=== PATIENT | female | born 1935 | race Caucasian/White ===

== ENCOUNTER 2018-12-10 19:01 | Inpatient (IN) | payer MEDICARE, OTHER ==
--- NOTE | 2018-12-10 19:34 | PDOC ---
Rapid Medical Evaluation Chief Complaint: Weakness Medical Evaluation: Allergies Allergy/AdvReac Type Severity Reaction Status Date / Time No Known Allergies Allergy Verified 03/13/15 16:22 12/10/18 19:29 I have performed a brief in-person evaluation of this patient. The patient presents with a chief complaint of:weakness over last 2 weeks Pertinent physical exam findings: pale/ lethargic I have ordered the following: to be taken into ER for workup;/ The patient will proceed to the ED for further evaluation. 12/10/18 19:30 12/10/18 19:31 Discharge Disposition - Diagnosis Weakness - Referrals Referrals: Lewis Lim MD [Primary Care Provider] - - Patient Instructions - Post Discharge Activity
--- NOTE | 2018-12-10 20:01 | PDOC ---
History of Present Illness <Amina Hathaway - Last Filed: 12/11/18 01:01> - General History Source: Patient, Family Exam Limitations: Language Barrier (Barbadian speaking. Family provided translation. ) - History of Present Illness Initial Comments: HPI: 82 y/o female presenting to [facility] ER complaining of weakness, decreased energy, increased sleepiness, difficulty walking, and decreased PO for the past three days. Pt is Barbadian speaking only. Multiple members of family present at bedside and able to provide translation. Report the pts symptoms have been gradually worsening over the past three days. Endorse dark and loose stool. Denies fevers, chills, nausea/vomiting, SOB, chest pain, or urinary symptoms. Lives in [place], but has been visiting for the past month. Evaluated by Dr. Lim last week and prescribed water pill for leg swelling. Pt takes ASA and Amlodipine for unknown heart problems. Family endorses disorientation and forgetfulness over the past year. PCP: Dr. Lim Medical Hx: - Unknown heart problem - HTN - HLD - Osteoporosis <Fredy Villalba - Last Filed: 12/12/18 12:57> - General Chief Complaint: Weakness Stated Complaint: Weakness Time Seen by Provider: 12/10/18 19:41 Past History <Amina Hathaway - Last Filed: 12/11/18 01:01> - Past Medical History Cardiac Disorders: Yes HTN: Yes Hypercholesterolemia: Yes - Surgical History Cardiac Surgery: Yes - Suicide/Smoking/Psychosocial Hx Smoking History: Never smoked Have you smoked in the past 12 months: No Hx Alcohol Use: No Drug/Substance Use Hx: No Substance Use Type: None <Fredy Villalba - Last Filed: 12/12/18 12:57> - Past Medical History Allergies/Adverse Reactions: Allergies Allergy/AdvReac Type Severity Reaction Status Date / Time No Known Allergies Allergy Verified 03/13/15 16:22 Home Medications: Ambulatory Orders Amlodipine Besylate [Norvasc -] 5 mg PO DAILY 03/13/15 Aspirin [Ecotrin] 81 mg PO DAILY 03/13/15 Atorvastatin Ca [Lipitor] 20 mg PO HS 03/13/15 Diclofenac Sodium 100 mg PO DAILY 03/13/15 Isosorbide Dinitrate [Isordil -] 10 mg PO TID 03/13/15 Losartan Potassium 50 mg PO BID 03/13/15 Metoprolol Succinate [Toprol XL -] 100 mg PO DAILY 03/13/15 Review of Systems - Review of Systems Able to Perform ROS?: Yes Comments:: In addition to that documented in the HPI above, the additional ROS was obtained : Constitutional: Denies fevers or chills Eyes: Denies vision changes ENMT: Denies sore throat CV: Denies chest pain Resp: Denies SOB GI: Denies vomiting or diarrhea. Endorses dark loose stools without bright red blood. : Denies painful urination MSK: Denies recent trauma Skin: Denies new rashes Neuro: Denies new numbness or tingling or weakness Endocrine: Denies polyuria Heme: Denies bleeding or bruising <Fredy Villalba - Last Filed: 12/12/18 12:57> *Physical Exam - Vital Signs Last Vital Signs Temp Pulse Resp BP Pulse Ox 97.8 F 50 L 20 103/45 L 95 12/11/18 00:16 12/11/18 00:16 12/11/18 00:16 12/11/18 00:16 12/11/18 00:16 <Amina Hathaway - Last Filed: 12/11/18 01:01> - Vital Signs Last Vital Signs Temp Pulse Resp BP Pulse Ox 98.1 F 62 20 94/34 L 89 L 12/10/18 19:26 12/10/18 19:26 12/10/18 19:26 12/10/18 19:26 12/10/18 19:26 - Physical Exam Comments: Constitutional: Nontoxic elderly female in no acute distress or obvious discomfort. Found semi-fowlers in hospital bed. Alert and oriented to person. Head: Normocephalic. No obvious external signs of trauma. Eyes: Sclerae white. Conjunctiva moist and not injected. EARS: Hearing grossly intact. NOSE: No nasal discharge. Neck: Supple, trachea is midline. Cardiovascular: Regular rate and regular rhythm. No murmur, rubs, clicks, or gallops. Peripheral pulses: Radial pulses full. Respiratory: Breathing unlabored. Equal chest rise and fall. Clear to auscultation bilaterally. No stridor, no wheezing, no rhonchi. Gastrointestinal: abdomen is tender in RLQ and LLQ without grimace, rebound, or guarding. No pulsatile masses. No overlying skin lesions or obvious signs of trauma. Neuro: Alert and oriented x1. Moving all four extremities spontaneously. Skin: Warm, dry, and intact. No obvious signs of trauma. Psych: Affect: appropriate. Mood: normal. MALE RECTAL: Good sphincter tone with singular external hemorrhoid at 12 o clock position. No active bleeding. Dark stool without domenica blood. Hemoccult card negative. ED Attending and Clinical Care Manager chaperoned exam. <Fredy Villalba - Last Filed: 12/12/18 12:57> Moderate Sedation - Procedure Monitoring Vital Signs: Procedure Monitoring Vital Signs Temperature 97.8 F 12/11/18 00:16 Pulse Rate 50 L 12/11/18 00:16 Respiratory Rate 20 12/11/18 00:16 Blood Pressure 103/45 L 12/11/18 00:16 O2 Sat by Pulse Oximetry (%) 95 12/11/18 00:16 <Amina Hathaway - Last Filed: 12/11/18 01:01> - Procedure Monitoring Vital Signs: Procedure Monitoring Vital Signs Temperature 98.1 F 12/10/18 19:26 Pulse Rate 62 12/10/18 19:26 Respiratory Rate 20 12/10/18 19:26 Blood Pressure 94/34 L 12/10/18 19:26 O2 Sat by Pulse Oximetry (%) 89 L 12/10/18 19:26 <Fredy Villalba - Last Filed: 12/12/18 12:57> ED Treatment Course - LABORATORY CBC & Chemistry Diagram: 12/10/18 20:39 12/10/18 20:39 - ADDITIONAL ORDERS Additional order review: Laboratory Results 12/10/18 12/10/18 12/10/18 22:55 22:55 20:39 PT with INR INR PTT (Actin FS) Sodium Potassium Chloride Carbon Dioxide Anion Gap BUN Creatinine Creat Clearance w eGFR Random Glucose Lactic Acid Calcium Phosphorus Magnesium Total Bilirubin AST ALT Alkaline Phosphatase Troponin I B-Natriuretic Peptide 06427.7 H Total Protein Albumin TSH 1.25 Urine Color Yellow Urine Appearance Slcloudy Urine pH 5.0 Ur Specific [place] 1.018 Urine Protein Negative Urine Glucose (UA) Negative Urine Ketones Negative Urine Blood Negative Urine Nitrite Negative Urine Bilirubin Negative Urine Urobilinogen Negative Ur Leukocyte Esterase Negative Stool Occult Blood Salicylates Acetaminophen Blood Type Antibody Screen 12/10/18 12/10/18 12/10/18 20:39 20:39 20:39 PT with INR 11.00 INR 0.93 PTT (Actin FS) 30.2 Sodium 129 L Potassium 5.5 H Chloride 95 L Carbon Dioxide 22 Anion Gap 12 BUN 96 H Creatinine 4.3 H Creat Clearance w eGFR 9.84 Random Glucose 132 H Lactic Acid 2.5 H* Calcium 8.6 Phosphorus 6.0 H Magnesium 2.1 Total Bilirubin 0.3 AST 14 L ALT 19 Alkaline Phosphatase 83 Troponin I < 0.02 B-Natriuretic Peptide Total Protein 6.7 Albumin 3.4 TSH Urine Color Urine Appearance Urine pH Ur Specific [place] Urine Protein Urine Glucose (UA) Urine Ketones Urine Blood Urine Nitrite Urine Bilirubin Urine Urobilinogen Ur Leukocyte Esterase Stool Occult Blood Salicylates < 1.7 L Acetaminophen 5.9 L Blood Type Antibody Screen 12/10/18 12/10/18 20:39 20:25 PT with INR INR PTT (Actin FS) Sodium Potassium Chloride Carbon Dioxide Anion Gap BUN Creatinine Creat Clearance w eGFR Random Glucose Lactic Acid Calcium Phosphorus Magnesium Total Bilirubin AST ALT Alkaline Phosphatase Troponin I B-Natriuretic Peptide Total Protein Albumin TSH Urine Color Urine Appearance Urine pH Ur Specific [place] Urine Protein Urine Glucose (UA) Urine Ketones Urine Blood Urine Nitrite Urine Bilirubin Urine Urobilinogen Ur Leukocyte Esterase Stool Occult Blood Negative Salicylates Acetaminophen Blood Type O POSITIVE Antibody Screen Negative 12/10/18 20:39 RBC 3.85 MCV 91.5 MCHC 35.1 RDW 13.1 MPV 10.3 Neutrophils % 67.3 Lymphocytes % 24.9 Monocytes % 6.1 Eosinophils % 1.1 Basophils % 0.6 - Medications Given in the ED: ED Medications Discontinued Medications Generic Name Dose Route Start Last Admin Trade Name Khalif PRN Reason Stop Dose Admin Albuterol Sulfate 3 amp 12/10/18 21:54 12/10/18 22:20 Ventolin 0.083% Nebulizer Soln - NEB 12/10/18 21:55 Not Given ONCE ONE Calcium Chloride 1 gm 12/10/18 21:53 12/10/18 22:21 Calcium Chloride 10% - IVPUSH 12/10/18 21:54 1 gm ONCE ONE Administration Dextrose 12.5 gm 12/10/18 22:02 12/10/18 22:20 D50w (Vial) - IVPUSH 12/10/18 22:03 12.5 gm NOW ONE Administration Insulin Human Regular 5 units 12/10/18 22:02 12/10/18 22:20 Novolin R Vial *For Ivpush Or Iv Drip Only* IVPUSH 12/10/18 22:03 5 units ONCE ONE Administration Sodium Bicarbonate 50 meq 12/10/18 21:55 12/10/18 22:20 Sodium Bicarbonate 8.4% - IVPUSH 12/10/18 21:56 Not Given ONCE ONE Sodium Bicarbonate 25 meq 12/10/18 22:01 12/10/18 22:19 Sodium Bicarbonate 8.4% - IVPUSH 12/10/18 22:02 25 meq ONCE ONE Administration - Additional Consults Time Called: 01:01 (Call placed to service for Cardiology electronic gluing machine operator. ) Consult/PCP: Dr. Melgoza <Amina Hathaway - Last Filed: 12/11/18 01:01> - LABORATORY CBC & Chemistry Diagram: 12/11/18 09:50 12/12/18 05:30 - RADIOLOGY Radiograph Interpretation: Non-con Head CT: Josias Jasso MD wrote on Dec 11, 2018 at 12:00 AM: Referring Physician: BISHOP HAWKINS Patient Name: BRAXTON CAAL THIS IS A PRELIMINARY REPORT FROM [facility] DATE OF SERVICE: 2018-12-10 23:31:05 IMAGES: [id number] EXAM: HEAD CT WITHOUT CONTRAST HISTORY: Lethargic COMPARISON: None. FINDINGS: The ventricular system is midline and nondilated. The sulcal pattern is normal for the patient's age. Minimal small vessel ischemic changes are noted. There is no bleed, mass, extra-axial fluid collection or mass effect. No skull fracture or skull lesion is identified. The visualized paranasal sinuses and mastoid air cells are clear. IMPRESSION: No evidence of acute pathology. One or more of the following dose reduction techniques were used: automated exposure control, adjustment of the mA and/or kV according to patient size, use of iterative reconstructive technique. THIS DOCUMENT HAS BEEN ELECTRONICALLY SIGNED Niles Jasso MD 12/10/2018 23:59 EST Non-con Abdominal and Pelvis CT: Josias Jasso MD wrote on Dec 11, 2018 at 12:08 AM: Referring Physician: BISHOP HAWKINS Patient Name: BRAXTON CAAL THIS IS A PRELIMINARY REPORT FROM [facility] DATE OF SERVICE: 2018-12-10 23:39:18 IMAGES: [id number] EXAM: ABDOMEN \T\ PELVIS CT W/O CONTR HISTORY: Right lower quadrant pain and dark stools COMPARISON: None. FINDINGS: There are small bilateral pleural effusions, large on the right with mild compressive atelectasis and minimal pulmonary edema/CHF. The heart is mildly enlarged. Gallbladder is distended, contains stones and there is a small amount of pericholecystic fluid. Cholecystitis is possible. There is minimal perihepatic free fluid. No biliary duct dilation. Normal unenhanced liver, pancreas, spleen, adrenal glands and kidneys. There are multiple borderline dilated loops of small bowel measuring 2.5 cm. This does not appear to represent a bowel obstruction but early ileus is considered. There is mild thickening of the rectal wall with mild surrounding fat stranding suggesting a mild proctitis. No abscess or free air. There is no aortic aneurysm. There is no significant retroperitoneal lymphadenopathy. There is no evidence of appendicitis, although the appendix only questionably visualized. Status post hysterectomy. Urinary bladder is unremarkable. There is no pelvic free fluid. No discrete pelvic lymphadenopathy is identified. Small fat-containing right inguinal hernia is noted. IMPRESSION: Mild CHF with small bilateral pleural effusions, larger on the right Questionable cholecystitis with minimal perihepatic ascites can be followed up with ultrasound. Possible mild proctitis. Possible early ileus. One or more of the following dose reduction techniques were used: automated exposure control, adjustment of the mA and/or kV according to patient size, use of iterative reconstructive technique. THIS DOCUMENT HAS BEEN ELECTRONICALLY SIGNED Niles Jasso MD 12/11/2018 00:06 EST RUQ U/S: Josias Jasso MD wrote on Dec 11, 2018 at 01:09 AM: Referring Physician: BISHOP HAWKINS Patient Name: BRAXTON CAAL THIS IS A PRELIMINARY REPORT FROM [facility] DATE OF SERVICE: 2018-12-11 00:37:15 IMAGES: 41 EXAM: Ultrasound abdomen limited right upper quadrant limited abdominal duplex HISTORY: Possible cholecystitis COMPARISON: None. FINDINGS: Right upper quadrant ultrasound:The liver is normal, without mass or biliary duct dilation. The length of the liver liver on recent CT is 15.6 cm. The gallbladder is distended, contains stones demonstrates wall thickening to 6 mm and pericholecystic free fluid . Findings are highly suspicious for cholecystitis.. The CBD is not dilated and measures6 millimeters in diameter. Right kidney measures 8.8centimeters in length and is unremarkable. Please note that the length of the kidney on the recent CT is 9.4 cm. The visualized aorta and IVC are normal. Pancreas is partially obscured, but appears normal. Abdominal duplex: The main portal vein demonstrates normal hepatopedal flow. IMPRESSION: High suspicion for cholecystitis. THIS DOCUMENT HAS BEEN ELECTRONICALLY SIGNED Niles Jasso MD 12/11/2018 01:08 EST <Fredy Villalba - Last Filed: 12/12/18 12:57> Medical Decision Making - Medical Decision Making *Reviewed vital signs, nursing notes, and prior visit documentation (if available). 82 y/o female presenting with increased fatigue, bilateral lower extremity swelling, abdominal pain, and dark stools. PMH limited, but likely Alzheimers. Receives most of care in [place]. Tender in RLQ and LLQ. CXR remarkable for bilateral pleural effusions per ED wet read. BNP elevated. CMP revealed KATYA versus acute renal failure. No recent prior labs to compare. Concern for cardiorenal syndrome. Hyperkalemia noted. EKG revealed slow a-fib without peaked T waves. Last EKG from 2014 was a sinus rhythm without ectopy. Ordered bicarb, insulin, and D50. Head CT unremarkable for acute intracranial pathology. CT of abdomen and pelvis revealed mild bilateral pleural effusions and possible cholecystitis. Follow up u/s concerning for acute cholecystitis. Started on Unisyn. CBC unremarkable for leukocytosis. No fever or tachycardia. 00:[address] Wei. Verbally appraised of the pts HPI, ED course, and current plan of management. Agreed to admit pt to telemetry. Requested cardiology consultation. 00:55 Telephone page sent to Dr. Ambrosio, audio installer electronic gluing machine operator, for consultation for possible cardiorenal syndrome. 01:[address] Ambrosio. Verbally appraised of the pts HPI, ED course, and current plan of management. No further orders or suggestions provided. RUQ U/S highly suspicious for cholecystitis with wall thickening and pericholecystic fluid. Added on Unisyn. Repeat lactic acid continued to trend upward from initial. Ordered small NS IVFB and 80 of Lasix. Hospitalist Attending requested the lasix be held given kidney functional status. <Fredy Villalba - Last Filed: 12/12/18 12:57> *DC/Admit/Observation/Transfer <Amina Hathaway - Last Filed: 12/11/18 01:01> - Discharge Dispostion Decision to Admit order: Yes <Fredy Villalba - Last Filed: 12/12/18 12:57> Diagnosis at time of Disposition: Weakness, Hyperkalemia Afib Qualifiers: Atrial fibrillation type: persistent Qualified Code(s): I48.1 - Persistent atrial fibrillation CHF (congestive heart failure) Qualifiers: Heart failure type: unspecified Heart failure chronicity: unspecified Qualified Code(s): I50.9 - Heart failure, unspecified Renal failure Qualifiers: Renal failure chronicity: unspecified chronicity Qualified Code(s): N19 - Unspecified kidney failure - Discharge Dispostion Condition at time of disposition: Stable
--- NOTE | 2018-12-10 20:10 | PDOC ---
Attending Attestation - ED Attending Attestation I have performed the following: I have examined & evaluated the patient, The case was reviewed & discussed with the resident, I agree w/resident's findings & plan, Exceptions are as noted - HPI HPI: 12/10/18 20:30 The patient is a 82 year old female with a significant PMH of ACS, HTN, and hypercholesterolemia who presents to the emergency department with dark stool today and generalized weakness for the past 2 weeks. As per the family at bedside, the patient has also been more confused than her baseline. Patient recently came [place] the [place]. Denies any recent surgeries. The patient denies chest pain, shortness of breath, headache and dizziness. Denies fever, chills, nausea, vomit, diarrhea and constipation. Denies dysuria, frequency, urgency and hematuria. Allergies: NKA Past surgical history: None reported. Social history: No reported alcohol, drug or cigarette use. PCP: Dr. Lim - Physicial Exam PE: 12/10/18 20:28 ADULT EXAM GENERAL: Awake, in no acute distress HEAD: No signs of trauma NECK: Normal ROM, supple, no lymphadenopathy, JVD, or masses LUNGS: Breath sounds equal, clear to auscultation bilaterally. No wheezes, and no crackles. Normal work of breathing. HEART: Regular rate and rhythm, normal S1 and S2, no murmurs, rubs or gallops ABDOMEN: Soft, (+) Mild generalized abdominal tenderness. (+) Distended. No guarding, no rebound. No masses. BACK: No midline tenderness. RECTAL EXAM: (+) Stool was scant and black. EXTREMITIES: Normal range of motion, no edema. No clubbing or cyanosis. No erythema, or tenderness NEUROLOGICAL: Alert SKIN: Warm, Dry, normal turgor, no rashes or lesions noted. <Tabatha Moreland - Last Filed: 12/10/18 20:56> - Resident Resident Name: Fredy Villalba - Critical Care Time Total Critical Care Time: 45 Critical Care Statement: The care of this patient involved high complexity decision making to prevent further life threatening deterioration of the patient 's condition and/or to evaluate & treat vital organ system(s) failure or risk of failure. - Medical Decision Making 12/11/18 01:39 82-year-old female recently arrived from [place] with leg swelling and weakness. EKG showed atrial fibrillation with a ventricular rate of 56 bpm with no acute ST elevations. This is changed when compared to previous, which showed a normal sinus rhythm Labs suggest acute kidney injury as well as congestive heart failure. CT scan of the abdomen and pelvis suggested possible cholecystitis which could not be ruled out on right upper quadrant ultrasound Due to patient's acute cardiac/renal diagnoses she will be admitted to medical service with ultrasound follow-up and surgical consultation as needed. Unasyn 3 g IV piggyback given. 500 mL of normal saline IV fluid bolus given as well as Lasix 80 mg IV push. Potassium and sodium levels are improved on repeat labs Impression congestive heart failure. Acute kidney injury. Plan is for admission to hospitalist service 12/11/18 01:48 <Shawanda Jacobsen - Last Filed: 12/11/18 01:48>
[2018-12-10] MEDS ORDERED: DEXTROSE 5%-LACTATED RINGERS 1,000 ML IV SCH (20:15)
[2018-12-10 21:15] LABS: BASO % 0.6 % (0-2.0); EOS % 1.1 % (0-4.5); HEMATOCRIT 35.2 % (32.4-45.2); HEMOGLOBIN 12.4 GM/dL (10.7-15.3); INR 0.93 (0.83-1.09); LYMPH % 24.9 % (8-40); MCH 32.2 pg (25.7-33.7); MCHC 35.1 g/dl (32.0-36.0); MEAN CELL VOLUME 91.5 fl (80-96); MEAN PLT VOLUME 10.3 fl (7.5-11.1); MONO % 6.1 % (3.8-10.2); NEUT % 67.3 % (42.8-82.8); PLATELET COUNT 222 K/MM3 (134-434); RBC 3.85 M/mm3 (3.60-5.2); RDW 13.1 % (11.6-15.6); WHITE BLOOD COUNT 7.8 K/mm3 (4.0-10.0)
[2018-12-10 21:18] LABS: ACTIVATED PTT 30.2 SECONDS (25.2-36.5)
[2018-12-10 21:26] LABS: ALBUMIN 3.4 g/dl (3.4-5.0); ALK PHOS 83 U/L (45-117); ANION GAP 12 MMOL/L (8-16); BILIRUBIN,TOTAL 0.3 mg/dL (0.2-1); BLOOD UREA NITROGEN 96 mg/dL (7-18); CALCIUM 8.6 mg/dL (8.5-10.1); CHLORIDE 95 mmol/L (98-107); CO2 22 mmol/L (21-32); CREATININE 4.3 mg/dL (0.55-1.3); GLUCOSE,RANDOM 132 mg/dL (74-106); MAGNESIUM 2.1 mg/dL (1.8-2.4); POTASSIUM 5.5 mmol/L (3.5-5.1); SGOT/AST 14 U/L (15-37); SGPT/ALT 19 U/L (13-61); SODIUM 129 mmol/L (136-145); TOT PROT 6.7 g/dl (6.4-8.2)
[2018-12-10] MEDS ORDERED: CALCIUM CHLORIDE 1 GM/10 ML *DISP.SYRIN IVPUSH ONE (21:53)
[2018-12-10] MEDS ORDERED: ALBUTEROL SO4 0.083% IH SOL 2.5 MG/3 ML VIAL.NEB. NEB ONE (21:54)
[2018-12-10] MEDS ORDERED: SODIUM BICARBONATE 8.4% 50 MEQ/50 ML DISP.SYRIN IVPUSH ONE ×2 (21:55→22:01)
[2018-12-10] MEDS ORDERED: DEXTROSE 50%-WATER - 25 GM/50 ML VIAL IVPUSH ONE (22:02)
[2018-12-10] MEDS ORDERED: INSULIN REGULAR HUMAN 100 UNITS/ML *VIAL IVPUSH ONE (22:02)
[2018-12-10] MEDS ORDERED: SODIUM BICARBONATE 8.4% - 50 ML ONE (22:05)
[2018-12-10] MEDS ORDERED: DEXTROSE 50%-WATER 25 GM/50 ML DISP.SYRIN ONE (22:05)
[2018-12-10] MEDS ORDERED: INSULIN REGULAR HUMAN 100 UNITS/ML *VIAL ONE (22:06)
[2018-12-10 23:23] LABS: URINE APPEARANCE SLCLOUDY; URINE BILIRUBIN NEGATIVE (<2.0 mg/dL); URINE COLOR YELLOW; URINE GLUCOSE (UA) NEGATIVE (NEGATIVE); URINE KETONE NEGATIVE (NEGATIVE); URINE LEUK ESTERASE NEGATIVE (NEGATIVE); URINE NITRITE NEGATIVE (NEGATIVE); URINE PROTEIN NEGATIVE (NEGATIVE); URINE UROBILINOGEN NEGATIVE mg/dL (0.2-1.0)
[2018-12-11 01:09] LABS: ANION GAP 13 MMOL/L (8-16); BLOOD UREA NITROGEN 94 mg/dL (7-18); CALCIUM 8.6 mg/dL (8.5-10.1); CHLORIDE 98 mmol/L (98-107); CO2 21 mmol/L (21-32); GLUCOSE,RANDOM 70 mg/dL (74-106); POTASSIUM 4.6 mmol/L (3.5-5.1); SODIUM 132 mmol/L (136-145)
[2018-12-11] MEDS ORDERED: AMPICILLIN NA/SULBACTAM NA 3 GM in SODIUM CHLORIDE 100 ML IVPB ONE (01:21)
[2018-12-11] MEDS ORDERED: SODIUM CHLORIDE 0.9% 500 ML INFUS.BAG IV ONE (01:30)
[2018-12-11] MEDS ORDERED: FUROSEMIDE 40 MG/4 ML INJECTABLE VIAL IVPUSH ONE (01:31)
--- NOTE | 2018-12-11 02:18 | HP ---
CHIEF COMPLAINT: generalized weakness PCP: Carina HISTORY OF PRESENT ILLNESS: 82yo [place]ese woman, demented brought in with daughter for generalized weakness and difficulty walking for the past several days to weeks. History is somewhat vague and patient herself does not endorse any complaints. She returned from [place] 4 weeks ago after living there 5 years. ER course was notable for: (1) ekg (2) head ct (3) abd/pelvis ct Recent Travel: returned from [place] 5 weeks ago, lived there 5 years PAST MEDICAL HISTORY: htn, dyslipidemia, CAD, dementia PAST SURGICAL HISTORY: none Social History: Smoking: no Alcohol: no Drugs: no Family History: noncontributory Allergies No Known Allergies Allergy (Verified 03/13/15 16:22) HOME MEDICATIONS: Home Medications Medication Instructions Recorded Amlodipine Besylate [Norvasc -] 5 mg PO DAILY 03/13/15 Aspirin [Ecotrin] 81 mg PO DAILY 03/13/15 Atorvastatin Ca [Lipitor] 20 mg PO HS 03/13/15 Diclofenac Sodium 100 mg PO DAILY 03/13/15 Isosorbide Dinitrate [Isordil -] 10 mg PO TID 03/13/15 Losartan Potassium 50 mg PO BID 03/13/15 Metoprolol Succinate [Toprol XL -] 100 mg PO DAILY 03/13/15 REVIEW OF SYSTEMS CONSTITUTIONAL: Absent: fever, chills, diaphoresis, weight change present- generalized weakness, malaise, loss of appetite, HEENT: Absent: rhinorrhea, nasal congestion, throat pain, throat swelling, difficulty swallowing, mouth swelling, ear pain, eye pain, visual changes CARDIOVASCULAR: Absent: chest pain, syncope, palpitations, lightheadedness, present- irregular heart rate, peripheral edema RESPIRATORY: Absent: cough, orthopnea, wheezing, stridor, hemoptysis present- shortness of breath, dyspnea with exertion, GASTROINTESTINAL: Absent: abdominal pain, abdominal distension, nausea, vomiting, diarrhea, constipation, melena, hematochezia GENITOURINARY: Absent: dysuria, frequency, urgency, hesitancy, hematuria, flank pain, genital pain MUSCULOSKELETAL: Absent: myalgia, arthralgia, joint swelling, back pain, neck pain SKIN: Absent: rash, itching, pallor HEMATOLOGIC/IMMUNOLOGIC: Absent: easy bleeding, easy bruising, lymphadenopathy, frequent infections ENDOCRINE: Absent: unexplained weight gain, unexplained weight loss, heat intolerance, cold intolerance NEUROLOGIC: Absent: headache, focal weakness or paresthesias, dizziness, unsteady gait, seizure, mental status changes, bladder or bowel incontinence PSYCHIATRIC: Absent: anxiety, depression, suicidal or homicidal ideation, hallucinations. PHYSICAL EXAMINATION Vital Signs - 24 hr 12/10/18 12/11/18 19:26 00:16 Temperature 98.1 F 97.8 F Pulse Rate 62 Pulse Rate [ 50 L Left] Respiratory 20 20 Rate Blood Pressure 94/34 L Blood Pressure 103/45 L [Right Arm] O2 Sat by Pulse 89 L 95 Oximetry (%) GENERAL: Awake, alert, and fully oriented, frail, nontoxic appearing HEAD: Normal with no signs of trauma. EYES: Pupils equal, round and reactive to light, extraocular movements intact, sclera anicteric, conjunctiva clear. No lid lag. EARS, NOSE, THROAT: Ears normal, nares patent, oropharynx clear without exudates. Moist mucous membranes. NECK: Normal range of motion, supple without lymphadenopathy, JVD, or masses. LUNGS: Brb/l air entry sounds HEART: irregularly irregular HR, bradycardia ABDOMEN: Soft, nontender, fluid wave+ MUSCULOSKELETAL: Normal range of motion at all joints. No bony deformities or tenderness. No CVA tenderness. UPPER EXTREMITIES: 2+ pulses, warm, well-perfused. No cyanosis. No clubbing. No peripheral edema. LOWER EXTREMITIES: 2+ pedal edema up to knees b/l NEUROLOGICAL: no focal deficits PSYCHIATRIC: dementia SKIN: Warm, dry, normal turgor, no rashes or lesions noted, normal capillary refill. Laboratory Results - last 24 hr 12/10/18 12/10/18 12/10/18 20:25 20:39 20:39 WBC 7.8 RBC 3.85 Hgb 12.4 Hct 35.2 MCV 91.5 MCH 32.2 MCHC 35.1 RDW 13.1 Plt Count 222 D MPV 10.3 Absolute Neuts (auto) 5.2 Neutrophils % 67.3 Lymphocytes % 24.9 Monocytes % 6.1 Eosinophils % 1.1 Basophils % 0.6 Nucleated RBC % 0 PT with INR INR PTT (Actin FS) Sodium Potassium Chloride Carbon Dioxide Anion Gap BUN Creatinine Creat Clearance w eGFR Random Glucose Lactic Acid Calcium Phosphorus Magnesium Total Bilirubin AST ALT Alkaline Phosphatase Troponin I B-Natriuretic Peptide Total Protein Albumin TSH Urine Color Urine Appearance Urine pH Ur Specific [place] Urine Protein Urine Glucose (UA) Urine Ketones Urine Blood Urine Nitrite Urine Bilirubin Urine Urobilinogen Ur Leukocyte Esterase Stool Occult Blood Negative Salicylates Acetaminophen Blood Type O POSITIVE Antibody Screen Negative 12/10/18 12/10/18 12/10/18 20:39 20:39 20:39 WBC RBC Hgb Hct MCV MCH MCHC RDW Plt Count MPV Absolute Neuts (auto) Neutrophils % Lymphocytes % Monocytes % Eosinophils % Basophils % Nucleated RBC % PT with INR 11.00 INR 0.93 PTT (Actin FS) 30.2 Sodium 129 L Potassium 5.5 H Chloride 95 L Carbon Dioxide 22 Anion Gap 12 BUN 96 H Creatinine 4.3 H Creat Clearance w eGFR 9.84 Random Glucose 132 H Lactic Acid 2.5 H* Calcium 8.6 Phosphorus 6.0 H Magnesium 2.1 Total Bilirubin 0.3 AST 14 L ALT 19 Alkaline Phosphatase 83 Troponin I < 0.02 B-Natriuretic Peptide Total Protein 6.7 Albumin 3.4 TSH Urine Color Urine Appearance Urine pH Ur Specific [place] Urine Protein Urine Glucose (UA) Urine Ketones Urine Blood Urine Nitrite Urine Bilirubin Urine Urobilinogen Ur Leukocyte Esterase Stool Occult Blood Salicylates < 1.7 L Acetaminophen 5.9 L Blood Type Antibody Screen 12/10/18 12/10/18 12/10/18 20:39 22:55 22:55 WBC RBC Hgb Hct MCV MCH MCHC RDW Plt Count MPV Absolute Neuts (auto) Neutrophils % Lymphocytes % Monocytes % Eosinophils % Basophils % Nucleated RBC % PT with INR INR PTT (Actin FS) Sodium Potassium Chloride Carbon Dioxide Anion Gap BUN Creatinine Creat Clearance w eGFR Random Glucose Lactic Acid Calcium Phosphorus Magnesium Total Bilirubin AST ALT Alkaline Phosphatase Troponin I B-Natriuretic Peptide 86467.7 H Total Protein Albumin TSH 1.25 Urine Color Yellow Urine Appearance Slcloudy Urine pH 5.0 Ur Specific [place] 1.018 Urine Protein Negative Urine Glucose (UA) Negative Urine Ketones Negative Urine Blood Negative Urine Nitrite Negative Urine Bilirubin Negative Urine Urobilinogen Negative Ur Leukocyte Esterase Negative Stool Occult Blood Salicylates Acetaminophen Blood Type Antibody Screen 12/11/18 12/11/18 00:21 00:30 WBC RBC Hgb Hct MCV MCH MCHC RDW Plt Count MPV Absolute Neuts (auto) Neutrophils % Lymphocytes % Monocytes % Eosinophils % Basophils % Nucleated RBC % PT with INR INR PTT (Actin FS) Sodium 132 L Potassium 4.6 Chloride 98 Carbon Dioxide 21 Anion Gap 13 BUN 94 H Creatinine 4.0 H Creat Clearance w eGFR 10.69 Random Glucose 70 L Lactic Acid 2.9 H* Calcium 8.6 Phosphorus Magnesium Total Bilirubin AST ALT Alkaline Phosphatase Troponin I B-Natriuretic Peptide Total Protein Albumin TSH Urine Color Urine Appearance Urine pH Ur Specific [place] Urine Protein Urine Glucose (UA) Urine Ketones Urine Blood Urine Nitrite Urine Bilirubin Urine Urobilinogen Ur Leukocyte Esterase Stool Occult Blood Salicylates Acetaminophen Blood Type Antibody Screen ekg -reviewed, afib, bradycardia, LVH, no acute ischemic changes CT of abdomen/pelvis, head reviewed- extensive ascities, cholecystitis, head CT with no acute insults CXR-reveiwed- cardiomegally, b/l pulm edema ASSESSMENT/PLAN: #Anasarca - pedal edema, pulm edema, ascities, high BNP - may be from heart failure vs renal failure vs underyling malignancy #New onset afib with bradycardia #CHolecystitis - evident on abdomen/pelvis CT imaging #LActic acidosis - uncertain etiology but may be from hypotension and hypoperfusion, liver insufficiency, vs possible underlying malignancy, may be due to cholecystitis? #Acute renal failure - uncertain etiology prerenal vs NSAID induced? #Hyponatremia #Hyperkalemia #Hypoglycemia - -cardiology, renal, ID, and surgery consults -salt restriciton -1liter daily fluid restriction -avoid unnecessary nephrotoxins -barnard cather -i/o -daily weights -urine lytes -urine cr -echo -cardiac monitoring -avoid anti- htn meds or diuretics due to low BP -repeat lactate -heparin drip for now for new onset afib -send tsh -lower ext duplex to r/o dvt -bedrest -fall precautions -puree diet -DVT ppx - on heparin drip Visit type - Emergency Visit Emergency Visit: Yes ED Registration Date: 12/11/18 Care time: The patient presented to the Emergency Department on the above date and was hospitalized for further evaluation of their emergent condition. - New Patient This patient is new to me today: Yes Date on this admission: 12/11/18 - Critical Care Critical Care patient: No
[2018-12-11] MEDS ORDERED: DEXTROSE 50%-WATER - 25 GM/50 ML VIAL IVPUSH ONE (02:33)
[2018-12-11] MEDS ORDERED: HEPARIN NA (PORCINE) 5,000 UNITS/ML 1ML VIAL IVPUSH PRN ×2 (02:58)
[2018-12-11] MEDS ORDERED: DEXTROSE 50%-WATER 25 GM/50 ML DISP.SYRIN ONE (03:50)
[2018-12-11] MEDS: HEPARIN INFUSION - 25,000 UNITS/500 ML INFUS.BAG IVPB SCH ×2 (04:45→13:06)
--- NOTE | 2018-12-11 10:13 | CONSULT ---
Consult Consult Specialty:: Nephrology Referred by:: Dr Wallace Reason for Consultation:: Acute Kidney Injury - History of Present Illness Chief Complaint: Elevated BUN/ Creatinine and hyperkalemia on presentation History of Present Illness: Pt is an 82 with PMHx of HTN, HLD, CAD, dementia, arrythmias, who presented with SOB and found to be hyperkalemic with elevated BUN/Cr. Pt has been increasingly somnolent (has dementia) with reduced PO intake for the past 2 weeks. Yesterday she was noted to be SOB and holding her chest when she was brought in. She was noted to be desating to the 80s and was placed on NC -2-4L There is associated cough, productive of whitish sputum, dyspnea, on mild exertion and leg swelling. No anuria, hematuria, or dysuria, no polyuria, no kidney stones. Pt returned to from [place] on November 27 after 6 months in [place] and has been receiving health care in both the and [place]. Never been diagnosed with renal dx, not diabetic. 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 Cardio/Vascular: Yes: CAD, HTN - Past Surgical History Past Surgical History: Yes: None - Alcohol/Substance Use Hx Alcohol Use: No - Smoking History Smoking history: Never smoked Have you smoked in the past 12 months: No - Social History Usual Living Arrangement: With Child ADL: Family Assistance 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 History of Recent Travel: Yes (Visiting from [place]) Home Medications - Allergies Allergies/Adverse Reactions: Allergies Allergy/AdvReac Type Severity Reaction Status Date / Time No Known Allergies Allergy Verified 03/13/15 16:22 - Home Medications Home Medications: Ambulatory Orders Amlodipine Besylate [Norvasc -] 5 mg PO DAILY 03/13/15 Aspirin [Ecotrin] 81 mg PO DAILY 03/13/15 Atorvastatin Ca [Lipitor] 20 mg PO HS 03/13/15 Diclofenac Sodium 100 mg PO DAILY 03/13/15 Isosorbide Dinitrate [Isordil -] 10 mg PO TID 03/13/15 Losartan Potassium 50 mg PO BID 03/13/15 Metoprolol Succinate [Toprol XL -] 100 mg PO DAILY 03/13/15 Review of Systems Unable to obtain ROS, reason: patient demented Findings/Remarks: Got some hx from family - Review of Systems Constitutional: reports: Loss of Appetite. denies: Fever HENT: denies: Nasal Congestion Cardiovascular: reports: Edema. denies: Chest Pain Respiratory: reports: Cough, Orthopnea Genitourinary: reports: No Symptoms Neurological: denies: Seizure, Syncope Physical Exam Vital Signs: Vital Signs Temperature 98.0 F 12/11/18 05:04 Pulse Rate 58 L 12/11/18 05:04 Respiratory Rate 20 12/11/18 05:04 Blood Pressure 165/50 L 12/11/18 05:04 O2 Sat by Pulse Oximetry (%) 95 12/11/18 05:04 Constitutional: Yes: No Distress Eyes: Yes: EOM Intact Neck: Yes: Supple Cardiovascular: Yes: Murmur, S1, S2 Respiratory: Yes: Rales Gastrointestinal: Yes: Soft, Abdomen, Obese. No: Tenderness, Epigastrium Edema: LLE: 2+, RLE: 2+ Peripheral Pulses WNL: Yes Neurological: Yes: Alert, Oriented (to person not to time or place) ...Motor Strength: LUE (4/5), LLE (4/5), RUE (5/5), RLE (5/5) Assessment/Plan Ambulatory Orders Amlodipine Besylate [Norvasc -] 5 mg PO DAILY 03/13/15 Aspirin [Ecotrin] 81 mg PO DAILY 03/13/15 Atorvastatin Ca [Lipitor] 20 mg PO HS 03/13/15 Diclofenac Sodium 100 mg PO DAILY 03/13/15 Isosorbide Dinitrate [Isordil -] 10 mg PO TID 03/13/15 Losartan Potassium 50 mg PO BID 03/13/15 Metoprolol Succinate [Toprol XL -] 100 mg PO DAILY 03/13/15 Current Medications Furosemide (Lasix Injection -) 40 mg IVPUSH DAILY HAY Last Admin: 12/11/18 13:05 Dose: 40 mg Heparin Sodium (Porcine) (Heparin -) 1,000 unit IVPUSH PRN PRN PRN Reason: Heparin Heparin Sodium (Porcine) (Heparin -) 5,000 unit IVPUSH PRN PRN PRN Reason: Heparin Dextrose/Lactated Ringer's (D5-Lr -) 1,000 mls @ 0 mls/hr IV ASDIR HAY Last Admin: 12/10/18 21:07 Dose: 1,000 mls/hr Heparin Sodium/Dextrose (Heparin Infusion -) 25,000 units in 500 mls @ 20 mls/ hr IVPB TITR HAY; Protocol Last Admin: 12/11/18 13:06 Dose: 1,100 units/hr, 22 mls/hr Piperacillin Sod/Tazobactam (Sod 2.25 gm/ Dextrose) 50 mls @ 100 mls/hr IVPB Q8H-IV HAY; Protocol Last Admin: 12/11/18 13:05 Dose: 100 mls/hr Pt is an 82 with PMHx of HTN, HLD, CAD, dementia, arrythmias, who presented with SOB and found to be hyperkalemic with elevated BUN/Cr. HLD, CAD, dementia, afib with slow ventricular response cholelithiais with chronic cholecystitis KATYA Hyperkalemia HTN Hypoxia KATYA Baseline Cr- Likely prerenal with fluid overload Received 80mg lasix overnight Can add 40 iv lasix in am and monitor is and outs (strictly) Hoskins (strict ins and outs) Avoid nephrotoxic drugs Pending urine lytes ECHO Cardio on board Hold losartan- with elevated K Cont oxygen therapy as needed Follow cards hyperkalemia resolved- cont to monitor, losartan on hold Fluid restriction <1L/day Salt restriction <2g/day D/W Dr Coley Visit type - Emergency Visit Emergency Visit: Yes ED Registration Date: 12/11/18 Care time: The patient presented to the Emergency Department on the above date and was hospitalized for further evaluation of their emergent condition. - New Patient This patient is new to me today: Yes Date on this admission: 12/11/18 - Critical Care Critical Care patient: No
[2018-12-11 10:20] LABS: BASO % 0.7 % (0-2.0); EOS % 1.8 % (0-4.5); HEMATOCRIT 36.8 % (32.4-45.2); LYMPH % 28.4 % (8-40); MCH 30.2 pg (25.7-33.7); MCHC 32.6 g/dl (32.0-36.0); MEAN CELL VOLUME 92.5 fl (80-96); MEAN PLT VOLUME 10.2 fl (7.5-11.1); MONO % 4.2 % (3.8-10.2); NEUT % 64.9 % (42.8-82.8); PLATELET COUNT 228 K/MM3 (134-434); RBC 3.98 M/mm3 (3.60-5.2); RDW 12.9 % (11.6-15.6); WHITE BLOOD COUNT 10.2 K/mm3 (4.0-10.0)
[2018-12-11 10:42] LABS: POTASSIUM 4.6 mmol/L (3.5-5.1)
[2018-12-11 11:07] LABS: ALBUMIN 3.3 g/dl (3.4-5.0); ALK PHOS 88 U/L (45-117); ANION GAP 12 MMOL/L (8-16); BILIRUBIN,TOTAL 0.4 mg/dL (0.2-1); BLOOD UREA NITROGEN 85 mg/dL (7-18); CALCIUM 8.7 mg/dL (8.5-10.1); CHLORIDE 100 mmol/L (98-107); CHOLESTEROL 107 mg/dL (50-200); CO2 22 mmol/L (21-32); CREATININE 3.1 mg/dL (0.55-1.3); GLUCOSE,RANDOM 100 mg/dL (74-106); MAGNESIUM 2.2 mg/dL (1.8-2.4); POTASSIUM 4.5 mmol/L (3.5-5.1); SGOT/AST 20 U/L (15-37); SGPT/ALT 24 U/L (13-61); SODIUM 134 mmol/L (136-145); TOT PROT 6.5 g/dl (6.4-8.2)
--- NOTE | 2018-12-11 11:39 | CONSULT ---
Consult Consult Specialty:: General Surgery Reason for Consultation:: cholethiasis and chronic cholecystitis - History of Present Illness Chief Complaint: weakness History of Present Illness: 82yo female PMH HTN, HLD, Osteoporosis, dementia brought in with daughter for generalized weakness and difficulty walking for the past several days to weeks. History is somewhat vague and patient herself does not endorse any complaints. She returned from [place] 4 weeks ago after living there [address] scan showed changes consistent with acute cholecystitis confirmed on ultrasound. We were called to assess. 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 History of Recent Travel: Yes (Visiting from [place]) Home Medications - Allergies Allergies/Adverse Reactions: Allergies Allergy/AdvReac Type Severity Reaction Status Date / Time No Known Allergies Allergy Verified 03/13/15 16:22 - Home Medications Home Medications: Ambulatory Orders Amlodipine Besylate [Norvasc -] 5 mg PO DAILY 03/13/15 Aspirin [Ecotrin] 81 mg PO DAILY 03/13/15 Atorvastatin Ca [Lipitor] 20 mg PO HS 03/13/15 Diclofenac Sodium 100 mg PO DAILY 03/13/15 Isosorbide Dinitrate [Isordil -] 10 mg PO TID 03/13/15 Losartan Potassium 50 mg PO BID 03/13/15 Metoprolol Succinate [Toprol XL -] 100 mg PO DAILY 03/13/15 Review of Systems - Review of Systems Constitutional: reports: Loss of Appetite, Weakness. denies: Chills, Fever Eyes: denies: Blind Spots, Recent Change in Vision HENT: denies: Difficult Swallowing, Throat Pain Neck: denies: Pain on Movement, Tenderness Cardiovascular: denies: Palpitations, Shortness of Breath Respiratory: denies: Cough, Hemoptysis Gastrointestinal: reports: Vomiting. denies: Constipation, Diarrhea Genitourinary: denies: Dysuria, Flank Pain Breasts: reports: No Symptoms Reported. denies: Pain Musculoskeletal: denies: Back Pain, Muscle Weakness Integumentary: denies: Change in Color, Pruritis Neurological: reports: Confusion. denies: Syncope, Tremors Endocrine: denies: Unexplained Weight Gain, Unexplained Weight Loss Hematology/Lymphatic: denies: Easily Bruised, Excessive Bleeding Psychiatric: denies: Anxiety, Depression Physical Exam Vital Signs: Vital Signs Temperature 98.0 F 12/11/18 05:04 Pulse Rate 58 L 12/11/18 05:04 Respiratory Rate 20 12/11/18 05:04 Blood Pressure 165/50 L 12/11/18 05:04 O2 Sat by Pulse Oximetry (%) 95 12/11/18 05:04 Constitutional: Yes: Well Nourished, No Distress, Calm, Obese Eyes: Yes: Conjunctiva Clear, EOM Intact HENT: Yes: Atraumatic, Normocephalic Neck: Yes: Supple, Trachea Midline Cardiovascular: Yes: Tachycardia, Pulse Irregular, S1, S2 Respiratory: Yes: Regular, CTA Bilaterally Gastrointestinal: Yes: Normal Bowel Sounds, Soft, Abdomen, Obese. No: Tenderness, Tenderness, Epigastrium, Tenderness, Rebound ...Rectal Exam: Yes: Deferred Renal/: No: CVA Tenderness - Left, CVA Tenderness - Right Musculoskeletal: Yes: Muscle Pain. No: Muscle Weakness Extremities: No: Calf Tenderness, Cool, Cyanosis Edema: Yes Edema: LLE: 2+, RLE: 2+ Peripheral Pulses WNL: Yes Integumentary: No: Bruising, Erythema, Jaundice Neurological: Yes: Alert, Confusion. No: Oriented Psychiatric: Yes: Alert. No: Oriented Labs: CBC, BMP 12/11/18 09:50 12/11/18 09:50 Imaging - Results Chest X-ray: Report Reviewed, Image Reviewed Cat Scan: Report Reviewed (cholelithiasis and thicken GB wall), Image Reviewed Ultrasound: Report Reviewed, Image Reviewed Problem List - Problems (1) Cholecystitis Assessment/Plan: 82 yo female with acute on chronic cholecystitis, she is completely asympomatic despite findings on imaging. Would not consider operative intervention at this time. Medical management optimization NPO and IVF hydration IV antibiotics trend labs transition to heparin in prep for non-operative intervention Cardiology evaluation for General Anesthesia Consider IR for cholecystostomy Thank you for the opportunity to participate in the care of this patient. Code(s): K81.9 - CHOLECYSTITIS, UNSPECIFIED (2) Afib Code(s): I48.91 - UNSPECIFIED ATRIAL FIBRILLATION Qualifiers: Atrial fibrillation type: persistent Qualified Code(s): I48.1 - Persistent atrial fibrillation (3) CHF (congestive heart failure) Code(s): I50.9 - HEART FAILURE, UNSPECIFIED Qualifiers: Heart failure type: unspecified Heart failure chronicity: unspecified Qualified Code(s): I50.9 - Heart failure, unspecified (4) Weakness Code(s): R53.1 - WEAKNESS (5) CAD (coronary artery disease) Code(s): I25.10 - ATHSCL HEART DISEASE OF [place] CORONARY ARTERY W/O ANG PCTRS (6) HTN (hypertension) Code(s): I10 - ESSENTIAL (PRIMARY) HYPERTENSION (7) Hyperlipemia Code(s): E78.5 - HYPERLIPIDEMIA, UNSPECIFIED
--- NOTE | 2018-12-11 11:51 | PN ---
Progress Note, Physician Chief Complaint: patient seen and examined in ER came back from ECHO per daughter she has been feeling very weak not eating much at home in ER found to have in afib with slow ventricular response - Current Medication List Current Medications: Active Medications Heparin Sodium (Porcine) (Heparin -) 1,000 unit IVPUSH PRN PRN PRN Reason: Heparin Heparin Sodium (Porcine) (Heparin -) 5,000 unit IVPUSH PRN PRN PRN Reason: Heparin Dextrose/Lactated Ringer's (D5-Lr -) 1,000 mls @ 0 mls/hr IV ASDIR HAY Last Admin: 12/10/18 21:07 Dose: 1,000 mls/hr Heparin Sodium/Dextrose (Heparin Infusion -) 25,000 units in 500 mls @ 20 mls/ hr IVPB TITR HAY; Protocol Last Admin: 12/11/18 04:45 Dose: 1,000 units/hr, 20 mls/hr - Objective Vital Signs: Vital Signs Temperature 98.0 F 12/11/18 05:04 Pulse Rate 58 L 12/11/18 05:04 Respiratory Rate 20 12/11/18 05:04 Blood Pressure 165/50 L 12/11/18 05:04 O2 Sat by Pulse Oximetry (%) 95 12/11/18 05:04 Constitutional: Yes: Calm Cardiovascular: Yes: Regular Rate and Rhythm, S1, S2 Respiratory: Yes: CTA Bilaterally Gastrointestinal: Yes: Normal Bowel Sounds, Soft Edema: Yes Neurological: Yes: Alert, Oriented Labs: CBC, BMP 12/11/18 09:50 12/11/18 09:50 INR, PTT INR 0.93 (0.83-1.09) 12/10/18 20:39 Problem List - Problems (1) Afib Assessment/Plan: iv heparin cardiology consult tsh is ok echo done report pending Code(s): I48.91 - UNSPECIFIED ATRIAL FIBRILLATION Qualifiers: Atrial fibrillation type: persistent Qualified Code(s): I48.1 - Persistent atrial fibrillation (2) CHF (congestive heart failure) Assessment/Plan: doppler shows no DVT got lasix 80mg today iv alsix monitor lytes and renal function Code(s): I50.9 - HEART FAILURE, UNSPECIFIED Qualifiers: Heart failure type: unspecified Heart failure chronicity: unspecified Qualified Code(s): I50.9 - Heart failure, unspecified (3) Renal failure Assessment/Plan: ct scan shows no abnormalities in kidney buncr is improving renal consult ordered urine lytes orderd Code(s): N19 - UNSPECIFIED KIDNEY FAILURE Qualifiers: Renal failure chronicity: unspecified chronicity Qualified Code(s): N19 - Unspecified kidney failure (4) Weakness Assessment/Plan: PT eval Code(s): R53.1 - WEAKNESS (5) Cholecystitis Assessment/Plan: seen on ct scan surgical consult ordered inc wbc count and elevated lactic acid as well unasyn given ID consult Code(s): K81.9 - CHOLECYSTITIS, UNSPECIFIED (6) Hyperkalemia Assessment/Plan: improved Code(s): E87.5 - HYPERKALEMIA
--- NOTE | 2018-12-11 12:20 | PN ---
Progress Note (short form) - Note Progress Note: ID CONSULT DICTATED CHOLECYSTITIS R/O SEPSIS SECONDARY TO BILIARY TRACT FOCUS RENAL FAILURE LACTIC ACIDOSIS OBTAIN BC EMPIRIC ZOSYN, ADJUSTED FOR RENAL FAILURE
[2018-12-11 12:21] LABS: ACANTHOCYTES 0; ANISOCYTOSIS 0; HELMET CELLS 0; HOWELL-JOLLY BODIES 0; MACROCYTOSIS 0; OVALOCYTE 0; PLATELET ESTIMATE NORMAL; ROULEAU 0; SICKELED CELLS 0; TARGET CELLS 0; TEAR DROP CELLS 0; TOXIC GRANULATION 0
[2018-12-11] MEDS ORDERED: FUROSEMIDE 40 MG/4 ML INJECTABLE VIAL IVPUSH SCH (12:30)
[2018-12-11 12:59] LABS: INR 0.95 (0.83-1.09); PROTHROMBIN TIME (PATIENT) 11.2 SEC (9.7-13.0)
[2018-12-11 13:01] LABS: ACTIVATED PTT 49.4 SECONDS (25.2-36.5)
[2018-12-11] MEDS: PIPERACILLIN/TAZOB 2.25 GM 2.25 GM in DEXTROSE 5%-WATER - 50 ML IVPB SCH ×2 (13:05→18:18)
--- NOTE | 2018-12-11 13:18 | CON.CARD ---
Consult Consult Specialty:: Cardiology Referred by:: Dr. Crabtree Reason for Consultation:: afib - History of Present Illness Chief Complaint: generalized weakness History of Present Illness: 82 year old woman pmh htn, hld, reported CAD, dementia recently travelled from [place] after living there for 5 years brought to ER by her daughter due to complaints of generalized weakness, difficulty with ambulation for a few weeks. pt seen and examined in the er in [facility]. Pt denies any chest pain, sob, palpitations. 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 History of Recent Travel: Yes (Visiting from [place]) Home Medications - Allergies Allergies/Adverse Reactions: Allergies Allergy/AdvReac Type Severity Reaction Status Date / Time No Known Allergies Allergy Verified 03/13/15 16:22 - Home Medications Home Medications: Ambulatory Orders Amlodipine Besylate [Norvasc -] 5 mg PO DAILY 03/13/15 Aspirin [Ecotrin] 81 mg PO DAILY 03/13/15 Atorvastatin Ca [Lipitor] 20 mg PO HS 03/13/15 Diclofenac Sodium 100 mg PO DAILY 03/13/15 Isosorbide Dinitrate [Isordil -] 10 mg PO TID 03/13/15 Losartan Potassium 50 mg PO BID 03/13/15 Metoprolol Succinate [Toprol XL -] 100 mg PO DAILY 03/13/15 Family Disease History - Family Disease History Family History: Denies Review of Systems - Review of Systems Constitutional: reports: Malaise, Weakness Eyes: denies: No Symptoms, Blind Spots, Blurred Vision, Double Vision, Eye Pain , Floaters, Photophobia, Recent Change in Vision, Other HENT: denies: No Symptoms, Difficult Swallowing, Ear Discharge, Ear Pain, Epistaxis, Gingival Bleeding, Hearing Loss, Mouth Swelling, Nasal Congestion, Ocular Prosthesis, Throat Pain, Toothache, Ringing in Ears, Other Neck: denies: No Symptoms, Decreased ROM, Lumps, Pain on Movement, Stiffness, Swollen Glands, Tenderness, Other Gastrointestinal: denies: No Symptoms, Abdominal Pain, Bloating, Constipation, Diarrhea, Dysphagia, Indigestion, Melena, Nausea, Rectal Bleeding, Vomiting, Vomiting Blood, Other Genitourinary: denies: No Symptoms, Burning, Discharge, Dysuria, Flank Pain, Frequency, Hematuria, Incontinence, Lesions, Menses, Pain, Testicular Mass, Testicular Pain, Testicular Swelling, Urgency, Vaginal Bleeding, Other Breasts: denies: No Symptoms Reported, See HPI, Breast Implants, Discharge from Nipple, Lumps, Pain, Skin Changes, Other Musculoskeletal: denies: No Symptoms, Back Pain, Crepitus, Decreased ROM, Extremity Pain, Joint Pain, Joint Swelling, Muscle Pain, Muscle Cramps, Muscle Weakness, Other Integumentary: denies: No Symptoms, Blister, Bruising, Change in Color, Eczema, Erythema, Incision, Lesions, Lump, Pallor, Pruritis, Rash, Wound, Other Neurological: denies: No Symptoms, Change in LOC, Change in Speech, Confusion, Dizziness, Headache, Incoordination, Numbness, Parasthesia, Pre-Existing Deficit , Seizure, Syncope, Tremors, Unsteady Gait, Weakness, Other Endocrine: denies: No Symptoms, Excessive Sweating, Flushing, Increased Hunger, Increased Thirst, Intolerance to Cold, Intolerance to Heat, Unexplained Weight Gain, Unexplained Weight Loss, Other Hematology/Lymphatic: denies: No Symptoms, Easily Bruised, Excessive Bleeding, Swollen Glands, Other Psychiatric: denies: No Symptoms, Altered Sleep Pattern, Anxiety, Depression, Hallucinations, Panic, Paranoia, Suicidal, Other - Risk Factors Known Risk Factors: Yes: Age Vital Signs: Vital Signs Temperature 98.0 F 12/11/18 05:04 Pulse Rate 58 L 12/11/18 05:04 Respiratory Rate 20 12/11/18 05:04 Blood Pressure 165/50 L 12/11/18 05:04 O2 Sat by Pulse Oximetry (%) 95 12/11/18 05:04 Constitutional: Yes: No Distress, Calm Eyes: Yes: Conjunctiva Clear, EOM Intact, PERRL HENT: Yes: Atraumatic, Normocephalic Neck: Yes: Supple, Trachea Midline Respiratory: Yes: Regular, CTA Bilaterally. No: Rales, Rhonchi, Wheezes Gastrointestinal: Yes: Normal Bowel Sounds, Soft. No: Distention, Tenderness Cardiovascular: Yes: Regular Rate and Rhythm. No: Bradycardia, Tachycardia, Pulse Irregular, Gallop, Rub, Varicosities JVD: No Carotid Bruit: No PMI: Non-Displaced Heart Sounds: Yes: S1, S2. No: Split S2, S3, S4, Clicks, Gallop, Rub, Bruit Murmur: No: Systolic Murmur, Diastolic Murmur Musculoskeletal: Yes: WNL Extremities: Yes: WNL Edema: No Peripheral Pulses WNL: Yes Peripheral Pulses: 2+ Left Doralis Pedis, 2+ Right Dorsalis Pedis Neurological: Yes: Alert, Oriented Psychiatric: Yes: Alert, Oriented - Other Data Labs, Other Data: CBC, BMP 12/11/18 09:50 12/11/18 09:50 INR, PTT INR 0.95 (0.83-1.09) 12/11/18 12:30 Troponin, BNP 12/10/18 12/10/18 12/11/18 20:39 22:55 09:50 Troponin I < 0.02 0.02 B-Natriuretic Peptide 92265.7 H Troponin, BNP 12/10/18 12/10/18 12/11/18 20:39 22:55 09:50 Troponin I < 0.02 0.02 B-Natriuretic Peptide 84049.7 H uncertain rhythm, not clearly AFib, appears to be sinus bradycardia with competing junctional rhythm and occasional conducted ps Echo: Pending, Report Reviewed Imaging - Results Chest X-ray: Report Reviewed, Image Reviewed EKG: Report Reviewed, Image Reviewed Other: Report Reviewed, Image Reviewed Assessment/Plan 82 year old woman pmh htn, hld, reported CAD, dementia recently travelled from [place] after living there for 5 years brought to ER by her daughter due to complaints of generalized weakness, difficulty with ambulation for a few weeks. pt seen and examined in the er in [place]. Pt denies any chest pain, sob, palpitations. no pnd, orthopnea, or LE edema Arrhythmia uncertain rhythm, not clearly AFib, appears to be sinus bradycardia with competing junctional rhythm and occasional conducted ps Bradycardic 54bpm on admission ekg Admitted with ARACELI, lactic acidosis, hyperkalemia -attempt to obtain further history from pts daughter if there is any history of afib and other details of CAD -correct volume status and electrolytes -TSH wnl -Tele monitoring and repeat EKGs daily -Hold AV jovan blockers including metoprolol for now -Ok to cont heparin gtt for now however if it is confirmed on repeat ekgs and tele monitoring that this is not Afib but instead junctional rhythm then she does not require anticoaguation. -If she demonstrates clear afib on repeat ekgs or tele will need to discuss risk vs benefits of AC going forward and decide on shelter AC plan
--- NOTE | 2018-12-11 13:25 | CONS ---
DATE OF CONSULTATION: DATE OF DICTATION: 12/11/2018 HISTORY: An 82-year-old female evaluated for acute cholecystitis. She presented to the hospital on December 10, 2018 with a [id number] of worsening generalized weakness, anorexia, and increased lethargy. In the emergency room, the patient was noted to have cough and hypoxemia. A CT scan of the abdomen and pelvis was obtained that showed a distended gallbladder with stones and pericholecystic fluid. There was also evidence of mild prostatitis and possible early ileus. Ultrasound confirmed the presence of gallstones. There was thickening of the gallbladder wall, trace ascites. No intrahepatic duct dilatation seen. Common bile duct was measured 6.2 mm. There are no reports of nausea, vomiting, or diarrhea. Denies fever or chills. PAST MEDICAL HISTORY: Positive for hypertension, hyperlipidemia. ALLERGIES: No known allergies. MEDICATIONS: Norvasc, Ecotrin, Lipitor, Isordil, Toprol. LABORATORY DATA: White count 10.2, hematocrit 36.8, platelet count 228, BUN 94, creatinine 4. Urine leukocyte esterase negative. Lactic acid 2.9. Urinalysis negative. PHYSICAL EXAMINATION: General: She is awake and alert. Supine on the stretcher in the emergency room in no acute distress. Anicteric. Vital Signs: Temperature 98, blood pressure 165/50, pulse 58 and regular, respirations 20 per minute. HEENT: Sclerae anicteric. Heart: Sounds S1, S2. Lungs: Clear bilaterally. Abdomen: Obese. No tenderness elicited. No right upper quadrant tenderness. No suprapubic or flank tenderness. Extremities: Negative for edema. IMPRESSION: 1. Cholelithiasis. 2. Rule out sepsis secondary to biliary tract focus. 3. Renal failure. 4. Lactic acidosis. PLAN: Obtain blood cultures. Surgical evaluation. Empiric antibiotic coverage with Zosyn adjusted for renal failure. Thank you for the kind referral. CAROL MOSHER M.D. [id number]
--- NOTE | 2018-12-11 14:58 | PN ---
Teaching Attending Note Name of Resident: Leatha Chaudhry (Nephrology) ATTENDING PHYSICIAN STATEMENT I saw and evaluated the patient. I reviewed the resident's note and discussed the case with the resident. I agree with the resident's findings and plan as documented. Nephrology Pt is an 82 year old female who was brought to the ER for weakness and fatigue. She is accompanied by family. She is a poor historian. Family says that she has had worsening of her lower ext edema. pmhx cad htn cardiac problems nkda family hx not contrib social hx denies Current Medications Generic Name Dose Route Start Last Admin Trade Name Freq PRN Reason Stop Dose Admin Furosemide 40 mg 12/12/18 10:00 Lasix Injection - IVPUSH DAILY HAY Heparin Sodium (Porcine) 1,000 unit 12/11/18 02:58 Heparin - IVPUSH PRN PRN Heparin Heparin Sodium (Porcine) 5,000 unit 12/11/18 02:58 Heparin - IVPUSH PRN PRN Heparin Dextrose/Lactated Ringer's 1,000 mls @ 0 mls/hr 12/10/18 20:15 12/10/18 21:07 D5-Lr - IV 1,000 mls/hr ASDIR HAY Administration Wide Open Heparin Sodium/Dextrose 25,000 units in 500 mls @ 20 mls/hr 12/11/18 03:00 13:06 Heparin Infusion - IVPB 1,100 units/hr TITR HAY 22 mls/hr Administration Protocol 1,000 UNITS/HR Piperacillin Sod/Tazobactam 50 mls @ 100 mls/hr 12/11/18 12:30 12/11/18 13:05 Sod 2.25 gm/ Dextrose IVPB 100 mls/hr Q8H-IV HAY Administration Protocol Laboratory Tests 03/15/15 12/10/18 12/10/18 08:35 20:39 20:39 WBC 7.8 Potassium 5.5 H Creatinine 0.9 D 4.3 H Urine Protein Urine Blood 12/10/18 12/11/18 12/11/18 22:55 00:30 09:50 WBC 10.2 H Potassium Creatinine 4.0 H Urine Protein Negative Urine Blood Negative 12/11/18 09:50 WBC Potassium Creatinine 3.1 H Urine Protein Urine Blood Last Vital Signs Temp Pulse Resp BP Pulse Ox 98.0 F 58 L 20 165/50 L 95 12/11/18 05:04 12/11/18 05:04 12/11/18 05:04 12/11/18 05:04 12/11/18 05:04 cardio s1s2 pulm rhonci GI soft ext edema neuro awake, confused Impression 1. KATYA 2. a-fib 3. hyperkalemia 4. htn 5. hypoxia 6. dementia 7. cad 8. hld 9. plueral effusions 10. chf Plan - renal function is improving - cont with lasix - ua neg for blood or protein - check echo - follow moustapha Coley
--- NOTE | 2018-12-11 17:00 | ECHO ---
Name: CAAL BRAXTON Exam:Adult Echocardiogram Study Date: 12/11/2018 10:29 AM Age: 82 yrs Reason For Study: CHF Height: 60 in Weight: 160 lb BSA: 1.7 m2 MMode/2D Measurements & Calculations IVSd: 1.0 cm Ao root diam: 2.5 cm LVIDd: 4.4 cm LA dimension: 4.2 cm LVIDs: 2.7 cm LVPWd: 0.84 cm EDV(Teich): 86.9 ml LVOT diam: 2.0 cm ESV(Teich): 26.0 ml TAPSE: 1.9 cm Doppler Measurements & Calculations Ao V2 max: 260.6 cm/sec TR max braden: 310.2 cm/sec Ao max P.2 mmHg TR max P.7 mmHg Ao V2 mean: 185.9 cm/sec RVSP(TR): 43.7 mmHg Ao mean P.1 mmHg Ao V2 VTI: 55.6 cm Med Peak E' Braden: 5.9 cm/sec RAP systole: 5.0 mmHg Lat Peak E' Braden: 6.4 cm/sec Left Ventricle Normal LV size and function. Ejection Fraction = 65%. Left Ventricular Filling pattern is normal for age. Right Ventricle Normal RV size and function. Atria Normal left and right atrial size and function. Mitral Valve The mitral valve leaflets appear normal. There is no evidence of stenosis, fluttering, or prolapse. T here is mild mitral regurgitation. Tricuspid Valve The tricuspid valve is normal. There is mild tricuspid regurgitation. Aortic Valve Fibrocalcific changes of the aortic valve without aortic stenosis. Pulmonic Valve The pulmonic valve leaflets are thin and pliable; valve motion is normal. Great Vessels The aortic root is normal size. Interpretation Summary pt confused / combative. had to terminate study Normal LV size and function. Ejection Fraction = 65%. Normal RV size and function. Normal left and right atrial size and function. The mitral valve leaflets appear normal. There is no evidence of stenosis, fluttering, or prolapse. There is mild mitral regurgitation. There is mild tricuspid regurgitation. Fibrocalcific changes of the aortic valve without aortic stenosis. The pulmonic valve leaflets are thin and pliable; valve motion is normal. The aortic root is normal size. MD Kevin Tomlin 12/11/2018 04:59 PM
[2018-12-11 18:05] LABS: URINE APPEARANCE CLEAR; URINE BILIRUBIN NEGATIVE (<2.0 mg/dL); URINE COLOR STRAW; URINE GLUCOSE (UA) NEGATIVE (NEGATIVE); URINE KETONE NEGATIVE (NEGATIVE); URINE LEUK ESTERASE TRACE (NEGATIVE); URINE NITRITE NEGATIVE (NEGATIVE); URINE PROTEIN NEGATIVE (NEGATIVE); URINE UROBILINOGEN NEGATIVE mg/dL (0.2-1.0)
--- NOTE | 2018-12-11 18:14 | EKG ---
Test Reason : Blood Pressure : / mmHG Vent. Rate : 056 BPM Atrial Rate : 042 BPM P-R Int : 000 ms QRS Dur : 090 ms QT Int : 414 ms P-R-T Axes : 000 014 068 degrees QTc Int : 399 ms MARKED SINUS BRADYCARDIA WITH A COMPETING JUNCTIONAL PACEMAKER ABNORMAL ECG Confirmed by MD GEORGE, WARREN ([id number]) on 12/11/2018 6:13:49 PM Referred By: Confirmed By:WARREN VAZQUEZ MD
[2018-12-11 18:17] LABS: EPI CELLS RARE /HPF (FEW); URINE BACTERIA RARE /hpf (NONE SEEN); URINE MUCUS RARE
[2018-12-11 20:58] LABS: INR 0.97 (0.83-1.09); PROTHROMBIN TIME (PATIENT) 11.5 SEC (9.7-13.0)
[2018-12-11 21:01] LABS: ACTIVATED PTT 59.9 SECONDS (25.2-36.5)
[2018-12-11 22:01] VITALS: BMI 30.7
[2018-12-12] MEDS: PIPERACILLIN/TAZOB 2.25 GM 2.25 GM in DEXTROSE 5%-WATER - 50 ML IVPB SCH ×3 (02:09→17:50)
[2018-12-12] MEDS ORDERED: HALOPERIDOL LACTATE 5 MG/ML IM ONE (02:53)
[2018-12-12] MEDS: HEPARIN INFUSION - 25,000 UNITS/500 ML INFUS.BAG IVPB SCH (03:10)
[2018-12-12 07:10] LABS: ALBUMIN 3.5 g/dl (3.4-5.0); ALK PHOS 90 U/L (45-117); ANION GAP 6 MMOL/L (8-16); BILIRUBIN,TOTAL 0.5 mg/dL (0.2-1); BLOOD UREA NITROGEN 63 mg/dL (7-18); CALCIUM 9.4 mg/dL (8.5-10.1); CHLORIDE 103 mmol/L (98-107); CO2 28 mmol/L (21-32); CREATININE 2.1 mg/dL (0.55-1.3); GLUCOSE,RANDOM 88 mg/dL (74-106); POTASSIUM 3.9 mmol/L (3.5-5.1); SGOT/AST 19 U/L (15-37); SGPT/ALT 22 U/L (13-61); SODIUM 137 mmol/L (136-145)
--- NOTE | 2018-12-12 09:25 | PN ---
Progress Note, Physician - Current Medication List Current Medications: Active Medications Furosemide (Lasix Injection -) 40 mg IVPUSH DAILY [facility] Heparin Sodium (Porcine) (Heparin -) 1,000 unit IVPUSH PRN PRN PRN Reason: Heparin Heparin Sodium (Porcine) (Heparin -) 5,000 unit IVPUSH PRN PRN PRN Reason: Heparin Dextrose/Lactated Ringer's (D5-Lr -) 1,000 mls @ 0 mls/hr IV ASDIR HAY Last Admin: 12/10/18 21:07 Dose: 1,000 mls/hr Heparin Sodium/Dextrose (Heparin Infusion -) 25,000 units in 500 mls @ 20 mls/ hr IVPB TITR HAY; Protocol Last Admin: 12/12/18 03:10 Dose: Not Given Piperacillin Sod/Tazobactam (Sod 2.25 gm/ Dextrose) 50 mls @ 100 mls/hr IVPB Q8H-IV HAY; Protocol Last Admin: 12/12/18 02:09 Dose: 100 mls/hr - Objective Vital Signs: Vital Signs Temperature 98.8 F 12/12/18 06:00 Pulse Rate 90 12/12/18 06:00 Respiratory Rate 16 12/12/18 06:00 Blood Pressure 111/42 L 12/12/18 06:00 O2 Sat by Pulse Oximetry (%) 93 L 12/11/18 21:51 Labs: CBC, BMP 12/11/18 09:50 12/12/18 05:30 INR, PTT INR 0.97 (0.83-1.09) 12/11/18 20:40 Assessment/Plan - Problems (1) Afib Assessment/Plan: iv heparin cardiology consult tsh is ok echo done report pending Code(s): I48.91 - UNSPECIFIED ATRIAL FIBRILLATION Qualifiers: Atrial fibrillation type: persistent Qualified Code(s): I48.1 - Persistent atrial fibrillation (2) CHF (congestive heart failure) Assessment/Plan: doppler shows no DVT iv Lasix monitor lytes and renal function Code(s): I50.9 - HEART FAILURE, UNSPECIFIED Qualifiers: Heart failure type: unspecified Heart failure chronicity: unspecified Qualified Code(s): I50.9 - Heart failure, unspecified (3) Renal failure Assessment/Plan: ct scan shows no abnormalities in kidney bun cr is improving renal consult ordered urine lytes ordered Code(s): N19 - UNSPECIFIED KIDNEY FAILURE Qualifiers: Renal failure chronicity: unspecified chronicity Qualified Code(s): N19 - Unspecified kidney failure (4) Weakness Assessment/Plan: PT eval Code(s): R53.1 - WEAKNESS (5) Cholecystitis Assessment/Plan: seen on ct scan surgical consult ordered inc wbc count and elevated lactic acid as well unasyn given ID consult Code(s): K81.9 - CHOLECYSTITIS, UNSPECIFIED (6) Hyperkalemia Assessment/Plan: improved Code(s): E87.5 - HYPERKALEMIA
--- NOTE | 2018-12-12 09:26 | PN ---
Progress Note, Physician Chief Complaint: Pt appears to have been more confused and agitated. Did not get a barnard for strict ins and outs. Unable to communicate complaints. by the side. Pt on diaper hard to assess ins and outs. - Current Medication List Current Medications: Active Medications Furosemide (Lasix Injection -) 40 mg IVPUSH DAILY [facility] Heparin Sodium (Porcine) (Heparin -) 1,000 unit IVPUSH PRN PRN PRN Reason: Heparin Heparin Sodium (Porcine) (Heparin -) 5,000 unit IVPUSH PRN PRN PRN Reason: Heparin Dextrose/Lactated Ringer's (D5-Lr -) 1,000 mls @ 0 mls/hr IV ASDIR HAY Last Admin: 12/10/18 21:07 Dose: 1,000 mls/hr Heparin Sodium/Dextrose (Heparin Infusion -) 25,000 units in 500 mls @ 20 mls/ hr IVPB TITR HAY; Protocol Last Admin: 12/12/18 03:10 Dose: Not Given Piperacillin Sod/Tazobactam (Sod 2.25 gm/ Dextrose) 50 mls @ 100 mls/hr IVPB Q8H-IV HAY; Protocol Last Admin: 12/12/18 02:09 Dose: 100 mls/hr - Objective Vital Signs: Vital Signs Temperature 98.8 F 12/12/18 06:00 Pulse Rate 90 12/12/18 06:00 Respiratory Rate 16 12/12/18 06:00 Blood Pressure 111/42 L 12/12/18 06:00 O2 Sat by Pulse Oximetry (%) 93 L 12/11/18 21:51 Constitutional: Yes: No Distress HENT: Yes: Atraumatic Neck: Yes: Supple Cardiovascular: Yes: S1, S2 Respiratory: Yes: CTA Bilaterally. No: Rales, Rhonchi Edema: No Peripheral Pulses WNL: Yes Neurological: Yes: Confusion. No: Dysarthria, Facial Droop Psychiatric: Yes: Agitated Labs: CBC, BMP 12/11/18 09:50 12/12/18 05:30 INR, PTT INR 0.97 (0.83-1.09) 12/11/18 20:40 - ....Imaging Other: Report Reviewed, Other (ECHO:) Impression/Plan Impression/Plan: Pt is an 82 with PMHx of HTN, HLD, CAD, dementia, arrythmias, who presented with SOB and found to be hyperkalemic with elevated BUN/Cr. HLD CAD dementia agitation bradycardia with unclear rhythm cholelithiais with chronic cholecystitis KATYA Hyperkalemia HTN Hypoxia KATYA Cr improving Likely prerenal with fluid overload, improved with diuresis but calculated FeNa -2.5% Received 80mg lasix overnight Overload improving, cont iv lasix 40mg Also US shows new dilated R renal pelvis (no hydronephrosis)- with likely post renal component Pt refusing to void in diaper, encourage use of commode, D/W nurse Monitor ins and outs Avoid nephrotoxic drugs ECHO- report reviewed, Follow cards recommendation Hold losartan- with elevated K Pt off oxygen therapy hyperkalemia resolved- cont to monitor, losartan on hold Fluid restriction <1L/day Salt restriction <2g/day Rest as per primary team D/W Dr Coley Visit type - Emergency Visit Emergency Visit: Yes ED Registration Date: 12/11/18 Care time: The patient presented to the Emergency Department on the above date and was hospitalized for further evaluation of their emergent condition. - New Patient This patient is new to me today: No - Critical Care Critical Care patient: No - Discharge Referral Referred to [facility] Med [facility] No
[2018-12-12] MEDS: FUROSEMIDE 40 MG/4 ML INJECTABLE VIAL IVPUSH SCH (09:56)
[2018-12-12] MEDS ORDERED: DEXTROSE 5%-WATER - 50 ML IVPB ONE ×2 (09:58→15:13)
[2018-12-12] MEDS ORDERED: PIPERACILLIN/TAZOBACTAM 2.25 GM VIAL IVPB ONE ×2 (09:58→15:13)
[2018-12-12] MEDS ORDERED: PT OWN MED DRAWER 7, Y5N ONE (10:27)
--- NOTE | 2018-12-12 12:08 | PN ---
Teaching Attending Note Name of Resident: Leatha Chaudhry (Nephrology) ATTENDING PHYSICIAN STATEMENT I saw and evaluated the patient. I reviewed the resident's note and discussed the case with the resident. I agree with the resident's findings and plan as documented. Renal Pt seen and examined at bedside. Volume status improved. She refused barnard. She wants to get out of bed to go to the bathroom. Current Medications Generic Name Dose Route Start Last Admin Trade Name Freq PRN Reason Stop Dose Admin Furosemide 40 mg 12/12/18 10:00 12/12/18 09:56 Lasix Injection - IVPUSH 40 mg DAILY HAY Administration Heparin Sodium (Porcine) 1,000 unit 12/11/18 02:58 Heparin - IVPUSH PRN PRN Heparin Heparin Sodium (Porcine) 5,000 unit 12/11/18 02:58 Heparin - IVPUSH PRN PRN Heparin Dextrose/Lactated Ringer's 1,000 mls @ 0 mls/hr 12/10/18 20:15 12/10/18 21:07 D5-Lr - IV 1,000 mls/hr ASDIR HAY Administration Wide Open Heparin Sodium/Dextrose 25,000 units in 500 mls @ 20 mls/hr 12/11/18 03:00 03:10 Heparin Infusion - IVPB Not Given TITR HAY Protocol 1,000 UNITS/HR Piperacillin Sod/Tazobactam 50 mls @ 100 mls/hr 12/11/18 12:30 12/12/18 09:59 Sod 2.25 gm/ Dextrose IVPB 100 mls/hr Q8H-IV HAY Administration Protocol Influenza Virus Vaccine Quadrival 60 mcg 12/12/18 14:00 Flulaval Quad [id number] IM 12/12/18 14:01 .ONCE ONE Pneumococcal 13-Valent Conj Vacc 0.5 ml 12/12/18 14:00 Prevnar 13 Syringe - IM 12/12/18 14:01 .ONCE ONE Laboratory Tests 12/11/18 12/12/18 17:30 05:30 Creatinine 2.1 H Urine Protein Negative Urine Blood Negative Last Vital Signs Temp Pulse Resp BP Pulse Ox 98.8 F 90 16 111/42 L 93 L 12/12/18 06:00 12/12/18 06:00 12/12/18 06:00 12/12/18 06:00 12/11/18 21:51 cardio s1s2 pulm rhonci GI soft ext edema neuro awake, confused Impression 1. KATYA 2. a-fib 3. hyperkalemia 4. htn 5. hypoxia 6. dementia 7. cad 8. hld 9. plueral effusions 10. chf Plan - renal function continus to improve - pt refused barnard - cont lasix - volume status is improved - ua neg for blood or protein - check echo
[2018-12-12] MEDS ORDERED: FLU VACCINE QUAD 60 MCG/0.5 ML (MDV 18-19) IM ONE (14:00)
[2018-12-12] MEDS ORDERED: PNEUMOC 13-VAL CONJ-DIP CRM/PF 0.5 ML DISP.SYRIN IM ONE (14:00)
--- NOTE | 2018-12-12 14:25 | EKG ---
Test Reason : Blood Pressure : / mmHG Vent. Rate : 099 BPM Atrial Rate : 099 BPM P-R Int : 156 ms QRS Dur : 084 ms QT Int : 372 ms P-R-T Axes : 056 -17 096 degrees QTc Int : 477 ms NORMAL SINUS RHYTHM POSSIBLE LEFT ATRIAL ENLARGEMENT PROLONGED QT ABNORMAL ECG WHEN COMPARED WITH ECG OF 10-DEC-2018 20:50, SIGNIFICANT CHANGES HAVE OCCURRED Confirmed by PORTIA RODRIGUEZ, BROCK ([id number]) on 12/12/2018 2:25:07 PM Referred By: YAMIL WINSLOW DR Confirmed By:BROCK PEARCE MD
[2018-12-12] MEDS ORDERED: HEMOQUE TEST 1 EACH EACH ONE (15:13)
--- NOTE | 2018-12-12 16:14 | PN ---
Progress Note, Physician Chief Complaint: Offers no complaints History of Present Illness: 82 year old woman pmh htn, hld, reported CAD, dementia recently travelled from [place] after living there for 5 years brought to ER by her daughter due to complaints of generalized weakness, difficulty with ambulation for a few weeks. pt seen and examined in the er in nad. Pt denies any chest pain, sob, palpitations. no pnd, orthopnea, or LE edema - Current Medication List Current Medications: Active Medications Furosemide (Lasix Injection -) 40 mg IVPUSH DAILY [facility] Last Admin: 12/12/18 09:56 Dose: 40 mg Heparin Sodium (Porcine) (Heparin -) 1,000 unit IVPUSH PRN PRN PRN Reason: Heparin Heparin Sodium (Porcine) (Heparin -) 5,000 unit IVPUSH PRN PRN PRN Reason: Heparin Dextrose/Lactated Ringer's (D5-Lr -) 1,000 mls @ 0 mls/hr IV ASDIR HAY Last Admin: 12/10/18 21:07 Dose: 1,000 mls/hr Piperacillin Sod/Tazobactam (Sod 2.25 gm/ Dextrose) 50 mls @ 100 mls/hr IVPB Q8H-IV HAY; Protocol Last Admin: 12/12/18 09:59 Dose: 100 mls/hr - Objective Vital Signs: Vital Signs Temperature 98.1 F 12/12/18 14:00 Pulse Rate 119 H 12/12/18 14:00 Respiratory Rate 16 12/12/18 14:00 Blood Pressure 155/50 L 12/12/18 14:00 O2 Sat by Pulse Oximetry (%) 96 12/12/18 09:00 Constitutional: Yes: No Distress Eyes: Yes: WNL HENT: Yes: WNL Neck: Yes: WNL Cardiovascular: Yes: Regular Rate and Rhythm (NL S1` S2 1/6 NAIN RUSB) Respiratory: Yes: CTA Bilaterally Gastrointestinal: Yes: Soft Edema: No Neurological: Yes: Confusion Labs: CBC, BMP 12/11/18 09:50 12/12/18 05:30 INR, PTT INR 0.97 (0.83-1.09) 12/11/18 20:40 Assessment/Plan 82 year old woman pmh htn, hld, reported CAD, dementia recently travelled from [place] after living there for 5 years brought to ER by her daughter due to complaints of generalized weakness, difficulty with ambulation for a few weeks. pt seen and examined in the er in nad. Pt denies any chest pain, sob, palpitations. no pnd, orthopnea, or LE edema Arrhythmia EKG and telem monitor clearly shows P-wave No evidence for AFIB Will D/C Heparin Does not appear to need more diuresis Call us PRN
[2018-12-13] MEDS ORDERED: PIPERACILLIN/TAZOBACTAM 2.25 GM VIAL IVPB ONE ×4 (01:18→23:53)
[2018-12-13] MEDS ORDERED: DEXTROSE 5%-WATER - 50 ML IVPB ONE ×4 (01:18→23:53)
[2018-12-13] MEDS: PIPERACILLIN/TAZOB 2.25 GM 2.25 GM in DEXTROSE 5%-WATER - 50 ML IVPB SCH ×3 (01:23→18:00)
[2018-12-13 08:05] LABS: BASO % 0.4 % (0-2.0); EOS % 2.7 % (0-4.5); HEMATOCRIT 42.3 % (32.4-45.2); HEMOGLOBIN 14.5 GM/dL (10.7-15.3); LYMPH % 10.4 % (8-40); MCH 31.8 pg (25.7-33.7); MCHC 34.2 g/dl (32.0-36.0); MEAN CELL VOLUME 92.8 fl (80-96); MEAN PLT VOLUME 9.3 fl (7.5-11.1); MONO % 5.2 % (3.8-10.2); NEUT % 81.3 % (42.8-82.8); PLATELET COUNT 238 K/MM3 (134-434); RBC 4.56 M/mm3 (3.60-5.2); RDW 13.2 % (11.6-15.6)
[2018-12-13 08:47] LABS: ALBUMIN 3.7 g/dl (3.4-5.0); ALK PHOS 94 U/L (45-117); ANION GAP 10 MMOL/L (8-16); BILIRUBIN,TOTAL 0.6 mg/dL (0.2-1); BLOOD UREA NITROGEN 37 mg/dL (7-18); CALCIUM 10.2 mg/dL (8.5-10.1); CHLORIDE 102 mmol/L (98-107); CO2 31 mmol/L (21-32); CREATININE 1.6 mg/dL (0.55-1.3); GLUCOSE,RANDOM 103 mg/dL (74-106); MAGNESIUM 1.7 mg/dL (1.8-2.4); PHOSPHOROUS 3.9 mg/dL (2.5-4.9); POTASSIUM 3.7 mmol/L (3.5-5.1); SGOT/AST 18 U/L (15-37); SGPT/ALT 22 U/L (13-61); SODIUM 143 mmol/L (136-145); TOT PROT 7.6 g/dl (6.4-8.2)
[2018-12-13] MEDS ORDERED: MAGNESIUM SULF 50% (8.12 MEQ/2 ML-1 GM VIAL) IVPB ONE (10:17)
--- NOTE | 2018-12-13 10:59 | PN ---
Physical Exam: SUBJECTIVE: Patient seen and examined. Still appears a bit confused. Started using bed childs. Heparin was stopped yesterday, repeat EKG showed SR. OBJECTIVE: Vital Signs Period Temp Pulse Resp BP Sys/Dominguez Pulse Ox Last 24 Hr 98.1 F-98.5 F 99-119 16- 123-155/50-69 96-96 Vital Signs Temp 98.5 F 12/13/18 06:00 Pulse 102 H 12/13/18 06:00 Resp 18 12/13/18 06:00 BP 142/67 12/13/18 06:00 Pulse Ox 96 12/13/18 09:00 Intake & Output 12/12/18 12/12/18 12/13/18 11:59 23:59 11:59 Intake Total 290 380 50 Balance 290 380 50 Weight 71.469 kg 65.785 kg Intake: IV 240 160 HEPARIN INFUSION - 25,000 240 160 units In 500 ml @ 1,000 UNITS/HR 20 mls/hr IVPB TITR HAY Rx#:[id number] IVPB 50 100 50 Oral 120 Other: Voiding Method Diaper Diaper Diaper # Unmeasured Voids Void 3 4 1 Bowel Movement No No Weight Measurement Method Built in Bedscale GENERAL: The patient is awake, alert, and fully oriented, in no acute distress. On NC this am NECK: full range of motion, supple. LUNGS: Breath sounds equal, few crackles HEART: Regular rate and rhythm, S1, S2 without murmur, rub or gallop. ABDOMEN: Soft, nontender, nondistended, normoactive bowel sounds, no guarding EXTREMITIES: 2+ pulses, warm, well-perfused, no edema. NEUROLOGICAL: Confused, able to move all extremities, strength 5/5 globally, no facial asymmetry CBC, BMP 12/13/18 07:48 12/13/18 07:48 Laboratory Results - last 24 hr 12/13/18 12/13/18 12/13/18 07:48 07:48 09:05 WBC 10.0 RBC 4.56 Hgb 14.5 Hct 42.3 MCV 92.8 MCH 31.8 MCHC 34.2 RDW 13.2 Plt Count 238 MPV 9.3 Absolute Neuts (auto) 8.1 H Neutrophils % 81.3 D Lymphocytes % 10.4 D Monocytes % 5.2 Eosinophils % 2.7 Basophils % 0.4 Nucleated RBC % 0 PTT (Actin FS) 31.4 Sodium 143 Potassium 3.7 Chloride 102 Carbon Dioxide 31 Anion Gap 10 BUN 37 H Creatinine 1.6 H Creat Clearance w eGFR 30.78 Random Glucose 103 Calcium 10.2 H Phosphorus 3.9 Magnesium 1.7 L Total Bilirubin 0.6 AST 18 ALT 22 Alkaline Phosphatase 94 Total Protein 7.6 Albumin 3.7 Active Medications Generic Name Dose Route Start Last Admin Trade Name Freq PRN Reason Stop Dose Admin Furosemide 40 mg 12/12/18 10:00 12/12/18 09:56 Lasix Injection - IVPUSH 40 mg DAILY HAY Administration Heparin Sodium (Porcine) 1,000 unit 12/11/18 02:58 Heparin - IVPUSH PRN PRN Heparin Heparin Sodium (Porcine) 5,000 unit 12/11/18 02:58 Heparin - IVPUSH PRN PRN Heparin Dextrose/Lactated Ringer's 1,000 mls @ 0 mls/hr 12/10/18 20:15 12/10/18 21:07 D5-Lr - IV 1,000 mls/hr ASDIR HAY Administration Wide Open Piperacillin Sod/Tazobactam 50 mls @ 100 mls/hr 12/11/18 12:30 12/13/18 01:23 Sod 2.25 gm/ Dextrose IVPB 100 mls/hr Q8H-IV HAY Administration Protocol ASSESSMENT/PLAN: Pt is an 82yo with PMHx of HTN, HLD, CAD, dementia, arrythmias, who presented with SOB and found to be hyperkalemic with elevated BUN/Cr. HLD CAD dementia agitation Now with sinus rhythm cholelithiais with chronic cholecystitis KATYA Hyperkalemia HTN Hypoxia Hypomagnesemia KATYA Cr improving 1.6 this am Hperkalemia- resolved, losartan on hold Likely prerenal with fluid overload, improved with diuresis but calculated FeNa -2.5% Received 80mg lasix on admission Consider reducing diuretic dose Also US shows new dilated R renal pelvis (no hydronephrosis)- with likely post renal component Pt using bedpan Monitor ins and outs Avoid nephrotoxic drugs ECHO- report reviewed, Follow cards recommendation- heparin stopped Supplemental oxygen as needed Fluid restriction <1L/day Salt restriction <2g/day Magnesium sulphate 2g iv Rest as per primary team Visit type - Emergency Visit Emergency Visit: Yes ED Registration Date: 12/11/18 Care time: The patient presented to the Emergency Department on the above date and was hospitalized for further evaluation of their emergent condition. - New Patient This patient is new to me today: No - Critical Care Critical Care patient: No - Discharge Referral Referred to [facility] No
[2018-12-13] MEDS: FUROSEMIDE 40 MG/4 ML INJECTABLE VIAL IVPUSH SCH (11:51)
--- NOTE | 2018-12-13 12:04 | PN ---
Progress Note, Physician Chief Complaint: patient seen she is awake alert feeling tired did not sleep well last night heparin drip stopped per cardiology - Current Medication List Current Medications: Active Medications Furosemide (Lasix Injection -) 40 mg IVPUSH DAILY HAY Last Admin: 12/13/18 11:51 Dose: 40 mg Dextrose/Lactated Ringer's (D5-Lr -) 1,000 mls @ 0 mls/hr IV ASDIR HAY Last Admin: 12/10/18 21:07 Dose: 1,000 mls/hr Piperacillin Sod/Tazobactam (Sod 2.25 gm/ Dextrose) 50 mls @ 100 mls/hr IVPB Q8H-IV HAY; Protocol Last Admin: 12/13/18 11:52 Dose: 100 mls/hr - Objective Vital Signs: Vital Signs Temperature 98.5 F 12/13/18 06:00 Pulse Rate 102 H 12/13/18 06:00 Respiratory Rate 18 12/13/18 06:00 Blood Pressure 142/67 12/13/18 06:00 O2 Sat by Pulse Oximetry (%) 96 12/13/18 09:00 Constitutional: Yes: Calm Cardiovascular: Yes: Regular Rate and Rhythm, S1, S2 Respiratory: Yes: CTA Bilaterally Gastrointestinal: Yes: Normal Bowel Sounds, Soft Edema: No Neurological: Yes: Alert, Oriented Labs: CBC, BMP 12/13/18 07:48 12/13/18 07:48 INR, PTT INR 0.97 (0.83-1.09) 12/11/18 20:40 Problem List - Problems (1) Afib Assessment/Plan: iv heparin stopped cardiology consult noted tsh is ok echo done ejection fraction is 65% Code(s): I48.91 - UNSPECIFIED ATRIAL FIBRILLATION Qualifiers: Atrial fibrillation type: persistent Qualified Code(s): I48.1 - Persistent atrial fibrillation (2) CHF (congestive heart failure) Assessment/Plan: doppler shows no DVT got lasix 80mg today iv alsix monitor lytes and renal function Code(s): I50.9 - HEART FAILURE, UNSPECIFIED Qualifiers: Heart failure type: unspecified Heart failure chronicity: unspecified Qualified Code(s): I50.9 - Heart failure, unspecified (3) Renal failure Assessment/Plan: ct scan shows no abnormalities in kidney buncr is improving renal consult ordered urine lytes orderd Code(s): N19 - UNSPECIFIED KIDNEY FAILURE Qualifiers: Renal failure chronicity: unspecified chronicity Qualified Code(s): N19 - Unspecified kidney failure (4) Weakness Assessment/Plan: PT eval Code(s): R53.1 - WEAKNESS (5) Cholecystitis Assessment/Plan: seen on ct scan surgical consult noted no intervention as this time inc wbc count and elevated lactic acid as well- now normal seen by ID on zosyn Code(s): K81.9 - CHOLECYSTITIS, UNSPECIFIED (6) Hyperkalemia Assessment/Plan: improved Code(s): E87.5 - HYPERKALEMIA
[2018-12-13] MEDS ORDERED: HEPARIN NA (PORCINE) 5,000 UNITS/ML 1ML VIAL SQ SCH (12:15)
--- NOTE | 2018-12-13 14:56 | PN ---
Teaching Attending Note Name of Resident: Leahta Stanley Richa (Nephrology) ATTENDING PHYSICIAN STATEMENT I saw and evaluated the patient. I reviewed the resident's note and discussed the case with the resident. I agree with the resident's findings and plan as documented. renal Pt seen and examined at bedside. SHe denies shortness of breath. She denied dysuria. Current Medications Generic Name Dose Route Start Last Admin Trade Name Khalif PRN Reason Stop Dose Admin Furosemide 40 mg 12/12/18 10:00 12/13/18 11:51 Lasix Injection - IVPUSH 40 mg DAILY HAY Administration Heparin Sodium (Porcine) 5,000 unit 12/13/18 12:15 Heparin - SQ BID HAY Dextrose/Lactated Ringer's 1,000 mls @ 0 mls/hr 12/10/18 20:15 12/10/18 21:07 D5-Lr - IV 1,000 mls/hr ASDIR HAY Administration Wide Open Piperacillin Sod/Tazobactam 50 mls @ 100 mls/hr 12/11/18 12:30 12/13/18 11:52 Sod 2.25 gm/ Dextrose IVPB 100 mls/hr Q8H-IV HAY Administration Protocol Laboratory Tests 12/13/18 07:48 Creatinine 1.6 H Last Vital Signs Temp Pulse Resp BP Pulse Ox 98.5 F 102 H 18 142/67 96 12/13/18 06:00 12/13/18 06:00 12/13/18 06:00 12/13/18 06:00 12/13/18 09:00 cardio s1s2 pulm clear, on nc GI soft ext edema neuro awake, confused Impression 1. KATYA 2. a-fib 3. hyperkalemia 4. htn 5. hypoxia 6. dementia 7. cad 8. hld 9. plueral effusions 10. chf Plan - renal function improving - cont lasix, will transition to po in next one to two days - volume status is improved - ua neg for blood or protein - likely cardiorenal etiology, cont last - check echo
[2018-12-13] MEDS ORDERED: DEXTROSE 5%-LACTATED RINGERS 1,000 ML IV SCH (15:46)
[2018-12-13] MEDS ORDERED: PIPERACILLIN/TAZOB 2.25 GM 2.25 GM in DEXTROSE 5%-WATER - 50 ML IVPB SCH (18:00)
[2018-12-13] MEDS: HEPARIN NA (PORCINE) 5,000 UNITS/ML 1ML VIAL SQ SCH (22:16)
[2018-12-14] MEDS: PIPERACILLIN/TAZOB 2.25 GM 2.25 GM in DEXTROSE 5%-WATER - 50 ML IVPB SCH ×2 (03:00→10:13)
[2018-12-14 07:57] LABS: BASO % 0.5 % (0-2.0); EOS % 3.3 % (0-4.5); HEMATOCRIT 41.6 % (32.4-45.2); HEMOGLOBIN 14.2 GM/dL (10.7-15.3); LYMPH % 13.7 % (8-40); MCH 31.8 pg (25.7-33.7); MCHC 34.1 g/dl (32.0-36.0); MEAN CELL VOLUME 93.2 fl (80-96); MEAN PLT VOLUME 9.6 fl (7.5-11.1); MONO % 5.2 % (3.8-10.2); NEUT % 77.3 % (42.8-82.8); PLATELET COUNT 225 K/MM3 (134-434); RBC 4.46 M/mm3 (3.60-5.2); WHITE BLOOD COUNT 9.9 K/mm3 (4.0-10.0)
[2018-12-14 08:28] LABS: ALBUMIN 3.4 g/dl (3.4-5.0); ALK PHOS 80 U/L (45-117); ANION GAP 9 MMOL/L (8-16); BILIRUBIN,TOTAL 0.6 mg/dL (0.2-1); BLOOD UREA NITROGEN 34 mg/dL (7-18); CALCIUM 9.5 mg/dL (8.5-10.1); CHLORIDE 101 mmol/L (98-107); CO2 33 mmol/L (21-32); CREATININE 1.6 mg/dL (0.55-1.3); GLUCOSE,RANDOM 85 mg/dL (74-106); MAGNESIUM 2.3 mg/dL (1.8-2.4); PHOSPHOROUS 4.4 mg/dL (2.5-4.9); POTASSIUM 3.3 mmol/L (3.5-5.1); SGOT/AST 19 U/L (15-37); SGPT/ALT 19 U/L (13-61); SODIUM 142 mmol/L (136-145); TOT PROT 6.9 g/dl (6.4-8.2)
[2018-12-14] MEDS ORDERED: POTASSIUM CHLORIDE TABS 20 MEQ TABLET.ER (FP) PO ONE (09:36)
[2018-12-14] MEDS ORDERED: FUROSEMIDE 40 MG/4 ML INJECTABLE VIAL IVPUSH SCH (10:00)
[2018-12-14] MEDS ORDERED: PIPERACILLIN/TAZOBACTAM 2.25 GM VIAL IVPB ONE (10:11)
[2018-12-14] MEDS ORDERED: DEXTROSE 5%-WATER - 50 ML IVPB ONE (10:11)
[2018-12-14] MEDS: HEPARIN NA (PORCINE) 5,000 UNITS/ML 1ML VIAL SQ SCH ×2 (10:12→21:18)
--- NOTE | 2018-12-14 13:57 | PN ---
Teaching Attending Note Name of Resident: Leatha Chaudhry (Nephrology) ATTENDING PHYSICIAN STATEMENT I saw and evaluated the patient. I reviewed the resident's note and discussed the case with the resident. I agree with the resident's findings and plan as documented. Renal Pt seen and examined at bedside. She is awake and alert. She denies shortness of breath. Current Medications Generic Name Dose Route Start Last Admin Trade Name Freq PRN Reason Stop Dose Admin Furosemide 40 mg 12/15/18 10:00 Lasix - PO DAILY HAY Heparin Sodium (Porcine) 5,000 unit 12/13/18 22:00 12/14/18 10:12 Heparin - SQ 5,000 unit BID HAY Administration Dextrose/Lactated Ringer's 1,000 mls @ 0 mls/hr 12/13/18 15:46 D5-Lr - IV ASDIR HAY Wide Open Piperacillin Sod/Tazobactam 50 mls @ 100 mls/hr 12/13/18 18:00 Sod 2.25 gm/ Dextrose IVPB Q8H-IV HAY Protocol Laboratory Tests 12/14/18 05:30 Sodium 142 Potassium 3.3 L Last Vital Signs Temp Pulse Resp BP Pulse Ox 98.7 F 118 H 20 112/64 94 L 12/14/18 10:00 12/14/18 10:00 12/14/18 10:00 12/14/18 10:00 12/13/18 19:47 cardio s1s2 pulm clear GI soft ext edema neuro awake, confused Impression 1. KATYA 2. a-fib 3. hyperkalemia 4. htn 5. hypoxia 6. dementia 7. cad 8. hld 9. plueral effusions 10. chf Plan - replace potassium - change to po lasix - repeat labs in am - ua neg for blood or protein
--- NOTE | 2018-12-14 14:00 | PN ---
Progress Note, Physician History of Present Illness: No c/o abdominal pain No N/V On pureed diet bu little to no oral intake Afebrile LFTs WNL - Current Medication List Current Medications: Active Medications Furosemide (Lasix -) 40 mg PO DAILY HAY Heparin Sodium (Porcine) (Heparin -) 5,000 unit SQ BID HAY Last Admin: 12/14/18 10:12 Dose: 5,000 unit Dextrose/Lactated Ringer's (D5-Lr -) 1,000 mls @ 0 mls/hr IV ASDIR HAY Piperacillin Sod/Tazobactam (Sod 2.25 gm/ Dextrose) 50 mls @ 100 mls/hr IVPB Q8H-IV HAY; Protocol - Objective Vital Signs: Vital Signs Temperature 98.7 F 12/14/18 10:00 Pulse Rate 118 H 12/14/18 10:00 Respiratory Rate 20 12/14/18 10:00 Blood Pressure 112/64 12/14/18 10:00 O2 Sat by Pulse Oximetry (%) 94 L 12/13/18 19:47 Constitutional: Yes: No Distress, Obese Cardiovascular: Yes: Regular Rate and Rhythm, S1 Respiratory: Yes: CTA Bilaterally Gastrointestinal: Yes: Normal Bowel Sounds, Soft. No: Tenderness Labs: CBC, BMP 12/14/18 05:30 12/14/18 05:30 INR, PTT INR 0.97 (0.83-1.09) 12/11/18 20:40
--- NOTE | 2018-12-14 14:01 | PN ---
Physical Exam: SUBJECTIVE: Patient seen and examined. In no obvious distress. Appears less agitated or confused. Ambulated to use the bathroom. OBJECTIVE: Vital Signs Period Temp Pulse Resp BP Sys/Dominguez Pulse Ox Last 24 Hr 98 F-99.0 F 106-118 20-20 95-126/48-76 94 Vital Signs Temp 98.7 F 12/14/18 10:00 Pulse 118 H 12/14/18 10:00 Resp 20 12/14/18 10:00 BP 112/64 12/14/18 10:00 Pulse Ox 94 L 12/13/18 19:47 Intake & Output 12/13/18 12/14/18 12/14/18 23:59 11:59 23:59 Intake Total 50 50 Balance 50 50 Intake: IVPB 50 50 Other: Voiding Method Diaper # Unmeasured Voids Void 1 2 GENERAL: The patient is awake, alert, and fully oriented, in no acute distress. LUNGS: Breath sounds equal, clear to auscultation bilaterally HEART: Regular rate and rhythm, S1, S2 with murmur ABDOMEN: Soft, nontender, nondistended, normoactive bowel sounds, no guarding EXTREMITIES: 2+ pulses, warm, well-perfused, no edema. NEUROLOGICAL: Cranial nerves II through XII grossly intact. Normal reflexes and tone. Normal speech, gait not observed. CBC, BMP 12/14/18 05:30 12/14/18 05:30 Laboratory Results - last 24 hr 12/14/18 12/14/18 12/14/18 05:30 05:30 05:30 WBC 9.9 RBC 4.46 Hgb 14.2 Hct 41.6 MCV 93.2 MCH 31.8 MCHC 34.1 RDW 13.0 Plt Count 225 MPV 9.6 Absolute Neuts (auto) 7.7 Neutrophils % 77.3 Lymphocytes % 13.7 D Monocytes % 5.2 Eosinophils % 3.3 Basophils % 0.5 Nucleated RBC % 0 PTT (Actin FS) 30.8 Sodium 142 Potassium 3.3 L Chloride 101 Carbon Dioxide 33 H Anion Gap 9 BUN 34 H Creatinine 1.6 H Creat Clearance w eGFR 30.78 Random Glucose 85 Calcium 9.5 Phosphorus 4.4 Magnesium 2.3 Total Bilirubin 0.6 AST 19 ALT 19 Alkaline Phosphatase 80 Total Protein 6.9 Albumin 3.4 Active Medications Generic Name Dose Route Start Last Admin Trade Name Freq PRN Reason Stop Dose Admin Furosemide 40 mg 12/15/18 10:00 Lasix - PO DAILY HAY Heparin Sodium (Porcine) 5,000 unit 12/13/18 22:00 12/14/18 10:12 Heparin - SQ 5,000 unit BID HAY Administration Dextrose/Lactated Ringer's 1,000 mls @ 0 mls/hr 12/13/18 15:46 D5-Lr - IV ASDIR HAY Wide Open Piperacillin Sod/Tazobactam 50 mls @ 100 mls/hr 12/13/18 18:00 Sod 2.25 gm/ Dextrose IVPB Q8H-IV HAY Protocol ASSESSMENT/PLAN: Pt is an 82yo with PMHx of HTN, HLD, CAD, dementia, arrythmias, who presented with SOB and found to be hyperkalemic with elevated BUN/Cr. HLD CAD dementia agitation Now with sinus rhythm cholelithiais with chronic cholecystitis KATYA Hyperkalemia HTN Hypoxia Hypomagnesemia Hypokalemia KATYA Cr 1.6 this am Hyperkalemia- resolved, losartan on hold Hypokalemia this am-repleted Likely prerenal with fluid overload, improved with diuresis but calculated FeNa -2.5% Transition to PO lasix Also US shows new dilated R renal pelvis (no hydronephrosis)- with likely post renal component Pt using bedpan Monitor ins and outs Avoid nephrotoxic drugs ECHO- report reviewed, Follow cards recommendation- heparin stopped Supplemental oxygen as needed Fluid restriction <1L/day Salt restriction <2g/day Hypomagnesemia- resolved Rest as per primary team Visit type - Emergency Visit Emergency Visit: Yes ED Registration Date: 12/11/18 Care time: The patient presented to the Emergency Department on the above date and was hospitalized for further evaluation of their emergent condition. - New Patient This patient is new to me today: No - Critical Care Critical Care patient: No - Discharge Referral Referred to [facility] No
--- NOTE | 2018-12-14 14:03 | PN ---
Progress Note, Physician History of Present Illness: No c/o abdominal pain No N/V On pureed diet bu little to no oral intake Afebrile LFTs WNL - Current Medication List Current Medications: Active Medications Furosemide (Lasix -) 40 mg PO DAILY HAY Heparin Sodium (Porcine) (Heparin -) 5,000 unit SQ BID HAY Last Admin: 12/14/18 10:12 Dose: 5,000 unit Dextrose/Lactated Ringer's (D5-Lr -) 1,000 mls @ 0 mls/hr IV ASDIR HAY Piperacillin Sod/Tazobactam (Sod 2.25 gm/ Dextrose) 50 mls @ 100 mls/hr IVPB Q8H-IV HAY; Protocol - Objective Vital Signs: Vital Signs Temperature 98.7 F 12/14/18 10:00 Pulse Rate 118 H 12/14/18 10:00 Respiratory Rate 20 12/14/18 10:00 Blood Pressure 112/64 12/14/18 10:00 O2 Sat by Pulse Oximetry (%) 94 L 12/13/18 19:47 Labs: CBC, BMP 12/14/18 05:30 12/14/18 05:30 INR, PTT INR 0.97 (0.83-1.09) 12/11/18 20:40 Assessment/Plan Cholecystitis-improved KATYA -improved Lactic acidosis- resolved Substitute po augmentin
--- NOTE | 2018-12-14 15:59 | PN ---
Progress Note, Physician Chief Complaint: CHF Acute on cholecystitis Renal Failure History of Present Illness: Previous notes and events reviewed awake and alert NAD denies complaints of chest pain or SOB no nausea/vomiting daughter in law at bedside, sts patient has been confused, patient currently thinks she is in [place] when asked location and does not know year - Current Medication List Current Medications: Active Medications Amoxicillin/Clavulanate Potassium (Augmentin - 500mg Tablet) 1 tab PO BID@0800, 1730 [facility] Furosemide (Lasix -) 40 mg PO DAILY [facility] Heparin Sodium (Porcine) (Heparin -) 5,000 unit SQ BID [facility] Last Admin: 12/14/18 10:12 Dose: 5,000 unit Dextrose/Lactated Ringer's (D5-Lr -) 1,000 mls @ 0 mls/hr IV ASDIR [facility] - Objective Vital Signs: Vital Signs Temperature 97.9 F 12/14/18 14:00 Pulse Rate 106 H 12/14/18 14:00 Respiratory Rate 20 12/14/18 14:00 Blood Pressure 113/62 12/14/18 14:00 O2 Sat by Pulse Oximetry (%) 94 L 12/13/18 19:47 Constitutional: Yes: Well Nourished, No Distress, Calm Eyes: Yes: Conjunctiva Clear Neck: Yes: Supple Cardiovascular: Yes: Regular Rate and Rhythm Respiratory: Yes: Regular, CTA Bilaterally Gastrointestinal: Yes: Normal Bowel Sounds, Soft Musculoskeletal: Yes: Muscle Weakness Edema: No Integumentary: Yes: WNL Neurological: Yes: Alert Psychiatric: Yes: Alert Labs: CBC, BMP 12/14/18 05:30 12/14/18 05:30 INR, PTT INR 0.97 (0.83-1.09) 12/11/18 20:40 <Eliza Tanner - Last Filed: 12/14/18 16:04> - Current Medication List Current Medications: Active Medications Amoxicillin/Clavulanate Potassium (Augmentin - 500mg Tablet) 1 tab PO BID@0800, 1730 [facility] Last Admin: 12/14/18 17:43 Dose: 1 tab Donepezil HCl (Aricept -) 5 mg PO DAILY [facility] Furosemide (Lasix -) 40 mg PO DAILY [facility] Heparin Sodium (Porcine) (Heparin -) 5,000 unit SQ BID [facility] Last Admin: 12/14/18 10:12 Dose: 5,000 unit Dextrose/Lactated Ringer's (D5-Lr -) 1,000 mls @ 0 mls/hr IV ASDIR HAY - Objective Vital Signs: Vital Signs Temperature 98.5 F 12/14/18 16:55 Pulse Rate 105 H 12/14/18 16:55 Respiratory Rate 20 12/14/18 16:55 Blood Pressure 103/52 L 12/14/18 16:55 O2 Sat by Pulse Oximetry (%) 94 L 12/14/18 09:00 Labs: CBC, BMP 12/14/18 05:30 12/14/18 05:30 INR, PTT INR 0.97 (0.83-1.09) 12/11/18 20:40 <Laurence Duff - Last Filed: 12/14/18 21:03> Problem List - Problems (1) Afib Code(s): I48.91 - UNSPECIFIED ATRIAL FIBRILLATION Qualifiers: Atrial fibrillation type: persistent Qualified Code(s): I48.1 - Persistent atrial fibrillation (2) CHF (congestive heart failure) Code(s): I50.9 - HEART FAILURE, UNSPECIFIED Qualifiers: Heart failure type: unspecified Heart failure chronicity: unspecified Qualified Code(s): I50.9 - Heart failure, unspecified (3) Cholecystitis Code(s): K81.9 - CHOLECYSTITIS, UNSPECIFIED (4) Hyperkalemia Code(s): E87.5 - HYPERKALEMIA (5) Renal failure Code(s): N19 - UNSPECIFIED KIDNEY FAILURE Qualifiers: Renal failure chronicity: unspecified chronicity Qualified Code(s): N19 - Unspecified kidney failure (6) Weakness Code(s): R53.1 - WEAKNESS (7) Leukocytosis (leucocytosis) Code(s): D72.829 - ELEVATED WHITE BLOOD CELL COUNT, UNSPECIFIED <Eliza Tanner - Last Filed: 12/14/18 16:04> Assessment/Plan -renal on board -BUN/Cr elev, but trending down, continue to monitor -cardiology on board -cont lasix PO -ID on board, cont PO ABT -dvt ppx -puree diet -urine culture neg -neurology consult for confusion -O2 via NC, keep SpO2 >90% -K 3.3, received KCl 40mEq PO x 1, will cont to monitor K level <Eliza Tanner - Last Filed: 12/14/18 16:04> I HAVE EXAMINED THE PATIENT AND AGREE WITH THE ABOVE NOTE <Laurence Duff - Last Filed: 12/14/18 21:03>
[2018-12-14] MEDS ORDERED: PT OWN MED DRAWER 7, Y5N ONE (17:03)
[2018-12-14] MEDS: AMOX TR/POT CLAV 500MG/125MG TABLETS (FP) PO SCH (17:43)
--- NOTE | 2018-12-14 20:17 | CONSULT ---
Consult - text type - Consultation Consultation Note: NEUROLOGY CONSULTATION is greatly appreciated: Events reviewed and discussed with granddaughter at the bedside who aids with history and translation. This 82 yo woman has arrived from [place] one month ago "to be with her family." PMH sig for HTN, Chol, ASHD, AFib and "dementia with progressive cognitive decline x 2 years Meds include: Amlodipine; Aspirin 81 mg; Atorvastatin; Diclofenac; Isosorbide; Losartan; and Metoprolol. Now admitted after 1 week of increasing weakness and confusion with decreased PO intake and failure to thrive associated with productive cough. Given Pipericillin. Now on Augmentin. CT of head (reviewed): Moderate, diffuse atrophy and scattered white matter microvascular changes. Chest X Ray: Calcified RML lesion TSH-Nl JUSTO: No head trauma. No bruits. Cor reg. Neck supple. - Kernigs. Neuro: Awake, alert, cooperative. O x [place]. No month. No year. No recall + Glabella, snout, and B/L grasps (symmetrical). CN: II-XII: normal Motor: No drift, Normal. strength. Normal reflexes. Toes downgoing. Coord: No obvious dystaxia Sensory: Feels and withdraws to touch and pinch all 4's Gait: Flexed, shuffling, frozen. IMP: Moderately severe, B/L, cerebral dysfunction (OMS, chronic features) No focality to support a vascular etiology. Most likely Alzheimer's disease (AD). Recent worsening from Toxic-Metabolic Encephalopathy (infection). SUGGEST: Continue antibiotics and hydration. Check B12, RPR and Plant PPD. Mobilize OOBed to chair. PT for gait with walker. Start Donepezil 5 mg PO q AM Thank you very much, Edison Arnett MD
[2018-12-15 07:59] LABS: BASO % 0.7 % (0-2.0); EOS % 3.2 % (0-4.5); HEMATOCRIT 42.6 % (32.4-45.2); HEMOGLOBIN 14.3 GM/dL (10.7-15.3); MCH 31.3 pg (25.7-33.7); MCHC 33.6 g/dl (32.0-36.0); MEAN CELL VOLUME 93.1 fl (80-96); MEAN PLT VOLUME 9.4 fl (7.5-11.1); MONO % 4.7 % (3.8-10.2); NEUT % 74.4 % (42.8-82.8); PLATELET COUNT 221 K/MM3 (134-434); RBC 4.57 M/mm3 (3.60-5.2); RDW 13.5 % (11.6-15.6); WHITE BLOOD COUNT 11.1 K/mm3 (4.0-10.0)
[2018-12-15 09:02] LABS: ALBUMIN 3.4 g/dl (3.4-5.0); ALK PHOS 82 U/L (45-117); ANION GAP 11 MMOL/L (8-16); BILIRUBIN,TOTAL 0.5 mg/dL (0.2-1); BLOOD UREA NITROGEN 38 mg/dL (7-18); CALCIUM 9.4 mg/dL (8.5-10.1); CHLORIDE 101 mmol/L (98-107); CO2 29 mmol/L (21-32); CREATININE 1.6 mg/dL (0.55-1.3); GLUCOSE,RANDOM 83 mg/dL (74-106); MAGNESIUM 1.8 mg/dL (1.8-2.4); PHOSPHOROUS 3.8 mg/dL (2.5-4.9); POTASSIUM 3.7 mmol/L (3.5-5.1); SGOT/AST 25 U/L (15-37); SGPT/ALT 21 U/L (13-61); SODIUM 141 mmol/L (136-145); TOT PROT 7.2 g/dl (6.4-8.2)
[2018-12-15] MEDS ORDERED: DONEPEZIL HCL 5 MG TABLET (FP) PO SCH (10:00)
[2018-12-15] MEDS ORDERED: FUROSEMIDE 40 MG TABLET (FP) PO SCH (10:00)
[2018-12-15] MEDS: HEPARIN NA (PORCINE) 5,000 UNITS/ML 1ML VIAL SQ SCH (11:44)
[2018-12-15] MEDS: AMOX TR/POT CLAV 500MG/125MG TABLETS (FP) PO SCH ×2 (11:44→17:46)
--- NOTE | 2018-12-15 13:23 | PN ---
Progress Note, Physician History of Present Illness: Pt seen and examined at bedside. She is awake and alert. She denies shortness of breath. - Current Medication List Current Medications: Active Medications Amoxicillin/Clavulanate Potassium (Augmentin - 500mg Tablet) 1 tab PO BID@0800, 1730 [facility] Last Admin: 12/15/18 11:44 Dose: 1 tab Donepezil HCl (Aricept -) 5 mg PO DAILY HAY Last Admin: 12/15/18 11:44 Dose: 5 mg Furosemide (Lasix -) 40 mg PO DAILY HAY Last Admin: 12/15/18 11:44 Dose: 40 mg Heparin Sodium (Porcine) (Heparin -) 5,000 unit SQ BID HAY Last Admin: 12/15/18 11:44 Dose: 5,000 unit - Objective Vital Signs: Vital Signs Temperature 98.2 F 12/15/18 06:00 Pulse Rate 102 H 12/15/18 10:00 Respiratory Rate 18 12/15/18 10:00 Blood Pressure 129/61 12/15/18 10:00 O2 Sat by Pulse Oximetry (%) 93 L 12/14/18 21:00 Constitutional: Yes: Calm Eyes: Yes: Conjunctiva Clear HENT: Yes: Atraumatic Cardiovascular: Yes: S1, S2 Respiratory: Yes: CTA Bilaterally Gastrointestinal: Yes: Soft Genitourinary: Yes: WNL Musculoskeletal: Yes: WNL Edema: LLE: Trace, RLE: Trace Neurological: Yes: Oriented Psychiatric: Yes: Oriented Labs: CBC, BMP 12/15/18 06:38 12/15/18 06:38 INR, PTT INR 0.97 (0.83-1.09) 12/11/18 20:40 Assessment/Plan Current Medications Generic Name Dose Route Start Last Admin Trade Name Freq PRN Reason Stop Dose Admin Amoxicillin/Clavulanate Potassium 1 tab 12/14/18 17:30 12/15/18 11:44 Augmentin - 500mg Tablet PO 1 tab BID@0800,1730 HAY Administration Donepezil HCl 5 mg 12/15/18 10:00 12/15/18 11:44 Aricept - PO 5 mg DAILY HAY Administration Furosemide 40 mg 12/15/18 10:00 12/15/18 11:44 Lasix - PO 40 mg DAILY HAY Administration Heparin Sodium (Porcine) 5,000 unit 12/13/18 22:00 12/15/18 11:44 Heparin - SQ 5,000 unit BID HAY Administration Impression 1. KATYA 2. a-fib 3. hyperkalemia 4. htn 5. hypoxia 6. dementia 7. cad 8. hld 9. plueral effusions 10. chf Plan - renal function stable - cont po lasix - volume status is improved - repeat labs in am - can see as outpt - ua neg for blood or protein
--- NOTE | 2018-12-15 19:38 | DS ---
Physical Examination Vital Signs: Vital Signs Temperature 98.8 F 12/15/18 14:00 Pulse Rate 106 H 12/15/18 14:00 Respiratory Rate 18 12/15/18 10:00 Blood Pressure 125/61 12/15/18 14:00 O2 Sat by Pulse Oximetry (%) 93 L 12/15/18 18:00 Findings/Remarks: 82yo [place] woman, demented brought in with daughter for generalized weakness and difficulty walking for the past several days to weeks. History is somewhat vague and patient herself does not endorse any complaints. She returned from [place] 4 weeks ago after living there 5 years. Constitutional: Yes: Well Nourished, No Distress, Calm Cardiovascular: Yes: Regular Rate and Rhythm Respiratory: Yes: Regular Gastrointestinal: Yes: Normal Bowel Sounds, Soft Musculoskeletal: Yes: WNL Extremities: Yes: WNL Edema: No Peripheral Pulses WNL: Yes Neurological: Yes: Alert, Pre-Existing Deficit Psychiatric: Yes: Alert Labs: CBC, BMP 12/15/18 06:38 12/15/18 06:38 Discharge Summary Reason For Visit: CONGESTIVE HEART FAILURE,ATRIAL FIBRILLATION,RENAL Current Active Problems Afib (Acute) CHF (congestive heart failure) (Acute) Cholecystitis (Acute) Hyperkalemia (Acute) Renal failure (Acute) Weakness (Acute) Hospital Course: Laboratory Last Values WBC 11.1 K/mm3 (4.0-10.0) H 12/15/18 06:38 RBC 4.57 M/mm3 (3.60-5.2) 12/15/18 06:38 Hgb 14.3 GM/dL (10.7-15.3) 12/15/18 06:38 Hct 42.6 % (32.4-45.2) 12/15/18 06:38 MCV 93.1 fl (80-96) 12/15/18 06:38 MCH 31.3 pg (25.7-33.7) 12/15/18 06:38 MCHC 33.6 g/dl (32.0-36.0) 12/15/18 06:38 RDW 13.5 % (11.6-15.6) 12/15/18 06:38 Plt Count 221 K/MM3 (134-434) 12/15/18 06:38 MPV 9.4 fl (7.5-11.1) 12/15/18 06:38 Absolute Neuts (auto) 8.3 K/mm3 (1.5-8.0) H 12/15/18 06:38 Neutrophils % 74.4 % (42.8-82.8) 12/15/18 06:38 Neutrophils % (Manual) 73.1 % (42.8-82.8) 12/11/18 09:50 Band Neutrophils % 0.0 % 12/11/18 09:50 Lymphocytes % 17.0 % (8-40) D 12/15/18 06:38 Lymphocytes % (Manual) 19.2 % (8-40) 12/11/18 09:50 Monocytes % 4.7 % (3.8-10.2) 12/15/18 06:38 Monocytes % (Manual) 3 % (3.8-10.2) L 12/11/18 09:50 Eosinophils % 3.2 % (0-4.5) 12/15/18 06:38 Eosinophils % (Manual) 1.9 % (0-4.5) 12/11/18 09:50 Basophils % 0.7 % (0-2.0) 12/15/18 06:38 Basophils % (Manual) 0.0 % (0-2.0) 12/11/18 09:50 Myelocytes % (Man) 0 % (0-2) 12/11/18 09:50 Promyelocytes % (Man) 0 % (0-2) 12/11/18 09:50 Blast Cells % (Manual) 0 % (0-0) 12/11/18 09:50 Nucleated RBC % 0 % (0-0) 12/15/18 06:38 Metamyelocytes 0 % (0-2) 12/11/18 09:50 Hypochromia 0 12/11/18 09:50 Toxic Granulation 0 12/11/18 09:50 Dohle Bodies 0 12/11/18 09:50 Platelet Estimate Normal 12/11/18 09:50 Polychromasia 0 12/11/18 09:50 Poikilocytosis 0 12/11/18 09:50 Basophilic Stippling 0 12/11/18 09:50 Anisocytosis 0 12/11/18 09:50 Microcytosis 0 12/11/18 09:50 Macrocytosis 0 12/11/18 09:50 Spherocytes 0 12/11/18 09:50 Sickle Cells 0 12/11/18 09:50 Target Cells 0 12/11/18 09:50 Tear Drop Cells 0 12/11/18 09:50 Ovalocytes 0 12/11/18 09:50 Stomatocytes 0 12/11/18 09:50 Helmet Cells 0 12/11/18 09:50 [place] Bodies 0 12/11/18 09:50 [place] Rings 0 12/11/18 09:50 [place] Cells 0 12/11/18 09:50 Acanthocytes (Spur) 0 12/11/18 09:50 Rouleaux 0 12/11/18 09:50 Fragmented RBCs 0 12/11/18 09:50 Schistocytes 0 12/11/18 09:50 ESR 26 mm/hr (0-30) 12/11/18 09:50 PT with INR 11.50 SEC (9.7-13.0) 12/11/18 20:40 INR 0.97 (0.83-1.09) 12/11/18 20:40 PTT (Actin FS) 31.4 SECONDS (25.2-36.5) 12/15/18 06:38 Sodium 141 mmol/L (136-145) 12/15/18 06:38 Potassium 3.7 mmol/L (3.5-5.1) 12/15/18 06:38 Chloride 101 mmol/L (98-107) 12/15/18 06:38 Carbon Dioxide 29 mmol/L (21-32) 12/15/18 06:38 Anion Gap 11 MMOL/L (8-16) 12/15/18 06:38 BUN 38 mg/dL (7-18) H 12/15/18 06:38 Creatinine 1.6 mg/dL (0.55-1.3) H 12/15/18 06:38 Creat Clearance w eGFR 30.78 (>60) 12/15/18 06:38 POC Glucometer 109.74288 UNITS (80-120) 12/11/18 04:26 Random Glucose 83 mg/dL (74-106) 12/15/18 06:38 Hemoglobin A1c % 6.4 % (4.2-6.3) H 12/11/18 09:50 Serum Osmolality 300 mosm/kg (278-305) 12/11/18 09:50 Lactic Acid 0.9 mmol/L (0.4-2.0) 12/11/18 09:50 Calcium 9.4 mg/dL (8.5-10.1) 12/15/18 06:38 Phosphorus 3.8 mg/dL (2.5-4.9) 12/15/18 06:38 Magnesium 1.8 mg/dL (1.8-2.4) 12/15/18 06:38 Total Bilirubin 0.5 mg/dL (0.2-1) 12/15/18 06:38 AST 25 U/L (15-37) 12/15/18 06:38 ALT 21 U/L (13-61) 12/15/18 06:38 Alkaline Phosphatase 82 U/L (45-117) 12/15/18 06:38 Troponin I 0.02 ng/ml (0.00-0.05) 12/11/18 09:50 C-Reactive Protein 0.8 MG/DL (0.00-0.3) H 12/11/18 09:50 B-Natriuretic Peptide 05088.7 pg/ml (5-450) H 12/10/18 22:55 Total Protein 7.2 g/dl (6.4-8.2) 12/15/18 06:38 Albumin 3.4 g/dl (3.4-5.0) 12/15/18 06:38 Cholesterol 107 mg/dL (50-200) 12/11/18 09:50 Vitamin B12 1118 pg/ml (193-986) H 12/15/18 06:38 TSH 2.46 uIU/ml (0.358-3.74) 12/12/18 05:30 Urine Color Straw 12/11/18 17:30 Urine Appearance Clear 12/11/18 17:30 Urine pH 5.0 (5.0-8.0) 12/11/18 17:30 Ur Specific [place] 1.008 (1.010-1.035) L 12/11/18 17:30 Urine Protein Negative (NEGATIVE) 12/11/18 17:30 Urine Glucose (UA) Negative (NEGATIVE) 12/11/18 17:30 Urine Ketones Negative (NEGATIVE) 12/11/18 17:30 Urine Blood Negative (NEGATIVE) 12/11/18 17:30 Urine Nitrite Negative (NEGATIVE) 12/11/18 17:30 Urine Bilirubin Negative (<2.0 mg/dL) 12/11/18 17:30 Urine Urobilinogen Negative mg/dL (0.2-1.0) 12/11/18 17:30 Ur Leukocyte Esterase Trace (NEGATIVE) 12/11/18 17:30 Urine WBC (Auto) 5 /hpf (3-5) 12/11/18 17:30 Urine RBC (Auto) 1 /hpf (0-3) 12/11/18 17:30 Ur Epithelial Cells Rare /HPF (FEW) 12/11/18 17:30 Urine Bacteria Rare /hpf (NONE SEEN) 12/11/18 17:30 Urine Mucus Rare 12/11/18 17:30 Ur Random Sodium 66 MMOL/L (40-220) 12/11/18 17:30 Ur Random Potassium 18.2 MMOL/L (12-129) 12/11/18 17:30 Ur Random Chloride 70 MMOL/L (110-250) L 12/11/18 17:30 Urine Creatinine 40.0 mg/dL (30-50) 12/11/18 17:30 Stool Occult Blood Negative (NEGATIVE) 12/10/18 20:25 Salicylates < 1.7 mg/dL (2.8-20) L 12/10/18 20:39 Acetaminophen 5.9 ug/mL (10-30) L 12/10/18 20:39 RPR Titer Nonreactive (NONREACTIVE) 12/15/18 06:38 Blood Type O POSITIVE 12/10/18 20:39 Antibody Screen Negative 12/10/18 20:39 Microbiology 12/10/18 22:55 Urine - Urine Clean Catch Urine Culture - Final NO GROWTH OBTAINED Condition: Stable - Instructions Diet, Activity, Other Instructions: Follow up with PCP, cardiology and nephrology within 2 weeks Start Augmentin 1 tab 2 x day for 7 days Donepezil 5 mg once a day in AM Low sodium diet Referrals: Lewis Lim MD [Primary Care Provider] - Stevie Lee MD [Staff Physician] - Jose Coley MD [Staff Physician] - Disposition: HOME - Home Medications Comprehensive Discharge Medication List: Ambulatory Orders Aspirin [Ecotrin] 81 mg PO DAILY 03/13/15 Atorvastatin Ca [Lipitor] 20 mg PO HS 03/13/15 Amox-Tr/K Cl [Augmentin 500-125mg Tablet -] 1 tab PO BID@0800,1730 #14 tablet Donepezil HCl [Aricept -] 5 mg PO DAILY #30 tablet 12/15/18 Furosemide [Lasix -] 20 mg PO DAILY #30 tablet 12/15/18
[2018-12-15 20:12] VITALS: BP 142/71; PULSE 109; TEMP 98
== END 2018-12-15 20:13 | disposition home or self-care (01) | DRG 469 ==
LOC: JER 19:01 → JERBED 12-11 00:25 → INTOOBSV 12-11 00:25 → OBSVTOIN 12-11 00:25 → J2W 12-11 21:15 → J4W 12-13 15:43
PROVIDERS: ADMIT Internal Medicine; ATTEND Family Medicine
DX: N17.9 Acute kidney failure, unspecified (principal); E16.2 Hypoglycemia, unspecified; R60.1 Generalized edema; E78.5 Hyperlipidemia, unspecified; I25.10 Atherosclerotic heart disease of native coronary artery without angina pectoris; E87.1 Hypo-osmolality and hyponatremia; K81.0 Acute cholecystitis; G30.9 Alzheimer's disease, unspecified; G93.41 Metabolic encephalopathy; J90 Pleural effusion, not elsewhere classified; I50.9 Heart failure, unspecified; J81.1 Chronic pulmonary edema; R18.8 Other ascites; E87.2 Acidosis; E87.5 Hyperkalemia; R53.1 Weakness; I11.0 Hypertensive heart disease with heart failure; F02.80 Dementia in other diseases classified elsewhere, unspecified severity, without behavioral disturbance, psychotic disturbance, mood disturbance, and anxiety; I48.1 Persistent atrial fibrillation; D72.829 Elevated white blood cell count, unspecified; E83.42 Hypomagnesemia
CPT/HCPCS: 36415; 70450-TC; 71045-TC-FY; 74176-TC; 76705-TC; 76775-TC; 80048; 80051; 80053; 80307; 81003; 81015; 82272; 82436; 82465; 82570; 82607; 82962; 83036; 83605; 83735; 83880; 83930; 84100; 84133; 84300; 84443; 84484; 85025; 85610; 85651; 85730; 86140; 86593; 86850; 86900; 86901; 87086; 90670; 90688; 93005; 93010; 93306-TC; 93970-TC; 97116-GP; 97161-GP; 99285-25; G0008; G0009; J1644

== ENCOUNTER 2018-12-17 10:55 | Inpatient (IN) | payer OTHER ==
--- NOTE | 2018-12-17 13:33 | PDOC ---
History of Present Illness - General Chief Complaint: Injury Stated Complaint: FALL Time Seen by Provider: 12/17/18 11:43 - History of Present Illness Initial Comments: The patient is an 82F w/ a history of HTN, Alzheimer's, heart catheterization w/ o unknown stent placement who presents s/p unwitnessed fall at 0930 today. Fmaily reports that the patient was using the bathroom, stood to pull up her pants, and fell forwards into a heater that is stationed in front of the toilet. The fall was unwitnessed, but they entered the bathroom immediately after and the pt was conscious. They endorse three small lacerations on the pt's scalp that they initially washed at home and was dressed by EMS. PMH: HTN, HLD, Alzheimer's Dz PSH: Described heart cath, Hys Allergies: Denies Questionable hx of a-fib and CHF Reported history of cath in past, denies stent placement Recent admission for reported pyelo/PNA, on Augmentin since being D/C'ed Monday Denies fevers, sick contacts, acute vision change, chest pain, SOB, abdominal pain, N/V/C/D, or changes in sensation 12/17/18 13:36 Past History - Past Medical History Allergies/Adverse Reactions: Allergies Allergy/AdvReac Type Severity Reaction Status Date / Time No Known Allergies Allergy Verified 12/17/18 11:21 Home Medications: Ambulatory Orders Aspirin [Ecotrin] 81 mg PO DAILY 03/13/15 Atorvastatin Ca [Lipitor] 20 mg PO HS 03/13/15 Amox-Tr/K Cl [Augmentin 500-125mg Tablet -] 1 tab PO BID@0800,1730 #14 tablet Donepezil HCl [Aricept -] 5 mg PO DAILY #30 tablet 12/15/18 Furosemide [Lasix -] 20 mg PO DAILY #30 tablet 12/15/18 Anemia: No Asthma: No Cancer: No Cardiac Disorders: Yes CVA: No COPD: No CHF: No Dementia: No Diabetes: No GI Disorders: No Disorders: No HTN: Yes Hypercholesterolemia: Yes Liver Disease: No Seizures: No Thyroid Disease: No - Surgical History Abdominal Surgery: No Appendectomy: No Cardiac Surgery: Yes Cholecystectomy: No Lung Surgery: No Neurologic Surgery: No - Immunization History Immunization Up to Date: No - Suicide/Smoking/Psychosocial Hx Smoking History: Never smoked Have you smoked in the past 12 months: No Information on smoking cessation initiated: No Hx Alcohol Use: No Drug/Substance Use Hx: No Substance Use Type: None Review of Systems - Review of Systems Able to Perform ROS?: Yes (limited 2/2 mental status) Comments:: GENERAL/CONSTITUTIONAL: No fever or chills HEAD, EYES, EARS, NOSE AND THROAT: No change in vision. No sore throat CARDIOVASCULAR: No chest pain or shortness of breath RESPIRATORY: Denies cough, hemoptysis GASTROINTESTINAL: No nausea, vomiting, diarrhea or constipation GENITOURINARY: No dysuria, frequency, or change in urination MUSCULOSKELETAL: +chronic back/shoulder pain SKIN: No rash NEUROLOGIC: No vertigo, or change in strength/sensation 12/17/18 14:28 *Physical Exam - Vital Signs Last Vital Signs Temp Pulse Resp BP Pulse Ox 97.7 F 103 H 16 145/77 100 12/17/18 11:09 12/17/18 11:09 12/17/18 11:09 12/17/18 11:09 12/17/18 11:09 - Physical Exam Comments: GENERAL: Awake, alert, in no acute distress HEAD: 2 linear lacerations to scalp, one frontal approx 3cm, one parietal approx 3cm, no active hemorrhage, no foreign object EYES: PERRLA, EOMI, sclera anicteric, conjunctiva clear ENT: Hearing grossly normal, nares patent, oropharynx clear without exudates. Dry mucosa LUNGS: No distress, speaks full sentences, clear to auscultation bilaterally HEART: Regular rate and rhythm, normal S1 and S2, no murmurs appreciated, peripheral pulses normal and equal bilaterally ABDOMEN: Soft, nontender, normoactive bowel sounds. No guarding, no rebound EXTREMITIES : Normal inspection, Normal range of motion, no edema. No clubbing or cyanosis NEUROLOGICAL: Cranial nerves II through XII grossly intact. No dysarthria, speech content intermittently appropriate, no focal sensorimotor deficits SKIN: Two small linear lacerations on scalp as above 12/17/18 14:28 Moderate Sedation - Procedure Monitoring Vital Signs: Procedure Monitoring Vital Signs Temperature 97.7 F 12/17/18 11:09 Pulse Rate 103 H 12/17/18 11:09 Respiratory Rate 16 12/17/18 11:09 Blood Pressure 145/77 12/17/18 11:09 O2 Sat by Pulse Oximetry (%) 100 12/17/18 11:09 Procedures - Laceration/Wound Repair Frontal Wound Length: 2.6 to 5.0 cm Wound Explored: clean Wound's Depth, Shape: superficial Irrigated w/ Saline: Yes Anesthesia: 1% Lidocaine Amount of Anesthetic (ccs): 4 Wound Repaired With: Wesley (4) Sterile Dressing Applied: Yes Parietal Wound Length: 2.6 to 5.0 cm Wound Explored: clean Irrigated w/ Saline: Yes Anesthesia: 1% Lidocaine Amount of Anesthetic (ccs): 4 Wound Repaired With: Wesley (4) Sterile Dressing Applied: Yes ED Treatment Course - LABORATORY CBC & Chemistry Diagram: 12/17/18 14:15 12/17/18 13:45 Medical Decision Making - Medical Decision Making The patient is an 82F w/ a history of dementia, HTN, and recent admission for reported PNA/pyelo on Augmentin since 12/15/2018 who presents s/p fall w/ head laceration. ED Course CMP, cardiac enzymes, CBC CXR, head CT ECG 12/17/18 14:26 Leukcytosis to 15 No anemia HR 88 12/17/18 14:37 CXR w/o evidence of PNA UA, UCx 12/17/18 14:47 Trop I neg 12/17/18 14:58 No acute intracranial pathology on head CT Laceration x2 repaired w/ marvin, 4 each. For further details refer to procedure note. 12/17/18 15:49 Plan for admission for possible syncope, fall, acs r/o 12/17/18 16:55 UA significant for UTI -Recommend changing Abx to Ceftriaxone v Bactrim pending culture 12/17/18 19:32 Dispo: admit *DC/Admit/Observation/Transfer Diagnosis at time of Disposition: Laceration Fall Qualifiers: Encounter type: initial encounter Qualified Code(s): W19.XXXA - Unspecified fall, initial encounter HTN (hypertension) Qualifiers: Hypertension type: unspecified Qualified Code(s): I10 - Essential (primary) hypertension - Discharge Dispostion Condition at time of disposition: Fair Decision to Admit order: Yes - Referrals - Patient Instructions - Post Discharge Activity
[2018-12-17 14:23] LABS: BASO % 0.3 % (0-2.0); EOS % 0.4 % (0-4.5); HEMATOCRIT 43.8 % (32.4-45.2); HEMOGLOBIN 14.8 GM/dL (10.7-15.3); LYMPH % 10.3 % (8-40); MCH 31.2 pg (25.7-33.7); MCHC 33.7 g/dl (32.0-36.0); MEAN CELL VOLUME 92.6 fl (80-96); MONO % 5.1 % (3.8-10.2); NEUT % 83.9 % (42.8-82.8); PLATELET COUNT 217 K/MM3 (134-434); RBC 4.74 M/mm3 (3.60-5.2); WHITE BLOOD COUNT 15.4 K/mm3 (4.0-10.0)
[2018-12-17 14:57] LABS: ALBUMIN 3.7 g/dl (3.4-5.0); ALK PHOS 81 U/L (45-117); ANION GAP 8 MMOL/L (8-16); BLOOD UREA NITROGEN 38 mg/dL (7-18); CALCIUM 9.5 mg/dL (8.5-10.1); CHLORIDE 99 mmol/L (98-107); CO2 31 mmol/L (21-32); CREATININE 1.3 mg/dL (0.55-1.3); GLUCOSE,RANDOM 100 mg/dL (74-106); POTASSIUM 4.8 mmol/L (3.5-5.1); SGOT/AST 49 U/L (15-37); SGPT/ALT 27 U/L (13-61); SODIUM 138 mmol/L (136-145); TOT PROT 7.8 g/dl (6.4-8.2)
[2018-12-17] MEDS ORDERED: LIDOCAINE HCL 1%, 10 MG/ML (50 mL VIAL) INF ONE (15:53)
[2018-12-17] MEDS ORDERED: LIDOCAINE HCL 1%, 10 MG/ML (20ML VIAL) ONE (15:55)
[2018-12-17] MEDS ORDERED: DIPHTH,PERTUSS(ACELL),TET 0.5 ML DISP.SYRIN IM ONE ×2 (15:55→16:31)
--- NOTE | 2018-12-17 16:03 | PDOC ---
Attending Attestation - Resident Resident Name: TamTroy - ED Attending Attestation I have performed the following: I have examined & evaluated the patient, The case was reviewed & discussed with the resident, I agree w/resident's findings & plan, Exceptions are as noted - HPI HPI: 12/17/18 15:53 82 yo F h/o HTN HLD questionable afib, cad here with syncopal episode, unwitnessed fall while getting up from toilet. family found pt on floor. was awake when they found here. she denies cp or sob. is currently taking abx ater recent admission. taking augmentin. no f/c no n/v no otehr complaints. did sustain a laceration on her scalp from her fall. - Physicial Exam PE: 12/17/18 15:55 awake alert anterior scalp x 2. lungs clear bilaterally heart reg no mrg abd soft nt nd. ext wwp no edema. no calf tenderness. atraumatic. pelvis stable. no hip tenderness. knee/ ankle from nontender. nuero moves all four ext. - Medical Decision Making 12/17/18 15:57 differential ich, syncope infection such as uti or pna. plan ua labs ekg ct head. will liekly require tele admission ro dysrthymia. unclear if h/o afib.
[2018-12-17] MEDS ORDERED: ACETAMINOPHEN 325 MG TABLET (FP) PO ONE (16:40)
[2018-12-17] MEDS ORDERED: ACETAMINOPHEN 325 MG TABLET (FP) ONE (16:42)
[2018-12-17] MEDS ORDERED: ACETAMINOPHEN 325 MG TABLET (FP) PO PRN (16:53)
[2018-12-17 19:19] LABS: URINE APPEARANCE CLOUDY; URINE BILIRUBIN NEGATIVE (<2.0 mg/dL); URINE COLOR YELLOW; URINE GLUCOSE (UA) NEGATIVE (NEGATIVE); URINE KETONE NEGATIVE (NEGATIVE); URINE LEUK ESTERASE 2+ (NEGATIVE); URINE NITRITE NEGATIVE (NEGATIVE); URINE PROTEIN NEGATIVE (NEGATIVE); URINE UROBILINOGEN NEGATIVE mg/dL (0.2-1.0)
[2018-12-17 19:25] LABS: EPI CELLS MANY /HPF (FEW); URINE HYALINE CAST 4 /lpf; URINE MUCUS RARE
[2018-12-17] MEDS: AMOX TR/POT CLAV 500MG/125MG TABLETS (FP) PO SCH (22:18)
[2018-12-18 01:14] VITALS: BMI 27.8
[2018-12-18 06:27] LABS: HEMATOCRIT 43.7 % (32.4-45.2); HEMOGLOBIN 14.8 GM/dL (10.7-15.3); MCH 31.1 pg (25.7-33.7); MCHC 33.8 g/dl (32.0-36.0); MEAN CELL VOLUME 92.1 fl (80-96); MEAN PLT VOLUME 9.4 fl (7.5-11.1); PLATELET COUNT 210 K/MM3 (134-434); RBC 4.75 M/mm3 (3.60-5.2); RDW 12.9 % (11.6-15.6); WHITE BLOOD COUNT 9.5 K/mm3 (4.0-10.0)
[2018-12-18 06:57] LABS: ALBUMIN 3.7 g/dl (3.4-5.0); ALK PHOS 80 U/L (45-117); ANION GAP 9 MMOL/L (8-16); BILIRUBIN,TOTAL 0.6 mg/dL (0.2-1); BLOOD UREA NITROGEN 31 mg/dL (7-18); CALCIUM 9.6 mg/dL (8.5-10.1); CHLORIDE 100 mmol/L (98-107); CO2 31 mmol/L (21-32); CREATININE 1.1 mg/dL (0.55-1.3); GLUCOSE,RANDOM 100 mg/dL (74-106); POTASSIUM 3.4 mmol/L (3.5-5.1); SGOT/AST 31 U/L (15-37); SGPT/ALT 25 U/L (13-61); SODIUM 141 mmol/L (136-145); TOT PROT 7.5 g/dl (6.4-8.2)
[2018-12-18] MEDS ORDERED: PT OWN MED DRAWER 7, Y5N ONE ×2 (08:19→18:22)
[2018-12-18] MEDS: AMOX TR/POT CLAV 500MG/125MG TABLETS (FP) PO SCH ×2 (09:25→18:23)
[2018-12-18] MEDS ORDERED: POTASSIUM CHLORIDE TABS 20 MEQ TABLET.ER (FP) PO ONE ×2 (09:26→11:00)
--- NOTE | 2018-12-18 09:27 | CONSULT ---
Consult Consult Specialty:: Nephrology Reason for Consultation:: Elevated BUN - History of Present Illness Chief Complaint: S/p fall History of Present Illness: Pt is an 82 yo with PMHx of cardiorenal syndrome with hyperkalemia, HTN, HLD, CAD, CHF, dementia, arrythmias, who presented after a fall with elevated BUN. Pt was recently discharged after being managed for cardiorenal syndrome with hyperkalemia. ACEI held in last admission, now consulted for elevated BUN, which is trending down from previous admission. Pt more responsive than prior admission, reports headache post fall. No chest pain, no dysuria or flank pain, no hematuria. 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 History of Recent Travel: Yes (Visiting from [place]) Home Medications - Allergies Allergies/Adverse Reactions: Allergies Allergy/AdvReac Type Severity Reaction Status Date / Time No Known Allergies Allergy Verified 12/17/18 11:21 - Home Medications Home Medications: Ambulatory Orders Aspirin [Ecotrin] 81 mg PO DAILY 03/13/15 Atorvastatin Ca [Lipitor] 20 mg PO HS 03/13/15 Amox-Tr/K Cl [Augmentin 500-125mg Tablet -] 1 tab PO BID@0800,1730 #14 tablet Donepezil HCl [Aricept -] 5 mg PO DAILY #30 tablet 12/15/18 Furosemide [Lasix -] 20 mg PO DAILY #30 tablet 12/15/18 Review of Systems - Review of Systems Constitutional: denies: Chills, Fever HENT: reports: No Symptoms Cardiovascular: denies: Chest Pain, Edema, Shortness of Breath Respiratory: denies: Cough Gastrointestinal: denies: Abdominal Pain Genitourinary: denies: Burning, Dysuria, Flank Pain Physical Exam Vital Signs: Vital Signs Temperature 97.6 F 12/18/18 02:00 Pulse Rate 96 H 12/18/18 08:00 Respiratory Rate 12/18/18 08:00 Blood Pressure 128/80 12/18/18 08:00 O2 Sat by Pulse Oximetry (%) 96 12/17/18 23:00 Constitutional: Yes: No Distress, Calm Eyes: Yes: EOM Intact HENT: Yes: Other (dry mucous mebranes) Neck: Yes: Supple Cardiovascular: Yes: Regular Rate and Rhythm, Tachycardia, S1, S2 Respiratory: Yes: CTA Bilaterally Gastrointestinal: Yes: Normal Bowel Sounds, Soft Renal/: No: Anuria Edema: No Neurological: Yes: Alert, Oriented. No: Confusion Psychiatric: Yes: Alert Labs: CBC, BMP 12/18/18 05:30 12/18/18 05:30 Assessment/Plan Pt is an 82 yo with PMHx of cardiorenal syndrome with hyperkalemia, HTN, HLD, CAD, CHF, dementia, arrythmias, who presented after a fall with elevated BUN. Pt was recently discharged after being managed for cardiorenal syndrome with hyperkalemia. HTN, HLD, CAD, CHF, dementia, arrythmias, s/p fall elevated BUN. Plan: Elevated BUN in setting of resolving cardiorenal syndrome BUN still trending down from previous admission (improving renal function) Pt appears dry, hold lasix 40mg Po today Resume lasix PO tomorrow Follow BMP Avoid nephrotoxic drugs Visit type - Emergency Visit Emergency Visit: Yes ED Registration Date: 12/18/18 Care time: The patient presented to the Emergency Department on the above date and was hospitalized for further evaluation of their emergent condition. - New Patient This patient is new to me today: Yes Date on this admission: 12/18/18 - Critical Care Critical Care patient: No
[2018-12-18] MEDS ORDERED: FUROSEMIDE 20 MG TABLET (FP) PO SCH (10:00)
--- NOTE | 2018-12-18 10:22 | HP ---
Admitting History and Physical - Admission History of Present Illness: 82F w/ a history of HTN, Alzheimer's, heart catheterization w/o unknown stent placement who presents s/p unwitnessed fall yesterday. Fmaily reports that the patient was using the bathroom, stood to pull up her pants, and fell forwards into a heater that is stationed in front of the toilet. The fall was unwitnessed , but they entered the bathroom immediately after and the pt was conscious. They endorse three small lacerations on the pt's scalp that they initially washed at home and was dressed by EMS. 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 History of Recent Travel: Yes (Visiting from [place]) Home Medications - Allergies Allergies/Adverse Reactions: Allergies Allergy/AdvReac Type Severity Reaction Status Date / Time No Known Allergies Allergy Verified 12/17/18 11:21 - Home Medications Home Medications: Ambulatory Orders Aspirin [Ecotrin] 81 mg PO DAILY 03/13/15 Atorvastatin Ca [Lipitor] 20 mg PO HS 03/13/15 Amox-Tr/K Cl [Augmentin 500-125mg Tablet -] 1 tab PO BID@0800,1730 #14 tablet Donepezil HCl [Aricept -] 5 mg PO DAILY #30 tablet 12/15/18 Furosemide [Lasix -] 20 mg PO DAILY #30 tablet 12/15/18 Physical Examination Vital Signs: Vital Signs Temperature 97.6 F 12/18/18 02:00 Pulse Rate 96 H 12/18/18 08:00 Respiratory Rate 12/18/18 08:00 Blood Pressure 128/80 12/18/18 08:00 O2 Sat by Pulse Oximetry (%) 96 12/17/18 23:00 Cardiovascular: Yes: Murmur, S1, S2 Respiratory: Yes: Regular, CTA Bilaterally Gastrointestinal: Yes: Normal Bowel Sounds, Soft. No: Tenderness Edema: No Labs: CBC, BMP 12/18/18 05:30 12/18/18 05:30 Imaging - Results Cat Scan: Report Reviewed Problem List - Problems (1) Syncope Assessment/Plan: -Cardiac monitoring -Orthostatic bp -Monitor labs Code(s): R55 - SYNCOPE AND COLLAPSE (2) Fall Assessment/Plan: Physical therapy Code(s): W19.XXXA - UNSPECIFIED FALL, INITIAL ENCOUNTER Qualifiers: Encounter type: initial encounter Qualified Code(s): W19.XXXA - Unspecified fall, initial encounter (3) Afib Assessment/Plan: Monitor on current meds Code(s): I48.91 - UNSPECIFIED ATRIAL FIBRILLATION Qualifiers: Atrial fibrillation type: persistent Qualified Code(s): I48.1 - Persistent atrial fibrillation (4) CHF (congestive heart failure) Assessment/Plan: -hold lasix and monitor Code(s): I50.9 - HEART FAILURE, UNSPECIFIED Qualifiers: Heart failure type: unspecified Heart failure chronicity: unspecified Qualified Code(s): I50.9 - Heart failure, unspecified
--- NOTE | 2018-12-18 10:37 | CON.CARD ---
Consult Consult Specialty:: Cardiology Referred by:: Dr. Duff Reason for Consultation:: possible syncope. - History of Present Illness Chief Complaint: fall at home History of Present Illness: 82 year old woman pmh htn, hld, reported CAD, dementia recently travelled from [place] after living there for 5 years brought to ER last week by her daughter due to complaints of generalized weakness, difficulty with ambulation for a few weeks. Initial ekg was thought to be Afib but was determined not to be. There was no documented evidence of Afib during that admission. she was treated by medicine and discharged home. Now admitted with a fall at home, concern raised for syncope. Pt was seen and examined with her daughter in law at bedside. Pts daughter in law states that she was with her during this event and there was no loss of consciousness, no dizziness or lightheadedness. states she had finished going to the bathroom and was pulling up her pants when she lost her balance and fell. Pt currently denies any complaints. Pt denies any chest pain, sob, palpitations. 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 History of Recent Travel: Yes (Visiting from [place]) Home Medications - Allergies Allergies/Adverse Reactions: Allergies Allergy/AdvReac Type Severity Reaction Status Date / Time No Known Allergies Allergy Verified 12/17/18 11:21 - Home Medications Home Medications: Ambulatory Orders Aspirin [Ecotrin] 81 mg PO DAILY 03/13/15 Atorvastatin Ca [Lipitor] 20 mg PO HS 03/13/15 Amox-Tr/K Cl [Augmentin 500-125mg Tablet -] 1 tab PO BID@0800,1730 #14 tablet Donepezil HCl [Aricept -] 5 mg PO DAILY #30 tablet 12/15/18 Furosemide [Lasix -] 20 mg PO DAILY #30 tablet 12/15/18 Family Disease History - Family Disease History Family History: Denies Review of Systems - Review of Systems Constitutional: reports: Weakness. denies: No Symptoms, Chills, Diaphoresis, Fever, Lethargy, Loss of Appetite, Malaise, Night Sweats, Unintentional Wgt. Loss, Other Eyes: denies: No Symptoms, Blind Spots, Blurred Vision, Double Vision, Eye Pain , Floaters, Photophobia, Recent Change in Vision, Other HENT: denies: No Symptoms, Difficult Swallowing, Ear Discharge, Ear Pain, Epistaxis, Gingival Bleeding, Hearing Loss, Mouth Swelling, Nasal Congestion, Ocular Prosthesis, Throat Pain, Toothache, Ringing in Ears, Other Neck: denies: No Symptoms, Decreased ROM, Lumps, Pain on Movement, Stiffness, Swollen Glands, Tenderness, Other Cardiovascular: denies: No Symptoms, Chest Pain, Edema, Palpitations, Shortness of Breath, Other Respiratory: denies: No Symptoms, Cough, Exercise Intolerance, Hemoptysis, Orthopnea, PND, Snoring, SOB, SOB on Exertion, Wheezing, Other Gastrointestinal: denies: No Symptoms, Abdominal Pain, Bloating, Constipation, Diarrhea, Dysphagia, Indigestion, Melena, Nausea, Rectal Bleeding, Vomiting, Vomiting Blood, Other Genitourinary: denies: No Symptoms, Burning, Discharge, Dysuria, Flank Pain, Frequency, Hematuria, Incontinence, Lesions, Menses, Pain, Testicular Mass, Testicular Pain, Testicular Swelling, Urgency, Vaginal Bleeding, Other Breasts: denies: No Symptoms Reported, See HPI, Breast Implants, Discharge from Nipple, Lumps, Pain, Skin Changes, Other Musculoskeletal: denies: No Symptoms, Back Pain, Crepitus, Decreased ROM, Extremity Pain, Joint Pain, Joint Swelling, Muscle Pain, Muscle Cramps, Muscle Weakness, Other Integumentary: denies: No Symptoms, Blister, Bruising, Change in Color, Eczema, Erythema, Incision, Lesions, Lump, Pallor, Pruritis, Rash, Wound, Other Neurological: denies: No Symptoms, Change in LOC, Change in Speech, Confusion, Dizziness, Headache, Incoordination, Numbness, Parasthesia, Pre-Existing Deficit , Seizure, Syncope, Tremors, Unsteady Gait, Weakness, Other Endocrine: denies: No Symptoms, Excessive Sweating, Flushing, Increased Hunger, Increased Thirst, Intolerance to Cold, Intolerance to Heat, Unexplained Weight Gain, Unexplained Weight Loss, Other Hematology/Lymphatic: denies: No Symptoms, Easily Bruised, Excessive Bleeding, Swollen Glands, Other Psychiatric: denies: No Symptoms, Altered Sleep Pattern, Anxiety, Depression, Hallucinations, Panic, Paranoia, Suicidal, Other - Risk Factors Known Risk Factors: Yes: Age Vital Signs: Vital Signs Temperature 97.6 F 12/18/18 02:00 Pulse Rate 96 H 12/18/18 08:00 Respiratory Rate 12/18/18 08:00 Blood Pressure 128/80 12/18/18 08:00 O2 Sat by Pulse Oximetry (%) 96 12/17/18 23:00 Constitutional: Yes: No Distress, Calm Eyes: Yes: Conjunctiva Clear, EOM Intact HENT: Yes: Atraumatic, Normocephalic Neck: Yes: Supple, Trachea Midline Respiratory: Yes: Regular, CTA Bilaterally. No: Rales, Rhonchi, Wheezes Gastrointestinal: Yes: Normal Bowel Sounds, Soft. No: Distention, Tenderness Cardiovascular: Yes: Regular Rate and Rhythm. No: Bradycardia, Tachycardia, Pulse Irregular, Gallop, Rub, Varicosities JVD: No Carotid Bruit: No PMI: Non-Displaced Heart Sounds: Yes: S1, S2. No: Split S2, S3, S4, Clicks, Gallop, Rub, Bruit Murmur: No: Systolic Murmur, Diastolic Murmur Musculoskeletal: Yes: WNL Extremities: Yes: WNL Edema: No Peripheral Pulses WNL: Yes Peripheral Pulses: 2+ Left Doralis Pedis, 2+ Right Dorsalis Pedis Neurological: Yes: Alert Psychiatric: Yes: Alert - Other Data Labs, Other Data: CBC, BMP 12/18/18 05:30 12/18/18 05:30 Troponin, BNP 12/17/18 13:45 Troponin I 0.02 Troponin, BNP 12/17/18 13:45 Troponin I 0.02 ekg x 2 this admission NSR Imaging - Results Chest X-ray: Report Reviewed, Image Reviewed EKG: Report Reviewed, Image Reviewed Other: Report Reviewed, Image Reviewed (tele nsr, sinus tach, no afib) Assessment/Plan 82 year old woman pmh htn, hld, reported CAD, dementia recently travelled from [place] after living there for 5 years brought to ER last week by her daughter due to complaints of generalized weakness, difficulty with ambulation for a few weeks. Initial ekg was thought to be Afib but was determined not to be. There was no documented evidence of Afib during that admission. she was treated by medicine and discharged home. Now admitted with a fall at home, concern raised for syncope. Pt was seen and examined with her daughter in law at bedside. Pts daughter in law states that she was with her during this event and there was no loss of consciousness, no dizziness or lightheadedness. states she had finished going to the bathroom and was pulling up her pants when she lost her balance and fell. Pt currently denies any complaints. Pt denies any chest pain, sob, palpitations. no pnd, orthopnea, or LE edema Fall -pts daughter in law confirms there was no loss of consciousness and no symptoms prior to the fall -appears to be a mechanical fall -no further syncope work up is needed Abnormal EKG -There has been no documented evidence of Atrial fibrillation, initial ekg last admission initially thought to be afib was confirmed not to be -no afib on this admission -would not treat for afib at this time. No additional cardiac work up needed at this time. Please call with any further questions.
[2018-12-18] MEDS: ASPIRIN COATED 81 MG TABLET.EC PO SCH (11:12)
--- NOTE | 2018-12-18 14:08 | PN ---
Teaching Attending Note Name of Resident: Leatha Chaudhry (Nephrology) ATTENDING PHYSICIAN STATEMENT I saw and evaluated the patient. I reviewed the resident's note and discussed the case with the resident. I agree with the resident's findings and plan as documented. Renal Pt presents s/p fall. She is awake and appears comfortable. I was called to evaluate for elevated creatinine. Renal function is improved. Current Medications Generic Name Dose Route Start Last Admin Trade Name Freq PRN Reason Stop Dose Admin Acetaminophen 650 mg 12/17/18 16:53 Tylenol - PO Q6H PRN PAIN Amoxicillin/Clavulanate Potassium 1 tab 12/17/18 17:30 12/18/18 09:25 Augmentin - 500mg Tablet PO 12/21/18 17:30 1 tab BID@0800,1730 HAY Administration Aspirin 81 mg 12/18/18 10:00 12/18/18 11:12 Ecotrin - PO 81 mg DAILY HAY Administration Atorvastatin Calcium 20 mg 12/18/18 22:00 Lipitor - PO HS HAY Donepezil HCl 5 mg 12/18/18 22:00 Aricept - PO HS HAY Furosemide 40 mg 12/19/18 10:00 Lasix - PO DAILY HAY Laboratory Tests 12/17/18 12/18/18 12/18/18 18:18 05:30 05:30 WBC 9.5 Sodium 141 Potassium 3.4 L Urine Protein Negative Urine Blood Negative Impression 1. CKD 2. a-fib 3. s/p fall 4. htn 5. CHF 6. dementia 7. cad 8. hld 9. plueral effusions Plan - renal function stable - repeat labs in am - replace potassium - can restart PO lasix tomorrow - ua neg for blood or protein
--- NOTE | 2018-12-18 16:38 | EKG ---
Test Reason : Blood Pressure : / mmHG Vent. Rate : 104 BPM Atrial Rate : 104 BPM P-R Int : 144 ms QRS Dur : 086 ms QT Int : 364 ms P-R-T Axes : 062 -04 103 degrees QTc Int : 478 ms SINUS TACHYCARDIA BIATRIAL ENLARGEMENT LEFT VENTRICULAR HYPERTROPHY WITH REPOLARIZATION ABNORMALITY ABNORMAL ECG Confirmed by MD LINDSAY, THUY ([id number]) on 12/18/2018 4:38:28 PM Referred By: Confirmed By:THUY MONTOYA MD
--- NOTE | 2018-12-18 20:10 | CONS ---
PHYSICAL MEDICINE REHABILITATION CONSULTATION DATE OF CONSULTATION: 12/18/2018 HISTORY OF PRESENT ILLNESS: The patient is an 82-year-old woman with past medical history of Alzheimer dementia and coronary artery disease status post stent placement, who was admitted after a fall that was unwitnessed at home. Per her daughter, she took the patient to the bathroom and told the patient to call for assistance after the patient insisted on being left alone in the bathroom. The patient fell, striking her head. The patient was found to be conscious and had 3 small scalp lacerations, was taken to the emergency room. On admission, patient underwent a CT of the head which showed no acute intracranial pathology on December 17. Patient had chronic changes. Two right frontal scalp lacerations were noted and a small left frontal scalp contusion. Patient was admitted for syncope workup. Chest x-ray on December 17 demonstrated no evidence of active pulmonary disease. Blood work demonstrated elevated WBC of 15.4, hemoglobin 14.8, platelet count 13.0. Repeat blood work today showed WBC 9.5, hemoglobin 14.8, platelet count 210. Chemistry on admission demonstrated an elevated BUN 38 to creatinine 1.3. AST was elevated at 49, normal ALT of 27. Troponin was normal at 0.02. Repeat blood work done today showed a low potassium of 3.4. BUN remained elevated at 31 to creatinine 1.1. Patient's albumin was normal, but per her daughter, she has not been eating. Patient herself offers no current complaints, but again, she is demented and is not a good historian. She denies any headache, any lightheadedness, dizziness currently, any chest pain, shortness of breath, any weakness, numbness, tingling in the upper or lower extremities. No fever or chills. PAST MEDICAL AND SURGICAL HISTORY: Coronary artery disease, hypertension, hyperlipidemia, dementia. SOCIAL HISTORY: Patient is a non-tobacco user, had lived with a daughter in an apartment with no steps. Currently, she is living with a daughter and is set up on the first level. She requires assistance for ambulation premorbidly and has poor safety awareness per her daughter. REVIEW OF SYSTEMS: As above. No skin rash. No bowel, bladder complaints. Per the daughter, she has poor appetite and is losing weight. No chest pain, shortness of breath. No fever, chills. No skin rash. No joint arthralgias. No neck or back pain. No numbness, tingling. PHYSICAL EXAMINATION: General: An elderly woman who is lying in bed. She is arousable and cooperative and in no acute distress. HEENT: She is normocephalic and atraumatic. She does have some scalp lacerations, but no other trauma around the face itself. Neck: Supple. Extremities: Without any pitting edema or calf tenderness. Neuromuscular: She is awake, alert, oriented to person, but not place or time. Cranial nerves 2-12 grossly intact. She has minimal arthritic changes in the hands, but good range of motion, at least 4/5 strength in the upper extremities, 3/5 in the lower extremities proximally and 4/5 distally. Normal sensation to light touch, pinprick. Symmetric reflexes. Downgoing toes. No gross arthritic changes in the lower extremities. OVERALL IMPRESSION: 1. Deficits in mobility and activities of daily living. 2. Status post fall. 3. Dementia. 4. Elevated BUN and creatinine, rule out prerenal azotemia contributing to hypovolemia and hypotension. 5. History of coronary artery disease status post stent. 6. Hypertension. 7. Hyperlipidemia. 8. Poor appetite per the daughter with normal albumin. PLAN/SUGGESTION: 1. Physical therapy for mobilization, transfers, gait training, strengthening, reconditioning, family training as appropriate. 2. Monitor chemistry, replete potassium is necessary. 3. Encourage p.o. fluids. 4. Consider dietary consultation for supplementary nutrition. 5. Case management for discharge planning. 6. DVT prophylaxis until more mobile. 7. Wound care for scalp laceration. 8. Discussed with daughter who is caregiver currently. DISPOSITION: Home with home care. Thank you for this referral. RA HERNANDEZ M.D. [id number]
[2018-12-18] MEDS: ATORVASTATIN CA 20 MG TABLET (FP) PO SCH (21:16)
[2018-12-18] MEDS: DONEPEZIL HCL 5 MG TABLET (FP) PO SCH (21:16)
[2018-12-19] MEDS ORDERED: FLUCONAZOLE 50 MG TABLET PO ONE (06:00)
--- NOTE | 2018-12-19 06:15 | HOSP ---
Subjective - Review of Symptoms Events since last encounter: Hospitalist Encounter Notified via microblog by the RN, that the patient was received from ICU and was noted to have fungal type rash to groin, vagina discharge and erythematous papules to inner gluteal fold. Subjective: Arrived to bedside, patient is alert to name only at baseline, daughter at bedside. See PE- EMR Assessment: Pt is a 82 yo woman with PMHx of cardiorenal syndrome with hyperkalemia, HTN, HLD, CAD, CHF, dementia, arrythmias, who presented after a fall with elevated BUN. Pt was recently discharged after being managed for cardiorenal syndrome with hyperkalemia. ACEI held in last admission, now consulted for elevated BUN, which is trending down from previous admission. Plan: Diflucan 150mg po x1 Nystatin Ointment TP Zinc Oxide TP Physical Examination Vital Signs: Vital Signs Temperature 98.1 F 12/19/18 01:48 Pulse Rate 99 H 12/19/18 01:48 Respiratory Rate 20 12/19/18 01:48 Blood Pressure 134/75 12/19/18 01:48 O2 Sat by Pulse Oximetry (%) 95 12/18/18 21:00 Constitutional: Yes: No Distress, Calm Eyes: Yes: WNL, Conjunctiva Clear, PERRL HENT: Yes: WNL, Atraumatic, Normocephalic Neck: Yes: WNL, Supple, Trachea Midline Cardiovascular: Yes: Regular Rate and Rhythm, S1, S2 Respiratory: Yes: WNL, Regular, CTA Bilaterally Gastrointestinal: Yes: WNL, Normal Bowel Sounds, Soft ...Rectal Exam: Yes: Erythema (vesicles to buttock) Renal/: Yes: Vaginal Discharge (grayish white) Integumentary: Yes: Erythema (groin/perineal folds), Rash (buttock groin) Neurological: Yes: Alert, Confusion Labs: CBC, BMP 12/18/18 05:30 12/18/18 05:30 Hospitalist Encounter Recommendations/Interventions: Consider CLEANER FURNITURE consult if condition worsens Wound Care Nurse
[2018-12-19 07:32] LABS: BASO % 0.8 % (0-2.0); EOS % 4.2 % (0-4.5); HEMATOCRIT 42.6 % (32.4-45.2); HEMOGLOBIN 14.3 GM/dL (10.7-15.3); LYMPH % 31.7 % (8-40); MCH 31.2 pg (25.7-33.7); MCHC 33.6 g/dl (32.0-36.0); MEAN CELL VOLUME 92.7 fl (80-96); MEAN PLT VOLUME 9.1 fl (7.5-11.1); MONO % 8.7 % (3.8-10.2); NEUT % 54.6 % (42.8-82.8); PLATELET COUNT 209 K/MM3 (134-434); RDW 13.2 % (11.6-15.6); WHITE BLOOD COUNT 7.3 K/mm3 (4.0-10.0)
[2018-12-19] MEDS ORDERED: PT OWN MED DRAWER 7, Y5N ONE ×3 (07:52→12:32)
[2018-12-19 08:02] LABS: ALBUMIN 3.4 g/dl (3.4-5.0); ALK PHOS 77 U/L (45-117); ANION GAP 9 MMOL/L (8-16); BILIRUBIN,TOTAL 0.7 mg/dL (0.2-1); BLOOD UREA NITROGEN 26 mg/dL (7-18); CALCIUM 9.2 mg/dL (8.5-10.1); CHLORIDE 103 mmol/L (98-107); CO2 27 mmol/L (21-32); GLUCOSE,RANDOM 84 mg/dL (74-106); POTASSIUM 3.8 mmol/L (3.5-5.1); SGOT/AST 24 U/L (15-37); SGPT/ALT 22 U/L (13-61); SODIUM 139 mmol/L (136-145); TOT PROT 7.4 g/dl (6.4-8.2)
--- NOTE | 2018-12-19 08:59 | CON.GI ---
Consult Consult Specialty:: Gastroenterology Referred by:: Dr. Lewis Lim Reason for Consultation:: Anorexia - History of Present Illness Chief Complaint: Poor appetite History of Present Illness: Patient is an 82 y/o female patient with past medical history of HTN, Alzheimer' s disease, heart catheterization (unknown stent placement). Patient was referred for poor appetite associated with abdominal pbloating for 8 months. Patient states that she does not feel hungry. As per patient daughter in law no history of EGD or colonoscopy performed in past. Patient denies dysphagia, nausea, vomiting. Complains of lower abdominal pain with constipation for 5 days. As per daughter in law the last BM patient had was noted to be black in color. Daughter in law also states that patient has had an abnormal amount of weight loss but cannot say as to the amount in total lost. 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 History of Recent Travel: Yes (Visiting from [place]) Home Medications - Allergies Allergies/Adverse Reactions: Allergies Allergy/AdvReac Type Severity Reaction Status Date / Time No Known Allergies Allergy Verified 12/17/18 11:21 - Home Medications Home Medications: Ambulatory Orders Aspirin [Ecotrin] 81 mg PO DAILY 03/13/15 Atorvastatin Ca [Lipitor] 20 mg PO HS 03/13/15 Amox-Tr/K Cl [Augmentin 500-125mg Tablet -] 1 tab PO BID@0800,1730 #14 tablet Donepezil HCl [Aricept -] 5 mg PO DAILY #30 tablet 12/15/18 Furosemide [Lasix -] 20 mg PO DAILY #30 tablet 12/15/18 Review of Systems - Review of Systems Constitutional: reports: Loss of Appetite, Unintentional Wgt. Loss Eyes: reports: No Symptoms HENT: reports: No Symptoms Neck: reports: No Symptoms Cardiovascular: reports: No Symptoms Respiratory: reports: No Symptoms Gastrointestinal: reports: Abdominal Pain (lower abdomen), Constipation, Melena Genitourinary: reports: No Symptoms Breasts: reports: No Symptoms Reported Musculoskeletal: reports: Muscle Weakness Integumentary: reports: No Symptoms Neurological: reports: Pre-Existing Deficit Endocrine: reports: No Symptoms Hematology/Lymphatic: reports: No Symptoms Psychiatric: reports: No Symptoms Physical Exam-GI Vital Signs: Vital Signs Temperature 98.0 F 12/19/18 06:28 Pulse Rate 95 H 12/19/18 06:28 Respiratory Rate 18 12/19/18 06:28 Blood Pressure 144/72 12/19/18 06:28 O2 Sat by Pulse Oximetry (%) 95 12/19/18 02:04 Constitutional: Yes: No Distress, Calm Eyes: Yes: Conjunctiva Clear HENT: Yes: Other (laceration with marvin present top of head) Cardiovascular: Yes: Regular Rate and Rhythm Respiratory: Yes: Regular, CTA Bilaterally Gastrointestinal Inspection: Yes: Distention (--mild). No: WNL, Ascites, Hernia , Scars, Other ...Auscultate: Yes: Normoactive Bowel Sounds. No: Hyperactive Bowel Sounds, Hypoactive Bowel Sounds, No Bowel Sounds, Other ...Palpate: Yes: Soft, Tenderness (lower abdomen B/L). No: Firm/Rigid, Guarding , Hepatomegaly, Mass, Pulsatile Mass, Splenomegaly, Tenderness, Epigastium, Tenderness, Rebound, Other ...Percussion: Yes: Tympanitic, Other. No: Dullness, Fluid Wave Genitourinary: Yes: Incontinence Musculoskeletal: Yes: Muscle Weakness Wound/Incision: Yes: Marvin Intact Neurological: Yes: Alert, Pre-Existing Deficit Labs: CBC, BMP 12/19/18 07:00 12/19/18 07:00 Active Medications Generic Name Dose Route Start Last Admin Trade Name Freq PRN Reason Stop Dose Admin Acetaminophen 650 mg 12/17/18 16:53 Tylenol - PO Q6H PRN PAIN Amoxicillin/Clavulanate Potassium 1 tab 12/17/18 17:30 12/18/18 18:23 Augmentin - 500mg Tablet PO 12/21/18 17:30 1 tab BID@0800,1730 HAY Administration Aspirin 81 mg 12/18/18 10:00 12/18/18 11:12 Ecotrin - PO 81 mg DAILY HAY Administration Atorvastatin Calcium 20 mg 12/18/18 22:00 12/18/18 21:16 Lipitor - PO 20 mg HS HAY Administration Donepezil HCl 5 mg 12/18/18 22:00 12/18/18 21:16 Aricept - PO 5 mg HS HAY Administration Furosemide 40 mg 12/19/18 10:00 Lasix - PO DAILY HAY Multi-Ingredient Ointment 1 applic 12/19/18 10:00 Zinc Oxide TP BID HAY Nystatin 1 applic 12/19/18 10:00 Mycostatin Ointment - TP BID HAY Problem List - Problems (1) Poor appetite Assessment/Plan: R> Rmeron 7.5 mg q hs VIT B complex and folic acid Code(s): R63.0 - ANOREXIA (2) IBS (irritable bowel syndrome) Assessment/Plan: with constipation R> suspect small bowel bacterial overgrowth Flagyl 250mg tid low fiber lactose free diet the family was made aware to follow up for further gi w/u Code(s): K58.9 - IRRITABLE BOWEL SYNDROME WITHOUT DIARRHEA Assessment/Plan R/O GI Pathiology, is possibile poor appetite 2/2 to worsening Alzheimer's R>vitamin B complex and folic acid CEA, CA 125, CA 19-9, AFP ordred Abdomen and Pelvic CT scan without contrast
[2018-12-19] MEDS: AMOX TR/POT CLAV 500MG/125MG TABLETS (FP) PO SCH ×2 (09:17→17:29)
[2018-12-19] MEDS: ASPIRIN COATED 81 MG TABLET.EC PO SCH (09:17)
[2018-12-19] MEDS: ZINC OXIDE 20% TOPICAL OINTMENT 30 GM TUBE TP SCH ×2 (09:25→21:45)
[2018-12-19] MEDS ORDERED: FUROSEMIDE 20 MG TABLET (FP) PO SCH (10:00)
--- NOTE | 2018-12-19 10:10 | PN ---
Progress Note, Physician History of Present Illness: Pt seen and examined at bedside. She has poor PO intake. She denies shortness of breath. - Current Medication List Current Medications: Active Medications Acetaminophen (Tylenol -) 650 mg PO Q6H PRN PRN Reason: PAIN Amoxicillin/Clavulanate Potassium (Augmentin - 500mg Tablet) 1 tab PO BID@0800, 1730 [facility] Stop: 12/21/18 17:30 Last Admin: 12/19/18 09:17 Dose: 1 tab Aspirin (Ecotrin -) 81 mg PO DAILY [facility] Last Admin: 12/19/18 09:17 Dose: 81 mg Atorvastatin Calcium (Lipitor -) 20 mg PO HS [facility] Last Admin: 12/18/18 21:16 Dose: 20 mg Donepezil HCl (Aricept -) 5 mg PO HS [facility] Last Admin: 12/18/18 21:16 Dose: 5 mg Furosemide (Lasix -) 40 mg PO DAILY [facility] Last Admin: 12/19/18 09:17 Dose: 40 mg Multi-Ingredient Ointment (Zinc Oxide) 1 applic TP BID [facility] Last Admin: 12/19/18 09:25 Dose: 1 applic Nystatin (Mycostatin Ointment -) 1 applic TP BID [facility] - Objective Vital Signs: Vital Signs Temperature 98.0 F 12/19/18 06:28 Pulse Rate 95 H 12/19/18 06:28 Respiratory Rate 18 12/19/18 06:28 Blood Pressure 144/72 12/19/18 06:28 O2 Sat by Pulse Oximetry (%) 95 12/19/18 02:04 Constitutional: Yes: Calm Eyes: Yes: Conjunctiva Clear HENT: Yes: Atraumatic Cardiovascular: Yes: S1, S2 Respiratory: Yes: CTA Bilaterally Gastrointestinal: Yes: Soft Genitourinary: Yes: WNL Musculoskeletal: Yes: WNL Edema: No Neurological: Yes: Oriented Psychiatric: Yes: Oriented Labs: CBC, BMP 12/19/18 07:00 12/19/18 07:00 Assessment/Plan Current Medications Generic Name Dose Route Start Last Admin Trade Name Freq PRN Reason Stop Dose Admin Acetaminophen 650 mg 12/17/18 16:53 Tylenol - PO Q6H PRN PAIN Amoxicillin/Clavulanate Potassium 1 tab 12/17/18 17:30 12/19/18 09:17 Augmentin - 500mg Tablet PO 12/21/18 17:30 1 tab BID@0800,1730 HAY Administration Aspirin 81 mg 12/18/18 10:00 12/19/18 09:17 Ecotrin - PO 81 mg DAILY HAY Administration Atorvastatin Calcium 20 mg 12/18/18 22:00 12/18/18 21:16 Lipitor - PO 20 mg HS HAY Administration Donepezil HCl 5 mg 12/18/18 22:00 12/18/18 21:16 Aricept - PO 5 mg HS HAY Administration Furosemide 40 mg 12/19/18 10:00 12/19/18 09:17 Lasix - PO 40 mg DAILY HAY Administration Multi-Ingredient Ointment 1 applic 12/19/18 10:00 12/19/18 09:25 Zinc Oxide TP 1 applic BID HAY Administration Nystatin 1 applic 12/19/18 10:00 Mycostatin Ointment - TP BID HAY Impression 1. CKD 2. a-fib 3. s/p fall 4. htn 5. CHF 6. dementia 7. cad 8. hld 9. plueral effusions Plan - encourage PO intake - PO lasix - monitor volume status - can hold lasix tomorrow if her PO intake remains poor - will follow PRN
[2018-12-19] MEDS: NYSTATIN 100000 UNIT/GM TOPICAL OINTMENT 15 GM TUBE TP SCH ×2 (10:48→21:45)
--- NOTE | 2018-12-19 14:46 | PN ---
Progress Note, Physician Chief Complaint: Fall KATYA History of Present Illness: NAD Seen by GI for decreased appetite, which is 2/2 to Alzhiemers Pt is not malnourished or underweight, would avoid any pharmacological intervention and encourage PO intake. Albumin normal. Started on Multivitamin - Current Medication List Current Medications: Active Medications Acetaminophen (Tylenol -) 650 mg PO Q6H PRN PRN Reason: PAIN Amoxicillin/Clavulanate Potassium (Augmentin - 500mg Tablet) 1 tab PO BID@0800, 1730 [facility] Stop: 12/21/18 17:30 Last Admin: 12/19/18 09:17 Dose: 1 tab Aspirin (Ecotrin -) 81 mg PO DAILY [facility] Last Admin: 12/19/18 09:17 Dose: 81 mg Atorvastatin Calcium (Lipitor -) 20 mg PO HS [facility] Last Admin: 12/18/18 21:16 Dose: 20 mg Donepezil HCl (Aricept -) 5 mg PO HS [facility] Last Admin: 12/18/18 21:16 Dose: 5 mg Fluconazole (Diflucan -) 100 mg PO DAILY [facility] Folic Acid (Folic Acid -) 1 mg PO DAILY [facility] Furosemide (Lasix -) 40 mg PO DAILY [facility] Last Admin: 12/19/18 09:17 Dose: 40 mg Multi-Ingredient Ointment (Zinc Oxide) 1 applic TP BID [facility] Last Admin: 12/19/18 09:25 Dose: 1 applic Multivitamins (Total B With C -) 1 each PO DAILY [facility] Nystatin (Mycostatin Ointment -) 1 applic TP BID [facility] Last Admin: 12/19/18 10:48 Dose: 1 applic - Objective Vital Signs: Vital Signs Temperature 98.3 F 12/19/18 10:00 Pulse Rate 90 12/19/18 10:00 Respiratory Rate 18 12/19/18 10:00 Blood Pressure 122/62 12/19/18 10:00 O2 Sat by Pulse Oximetry (%) 96 12/19/18 09:00 Constitutional: Yes: Well Nourished, No Distress, Calm Cardiovascular: Yes: Regular Rate and Rhythm Respiratory: Yes: Regular Gastrointestinal: Yes: Normal Bowel Sounds, Soft Genitourinary: Yes: Barnard Present Musculoskeletal: Yes: WNL Extremities: Yes: WNL Edema: No Peripheral Pulses WNL: Yes Neurological: Yes: Alert, Pre-Existing Deficit Psychiatric: Yes: Alert Labs: CBC, BMP 12/19/18 07:00 12/19/18 07:00 Problem List - Problems (1) KATYA (acute kidney injury) Assessment/Plan: -2/2 to dehydration -Nephrology on board -Cr at baseline -Encourage po fluids Code(s): N17.9 - ACUTE KIDNEY FAILURE, UNSPECIFIED (2) Fall Assessment/Plan: -Physical therapy -Safety precautions Code(s): W19.XXXA - UNSPECIFIED FALL, INITIAL ENCOUNTER Qualifiers: Encounter type: initial encounter Qualified Code(s): W19.XXXA - Unspecified fall, initial encounter (3) Poor appetite Assessment/Plan: -Encourage PO intake -Ensure daily -added multivitamin Code(s): R63.0 - ANOREXIA (4) Janice vaginitis Assessment/Plan: -Diflucan 100 mg po daily x 3 days, received 1 dose of 150 mg yesterday -topical antifungal -Upon discharge, would use fluconazole once week for upto 6 months if needed Code(s): B37.3 - CANDIDIASIS OF VULVA AND VAGINA (5) Urinary retention Assessment/Plan: -barnard inserted yesterday -start Tamsulosin 0.4 mg daily -voiding trial in AM Code(s): R33.9 - RETENTION OF URINE, UNSPECIFIED Assessment/Plan see problem list Physical therapy
[2018-12-19] MEDS: metroNIDAZOLE 250 MG TABLET PO SCH (21:44)
[2018-12-19] MEDS: ATORVASTATIN CA 20 MG TABLET (FP) PO SCH (21:44)
[2018-12-19] MEDS: DONEPEZIL HCL 5 MG TABLET (FP) PO SCH (21:45)
[2018-12-20] MEDS: metroNIDAZOLE 250 MG TABLET PO SCH ×3 (05:22→21:03)
[2018-12-20 08:54] LABS: ANION GAP 11 MMOL/L (8-16); BLOOD UREA NITROGEN 25 mg/dL (7-18); CHLORIDE 103 mmol/L (98-107); CO2 26 mmol/L (21-32); CREATININE 1.1 mg/dL (0.55-1.3); GLUCOSE,RANDOM 91 mg/dL (74-106); POTASSIUM 3.8 mmol/L (3.5-5.1); SODIUM 139 mmol/L (136-145)
[2018-12-20] MEDS: FLUCONAZOLE 100 MG TABLET (UD) PO SCH (10:22)
[2018-12-20] MEDS: VITAMIN B COMPLEX W/C COMBO TABLET (FP) PO SCH (10:23)
[2018-12-20] MEDS: AMOX TR/POT CLAV 500MG/125MG TABLETS (FP) PO SCH (10:23)
[2018-12-20] MEDS: FOLIC ACID 1 MG TABLET (FP) PO SCH (10:23)
[2018-12-20] MEDS: NYSTATIN 100000 UNIT/GM TOPICAL OINTMENT 15 GM TUBE TP SCH (10:23)
[2018-12-20] MEDS: PANTOPRAZOLE 40 MG TABLET (FP) PO SCH (10:23)
[2018-12-20] MEDS: ASPIRIN COATED 81 MG TABLET.EC PO SCH (10:23)
[2018-12-20] MEDS: ZINC OXIDE 20% TOPICAL OINTMENT 30 GM TUBE TP SCH ×2 (10:23→21:04)
[2018-12-20] MEDS ORDERED: TAMSULOSIN HCL 0.4 MG CAP PO SCH (10:44)
--- NOTE | 2018-12-20 10:49 | PN ---
Progress Note, Physician Chief Complaint: Fall KATYA History of Present Illness: NAD Seen by GI for decreased appetite, which is 2/2 to Alzhiemers Pt is not malnourished or underweight, would avoid any pharmacological intervention and encourage PO intake. Albumin normal. Started on Multivitamin - Current Medication List Current Medications: Active Medications Acetaminophen (Tylenol -) 650 mg PO Q6H PRN PRN Reason: PAIN Aspirin (Ecotrin -) 81 mg PO DAILY [facility] Last Admin: 12/20/18 10:23 Dose: 81 mg Atorvastatin Calcium (Lipitor -) 20 mg PO HS [facility] Last Admin: 12/19/18 21:44 Dose: 20 mg Clotrimazole (Lotrisone Cream (Small Tube)) 1 applic TP BID [facility] Donepezil HCl (Aricept -) 5 mg PO HS [facility] Last Admin: 12/19/18 21:45 Dose: 5 mg Fluconazole (Diflucan -) 100 mg PO DAILY [facility] Last Admin: 12/20/18 10:22 Dose: 100 mg Folic Acid (Folic Acid -) 1 mg PO DAILY [facility] Last Admin: 12/20/18 10:23 Dose: 1 mg Furosemide (Lasix -) 40 mg PO DAILY [facility] Last Admin: 12/19/18 09:17 Dose: 40 mg Metronidazole (Flagyl -) 250 mg PO TID [facility] Last Admin: 12/20/18 05:22 Dose: 250 mg Multi-Ingredient Ointment (Zinc Oxide) 1 applic TP BID [facility] Last Admin: 12/20/18 10:23 Dose: 1 applic Multivitamins (Total B With C -) 1 each PO DAILY [facility] Last Admin: 12/20/18 10:23 Dose: 1 each Pantoprazole Sodium (Protonix -) 40 mg PO DAILY [facility] Last Admin: 12/20/18 10:23 Dose: 40 mg Tamsulosin HCl (Flomax -) 0.4 mg PO DAILY@0830 [facility] Objective Vital Signs: Vital Signs Temperature 97.5 F L 12/20/18 09:00 Pulse Rate 102 H 12/20/18 09:00 Respiratory Rate 18 12/20/18 09:00 Blood Pressure 136/74 12/20/18 09:00 O2 Sat by Pulse Oximetry (%) 95 12/19/18 20:54 Constitutional: Yes: Well Nourished, Calm Cardiovascular: Yes: Regular Rate and Rhythm Respiratory: Yes: Regular Gastrointestinal: Yes: Normal Bowel Sounds, Soft Genitourinary: Yes: WNL Musculoskeletal: Yes: WNL Extremities: Yes: WNL Edema: No Peripheral Pulses WNL: Yes Neurological: Yes: Alert, Pre-Existing Deficit Psychiatric: Yes: Alert Labs: CBC, BMP 12/19/18 07:00 12/20/18 07:30 Problem List - Problems (1) KATYA (acute kidney injury) Assessment/Plan: -2/2 to dehydration -Nephrology on board -Cr at baseline -Encourage po fluids Code(s): N17.9 - ACUTE KIDNEY FAILURE, UNSPECIFIED (2) Fall Assessment/Plan: -Physical therapy -Safety precautions Code(s): W19.XXXA - UNSPECIFIED FALL, INITIAL ENCOUNTER Qualifiers: Encounter type: initial encounter Qualified Code(s): W19.XXXA - Unspecified fall, initial encounter (3) Poor appetite Assessment/Plan: -Encourage PO intake -Ensure daily -added multivitamin Code(s): R63.0 - ANOREXIA (4) Janice vaginitis Assessment/Plan: -Diflucan 100 mg po daily x 3 days, received 1 dose of 150 mg yesterday -topical antifungal -Upon discharge, would use fluconazole once week for upto 6 months if needed Code(s): B37.3 - CANDIDIASIS OF VULVA AND VAGINA (5) Urinary retention Assessment/Plan: -barnard inserted yesterday -start Tamsulosin 0.4 mg daily -voiding trial in AM Code(s): R33.9 - RETENTION OF URINE, UNSPECIFIED Assessment/Plan see problem list Physical therapy
--- NOTE | 2018-12-20 11:38 | PN ---
Physical Exam: SUBJECTIVE: Patient seen and examined. Had urinary retention yesterday with barnard with up to 2600 output Had yogurt this am. OBJECTIVE: Vital Signs Period Temp Pulse Resp BP Sys/Dominguez Pulse Ox Last 24 Hr 97.5 F-98.9 F 85-104 18-18 109-141/57-79 95 Vital Signs Temp 97.5 F L 12/20/18 09:00 Pulse 102 H 12/20/18 09:00 Resp 18 12/20/18 09:00 BP 136/74 12/20/18 09:00 Pulse Ox 95 12/19/18 20:54 Intake & Output 12/19/18 12/19/18 12/20/18 11:59 23:59 11:59 Intake Total 100 340 Output Total 2600 Balance 100 340 -2600 Weight 63.503 kg Intake: Oral 100 340 Output: Urine 2600 Barnard 2600 Other: Voiding Method Diaper Toilet # Unmeasured Voids Void 1 Bowel Movement No Weight Measurement Method Standing Scale GENERAL: The patient is awake, alert, and fully oriented, in no acute distress. ENT: Dry mucous membranes. NECK: supple. LUNGS: Breath sounds equal, clear to auscultation bilaterally, no wheezes, no crackles HEART: Tachycardic, S1, S2 ABDOMEN: Soft, nontender, nondistended, normoactive bowel sounds EXTREMITIES: 2+ pulses, warm, well-perfused, no edema. NEUROLOGICAL: Cranial nerves II through XII grossly intact. Normal speech, gait not observed. CBC, BMP 12/19/18 07:00 12/20/18 07:30 Laboratory Results - last 24 hr 12/19/18 12/20/18 13:35 07:30 Sodium 139 Potassium 3.8 Chloride 103 Carbon Dioxide 26 Anion Gap 11 BUN 25 H Creatinine 1.1 Creat Clearance w eGFR 47.43 Random Glucose 91 Calcium 9.0 Phosphorus 3.0 Magnesium 2.0 Carcinoembryonic Ag Cancelled Active Medications Generic Name Dose Route Start Last Admin Trade Name Freq PRN Reason Stop Dose Admin Acetaminophen 650 mg 12/17/18 16:53 Tylenol - PO Q6H PRN PAIN Aspirin 81 mg 12/18/18 10:00 12/20/18 10:23 Ecotrin - PO 81 mg DAILY [facility] Administration Atorvastatin Calcium 20 mg 12/18/18 22:00 12/19/18 21:44 Lipitor - PO 20 mg HS [facility] Administration Clotrimazole 1 applic 12/20/18 10:45 Lotrisone Cream (Small Tube) TP BID [facility] Donepezil HCl 5 mg 12/18/18 22:00 12/19/18 21:45 Aricept - PO 5 mg HS [facility] Administration Fluconazole 100 mg 12/20/18 10:00 12/20/18 10:22 Diflucan - PO 100 mg DAILY [facility] Administration Folic Acid 1 mg 12/20/18 10:00 12/20/18 10:23 Folic Acid - PO 1 mg DAILY [facility] Administration Furosemide 40 mg 12/19/18 10:00 12/19/18 09:17 Lasix - PO 40 mg DAILY [facility] Administration Metronidazole 250 mg 12/19/18 22:00 12/20/18 05:22 Flagyl - PO 250 mg TID [facility] Administration Multi-Ingredient Ointment 1 applic 12/19/18 10:00 12/20/18 10:23 Zinc Oxide TP 1 applic BID [facility] Administration Multivitamins 1 each 12/20/18 10:00 12/20/18 10:23 Total B With C - PO 1 each DAILY [facility] Administration Pantoprazole Sodium 40 mg 12/20/18 10:00 12/20/18 10:23 Protonix - PO 40 mg DAILY [facility] Administration Tamsulosin HCl 0.4 mg 12/20/18 10:44 Flomax - PO DAILY@0830 [facility] ASSESS[facility]PLAN: Pt is an 82 yo with PMHx of cardiorenal syndrome with hyperkalemia, HTN, HLD, CAD, CHF, dementia, arrythmias, who presented after a fall with elevated BUN. Pt was recently discharged after being managed for cardiorenal syndrome with hyperkalemia. HTN, HLD, CAD, CHF, dementia, arrythmias, s/p fall elevated BUN. Poor PO intake GI bacterial overgrowth Plan: Elevated BUN in setting of resolving cardiorenal syndrome BUN still trending down from previous admission (improving renal function) Pt appears dry, lasix 40mg on hold Follow BMP Avoid nephrotoxic drugs Encourage PO intake Rest per primary team Visit type - Emergency Visit Emergency Visit: Yes ED Registration Date: 12/18/18 Care time: The patient presented to the Emergency Department on the above date and was hospitalized for further evaluation of their emergent condition. - New Patient This patient is new to me today: No - Critical Care Critical Care patient: No - Discharge Referral Referred to [facility] No
[2018-12-20] MEDS: CLOTRIMAZOLE/BETAMET DIPROP 15 GM TUBE TP SCH ×2 (13:21→21:04)
--- NOTE | 2018-12-20 18:02 | PN ---
Teaching Attending Note Name of Resident: Leatha Chaudhry (Nephrology) ATTENDING PHYSICIAN STATEMENT I saw and evaluated the patient. I reviewed the resident's note and discussed the case with the resident. I agree with the resident's findings and plan as documented. Renal Pt seen and examined at bedside. She has poor PO intake. Current Medications Generic Name Dose Route Start Last Admin Trade Name Freq PRN Reason Stop Dose Admin Acetaminophen 650 mg 12/17/18 16:53 Tylenol - PO Q6H PRN PAIN Aspirin 81 mg 12/18/18 10:00 12/20/18 10:23 Ecotrin - PO 81 mg DAILY [facility] Administration Atorvastatin Calcium 20 mg 12/18/18 22:00 12/19/18 21:44 Lipitor - PO 20 mg HS [facility] Administration Clotrimazole 1 applic 12/20/18 10:45 12/20/18 13:21 Lotrisone Cream (Small Tube) TP 1 applic BID [facility] Administration Donepezil HCl 5 mg 12/18/18 22:00 12/19/18 21:45 Aricept - PO 5 mg HS [facility] Administration Fluconazole 100 mg 12/20/18 10:00 12/20/18 10:22 Diflucan - PO 100 mg DAILY [facility] Administration Folic Acid 1 mg 12/20/18 10:00 12/20/18 10:23 Folic Acid - PO 1 mg DAILY [facility] Administration Furosemide 40 mg 12/19/18 10:00 12/19/18 09:17 Lasix - PO 40 mg DAILY [facility] Administration Metronidazole 250 mg 12/19/18 22:00 12/20/18 13:21 Flagyl - PO 250 mg TID [facility] Administration Multi-Ingredient Ointment 1 applic 12/19/18 10:00 12/20/18 10:23 Zinc Oxide TP 1 applic BID [facility] Administration Multivitamins 1 each 12/20/18 10:00 12/20/18 10:23 Total B With C - PO 1 each DAILY [facility] Administration Pantoprazole Sodium 40 mg 12/20/18 10:00 12/20/18 10:23 Protonix - PO 40 mg DAILY [facility] Administration Tamsulosin HCl 0.4 mg 12/20/18 10:44 Flomax - PO DAILY@0830 [facility] Last Vital Signs Temp Pulse Resp BP Pulse Ox 97.4 F L 98 H 18 120/79 95 12/20/18 15:29 12/20/18 15:29 12/20/18 15:29 12/20/18 15:29 12/20/18 09:00 cardio s1s2 pulm clear GI soft ext neg edema neuro awake Impression 1. CKD 2. a-fib 3. s/p fall 4. htn 5. CHF 6. dementia 7. cad 8. hld 9. plueral effusions Plan - hold lasix today as she is not eating - volume status is stable - monitor renal function - encourage PO intake Dr Coley
[2018-12-20] MEDS: ATORVASTATIN CA 20 MG TABLET (FP) PO SCH (21:03)
[2018-12-20] MEDS: DONEPEZIL HCL 5 MG TABLET (FP) PO SCH (21:04)
[2018-12-21 04:15] LABS: CARCINOEMBRYONIC ANTIGEN 3.3 ng/mL (0.0-4.7)
[2018-12-21] MEDS: metroNIDAZOLE 250 MG TABLET PO SCH (05:26)
[2018-12-21 06:58] LABS: ANION GAP 8 MMOL/L (8-16); BLOOD UREA NITROGEN 25 mg/dL (7-18); CALCIUM 8.8 mg/dL (8.5-10.1); CHLORIDE 104 mmol/L (98-107); CO2 27 mmol/L (21-32); CREATININE 1.1 mg/dL (0.55-1.3); GLUCOSE,RANDOM 96 mg/dL (74-106); PHOSPHOROUS 3.2 mg/dL (2.5-4.9); POTASSIUM 4.3 mmol/L (3.5-5.1); SODIUM 139 mmol/L (136-145)
[2018-12-21] MEDS ORDERED: TAMSULOSIN HCL 0.4 MG CAP PO SCH (08:30)
[2018-12-21] MEDS ORDERED: PT OWN MED DRAWER 7, Y5N ONE (09:12)
[2018-12-21] MEDS: CLOTRIMAZOLE/BETAMET DIPROP 15 GM TUBE TP SCH (09:19)
[2018-12-21] MEDS: FOLIC ACID 1 MG TABLET (FP) PO SCH (09:19)
[2018-12-21] MEDS: FLUCONAZOLE 100 MG TABLET (UD) PO SCH (09:19)
[2018-12-21] MEDS: VITAMIN B COMPLEX W/C COMBO TABLET (FP) PO SCH (09:19)
[2018-12-21] MEDS: PANTOPRAZOLE 40 MG TABLET (FP) PO SCH (09:19)
[2018-12-21] MEDS: ASPIRIN COATED 81 MG TABLET.EC PO SCH (09:19)
[2018-12-21] MEDS: ZINC OXIDE 20% TOPICAL OINTMENT 30 GM TUBE TP SCH (09:20)
[2018-12-21 09:28] VITALS: BP 152/71; PULSE 82; TEMP 97.6
--- NOTE | 2018-12-21 11:23 | DS ---
Physical Examination Vital Signs: Vital Signs Temperature 97.6 F 12/21/18 09:27 Pulse Rate 82 12/21/18 09:27 Respiratory Rate 18 12/21/18 09:27 Blood Pressure 152/71 12/21/18 09:27 O2 Sat by Pulse Oximetry (%) 95 12/21/18 09:00 Findings/Remarks: 82F w/ a history of HTN, Alzheimer's, heart catheterization w/o unknown stent placement who presents s/p unwitnessed fall yesterday. Fmaily reports that the patient was using the bathroom, stood to pull up her pants, and fell forwards into a heater that is stationed in front of the toilet. The fall was unwitnessed , but they entered the bathroom immediately after and the pt was conscious. They endorse three small lacerations on the pt's scalp that they initially washed at home and was dressed by EMS. this am pt c/o body aches and poor appetite Patient with recent hospitalization for afib and chf Constitutional: Yes: Well Nourished, No Distress, Calm Cardiovascular: Yes: Regular Rate and Rhythm Respiratory: Yes: Regular Gastrointestinal: Yes: Normal Bowel Sounds, Soft Renal/: Yes: Hoskins Present Musculoskeletal: Yes: WNL Extremities: Yes: WNL Edema: No Peripheral Pulses WNL: Yes Neurological: Yes: Alert, Pre-Existing Deficit Psychiatric: Yes: Alert Labs: CBC, BMP 12/19/18 07:00 12/21/18 05:55 Discharge Summary Reason For Visit: CORONARY ARTERY DISEASE/ALZHEIMERS DISEASE Current Active Problems KATYA (acute kidney injury) (Acute) Janice vaginitis (Acute) Fall (Acute) IBS (irritable bowel syndrome) (Acute) Laceration (Acute) Poor appetite (Acute) Syncope (Acute) Urinary retention (Acute) HTN (hypertension) (Chronic) Hospital Course: Laboratory Last Values WBC 7.3 K/mm3 (4.0-10.0) 12/19/18 07:00 RBC 4.60 M/mm3 (3.60-5.2) 12/19/18 07:00 Hgb 14.3 GM/dL (10.7-15.3) 12/19/18 07:00 Hct 42.6 % (32.4-45.2) 12/19/18 07:00 MCV 92.7 fl (80-96) 12/19/18 07:00 MCH 31.2 pg (25.7-33.7) 12/19/18 07:00 MCHC 33.6 g/dl (32.0-36.0) 12/19/18 07:00 RDW 13.2 % (11.6-15.6) 12/19/18 07:00 Plt Count 209 K/MM3 (134-434) 12/19/18 07:00 MPV 9.1 fl (7.5-11.1) 12/19/18 07:00 Absolute Neuts (auto) 4.0 K/mm3 (1.5-8.0) 12/19/18 07:00 Neutrophils % 54.6 % (42.8-82.8) D 12/19/18 07:00 Lymphocytes % 31.7 % (8-40) D 12/19/18 07:00 Monocytes % 8.7 % (3.8-10.2) 12/19/18 07:00 Eosinophils % 4.2 % (0-4.5) D 12/19/18 07:00 Basophils % 0.8 % (0-2.0) 12/19/18 07:00 Nucleated RBC % 0 % (0-0) 12/19/18 07:00 Sodium 139 mmol/L (136-145) 12/21/18 05:55 Potassium 4.3 mmol/L (3.5-5.1) 12/21/18 05:55 Chloride 104 mmol/L (98-107) 12/21/18 05:55 Carbon Dioxide 27 mmol/L (21-32) 12/21/18 05:55 Anion Gap 8 MMOL/L (8-16) 12/21/18 05:55 BUN 25 mg/dL (7-18) H 12/21/18 05:55 Creatinine 1.1 mg/dL (0.55-1.3) 12/21/18 05:55 Creat Clearance w eGFR 47.43 (>60) 12/21/18 05:55 Random Glucose 96 mg/dL (74-106) 12/21/18 05:55 Calcium 8.8 mg/dL (8.5-10.1) 12/21/18 05:55 Phosphorus 3.2 mg/dL (2.5-4.9) 12/21/18 05:55 Magnesium 2.0 mg/dL (1.8-2.4) 12/21/18 05:55 Total Bilirubin 0.7 mg/dL (0.2-1) 12/19/18 07:00 AST 24 U/L (15-37) 12/19/18 07:00 ALT 22 U/L (13-61) 12/19/18 07:00 Alkaline Phosphatase 77 U/L (45-117) 12/19/18 07:00 Creatine Kinase 131 U/L (26-192) 12/19/18 07:00 Creatine Kinase Index 1.0 % (0.0-5.0) 12/18/18 05:30 CK-MB (CK-2) ng/mL (0.5-3.6) 12/18/18 05:30 Troponin I 0.02 ng/ml (0.00-0.05) 12/19/18 07:00 Total Protein 7.4 g/dl (6.4-8.2) 12/19/18 07:00 Albumin 3.4 g/dl (3.4-5.0) 12/19/18 07:00 Tumor Marker AFP 2.4 ng/ml (0.0-8.3) 12/19/18 13:35 Carcinoembryonic Ag 3.3 ng/mL (0.0-4.7) 12/19/18 13:35 CA 19-9 Antigen 3 U/mL (0-35) 12/19/18 13:35 CA 125 Antigen 21.0 U/mL (0.0-38.1) 12/19/18 13:35 Vitamin B12 1233 pg/ml (193-986) H 12/20/18 07:30 Serum Folate 20 ng/mL (3.1-17.5) H 12/20/18 07:30 TSH 1.01 uIU/ml (0.358-3.74) 12/20/18 07:30 Free T4 1.88 ng/dl (0.76-1.46) H 12/20/18 07:30 Urine Color Yellow 12/17/18 18:18 Urine Appearance Cloudy 12/17/18 18:18 Urine pH 6.0 (5.0-8.0) 12/17/18 18:18 Ur Specific Morven 1.015 (1.010-1.035) 12/17/18 18:18 Urine Protein Negative (NEGATIVE) 12/17/18 18:18 Urine Glucose (UA) Negative (NEGATIVE) 12/17/18 18:18 Urine Ketones Negative (NEGATIVE) 12/17/18 18:18 Urine Blood Negative (NEGATIVE) 12/17/18 18:18 Urine Nitrite Negative (NEGATIVE) 12/17/18 18:18 Urine Bilirubin Negative (<2.0 mg/dL) 12/17/18 18:18 Urine Urobilinogen Negative mg/dL (0.2-1.0) 12/17/18 18:18 Ur Leukocyte Esterase 2+ (NEGATIVE) H 12/17/18 18:18 Urine WBC (Auto) 119 /hpf (3-5) 12/17/18 18:18 Urine RBC (Auto) 35 /hpf (0-3) 12/17/18 18:18 Ur Epithelial Cells Many /HPF (FEW) 12/17/18 18:18 Hyaline Casts 4 /lpf 12/17/18 18:18 Urine Mucus Rare 12/17/18 18:18 Microbiology 12/17/18 18:18 Urine - Urine Clean Catch Urine Culture - Final Yeast Like Organism Condition: Stable - Instructions Diet, Activity, Other Instructions: Take fluconazole 100 mg once a week for upto 6 months for janice vaginitis Referrals: Lewis Lim MD [Primary Care Provider] - Disposition: VNS/HOME HEALTH CARE - Home Medications Comprehensive Discharge Medication List: Ambulatory Orders Aspirin [Ecotrin] 81 mg PO DAILY 03/13/15 Atorvastatin Ca [Lipitor] 20 mg PO HS 03/13/15 Donepezil HCl [Aricept -] 5 mg PO DAILY #30 tablet 12/15/18 Furosemide [Lasix -] 20 mg PO DAILY #30 tablet 12/15/18 Acetaminophen [Tylenol .Regular Strength -] 650 mg PO Q6H PRN tablet 12/21/18 Aspirin Coated [Ecotrin -] 81 mg PO DAILY tablet.ec 12/21/18 Clotrimazole/Betamet Diprop [Lotrisone -] 1 applic TP BID #45 g 12/21/18 Donepezil HCl [Aricept -] 5 mg PO HS #30 tablet 12/21/18 Fluconazole [Diflucan -] 100 mg PO DAILY #16 tablet 12/21/18 Multivitamin [Multiple Vitamins] 1 each PO DAILY #30 tablet 12/21/18 Pantoprazole Sodium [Protonix -] 20 mg PO DAILY #30 tablet.ec 12/21/18 Tamsulosin HCl [Flomax -] 0.4 mg PO DAILY@0830 #30 cap.er.24h 12/21/18 Vitamin B Comp W-C [Total B with C -] 1 each PO DAILY #30 tablet 12/21/18
--- NOTE | 2018-12-21 11:43 | PN ---
Physical Exam: SUBJECTIVE: Patient seen and examined. Per daughter in law, Po intake is improved. No c/o OBJECTIVE: Vital Signs Period Temp Pulse Resp BP Sys/Dominguez Pulse Ox Last 24 Hr 97.4 F-98.6 F 78-100 18-20 96-152/37-79 95-95 Vital Signs Temp 97.6 F 12/21/18 09:27 Pulse 82 12/21/18 09:27 Resp 18 12/21/18 09:27 BP 152/71 12/21/18 09:27 Pulse Ox 95 12/21/18 09:00 Intake & Output 12/20/18 12/20/18 12/21/18 11:59 23:59 11:59 Intake Total 580 Output Total 2600 500 200 Balance -2600 80 -200 Weight 63.503 kg Intake: Oral 580 Output: Urine 2600 500 200 Hoskins 2600 500 200 Other: Voiding Method Toilet Indwelling Catheter Indwelling Catheter Bowel Movement No Weight Measurement Method Standing Scale GENERAL: The patient is awake, alert, and fully oriented, in no acute distress. ENT: moist mucous membranes. LUNGS: Breath sounds equal, clear to auscultation bilaterally, no wheezes, no crackles HEART: Regular rate and rhythm, S1, S2 ABDOMEN: Soft, nontender, nondistended, normoactive bowel sounds EXTREMITIES: 2+ pulses, warm, well-perfused, no edema. NEUROLOGICAL: Alert. Normal speech, gait not observed. CBC, BMP 12/19/18 07:00 12/21/18 05:55 Laboratory Results - last 24 hr 12/19/18 12/20/18 12/21/18 13:35 07:30 05:55 Sodium 139 Potassium 4.3 Chloride 104 Carbon Dioxide 27 Anion Gap 8 BUN 25 H Creatinine 1.1 Creat Clearance w eGFR 47.43 Random Glucose 96 Calcium 8.8 Phosphorus 3.2 Magnesium 2.0 Tumor Marker AFP 2.4 Carcinoembryonic Ag 3.3 CA 19-9 Antigen 3 CA 125 Antigen 21.0 Vitamin B12 1233 H Serum Folate 20 H TSH 1.01 Free T4 1.88 H Active Medications Generic Name Dose Route Start Last Admin Trade Name Freq PRN Reason Stop Dose Admin Acetaminophen 650 mg 12/17/18 16:53 Tylenol - PO Q6H PRN PAIN Aspirin 81 mg 12/18/18 10:00 12/21/18 09:19 Ecotrin - PO 81 mg DAILY [facility]AY Administration Atorvastatin Calcium 20 mg 12/18/18 22:00 12/20/18 21:03 Lipitor - PO 20 mg HS [facility]AY Administration Clotrimazole 1 applic 12/20/18 10:45 12/21/18 09:19 Lotrisone Cream (Small Tube) TP 1 applic BID [facility] Administration Donepezil HCl 5 mg 12/18/18 22:00 12/20/18 21:04 Aricept - PO 5 mg HS [facility]AY Administration Fluconazole 100 mg 12/20/18 10:00 12/21/18 09:19 Diflucan - PO 100 mg DAILY [facility] Administration Folic Acid 1 mg 12/20/18 10:00 12/21/18 09:19 Folic Acid - PO 1 mg DAILY [facility] Administration Furosemide 40 mg 12/22/18 10:00 Lasix - PO DAILY [facility] Multi-Ingredient Ointment 1 applic 12/19/18 10:00 12/21/18 09:20 Zinc Oxide TP 1 applic BID [facility] Administration Multivitamins 1 each 12/20/18 10:00 12/21/18 09:19 Total B With C - PO 1 each DAILY [facility] Administration Pantoprazole Sodium 40 mg 12/20/18 10:00 12/21/18 09:19 Protonix - PO 40 mg DAILY [facility] Administration Tamsulosin HCl 0.4 mg 12/20/18 10:44 12/21/18 08:27 Flomax - PO 0.4 mg DAILY@0830 [facility]AY Administration ASSESSMENT/PLAN: Pt is an 82 yo with PMHx of cardiorenal syndrome with hyperkalemia, HTN, HLD, CAD, CHF, dementia, arrythmias, who presented after a fall with elevated BUN. Pt was recently discharged after being managed for cardiorenal syndrome with hyperkalemia. HTN, HLD, CAD, CHF, dementia, arrythmias, s/p fall elevated BUN. Poor PO intake Plan: Resolving BUN in setting of resolving cardiorenal syndrome, Stable renal function iv lasix 40mg on hold for today, resume PO lasix from tomorrow Follow BMP Avoid nephrotoxic drugs Encourage PO intake Rest per primary team Pt to follow as out patient in 1 to 2 weeks Thank you for the consultative opportunity Visit type - Emergency Visit Emergency Visit: Yes ED Registration Date: 12/18/18 Care time: The patient presented to the Emergency Department on the above date and was hospitalized for further evaluation of their emergent condition. - New Patient This patient is new to me today: No - Critical Care Critical Care patient: No - Discharge Referral Referred to [facility] No
--- NOTE | 2018-12-21 12:22 | PN ---
Teaching Attending Note Name of Resident: Leatha Chaudhry (Nephrology) ATTENDING PHYSICIAN STATEMENT I saw and evaluated the patient. I reviewed the resident's note and discussed the case with the resident. I agree with the resident's findings and plan as documented. Renal Pt seen and examined at bedside. Her PO intake is improved. Current Medications Generic Name Dose Route Start Last Admin Trade Name Freq PRN Reason Stop Dose Admin Acetaminophen 650 mg 12/17/18 16:53 Tylenol - PO Q6H PRN PAIN Aspirin 81 mg 12/18/18 10:00 12/21/18 09:19 Ecotrin - PO 81 mg DAILY HAY Administration Atorvastatin Calcium 20 mg 12/18/18 22:00 12/20/18 21:03 Lipitor - PO 20 mg HS HAY Administration Clotrimazole 1 applic 12/20/18 10:45 12/21/18 09:19 Lotrisone Cream (Small Tube) TP 1 applic BID HAY Administration Donepezil HCl 5 mg 12/18/18 22:00 12/20/18 21:04 Aricept - PO 5 mg HS HAY Administration Fluconazole 100 mg 12/20/18 10:00 12/21/18 09:19 Diflucan - PO 100 mg DAILY HAY Administration Folic Acid 1 mg 12/20/18 10:00 12/21/18 09:19 Folic Acid - PO 1 mg DAILY HAY Administration Furosemide 40 mg 12/22/18 10:00 Lasix - PO DAILY HAY Multi-Ingredient Ointment 1 applic 12/19/18 10:00 12/21/18 09:20 Zinc Oxide TP 1 applic BID HAY Administration Multivitamins 1 each 12/20/18 10:00 12/21/18 09:19 Total B With C - PO 1 each DAILY HAY Administration Pantoprazole Sodium 40 mg 12/20/18 10:00 12/21/18 09:19 Protonix - PO 40 mg DAILY HAY Administration Tamsulosin HCl 0.4 mg 12/20/18 10:44 12/21/18 08:27 Flomax - PO 0.4 mg DAILY@0830 HAY Administration Laboratory Tests 12/21/18 05:55 Creatinine 1.1 Last Vital Signs Temp Pulse Resp BP Pulse Ox 97.6 F 82 18 152/71 95 12/21/18 09:27 12/21/18 09:27 12/21/18 09:27 12/21/18 09:27 12/21/18 09:00 cardio s1s2 pulm clear GI soft ext neg edema neuro awake Impression 1. CKD 2. a-fib 3. s/p fall 4. htn 5. CHF 6. dementia 7. cad 8. hld 9. plueral effusions Plan - resume PO lasix - renal function stable - po intake improved - can see in office as needed - will follow PRN Dr Coley
[2018-12-22] MEDS ORDERED: FUROSEMIDE 40 MG TABLET (FP) PO SCH (10:00)
== END 2018-12-21 16:08 | disposition home health service (06) | DRG 951 ==
LOC: JER 10:55 → JERBED 15:47 → JICU 12-18 00:07 → OBSVTOIN 12-18 09:32 → J4S 12-19 01:26
PROVIDERS: ADMIT Family Medicine; ATTEND Family Medicine
PROC: 0JQ00ZZ Repair Scalp Subcutaneous Tissue and Fascia, Open Approach (ICD-10-PCS; principal; 2018-12-17)
DX: I13.0 Hypertensive heart and chronic kidney disease with heart failure and stage 1 through stage 4 chronic kidney disease, or unspecified chronic kidney disease (principal); E78.5 Hyperlipidemia, unspecified; I50.9 Heart failure, unspecified; I25.10 Atherosclerotic heart disease of native coronary artery without angina pectoris; Z68.27 Body mass index [BMI] 27.0-27.9, adult; E87.5 Hyperkalemia; G30.9 Alzheimer's disease, unspecified; E86.0 Dehydration; S01.01XA Laceration without foreign body of scalp, initial encounter; W18.39XA Other fall on same level, initial encounter; F02.80 Dementia in other diseases classified elsewhere, unspecified severity, without behavioral disturbance, psychotic disturbance, mood disturbance, and anxiety; R55 Syncope and collapse; R94.31 Abnormal electrocardiogram [ECG] [EKG]; R63.0 Anorexia; K58.9 Irritable bowel syndrome, unspecified; B37.3 Candidiasis of vulva and vagina; R33.9 Retention of urine, unspecified; N18.9 Chronic kidney disease, unspecified; Y92.89 Other specified places as the place of occurrence of the external cause
CPT/HCPCS: 36415; 70450-TC; 71046-TC-FY; 74176-TC; 80048; 80053; 81003; 81015; 82105; 82378; 82550; 82553; 82607; 82746; 83735; 84100; 84439; 84443; 84484; 85025; 85027; 86301; 86304; 87077; 87086; 90715; 93005; 93010; 97116-GP; 97161-GP; 99284-25; G0378; Q9967

== ENCOUNTER 2019-01-10 19:08 | Inpatient (IN) | payer OTHER ==
--- NOTE | 2019-01-10 19:32 | PDOC ---
History of Present Illness - General Chief Complaint: Nausea/Vomiting Stated Complaint: SICK Time Seen by Provider: 01/10/19 19:32 History Source: Patient Exam Limitations: No Limitations - History of Present Illness Initial Comments: 01/10/19 19:33 83 year old woman w/ a history of HTN, Alzheimer's, heart catheterization w/o unknown stent placement, possible afib and CHF who presents with nausea and vomiting for 1 day. The patient woke up this morning and did not have an appetite. She drank her Ensure and subsequently had 4-5 episodes of nbnb vomiting that consisted of food and phlegm. The patient got clammy and sweaty and started shaking w/ crampy mid abdominal pain, had 3 episodes of dark tarry stools. The patient did not have a fever and denied chest pain or shortness of breath. She was recently hospitalized for a kidney infection and completed a course of antibiotics at that time. The patient denies dysuria, hematuria. Has no other complaitns at bedside. pshx: hysterestomy Past History - Past Medical History Allergies/Adverse Reactions: Allergies Allergy/AdvReac Type Severity Reaction Status Date / Time No Known Allergies Allergy Verified 12/17/18 11:21 Home Medications: Ambulatory Orders Aspirin [Ecotrin] 81 mg PO DAILY 03/13/15 Atorvastatin Ca [Lipitor] 20 mg PO HS 03/13/15 Donepezil HCl [Aricept -] 5 mg PO DAILY #30 tablet 12/15/18 Furosemide [Lasix -] 20 mg PO DAILY #30 tablet 12/15/18 Acetaminophen [Tylenol .Regular Strength -] 650 mg PO Q6H PRN tablet 12/21/18 Aspirin Coated [Ecotrin -] 81 mg PO DAILY tablet.ec 12/21/18 Clotrimazole/Betamet Diprop [Lotrisone -] 1 applic TP BID #45 g 12/21/18 Donepezil HCl [Aricept -] 5 mg PO HS #30 tablet 12/21/18 Fluconazole [Diflucan -] 100 mg PO DAILY #16 tablet 12/21/18 Furosemide [Lasix -] 40 mg PO DAILY #30 tablet 12/21/18 Multivitamin [Multiple Vitamins] 1 each PO DAILY #30 tablet 12/21/18 Pantoprazole Sodium [Protonix -] 20 mg PO DAILY #30 tablet.ec 12/21/18 Tamsulosin HCl [Flomax -] 0.4 mg PO DAILY@0830 #30 cap.er.24h 12/21/18 Vitamin B Comp W-C [Total B with C -] 1 each PO DAILY #30 tablet 12/21/18 Anemia: No Asthma: No Cancer: No Cardiac Disorders: Yes (cardiac cath, stent, CAD, AF) CVA: No COPD: No CHF: Yes Dementia: Yes Diabetes: No GI Disorders: No Disorders: No HTN: Yes Hypercholesterolemia: Yes Liver Disease: No Seizures: No Thyroid Disease: No - Surgical History Abdominal Surgery: No Appendectomy: No Cardiac Surgery: Yes Cholecystectomy: No Lung Surgery: No Neurologic Surgery: No - Immunization History Immunization Up to Date: No - Suicide/Smoking/Psychosocial Hx Smoking History: Unknown if ever smoked Have you smoked in the past 12 months: No Information on smoking cessation initiated: No Hx Alcohol Use: No Drug/Substance Use Hx: No Substance Use Type: None Review of Systems - Review of Systems Able to Perform ROS?: Yes Is the patient limited French proficient: No Constitutional: No: Chills, Diaphoresis, Fever HEENTM: No: Tearing, Tinnitus Respiratory: No: Cough, Orthopnea, Shortness of Breath Cardiac (ROS): No: Chest Pain, Lightheadedness, Palpitations, Syncope ABD/GI: No: Constipated, Diarrhea, Nausea, Vomiting : No: Burning, Dysuria, Hematuria Neurological: No: Headache, Numbness, Tingling *Physical Exam - Vital Signs Last Vital Signs Temp Pulse Resp BP Pulse Ox 98.7 F 80 20 136/72 99 01/10/19 19:09 01/10/19 19:09 01/10/19 19:09 01/10/19 19:09 01/10/19 19:09 - Physical Exam Comments: 01/10/19 20:37 GENERAL: AO x 2 HEAD: No signs of trauma, normocephalic, atraumatic EYES: PERRLA, EOMI, sclera anicteric, conjunctiva clear ENT:oropharynx clear without exudates. Moist mucosa NECK: Normal ROM, supple LUNGS: No distress, speaks full sentences, clear to auscultation bilaterally HEART: Regular rate and rhythm, normal S1 and S2, no murmurs, rubs or gallops, peripheral pulses normal and equal bilaterally. ABDOMEN: Soft, RUQ and RLQ tenderness, normoactive bowel sounds. No guarding, no rebound. No masses EXTREMITIES : Normal inspection, Normal range of motion, no edema. No clubbing or cyanosis. NEUROLOGICAL: Cranial nerves II through XII grossly intact. Normal speech, no focal sensorimotor deficits SKIN: Warm, Dry, normal turgor, no rashes or lesions noted Moderate Sedation - Procedure Monitoring Vital Signs: Procedure Monitoring Vital Signs Temperature 98.7 F 01/10/19 19:09 Pulse Rate 80 01/10/19 19:09 Respiratory Rate 20 01/10/19 19:09 Blood Pressure 136/72 01/10/19 19:09 O2 Sat by Pulse Oximetry (%) 99 01/10/19 19:09 ED Treatment Course - LABORATORY CBC & Chemistry Diagram: 01/10/19 21:34 01/10/19 23:35 Medical Decision Making - Medical Decision Making 01/10/19 20:15 83 year old woman w/ a history of HTN, Alzheimer's, heart catheterization w/o unknown stent placement, possible afib and CHF who presents with nausea and vomiting for 1 day. The patient woke up this morning and did not have an appetite. She drank her Ensure and subsequently had 4-5 episodes of nbnb vomiting that consisted of food and phlegm. The patient got clammy and sweaty and started shaking w/ crampy mid abdominal pain, had 3 episodes of dark tarry stools. The patient did not have a fever and denied chest pain or shortness of breath. She was recently hospitalized for a kidney infection and completed a course of antibiotics at that time. ED Course: consider gastritis vs pud vs gastroentereits vs colitis vs appendicitis vs cholelithiasis cbc, cmp, trop, ekg, cxr, abd us, ct, lipase, amylase zofran, ivf, pepcid 01/10/19 22:24 EKG: low voltage p waves 42 bpm, QRS duration 150ms, LBBB, QTc 419. Increased internals from prior EKG 12/17/18: QRS 86bpm, QT blood sugar of 202 Cardiology called about EKG changes, rec for r/o ACS pending troponins 01/10/19 23:48 K 7.2 Na 123 BUN elevated Cr elevated appears to be acute on chronic renal failure will touch base with nephro, admit to medicine, admit to icu *DC/Admit/Observation/Transfer Diagnosis at time of Disposition: Cholecystitis ARF (acute renal failure) Qualifiers: Acute renal failure type: unspecified Qualified Code(s): N17.9 - Acute kidney failure, unspecified - Discharge Dispostion Condition at time of disposition: Fair Decision to Admit order: Yes - Referrals Referrals: Lewis Lim MD [Primary Care Provider] - - Patient Instructions - Post Discharge Activity
--- NOTE | 2019-01-10 19:34 | PDOC ---
Attending Attestation - Resident Resident Name: Azul Mendoza - ED Attending Attestation I have performed the following: I have examined & evaluated the patient, The case was reviewed & discussed with the resident, I agree w/resident's findings & plan, Exceptions are as noted - HPI HPI: 01/10/19 20:24 Ms Nic Garcia is an 83 yo F who presents to the ER with her daughter due to nausea, vomiting, diarrhea and abdominal pain Pt symptoms began today She has been noted all day to have multiple episodes of vomiting (daughter states she has been vomiting all day) She has been unable to tolerate po She has also had 3 episodes of dark loose stools She reported abdominal pain which seems to be localized to the right side of the abdomen No fevers noted - Physicial Exam PE: 01/10/19 20:27 GENERAL: The patient is in no acute distress. HEAD: Normal EYES: PERRLA, EOMI, sclera anicteric, conjunctiva clear. ENT: Ears normal, nares patent, oropharynx clear without exudates. Moist mucous membranes. NECK: Normal range of motion, supple LUNGS: Breath sounds equal, clear to auscultation bilaterally. No wheezes, and no crackles. HEART:Regular rate and rhythm, normal S1 and S2 without murmur, rub or gallop. ABDOMEN: Soft, right upper abdominal tenderness to palpation, normoactive bowel sounds. No guarding, no rebound. EXTREMITIES: Normal range of motion, no edema. NEUROLOGICAL: Cranial nerves II through XII grossly intact. Normal speech. No focal neurological deficits. MUSCULOSKELETAL: Back non-tender to palpation SKIN: Warm, Dry, normal turgor, no rashes or lesions noted. - Critical Care Time Total Critical Care Time: 120 Critical Care Statement: The care of this patient involved high complexity decision making to prevent further life threatening deterioration of the patient 's condition and/or to evaluate & treat vital organ system(s) failure or risk of failure. - Medical Decision Making 01/10/19 20:27 83 yo F presenting to the ER with a complaint of abdominal pain, nausea, vomiting DD includes: Gastritis, Gastroenteritis, Biliary colic, Pancreatitis, SBO, ACS Will do: Labs EKG IVF Zofran/Pepcid US/CT Re Assess 01/10/19 22:26 Laboratory Tests 01/10/19 01/10/19 21:34 21:34 WBC 9.6 Hgb 11.7 Hct 34.1 D Plt Count 179 INR 0.91 CMP still pending Called lab [facility] labs just came off of the centrifuge 01/10/19 22:27 Laboratory Tests 01/10/19 21:34 Sodium 123 L Potassium 7.2 H* Chloride 90 L Carbon Dioxide 20 L Anion Gap 13 BUN 89 H Creatinine 5.8 H Random Glucose 194 H Creatine Kinase 58 Troponin I < 0.02 B-Natriuretic Peptide 7956.0 H Potassiums severely elevated with Bradycardia Pt remains nauseous, IV fluids infusing Treatment ordered - Insulin, Dextrose, Calcium Gluconate, IVF, Albuterol Pt sent to CT for CT abd and pelvis Line replaced CMP re drawn to see repeat potassium 01/11/19 00:24 Repeat K - 6.7 CT demonstrates haziness of GB, ? acute cholecystitis Zosyn ordered Renal consulted ICU consulted for ICU admission Pt bradycardia improving but still present Admitted to hospitalist Clinical impression: Acute on Chronic Renal insufficiency Hyperkalemia Abdominal pain/vomiting Possible cholecystitis
[2019-01-10] MEDS ORDERED: ONDANSETRON 4 MG/2 ML VIAL IVPUSH ONE (20:17)
[2019-01-10] MEDS ORDERED: SODIUM CHLORIDE 1,000 ML IV STA (20:17)
[2019-01-10] MEDS ORDERED: FAMOTIDINE 20 MG/50 ML IVPB 20 MG/50 ML MG IVPB ONE ×2 (20:24→21:46)
[2019-01-10] MEDS ORDERED: ONDANSETRON 4 MG/2 ML VIAL ONE (21:46)
[2019-01-10 22:03] LABS: BASO % 0.2 % (0-2.0); EOS % 0.1 % (0-4.5); HEMATOCRIT 34.1 % (32.4-45.2); HEMOGLOBIN 11.7 GM/dL (10.7-15.3); LYMPH % 13.9 % (8-40); MCH 32.1 pg (25.7-33.7); MCHC 34.3 g/dl (32.0-36.0); MEAN CELL VOLUME 93.4 fl (80-96); MEAN PLT VOLUME 10.1 fl (7.5-11.1); MONO % 4.7 % (3.8-10.2); NEUT % 81.1 % (42.8-82.8); PLATELET COUNT 179 K/MM3 (134-434); RBC 3.66 M/mm3 (3.60-5.2); RDW 13.3 % (11.6-15.6); WHITE BLOOD COUNT 9.6 K/mm3 (4.0-10.0)
[2019-01-10 22:18] LABS: INR 0.91 (0.83-1.09); PROTHROMBIN TIME (PATIENT) 10.7 SEC (9.7-13.0)
[2019-01-10 22:53] LABS: ALBUMIN 3.1 g/dl (3.4-5.0); ALK PHOS 87 U/L (45-117); AMYLASE 57 U/L (25-115); ANION GAP 13 MMOL/L (8-16); BILIRUBIN,TOTAL 0.2 mg/dL (0.2-1); BLOOD UREA NITROGEN 89 mg/dL (7-18); CALCIUM 8.6 mg/dL (8.5-10.1); CHLORIDE 90 mmol/L (98-107); CO2 20 mmol/L (21-32); CREATININE 5.8 mg/dL (0.55-1.3); GLUCOSE,RANDOM 194 mg/dL (74-106); LIPASE 199 U/L (73-393); SGOT/AST 31 U/L (15-37); SGPT/ALT 35 U/L (13-61); SODIUM 123 mmol/L (136-145); TOT PROT 6.5 g/dl (6.4-8.2)
[2019-01-10 22:56] LABS: POTASSIUM 7.2 mmol/L (3.5-5.1)
[2019-01-10] MEDS ORDERED: DEXTROSE 50%-WATER - 25 GM/50 ML VIAL IVPUSH ONE (22:57)
[2019-01-10] MEDS ORDERED: CALCIUM GLUCONATE 10% - 1,000 MG/10 ML VIAL IVPUSH ONE (22:57)
[2019-01-10] MEDS ORDERED: INSULIN REGULAR HUMAN 100 UNITS/ML *VIAL IVPUSH ONE (22:57)
[2019-01-10] MEDS ORDERED: ALBUTEROL SO4 0.083% IH SOL 2.5 MG/3 ML VIAL.NEB. NEB ONE ×2 (22:59→23:11)
[2019-01-10] MEDS ORDERED: DEXTROSE 50%-WATER 25 GM/50 ML DISP.SYRIN ONE (23:11)
[2019-01-10] MEDS ORDERED: CALCIUM CHLORIDE 1 GM/10 ML *DISP.SYRIN ONE (23:11)
[2019-01-10] MEDS ORDERED: INSULIN REGULAR HUMAN 100 UNITS/ML *VIAL ONE (23:12)
[2019-01-10] MEDS ORDERED: CALCIUM GLUCONATE 10% - 1,000 MG/10 ML VIAL ONE (23:16)
[2019-01-11 00:21] LABS: ALBUMIN 2.7 g/dl (3.4-5.0); ALK PHOS 74 U/L (45-117); ANION GAP 14 MMOL/L (8-16); BILIRUBIN,TOTAL 0.2 mg/dL (0.2-1); BLOOD UREA NITROGEN 90 mg/dL (7-18); CALCIUM 8.4 mg/dL (8.5-10.1); CHLORIDE 91 mmol/L (98-107); CO2 19 mmol/L (21-32); CREATININE 5.8 mg/dL (0.55-1.3); SGOT/AST 26 U/L (15-37); SGPT/ALT 30 U/L (13-61); SODIUM 123 mmol/L (136-145); TOT PROT 5.6 g/dl (6.4-8.2)
[2019-01-11 00:26] LABS: GLUCOSE,RANDOM 406 mg/dL (74-106); POTASSIUM 6.7 mmol/L (3.5-5.1)
[2019-01-11] MEDS ORDERED: SODIUM BICARBONATE 4.2% 5 MEQ/10 ML DISP.SYRIN IVPUSH ONE (00:32)
[2019-01-11] MEDS ORDERED: SODIUM POLYSTYRENE SULFONATE 15 GM/60 ML BOTTLE PO ONE ×2 (00:35→04:20)
[2019-01-11] MEDS ORDERED: ALBUTEROL SO4 0.083% IH SOL 2.5 MG/3 ML VIAL.NEB. NEB ONE ×3 (00:35→04:44)
[2019-01-11] MEDS ORDERED: INSULIN REGULAR HUMAN 100 UNITS/ML *VIAL IVPUSH ONE ×2 (00:37→04:20)
[2019-01-11] MEDS ORDERED: PIPERACILLIN/TAZOB 2.25 GM 2.25 GM in DEXTROSE 5%-WATER - 50 ML IVPB ONE (00:39)
[2019-01-11] MEDS ORDERED: CALCIUM GLUCONATE 10% - 1,000 MG/10 ML VIAL IVPUSH ONE ×2 (00:40→04:20)
[2019-01-11] MEDS ORDERED: PIPERACILLIN/TAZOB 2.25 GM 2.25 GM/50 ML BAG IVPB ONE (00:54)
[2019-01-11] MEDS ORDERED: CALCIUM GLUCONATE 10% - 1,000 MG/10 ML VIAL ONE (00:54)
[2019-01-11] MEDS ORDERED: INSULIN REGULAR HUMAN 100 UNITS/ML *VIAL ONE (00:55)
[2019-01-11] MEDS ORDERED: SODIUM BICARBONATE 8.4% 50 MEQ/50 ML DISP.SYRIN IVPUSH ONE ×2 (01:30→04:20)
--- NOTE | 2019-01-11 01:56 | CONSULT ---
Consult Consult Specialty:: ICU Reason for Consultation:: metabolic derrangement - History of Present Illness Chief Complaint: nausea, vomiting and abdominal pain. History of Present Illness: 83 yo polish speaking F with PMhx of HTN, Alzheimer, CHF,CAD,hLD presents with one day history of nausea, vomiting and abdominal pain. He daughter is with her and gives most of history. Daughter states that for the past day she has had very little PO intake and has been constantly vomiting > 5 times. Vomit is nonbillous nonbloody and mostly liquid. She has had poor water intake for the past several days refusing to drink water. She endorses abdominal pain. She describes one episode of 10/10 generalized lower abdominal pain that lasted approx. 3 minutes and resolved completely with bowel movement. BM was dark as per daughter but not black. Stool occult blood was negative. No further episodes of pain. In ER chemistry significant for K+ of 7.2 , Na+ 123, Cr. 5.8 , BUN 90. EKG showed sinus sandra with rate of 42, QRS duration 150ms, LBBB, QTc 419 which are new compared to previous on 12/17/18. Troponin (-) x1. She was given Albuterol, insulin and D50 and kayexelate in ER. Repeat K+ 6.7. RUQ US was obtained and was consistent with cholecystitis. She was recently hospitalized in 2018 for KATYA but her Cr. was 4.3 and K+ 5.5 at worst. Cholecystitis noticed on that admission as well but medically managed. Denies CP , REILLY, SOB, palpitations, abdominal pain, fever, chills, or recent illness. 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 History of Recent Travel: Yes (Visiting from [place]) Home Medications - Allergies Allergies/Adverse Reactions: Allergies Allergy/AdvReac Type Severity Reaction Status Date / Time No Known Allergies Allergy Verified 12/17/18 11:21 - Home Medications Home Medications: Ambulatory Orders Aspirin [Ecotrin] 81 mg PO DAILY 03/13/15 Atorvastatin Ca [Lipitor] 20 mg PO HS 03/13/15 Donepezil HCl [Aricept -] 5 mg PO DAILY #30 tablet 12/15/18 Furosemide [Lasix -] 20 mg PO DAILY #30 tablet 12/15/18 Acetaminophen [Tylenol .Regular Strength -] 650 mg PO Q6H PRN tablet 12/21/18 Aspirin Coated [Ecotrin -] 81 mg PO DAILY tablet.ec 12/21/18 Clotrimazole/Betamet Diprop [Lotrisone -] 1 applic TP BID #45 g 12/21/18 Donepezil HCl [Aricept -] 5 mg PO HS #30 tablet 12/21/18 Fluconazole [Diflucan -] 100 mg PO DAILY #16 tablet 12/21/18 Furosemide [Lasix -] 40 mg PO DAILY #30 tablet 12/21/18 Multivitamin [Multiple Vitamins] 1 each PO DAILY #30 tablet 12/21/18 Pantoprazole Sodium [Protonix -] 20 mg PO DAILY #30 tablet.ec 12/21/18 Tamsulosin HCl [Flomax -] 0.4 mg PO DAILY@0830 #30 cap.er.24h 12/21/18 Vitamin B Comp W-C [Total B with C -] 1 each PO DAILY #30 tablet 12/21/18 Family Disease History - Family Disease History Family Disease History: Heart Disease: Father, Sister (vaginal ca. and liver ca. ), CA: Sister Review of Systems - Review of Systems Constitutional: reports: Lethargy, Loss of Appetite, Weakness HENT: reports: No Symptoms Neck: reports: No Symptoms Cardiovascular: denies: Chest Pain, Edema, Palpitations, Shortness of Breath Respiratory: reports: Cough. denies: SOB Gastrointestinal: reports: Abdominal Pain (one episode as per HPI), Nausea, Vomiting Genitourinary: reports: No Symptoms Musculoskeletal: reports: No Symptoms Integumentary: reports: No Symptoms Neurological: reports: Weakness Hematology/Lymphatic: reports: No Symptoms Psychiatric: reports: No Symptoms Physical Exam Vital Signs: Vital Signs Temperature 98.7 F 01/10/19 19:09 Pulse Rate 80 01/10/19 19:09 Respiratory Rate 20 02/14/19 19:09 Blood Pressure 136/72 01/10/19 19:09 O2 Sat by Pulse Oximetry (%) 99 01/10/19 19:09 Constitutional: Yes: No Distress, Calm Eyes: Yes: Conjunctiva Clear, EOM Intact HENT: Yes: Atraumatic, Normocephalic Neck: Yes: Supple, Trachea Midline Cardiovascular: Yes: Bradycardia, S1, S2. No: Murmur, Rub Respiratory: Yes: Regular, Rales (bibasilar fine rales.). No: Accessory Muscle Use Gastrointestinal: Yes: Normal Bowel Sounds, Soft, Abdomen, Obese, Vomiting. No : Tenderness Breast(s): Yes: WNL Extremities: No: Calf Tenderness, Cyanosis, Deformity Edema: LLE: 1+, RLE: 1+ Peripheral Pulses WNL: Yes Neurological: Yes: Alert ...Motor Strength: WNL Psychiatric: Yes: Alert Labs: CBC, BMP 01/10/19 21:34 01/10/19 23:35 Imaging - Results Chest X-ray: Image Reviewed (bibasilar vascular congestion) Ultrasound: Image Reviewed (consitent with cholecystitis) EKG: Image Reviewed (sinus sandra rate of 42 with new LBBB) Assessment/Plan A: 83 yo polish speaking F with PMhx of HTN, Alzheimer, CHF,CAD,hLD presents with one day history of nausea, vomiting and abdominal pain admitted to ICU with acute on chronic renal failure with severe metabolic derangements. Plan: NEURO: * Awake and alert * continue to monitor for signs of change in mental status. * h/o alzheimer- continue donepezil. PULM: * No active pulmonary issues. * supplemental O2 PRN * maintain SpO2 >90% CV: * h/o of CHF - will hold lasix given her KATYA * given calcium gluconate in ER for cardioprotection. * troponin (-) x1 ; continue to trend. * BP has been low will continue to monitor to maintain MAP >65 GI: * RUQ US consistent with cholecystitis- surgery consulted Dr. Mac to see in AM. * NPO for now * continue PPI. * Zofran given in ER. * CT AP pending. RENAL: * Acute on Chronic kidney failure. * given albuterol, insulin , dextrose in ER * will recieve kayexalate 50 mg PO QID * Sodium bicarb given in ED. * IV hydration with NS @125ml/hr * repeat BMP in AM * nephrology consulted. ENDO: * hyperglycemic after administration of dextrose and D5 fluids. * Will cover with ISS * NPO for now * BGM Q6H ID: * acute cholecystitis. * Given dose of Vanco/ Zosyn in ER. FEN: * NS @125ml/hr * hyperkalemia and hyponatremia; will correct and repeat BMP * NPO for now. PPx: * Heparin SQ 5000 TID * PPI. DISPO:Will continue to monitor in ICU.
[2019-01-11 03:29] LABS: ALBUMIN 2.7 g/dl (3.4-5.0); ALK PHOS 76 U/L (45-117); ANION GAP 12 MMOL/L (8-16); BILIRUBIN,TOTAL 0.2 mg/dL (0.2-1); BLOOD UREA NITROGEN 90 mg/dL (7-18); CALCIUM 8.8 mg/dL (8.5-10.1); CHLORIDE 94 mmol/L (98-107); CO2 22 mmol/L (21-32); CREATININE 5.7 mg/dL (0.55-1.3); GLUCOSE,RANDOM 130 mg/dL (74-106); SGOT/AST 28 U/L (15-37); SGPT/ALT 35 U/L (13-61); SODIUM 128 mmol/L (136-145); TOT PROT 5.8 g/dl (6.4-8.2)
[2019-01-11 03:30] LABS: POTASSIUM 6.5 mmol/L (3.5-5.1)
[2019-01-11 03:39] LABS: URINE APPEARANCE CLOUDY; URINE BILIRUBIN NEGATIVE (<2.0 mg/dL); URINE COLOR AMBER; URINE GLUCOSE (UA) NEGATIVE (NEGATIVE); URINE KETONE NEGATIVE (NEGATIVE); URINE LEUK ESTERASE TRACE (NEGATIVE); URINE NITRITE NEGATIVE (NEGATIVE); URINE PROTEIN 1+ (NEGATIVE); URINE UROBILINOGEN NEGATIVE mg/dL (0.2-1.0)
[2019-01-11 03:55] LABS: EPI CELLS MANY /HPF (FEW); URINE BACTERIA RARE /hpf (NONE SEEN); URINE HYALINE CAST 69 /lpf; URINE MUCUS RARE
--- NOTE | 2019-01-11 03:55 | HP ---
CHIEF COMPLAINT: poor appetite, nausea, vomiting, diarrhea PCP: Jannet HISTORY OF PRESENT ILLNESS: This is a 83 year old female with PMH HTN, CAD, ?afib?, CHF, Alzheimer's dementia, KATYA who is s/p recent hospitalization 12/11/18-12/15/18 for CHF, KATYA, hyperkalemia and 12/18-12/21 for fall, urinary retention now presenting with a one day history of poor appetite, nausea, vomiting, diarrhea with lower abdominal cramping. NO further abdominal pain at time of exam. Denies nausea as well. Asking for coffee. No BM since arrival to ED. ER course was notable for: (1) BUN 89, Cr 5.8, K 7.2, sodium 123 (2) BNP [id number] [place] [id number] on 12/10/18 Recent Travel: returned from living in [place] approximately 2 months ago PAST MEDICAL HISTORY: HTN, HLD, CAD, CHF, ?AFIB?, Alzheimers, KATYA PAST SURGICAL HISTORY: hysterectomy Social History: Smoking: pt denies Alcohol: pt denies Drugs: pt denies Family History: multiple relatives with cardiac deaths Allergies No Known Allergies Allergy (Verified 12/17/18 11:21) HOME MEDICATIONS: 3 Medication Instructions Recorded Aspirin [Ecotrin] 81 mg PO DAILY 03/13/15 Furosemide [Lasix -] 20 mg PO DAILY #30 tablet 12/15/18 Acetaminophen [Tylenol .Regular 650 mg PO Q6H PRN tablet 12/21/18 Strength -] Donepezil HCl [Aricept -] 5 mg PO HS #30 tablet 12/21/18 Multivitamin [Multiple Vitamins] 1 each PO DAILY #30 tablet 12/21/18 Pantoprazole Sodium [Protonix -] 20 mg PO DAILY #30 tablet.ec 12/21/18 Tamsulosin HCl [Flomax -] 0.4 mg PO DAILY@0830 #30 cap.er.24h 12/21/18 Vitamin B Comp W-C [Total B with C 1 each PO DAILY #30 tablet 12/21/18 -] Amlodipine Besylate 5 mg PO DAILY 01/11/19 Lisinopril 10 mg PO DAILY 01/11/19 Rosuvastatin Calcium [Crestor] 20 mg PO DAILY 01/11/19 REVIEW OF SYSTEMS CONSTITUTIONAL: Present: generalized weakness, malaise, loss of appetite Absent: fever, chills, diaphoresis, weight change HEENT: Absent: rhinorrhea, nasal congestion, throat pain, throat swelling, difficulty swallowing, mouth swelling, ear pain, eye pain, visual changes CARDIOVASCULAR: Absent: chest pain, syncope, palpitations, irregular heart rate, lightheadedness , peripheral edema RESPIRATORY: Absent: cough, shortness of breath, dyspnea with exertion, orthopnea, wheezing, stridor, hemoptysis GASTROINTESTINAL: Present: abdominal pain, nausea, vomiting, diarrhea Absent: abdominal distension, constipation, melena, hematochezia GENITOURINARY: Absent: dysuria, frequency, urgency, hesitancy, hematuria, flank pain, genital pain MUSCULOSKELETAL: Absent: myalgia, arthralgia, joint swelling, back pain, neck pain SKIN: Absent: rash, itching, pallor HEMATOLOGIC/IMMUNOLOGIC: Absent: easy bleeding, easy bruising, lymphadenopathy, frequent infections ENDOCRINE: Absent: unexplained weight gain, unexplained weight loss, heat intolerance, cold intolerance NEUROLOGIC: Absent: headache, focal weakness or paresthesias, dizziness, unsteady gait, seizure, mental status changes, bladder or bowel incontinence PSYCHIATRIC: Absent: anxiety, depression, suicidal or homicidal ideation, hallucinations. PHYSICAL EXAMINATION Vital Signs - 24 hr 01/10/19 19:09 Temperature 98.7 F Pulse Rate 80 Respiratory 20 Rate Blood Pressure 136/72 O2 Sat by Pulse 99 Oximetry (%) GENERAL: Awake, alert, and oriented to person and place, in no acute distress. HEAD: Normal with no signs of trauma. EYES: Pupils equal, round and reactive to light, extraocular movements intact, sclera anicteric, conjunctiva clear. No lid lag. EARS, NOSE, THROAT: Ears normal, nares patent, oropharynx clear without exudates. Moist mucous membranes. NECK: Normal range of motion, supple without lymphadenopathy, JVD, or masses. LUNGS: crackles bilat bases, otherwise CTA. No wheezes. No accessory muscle use. HEART: Regular rate and rhythm, normal S1 and S2 without murmur, rub or gallop. ABDOMEN: Soft, nontender, not distended, normoactive bowel sounds, no guarding, no rebound, no masses. No hepatomegaly or splenomegaly. MUSCULOSKELETAL: Normal range of motion at all joints. No bony deformities or tenderness. No CVA tenderness. UPPER EXTREMITIES: 2+ pulses, warm, well-perfused. No cyanosis. No clubbing. No peripheral edema. LOWER EXTREMITIES: 2+ pulses, warm, well-perfused. No calf tenderness. No peripheral edema. NEUROLOGICAL: Cranial nerves II-XII intact. Normal speech. PSYCHIATRIC: Cooperative. Good eye contact. Appropriate mood and affect. SKIN: Warm, dry, normal turgor, no rashes or lesions noted, normal capillary refill. Laboratory Results - last 24 hr 3 01/10/19 01/10/19 01/10/19 20:26 21:34 21:34 WBC 9.6 RBC 3.66 Hgb 11.7 Hct 34.1 D MCV 93.4 MCH 32.1 MCHC 34.3 RDW 13.3 Plt Count 179 MPV 10.1 D Absolute Neuts (auto) 7.8 Neutrophils % 81.1 D Lymphocytes % 13.9 D Monocytes % 4.7 Eosinophils % 0.1 D Basophils % 0.2 Nucleated RBC % 0 PT with INR 10.70 INR 0.91 Sodium Potassium Chloride Carbon Dioxide Anion Gap BUN Creatinine Creat Clearance w eGFR POC Glucometer Random Glucose Calcium Total Bilirubin AST ALT Alkaline Phosphatase Creatine Kinase Troponin I B-Natriuretic Peptide Total Protein Albumin Total Amylase Lipase Urine Color Urine Appearance Urine pH Ur Specific [place] Urine Protein Urine Glucose (UA) Urine Ketones Urine Blood Urine Nitrite Urine Bilirubin Urine Urobilinogen Ur Leukocyte Esterase Stool Occult Blood Negative Anti-A Titer Blood Type Antibody Screen 3 01/10/19 01/10/19 01/10/19 21:34 21:34 21:57 WBC RBC Hgb Hct MCV MCH MCHC RDW Plt Count MPV Absolute Neuts (auto) Neutrophils % Lymphocytes % Monocytes % Eosinophils % Basophils % Nucleated RBC % PT with INR INR Sodium 123 L Potassium 7.2 H* Chloride 90 L Carbon Dioxide 20 L Anion Gap 13 BUN 89 H Creatinine 5.8 H Creat Clearance w eGFR 6.95 POC Glucometer 202 Random Glucose 194 H Calcium 8.6 Total Bilirubin 0.2 AST 31 ALT 35 Alkaline Phosphatase 87 Creatine Kinase 58 Troponin I < 0.02 B-Natriuretic Peptide 7956.0 H Total Protein 6.5 Albumin 3.1 L Total Amylase 57 Lipase 199 Urine Color Urine Appearance Urine pH Ur Specific [place] Urine Protein Urine Glucose (UA) Urine Ketones Urine Blood Urine Nitrite Urine Bilirubin Urine Urobilinogen Ur Leukocyte Esterase Stool Occult Blood Anti-A Titer Cancelled Blood Type Cancelled Antibody Screen Cancelled 3 01/10/19 01/10/19 01/11/19 23:26 23:35 00:42 WBC RBC Hgb Hct MCV MCH MCHC RDW Plt Count MPV Absolute Neuts (auto) Neutrophils % Lymphocytes % Monocytes % Eosinophils % Basophils % Nucleated RBC % PT with INR INR Sodium 123 L 128 L Potassium 6.7 H* 6.5 H* Chloride 91 L 94 L Carbon Dioxide 19 L 22 Anion Gap 14 12 BUN 90 H 90 H Creatinine 5.8 H 5.7 H Creat Clearance w eGFR 6.95 7.09 POC Glucometer 460 Random Glucose 406 H* 130 H Calcium 8.4 L 8.8 Total Bilirubin 0.2 0.2 AST 26 28 ALT 30 35 Alkaline Phosphatase 74 76 Creatine Kinase Troponin I B-Natriuretic Peptide Total Protein 5.6 L 5.8 L Albumin 2.7 L 2.7 L Total Amylase Lipase Urine Color Urine Appearance Urine pH Ur Specific [place] Urine Protein Urine Glucose (UA) Urine Ketones Urine Blood Urine Nitrite Urine Bilirubin Urine Urobilinogen Ur Leukocyte Esterase Stool Occult Blood Anti-A Titer Blood Type Antibody Screen 3 01/11/19 01/11/19 02:40 03:00 WBC RBC Hgb Hct MCV MCH MCHC RDW Plt Count MPV Absolute Neuts (auto) Neutrophils % Lymphocytes % Monocytes % Eosinophils % Basophils % Nucleated RBC % PT with INR INR Sodium Potassium Chloride Carbon Dioxide Anion Gap BUN Creatinine Creat Clearance w eGFR POC Glucometer Random Glucose Calcium Total Bilirubin AST ALT Alkaline Phosphatase Creatine Kinase Troponin I 0.02 B-Natriuretic Peptide Total Protein Albumin Total Amylase Lipase Urine Color Angela Urine Appearance Cloudy Urine pH 5.0 Ur Specific [place] 1.019 Urine Protein 1+ H Urine Glucose (UA) Negative Urine Ketones Negative Urine Blood Negative Urine Nitrite Negative Urine Bilirubin Negative Urine Urobilinogen Negative Ur Leukocyte Esterase Trace Stool Occult Blood Anti-A Titer Blood Type Antibody Screen Radiology Reports CT abdomen and pelvis IMPRESSION: Moderate right-sided and small left-sided pleural effusions with compressive atelectasis and/or pneumonia. Gallstones. Minimal ascites of uncertain origin. Addendum: There may be gallbladder wall thickening and therefore cholecystitis should be considered. THIS DOCUMENT HAS BEEN ELECTRONICALLY SIGNED Niles Jasso MD 01/11/2019 00:18 EST Ultrasound abdomen, limited IMPRESSION: High suspicion of cholecystitis without biliary duct dilation. Hepatomegaly. THIS DOCUMENT HAS BEEN ELECTRONICALLY SIGNED Niles Jasso MD 01/11/2019 00:30 EST CXR-final read pending. + pleural effusions noted ASSESSMENT/PLAN: 83yF with PMH KATYA, HTN, HLD, CHF, CAD presented to the ED with malaise, poor appetite, N/V/D and lower abdominal cramping. Renal: Hyperkalemia in setting of KATYA - pt started on lisinopril around 12/31/18, hold lisinopril - DW Dr. Coley, Magdi 7.2-->6.8-->6.5 after 2 hyperkalemia cocktails. Will give additional 1gm Calcium, 10u insulin, D50, 1 amp sodium bicarb, albuterol neb x1, kayexalate 15gm with addition of lasix 80mg. - monitor BGM q2h for now in setting of insulin/dextrose administration, can decrease frequency later - repeat bmp 6am - discussed option of dialysis with daughter, she would like to maximize medical treatment before considering dialysis - strict I&O, barnard for same hyponatremia - na corrected for glucose 125-->128-->128, cont to trend with BMP - urine lytes Pulm: hypoxia due to Bilateral pleural effusions in setting of KATYA - lasix 80mg x 1 - cont oxygen PRN Cardiac: Bradycardia in setting of electrolyte derangements - correct potassium - discontinue aricept as can cause bradycardia - cardiology consult - avoid beta blockers HTN, HLD, CAD - hold norvasc as BP is on low side of normal, restart if trending up - restart ASA when tolerating po - hold home po lasix - EF 60-65% on prior admission, but poor study due to pt combative, will repeat GI: Cholelithiasis - doubt true cholecystitis as RUQ nontender on exam, WBC 9.6, will hold further antitibiotics unless fever - surgical consult ordered in ED - NPO for now - cont home PPI - zofran given in ED FEN - NS @ 125cc/hr - BMP at 6am - NPO Dispo: pt currently requires further inpatient/critical care for management of her acute medical condition. Visit type - Emergency Visit Emergency Visit: Yes ED Registration Date: 01/11/19 Care time: The patient presented to the Emergency Department on the above date and was hospitalized for further evaluation of their emergent condition. - New Patient This patient is new to me today: Yes Date on this admission: 01/11/19 - Critical Care Critical Care patient: Yes Total Critical Care Time (in minutes): 60 Critical Care Statement: The care of this patient involved high complexity decision making to prevent further life threatening deterioration of the patient 's condition and/or to evaluate & treat vital organ system(s) failure or risk of failure.
[2019-01-11 03:56] LABS: AMORP URATES 3+ /hpf (NONE SEEN)
[2019-01-11] MEDS ORDERED: DEXTROSE 50%-WATER 25 GM/50 ML DISP.SYRIN IVPUSH ONE (04:20)
[2019-01-11] MEDS ORDERED: FUROSEMIDE 40 MG/4 ML INJECTABLE VIAL IVPUSH ONE ×3 (04:22→10:26)
[2019-01-11] MEDS ORDERED: DEXTROSE 50%-WATER 25 GM/50 ML DISP.SYRIN ONE (04:53)
--- NOTE | 2019-01-11 08:36 | PN ---
Physical Exam: SUBJECTIVE: Patient seen and examined at bedside this morning. Patient is alert and oriented to person only. Daughter at bedside endorses that the symptoms of diminished appetite, nausea, vomiting, diarrhea and abdominal pain have been ongoing for past two days. She admits that patient experienced similar symptoms earlier last month. Endorses that patient was recently started on Lisinopril for hypertension. Currently she denies subjective fevers, chills, shortness of breath, chest pain, palpitations, abdominal pain, nausea, vomiting. OBJECTIVE: Vital Signs Period Temp Pulse Resp BP Sys/Dominguez Pulse Ox Last 24 Hr 97.5 F-98.7 F 43-80 18-22 101-136/30-72 94-99 GENERAL: The patient is awake, alert, oriented to person only, in no acute distress. HEAD: Normocephalic, atraumatic. EYES: PERRL, extraocular movements intact, sclera anicteric, conjunctiva clear. ENT: Oropharynx clear without exudates. Moist mucous membranes. NECK: Supple without lymphadenopathy. +JVD LUNGS: Good inspiratory effort and air entry bilaterally. Bibasilar crackles auscultated without wheezing. No accessory muscle use noted. HEART: Regular rate and rhythm, S1, S2 auscultated with holosystolic murmur. ABDOMEN: Obese. Soft, nontender, nondistended x4 quadrants. Normoactive bowel sounds. No guarding, no rebound tenderness. EXTREMITIES: 2+ radial, dorsalis pedis pulses bilaterally. Warm, well-perfused. 1+ bilateral lower extremity edema. NEUROLOGICAL: Cranial nerves II through XII grossly intact. Normal speech. PSYCH: Normal mood, normal affect upon my encounter. SKIN: Warm, dry. Laboratory Results - last 24 hr 01/10/19 01/10/19 01/10/19 20:26 21:34 21:34 WBC 9.6 RBC 3.66 Hgb 11.7 Hct 34.1 D MCV 93.4 MCH 32.1 MCHC 34.3 RDW 13.3 Plt Count 179 MPV 10.1 D Absolute Neuts (auto) 7.8 Neutrophils % 81.1 D Lymphocytes % 13.9 D Monocytes % 4.7 Eosinophils % 0.1 D Basophils % 0.2 Nucleated RBC % 0 PT with INR 10.70 INR 0.91 Sodium Potassium Chloride Carbon Dioxide Anion Gap BUN Creatinine Creat Clearance w eGFR POC Glucometer Random Glucose Calcium Total Bilirubin AST ALT Alkaline Phosphatase Creatine Kinase Troponin I B-Natriuretic Peptide Total Protein Albumin Total Amylase Lipase Urine Color Urine Appearance Urine pH Ur Specific [place] Urine Protein Urine Glucose (UA) Urine Ketones Urine Blood Urine Nitrite Urine Bilirubin Urine Urobilinogen Ur Leukocyte Esterase Urine WBC (Auto) Urine RBC (Auto) Ur Epithelial Cells Amorphous Urates Urine Bacteria Hyaline Casts Urine Mucus Stool Occult Blood Negative Anti-A Titer Blood Type Antibody Screen 01/10/19 01/10/19 01/10/19 21:34 21:34 21:57 WBC RBC Hgb Hct MCV MCH MCHC RDW Plt Count MPV Absolute Neuts (auto) Neutrophils % Lymphocytes % Monocytes % Eosinophils % Basophils % Nucleated RBC % PT with INR INR Sodium 123 L Potassium 7.2 H* Chloride 90 L Carbon Dioxide 20 L Anion Gap 13 BUN 89 H Creatinine 5.8 H Creat Clearance w eGFR 6.95 POC Glucometer 202 Random Glucose 194 H Calcium 8.6 Total Bilirubin 0.2 AST 31 ALT 35 Alkaline Phosphatase 87 Creatine Kinase 58 Troponin I < 0.02 B-Natriuretic Peptide 7956.0 H Total Protein 6.5 Albumin 3.1 L Total Amylase 57 Lipase 199 Urine Color Urine Appearance Urine pH Ur Specific [place] Urine Protein Urine Glucose (UA) Urine Ketones Urine Blood Urine Nitrite Urine Bilirubin Urine Urobilinogen Ur Leukocyte Esterase Urine WBC (Auto) Urine RBC (Auto) Ur Epithelial Cells Amorphous Urates Urine Bacteria Hyaline Casts Urine Mucus Stool Occult Blood Anti-A Titer Cancelled Blood Type Cancelled Antibody Screen Cancelled 01/10/19 01/10/19 01/11/19 23:26 23:35 00:42 WBC RBC Hgb Hct MCV MCH MCHC RDW Plt Count MPV Absolute Neuts (auto) Neutrophils % Lymphocytes % Monocytes % Eosinophils % Basophils % Nucleated RBC % PT with INR INR Sodium 123 L 128 L Potassium 6.7 H* 6.5 H* Chloride 91 L 94 L Carbon Dioxide 19 L 22 Anion Gap 14 12 BUN 90 H 90 H Creatinine 5.8 H 5.7 H Creat Clearance w eGFR 6.95 7.09 POC Glucometer 460 Random Glucose 406 H* 130 H Calcium 8.4 L 8.8 Total Bilirubin 0.2 0.2 AST 26 28 ALT 30 35 Alkaline Phosphatase 74 76 Creatine Kinase Troponin I B-Natriuretic Peptide Total Protein 5.6 L 5.8 L Albumin 2.7 L 2.7 L Total Amylase Lipase Urine Color Urine Appearance Urine pH Ur Specific [place] Urine Protein Urine Glucose (UA) Urine Ketones Urine Blood Urine Nitrite Urine Bilirubin Urine Urobilinogen Ur Leukocyte Esterase Urine WBC (Auto) Urine RBC (Auto) Ur Epithelial Cells Amorphous Urates Urine Bacteria Hyaline Casts Urine Mucus Stool Occult Blood Anti-A Titer Blood Type Antibody Screen 01/11/19 01/11/19 01/11/19 02:40 02:40 03:00 WBC RBC Hgb Hct MCV MCH MCHC RDW Plt Count MPV Absolute Neuts (auto) Neutrophils % Lymphocytes % Monocytes % Eosinophils % Basophils % Nucleated RBC % PT with INR INR Sodium Potassium Chloride Carbon Dioxide Anion Gap BUN Creatinine Creat Clearance w eGFR POC Glucometer Random Glucose Calcium Total Bilirubin AST ALT Alkaline Phosphatase Creatine Kinase Troponin I 0.02 B-Natriuretic Peptide Total Protein Albumin Total Amylase Lipase Urine Color Angela Urine Appearance Cloudy Urine pH 5.0 Ur Specific [place] 1.019 Urine Protein 1+ H Urine Glucose (UA) Negative Urine Ketones Negative Urine Blood Negative Urine Nitrite Negative Urine Bilirubin Negative Urine Urobilinogen Negative Ur Leukocyte Esterase Trace Urine WBC (Auto) 3 Urine RBC (Auto) 8 Ur Epithelial Cells Many Amorphous Urates 3+ Urine Bacteria Rare Hyaline Casts 69 Urine Mucus Rare Stool Occult Blood Anti-A Titer Blood Type O POSITIVE Antibody Screen Negative 01/11/19 01/11/19 01/11/19 03:59 06:26 07:53 WBC RBC Hgb Hct MCV MCH MCHC RDW Plt Count MPV Absolute Neuts (auto) Neutrophils % Lymphocytes % Monocytes % Eosinophils % Basophils % Nucleated RBC % PT with INR INR Sodium Potassium Chloride Carbon Dioxide Anion Gap BUN Creatinine Creat Clearance w eGFR POC Glucometer 92 66 111 Random Glucose Calcium Total Bilirubin AST ALT Alkaline Phosphatase Creatine Kinase Troponin I B-Natriuretic Peptide Total Protein Albumin Total Amylase Lipase Urine Color Urine Appearance Urine pH Ur Specific [place] Urine Protein Urine Glucose (UA) Urine Ketones Urine Blood Urine Nitrite Urine Bilirubin Urine Urobilinogen Ur Leukocyte Esterase Urine WBC (Auto) Urine RBC (Auto) Ur Epithelial Cells Amorphous Urates Urine Bacteria Hyaline Casts Urine Mucus Stool Occult Blood Anti-A Titer Blood Type Antibody Screen Active Medications Generic Name Dose Route Start Last Admin Trade Name Freq PRN Reason Stop Dose Admin Aspirin 81 mg 01/11/19 10:00 Ecotrin - PO DAILY [facility] Chlorhexidine Gluconate 1 applic 01/11/19 22:00 Hibiclens For Decolonization - TP HS [facility] Heparin Sodium (Porcine) 5,000 unit 01/11/19 10:00 Heparin - SQ BID [facility] Multivitamins 1 each 01/11/19 10:00 Total B With C - PO DAILY [facility] Mupirocin 1 applic 01/11/19 10:00 Bactroban Ointment (For Decolonization) - NS 01/16/19 09:59 BID [facility] Pantoprazole Sodium 20 mg 01/11/19 10:00 Protonix - PO DAILY [facility] Rosuvastatin Calcium 20 mg 01/11/19 10:00 Crestor - PO DAILY [facility] Tamsulosin HCl 0.4 mg 01/11/19 08:30 Flomax - PO DAILY@0830 [facility] ASSESSMENT/PLAN: Patient is am 83 year old female with history of chronic kidney disease, Alzheimer's dementia, hypertension, hyperlipidemia admitted to ICU with metabolic derangement. #Neurological Alzheimer's dementia -Patient is alert, oriented only to self -Donepezil 5mg PO HS #Pulmonary -Chest radiograph shows bilateral congestive changes, suggestive of fluid overload. -Currently saturating well on room air. Maintain oxygen saturation greater than 90% #Cardiovascular -EKG showed LBBB which has resolved. Currently patient is in normal sinus rhythm -Troponin 0.02 X2 -Cardiac ECHO shows LV systolic function grossly normal with EF 60-65%. LA borderline dilated. Mild aortic stenosis. -Cardiology recommendations (Dr. Javier) appreciated. Coronary artery disease -Aspirin 81mg PO daily -Crestor 20mg PO daily #Gastrointestinal -Right upper quadrant US shows gallbladder wall thickening, and choleliths concerning for acute cholecystitis, without CBD dilation -CT abdomen, pelvis shows gallstones, with haziness of gallbladder wall. -Protonix 20mg PO daily -NPO except for medications -General surgery consult (Dr. Mac) appreciated. -Follow HIDA scan -Follow stool culture, stool for C. difficle #Renal Acute on chronic kidney disease Hyponatremia -improving. Likely secondary to poor PO intake. May also be dilutional component as patient is volume overloaded. Hyperkalemia -improving. Secondary to KATYA on CKD. Patient was recently started on Lisinopril -Managed medically, as family refused dialysis. Patient received Lasix 80mg IV in ED, additional 60mg IV Lasix today. -Discontinue Lisinopril. -Monitor barnard catheter output. 1100cc clear yellow urine overnight -Nephrology consult (Dr. Coley) appreciated -Follow urine studies -Follow BMP FEN -No IV fluids indicated. -Hyponatremia, hyperkalemia. Follow CMP. -NPO pending general surgery evaluation LTD -Barnard catheter placed 01/11 Prophylaxis -Heparin 5000u subq TID Disposition -Continue care in ICU Visit type - Emergency Visit Emergency Visit: Yes ED Registration Date: 01/11/19 Care time: The patient presented to the Emergency Department on the above date and was hospitalized for further evaluation of their emergent condition. - New Patient This patient is new to me today: Yes Date on this admission: 01/11/19 - Critical Care Critical Care patient: Yes Total Critical Care Time (in minutes): 35 Critical Care Statement: The care of this patient involved high complexity decision making to prevent further life threatening deterioration of the patient 's condition and/or to evaluate & treat vital organ system(s) failure or risk of failure. - Discharge Referral Referred to [facility] Med [facility].: No
[2019-01-11 09:00] LABS: BASO % 0.2 % (0-2.0); EOS % 0.1 % (0-4.5); HEMATOCRIT 30.7 % (32.4-45.2); HEMOGLOBIN 10.7 GM/dL (10.7-15.3); LYMPH % 10.9 % (8-40); MCHC 34.7 g/dl (32.0-36.0); MEAN CELL VOLUME 92.3 fl (80-96); MEAN PLT VOLUME 10.4 fl (7.5-11.1); MONO % 6.6 % (3.8-10.2); NEUT % 82.2 % (42.8-82.8); PLATELET COUNT 161 K/MM3 (134-434); RBC 3.33 M/mm3 (3.60-5.2); RDW 13.1 % (11.6-15.6); WHITE BLOOD COUNT 10.3 K/mm3 (4.0-10.0)
--- NOTE | 2019-01-11 10:38 | ECHO ---
Name: BRAXTON DWYER Exam:Adult Echocardiogram Study Date: 01/11/2019 07:37 AM Age: 83 yrs Reason For Study: R/O PLEURAL EFFUSIONS ONLY Height: 53 in Weight: 155 lb BSA: 1.5 m2 Procedure The study was technically limited with all images being suboptimal in quality. Images were not obtain ed from all of the standard acoustic windows due to the limited scope of the study. Left Ventricle Left ventricular systolic function is grossly normal. Ejection Fraction = 60-65%. Right Ventricle The right ventricle is normal in size and function. Atria The left atrium is borderline dilated. Right atrial size is normal. Mitral Valve There is mild mitral annular calcification. There is no mitral valve stenosis. Tricuspid Valve The tricuspid valve is not well visualized, but is grossly normal. Aortic Valve There is mild aortic sclerosis.;. No hemodynamically significant valvular aortic stenosis. Pulmonic Valve The pulmonic valve is not well visualized. Great Vessels The aortic root is normal size. Pericardium/Pleura There is no pericardial effusion. Interpretation Summary The study was technically limited with all images being suboptimal in quality. Images were not obtained from all of the standard acoustic windows due to the limited scope of the st udy. Left ventricular systolic function is grossly normal. Ejection Fraction = 60-65%. The right ventricle is normal in size and function. The left atrium is borderline dilated. There is mild mitral annular calcification. There is mild aortic sclerosis.; There is no pericardial effusion. MD Hameed *Yimi 01/11/2019 10:37 AM
[2019-01-11 10:42] LABS: ANION GAP 12 MMOL/L (8-16); BLOOD UREA NITROGEN 89 mg/dL (7-18); CHLORIDE 93 mmol/L (98-107); CO2 24 mmol/L (21-32); CREATININE 5.4 mg/dL (0.55-1.3); GLUCOSE,RANDOM 94 mg/dL (74-106); MAGNESIUM 2.4 mg/dL (1.8-2.4); PHOSPHOROUS 5.8 mg/dL (2.5-4.9); POTASSIUM 5.5 mmol/L (3.5-5.1); SODIUM 129 mmol/L (136-145)
[2019-01-11 10:46] LABS: OSMOLALITY,SERUM 301 mosm/kg (278-305)
[2019-01-11] MEDS: VITAMIN B COMPLEX W/C COMBO TABLET (FP) PO SCH (11:39)
[2019-01-11] MEDS: TAMSULOSIN HCL 0.4 MG CAP PO SCH (11:39)
[2019-01-11] MEDS: PANTOPRAZOLE 20 MG TABLET (FP) PO SCH (11:40)
[2019-01-11] MEDS: ASPIRIN COATED 81 MG TABLET.EC PO SCH (11:40)
[2019-01-11] MEDS: HEPARIN NA (PORCINE) 5,000 UNITS/ML 1ML VIAL SQ SCH ×2 (11:40→21:24)
--- NOTE | 2019-01-11 11:53 | CONSULT ---
Consult Consult Specialty:: Nephrology Reason for Consultation:: KATYA - History of Present Illness Chief Complaint: shortness of breath, nausea and vomiting History of Present Illness: Pt is an 83 year old female with pmhx of HTN, alzeheimers, CAD, CHF, CKD, and a- fib who presents to the ER with nausea, vomiting and shortness of breath. She has had decreased appetite. She was still taking her meds. I was called to evaluate her for acute renal failure and hyperkalemia. She was recently started on lisinopril for htn. She was taking 20 mg of lasix per day. She has not followed up with me since her last hospitalization. Potassium was treated medically last night as family had refused dialysis. She feels better today. She says she has appetite. Pt is a poor historian. Her family are at bedside and did assist with history. 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 History of Recent Travel: Yes (Visiting from [place]) Home Medications - Allergies Allergies/Adverse Reactions: Allergies Allergy/AdvReac Type Severity Reaction Status Date / Time No Known Allergies Allergy Verified 12/17/18 11:21 - Home Medications Home Medications: Ambulatory Orders Aspirin [Ecotrin] 81 mg PO DAILY 03/13/15 Furosemide [Lasix -] 20 mg PO DAILY #30 tablet 12/15/18 Acetaminophen [Tylenol .Regular Strength -] 650 mg PO Q6H PRN tablet 12/21/18 Donepezil HCl [Aricept -] 5 mg PO HS #30 tablet 12/21/18 Multivitamin [Multiple Vitamins] 1 each PO DAILY #30 tablet 12/21/18 Pantoprazole Sodium [Protonix -] 20 mg PO DAILY #30 tablet.ec 12/21/18 Tamsulosin HCl [Flomax -] 0.4 mg PO DAILY@0830 #30 cap.er.24h 12/21/18 Vitamin B Comp W-C [Total B with C -] 1 each PO DAILY #30 tablet 12/21/18 Amlodipine Besylate 5 mg PO DAILY 01/11/19 Lisinopril 10 mg PO DAILY 01/11/19 Rosuvastatin Calcium [Crestor] 20 mg PO DAILY 01/11/19 Family Disease History - Family Disease History Family Disease History: Heart Disease: Father, Sister (vaginal ca. and liver ca. ), CA: Sister Review of Systems - Review of Systems Constitutional: reports: Malaise. denies: Chills Eyes: reports: No Symptoms HENT: reports: No Symptoms Neck: reports: No Symptoms Cardiovascular: reports: No Symptoms Respiratory: reports: SOB Gastrointestinal: reports: Nausea, Vomiting Genitourinary: reports: No Symptoms Musculoskeletal: reports: No Symptoms Integumentary: reports: No Symptoms Neurological: reports: No Symptoms Endocrine: reports: No Symptoms Hematology/Lymphatic: reports: No Symptoms Physical Exam Vital Signs: Vital Signs Temperature 97.5 F L 01/11/19 06:06 Pulse Rate 71 01/11/19 09:00 Respiratory Rate 20 01/11/19 09:00 Blood Pressure 126/42 L 01/11/19 09:00 O2 Sat by Pulse Oximetry (%) 94 L 01/11/19 09:00 Constitutional: Yes: Calm Eyes: Yes: Conjunctiva Clear HENT: Yes: Atraumatic Neck: Yes: Supple Cardiovascular: Yes: S1, S2 Respiratory: Yes: On Nasal O2 Gastrointestinal: Yes: Soft Renal/: Yes: Hoskins Present Musculoskeletal: Yes: WNL Edema: No Neurological: Yes: Oriented Psychiatric: Yes: Oriented Labs: CBC, BMP 01/11/19 08:22 01/11/19 08:22 Laboratory Tests 01/10/19 01/10/19 01/10/19 21:32 21:34 23:35 Sodium 123 L 123 L Potassium 7.2 H* 6.7 H* Chloride Carbon Dioxide Anion Gap BUN Creatinine 5.8 H 5.8 H Lactic Acid 4.0 H* B-Natriuretic Peptide 7956.0 H 01/11/19 01/11/19 01/11/19 00:42 08:22 09:27 Sodium 128 L 129 L Potassium 6.5 H* 5.5 H Chloride 93 L Carbon Dioxide 24 Anion Gap 12 BUN 89 H Creatinine 5.7 H 5.4 H Lactic Acid 3.2 H* B-Natriuretic Peptide Imaging - Results Chest X-ray: Report Reviewed Ultrasound: Report Reviewed Problem List - Problems (1) ARF (acute renal failure) Code(s): N17.9 - ACUTE KIDNEY FAILURE, UNSPECIFIED Qualifiers: Acute renal failure type: unspecified Qualified Code(s): N17.9 - Acute kidney failure, unspecified (2) KATYA (acute kidney injury) Code(s): N17.9 - ACUTE KIDNEY FAILURE, UNSPECIFIED (3) Afib Code(s): I48.91 - UNSPECIFIED ATRIAL FIBRILLATION Qualifiers: Atrial fibrillation type: persistent Qualified Code(s): I48.1 - Persistent atrial fibrillation (4) Hyperkalemia Code(s): E87.5 - HYPERKALEMIA Assessment/Plan Current Medications Generic Name Dose Route Start Last Admin Trade Name Freq PRN Reason Stop Dose Admin Aspirin 81 mg 01/11/19 10:00 01/11/19 11:40 Ecotrin - PO 81 mg DAILY HAY Administration Chlorhexidine Gluconate 1 applic 01/11/19 22:00 Hibiclens For Decolonization - TP HS HAY Heparin Sodium (Porcine) 5,000 unit 01/11/19 10:00 01/11/19 11:40 Heparin - SQ 5,000 unit BID HAY Administration Multivitamins 1 each 01/11/19 10:00 01/11/19 11:39 Total B With C - PO 1 each DAILY HAY Administration Mupirocin 1 applic 01/11/19 10:00 Bactroban Ointment (For Decolonization) - NS 01/16/19 09:59 BID HAY Pantoprazole Sodium 20 mg 01/11/19 10:00 01/11/19 11:40 Protonix - PO 20 mg DAILY HAY Administration Rosuvastatin Calcium 20 mg 01/11/19 10:00 Crestor - PO DAILY HAY Tamsulosin HCl 0.4 mg 01/11/19 08:30 01/11/19 11:39 Flomax - PO 0.4 mg DAILY@0830 HAY Administration Impression 1. CKD 2. a-fib 3. hyperkalemia 4. htn 5. CHF 6. dementia 7. cad 8. hld 9. plueral effusions 10. nausea 11. KATYA 12. hyponatremia Plan - renal function is improving - pt is fluid overloaded, she did respond to lasix - potassium is improving as well - cont to monitor lytes while on diuretics - follow up renal ultrasound - monitor urine output - follow echo - check ua and lytes - check urine protein to speech therapist technician ration - stop lisinopril and do not restart for now - discussed with family - discussed with ICU team
--- NOTE | 2019-01-11 12:44 | PN ---
Teaching Attending Note Name of Resident: Cm Willard ATTENDING PHYSICIAN STATEMENT I saw and evaluated the patient. I reviewed the resident's note and discussed the case with the resident. I agree with the resident's findings and plan as documented. SUBJECTIVE: Patient seen and examined in the ICU. Awake and responsive. Trinidadian speaking. Mildly confused. Denies CP or SOB. Noted 1100cc urine output overnight. Hyperkalemia improving. Intake & Output 01/08/19 01/09/19 01/10/19 01/11/19 23:59 23:59 23:59 23:59 Intake Total 240 Output Total 1999 Balance -1760 Weight 184 lb 4.903 oz 155 lb 12.8 oz Last Vital Signs Temp Pulse Resp BP Pulse Ox 97.5 F L 68 20 139/43 L 94 L 01/11/19 06:06 01/11/19 11:00 01/11/19 11:00 01/11/19 11:00 01/11/19 09:00 Active Medications Aspirin (Ecotrin -) 81 mg PO DAILY [facility] Last Admin: 01/11/19 11:40 Dose: 81 mg Chlorhexidine Gluconate (Hibiclens For Decolonization -) 1 applic TP HS [facility] Heparin Sodium (Porcine) (Heparin -) 5,000 unit SQ BID [facility] Last Admin: 01/11/19 11:40 Dose: 5,000 unit Multivitamins (Total B With C -) 1 each PO DAILY [facility] Last Admin: 01/11/19 11:39 Dose: 1 each Mupirocin (Bactroban Ointment (For Decolonization) -) 1 applic NS BID [facility] Stop: 01/16/19 09:59 Pantoprazole Sodium (Protonix -) 20 mg PO DAILY [facility] Last Admin: 01/11/19 11:40 Dose: 20 mg Rosuvastatin Calcium (Crestor -) 20 mg PO DAILY [facility] Tamsulosin HCl (Flomax -) 0.4 mg PO DAILY@0830 [facility] Last Admin: 01/11/19 11:39 Dose: 0.4 mg Constitutional: Yes: Awake and alert, No Distress Eyes: Yes: Conjunctiva Clear, EOM Intact HENT: Yes: Atraumatic, Normocephalic Neck: Yes: Supple, Trachea Midline Cardiovascular: Yes: Bradycardia, S1, S2. No: Murmur, Rub Respiratory: Yes: Bibasilar rales. No: Accessory Muscle Use Gastrointestinal: Yes: Normal Bowel Sounds, Soft, Abdomen, Obese, Vomiting. No : Tenderness Breast(s): Yes: WNL Extremities: No: Calf Tenderness, Cyanosis, Deformity Edema: LLE: 1+, RLE: 1+ Peripheral Pulses WNL: Yes Neurological: Yes: Alert ...Motor Strength: WNL Psychiatric: Yes: Alert Labs: Laboratory Results - last 24 hr 01/10/19 01/10/19 01/10/19 20:26 21:32 21:34 WBC 9.6 RBC 3.66 Hgb 11.7 Hct 34.1 D MCV 93.4 MCH 32.1 MCHC 34.3 RDW 13.3 Plt Count 179 MPV 10.1 D Absolute Neuts (auto) 7.8 Neutrophils % 81.1 D Lymphocytes % 13.9 D Monocytes % 4.7 Eosinophils % 0.1 D Basophils % 0.2 Nucleated RBC % 0 PT with INR INR Sodium Potassium Chloride Carbon Dioxide Anion Gap BUN Creatinine Creat Clearance w eGFR POC Glucometer Random Glucose Serum Osmolality Lactic Acid 4.0 H* Calcium Phosphorus Magnesium Total Bilirubin AST ALT Alkaline Phosphatase Creatine Kinase Troponin I B-Natriuretic Peptide Total Protein Albumin Total Amylase Lipase Urine Color Urine Appearance Urine pH Ur Specific Edgar Urine Protein Urine Glucose (UA) Urine Ketones Urine Blood Urine Nitrite Urine Bilirubin Urine Urobilinogen Ur Leukocyte Esterase Urine WBC (Auto) Urine RBC (Auto) Ur Epithelial Cells Amorphous Urates Urine Bacteria Hyaline Casts Urine Mucus Urine Osmolality Ur Random Sodium Urine Creatinine Stool Occult Blood Negative Anti-A Titer Blood Type Antibody Screen 01/10/19 01/10/19 01/10/19 21:34 21:34 21:34 WBC RBC Hgb Hct MCV MCH MCHC RDW Plt Count MPV Absolute Neuts (auto) Neutrophils % Lymphocytes % Monocytes % Eosinophils % Basophils % Nucleated RBC % PT with INR 10.70 INR 0.91 Sodium 123 L Potassium 7.2 H* Chloride 90 L Carbon Dioxide 20 L Anion Gap 13 BUN 89 H Creatinine 5.8 H Creat Clearance w eGFR 6.95 POC Glucometer Random Glucose 194 H Serum Osmolality Lactic Acid Calcium 8.6 Phosphorus Magnesium Total Bilirubin 0.2 AST 31 ALT 35 Alkaline Phosphatase 87 Creatine Kinase 58 Troponin I < 0.02 B-Natriuretic Peptide 7956.0 H Total Protein 6.5 Albumin 3.1 L Total Amylase 57 Lipase 199 Urine Color Urine Appearance Urine pH Ur Specific Edgar Urine Protein Urine Glucose (UA) Urine Ketones Urine Blood Urine Nitrite Urine Bilirubin Urine Urobilinogen Ur Leukocyte Esterase Urine WBC (Auto) Urine RBC (Auto) Ur Epithelial Cells Amorphous Urates Urine Bacteria Hyaline Casts Urine Mucus Urine Osmolality Ur Random Sodium Urine Creatinine Stool Occult Blood Anti-A Titer Cancelled Blood Type Cancelled Antibody Screen Cancelled 01/10/19 01/10/19 01/10/19 21:57 23:26 23:35 WBC RBC Hgb Hct MCV MCH MCHC RDW Plt Count MPV Absolute Neuts (auto) Neutrophils % Lymphocytes % Monocytes % Eosinophils % Basophils % Nucleated RBC % PT with INR INR Sodium 123 L Potassium 6.7 H* Chloride 91 L Carbon Dioxide 19 L Anion Gap 14 BUN 90 H Creatinine 5.8 H Creat Clearance w eGFR 6.95 POC Glucometer 202 460 Random Glucose 406 H* Serum Osmolality Lactic Acid Calcium 8.4 L Phosphorus Magnesium Total Bilirubin 0.2 AST 26 ALT 30 Alkaline Phosphatase 74 Creatine Kinase Troponin I B-Natriuretic Peptide Total Protein 5.6 L Albumin 2.7 L Total Amylase Lipase Urine Color Urine Appearance Urine pH Ur Specific Edgar Urine Protein Urine Glucose (UA) Urine Ketones Urine Blood Urine Nitrite Urine Bilirubin Urine Urobilinogen Ur Leukocyte Esterase Urine WBC (Auto) Urine RBC (Auto) Ur Epithelial Cells Amorphous Urates Urine Bacteria Hyaline Casts Urine Mucus Urine Osmolality Ur Random Sodium Urine Creatinine Stool Occult Blood Anti-A Titer Blood Type Antibody Screen 01/11/19 01/11/19 01/11/19 00:42 02:40 02:40 WBC RBC Hgb Hct MCV MCH MCHC RDW Plt Count MPV Absolute Neuts (auto) Neutrophils % Lymphocytes % Monocytes % Eosinophils % Basophils % Nucleated RBC % PT with INR INR Sodium 128 L Potassium 6.5 H* Chloride 94 L Carbon Dioxide 22 Anion Gap 12 BUN 90 H Creatinine 5.7 H Creat Clearance w eGFR 7.09 POC Glucometer Random Glucose 130 H Serum Osmolality Lactic Acid Calcium 8.8 Phosphorus Magnesium Total Bilirubin 0.2 AST 28 ALT 35 Alkaline Phosphatase 76 Creatine Kinase Troponin I 0.02 B-Natriuretic Peptide Total Protein 5.8 L Albumin 2.7 L Total Amylase Lipase Urine Color Urine Appearance Urine pH Ur Specific Edgar Urine Protein Urine Glucose (UA) Urine Ketones Urine Blood Urine Nitrite Urine Bilirubin Urine Urobilinogen Ur Leukocyte Esterase Urine WBC (Auto) Urine RBC (Auto) Ur Epithelial Cells Amorphous Urates Urine Bacteria Hyaline Casts Urine Mucus Urine Osmolality Ur Random Sodium Urine Creatinine Stool Occult Blood Anti-A Titer Blood Type O POSITIVE Antibody Screen Negative 01/11/19 01/11/19 01/11/19 03:00 03:59 06:00 WBC RBC Hgb Hct MCV MCH MCHC RDW Plt Count MPV Absolute Neuts (auto) Neutrophils % Lymphocytes % Monocytes % Eosinophils % Basophils % Nucleated RBC % PT with INR INR Sodium Potassium Chloride Carbon Dioxide Anion Gap BUN Creatinine Creat Clearance w eGFR POC Glucometer 92 Random Glucose Serum Osmolality Lactic Acid Calcium Phosphorus Magnesium Total Bilirubin AST ALT Alkaline Phosphatase Creatine Kinase Troponin I B-Natriuretic Peptide Total Protein Albumin Total Amylase Lipase Urine Color Angela Urine Appearance Cloudy Urine pH 5.0 Ur Specific Edgar 1.019 Urine Protein 1+ H Urine Glucose (UA) Negative Urine Ketones Negative Urine Blood Negative Urine Nitrite Negative Urine Bilirubin Negative Urine Urobilinogen Negative Ur Leukocyte Esterase Trace Urine WBC (Auto) 3 Urine RBC (Auto) 8 Ur Epithelial Cells Many Amorphous Urates 3+ Urine Bacteria Rare Hyaline Casts 69 Urine Mucus Rare Urine Osmolality 360 Ur Random Sodium Urine Creatinine Stool Occult Blood Anti-A Titer Blood Type Antibody Screen 01/11/19 01/11/19 01/11/19 06:00 06:00 06:26 WBC RBC Hgb Hct MCV MCH MCHC RDW Plt Count MPV Absolute Neuts (auto) Neutrophils % Lymphocytes % Monocytes % Eosinophils % Basophils % Nucleated RBC % PT with INR INR Sodium Potassium Chloride Carbon Dioxide Anion Gap BUN Creatinine Creat Clearance w eGFR POC Glucometer 66 Random Glucose Serum Osmolality Lactic Acid Calcium Phosphorus Magnesium Total Bilirubin AST ALT Alkaline Phosphatase Creatine Kinase Troponin I B-Natriuretic Peptide Total Protein Albumin Total Amylase Lipase Urine Color Urine Appearance Urine pH Ur Specific Edgar Urine Protein Urine Glucose (UA) Urine Ketones Urine Blood Urine Nitrite Urine Bilirubin Urine Urobilinogen Ur Leukocyte Esterase Urine WBC (Auto) Urine RBC (Auto) Ur Epithelial Cells Amorphous Urates Urine Bacteria Hyaline Casts Urine Mucus Urine Osmolality Ur Random Sodium < 18 L Urine Creatinine 151.0 Stool Occult Blood Anti-A Titer Blood Type Antibody Screen 01/11/19 01/11/19 01/11/19 07:53 08:22 08:22 WBC 10.3 H RBC 3.33 L Hgb 10.7 Hct 30.7 L MCV 92.3 MCH 32.0 MCHC 34.7 RDW 13.1 Plt Count 161 MPV 10.4 Absolute Neuts (auto) 8.5 H Neutrophils % 82.2 Lymphocytes % 10.9 D Monocytes % 6.6 Eosinophils % 0.1 Basophils % 0.2 Nucleated RBC % 0 PT with INR INR Sodium 129 L Potassium 5.5 H Chloride 93 L Carbon Dioxide 24 Anion Gap 12 BUN 89 H Creatinine 5.4 H Creat Clearance w eGFR 7.54 POC Glucometer 111 Random Glucose 94 Serum Osmolality 301 Lactic Acid Calcium 9.0 Phosphorus 5.8 H Magnesium 2.4 Total Bilirubin AST ALT Alkaline Phosphatase Creatine Kinase Troponin I B-Natriuretic Peptide Total Protein Albumin Total Amylase Lipase Urine Color Urine Appearance Urine pH Ur Specific Edgar Urine Protein Urine Glucose (UA) Urine Ketones Urine Blood Urine Nitrite Urine Bilirubin Urine Urobilinogen Ur Leukocyte Esterase Urine WBC (Auto) Urine RBC (Auto) Ur Epithelial Cells Amorphous Urates Urine Bacteria Hyaline Casts Urine Mucus Urine Osmolality Ur Random Sodium Urine Creatinine Stool Occult Blood Anti-A Titer Blood Type Antibody Screen 01/11/19 09:27 WBC RBC Hgb Hct MCV MCH MCHC RDW Plt Count MPV Absolute Neuts (auto) Neutrophils % Lymphocytes % Monocytes % Eosinophils % Basophils % Nucleated RBC % PT with INR INR Sodium Potassium Chloride Carbon Dioxide Anion Gap BUN Creatinine Creat Clearance w eGFR POC Glucometer Random Glucose Serum Osmolality Lactic Acid 3.2 H* Calcium Phosphorus Magnesium Total Bilirubin AST ALT Alkaline Phosphatase Creatine Kinase Troponin I B-Natriuretic Peptide Total Protein Albumin Total Amylase Lipase Urine Color Urine Appearance Urine pH Ur Specific Edgar Urine Protein Urine Glucose (UA) Urine Ketones Urine Blood Urine Nitrite Urine Bilirubin Urine Urobilinogen Ur Leukocyte Esterase Urine WBC (Auto) Urine RBC (Auto) Ur Epithelial Cells Amorphous Urates Urine Bacteria Hyaline Casts Urine Mucus Urine Osmolality Ur Random Sodium Urine Creatinine Stool Occult Blood Anti-A Titer Blood Type Antibody Screen Assessment/Plan Acute on CKD Severe Hyperkalemia HTN Alzheimer CHF CAD HPL R/O Acute cholecystitis Lasix O2 as needed Check ECHO Surgical evaluation pending If clinical condition worsens may need to assess for Percutaneous Cholecystostomy NPO for now PPI Follow chemistry Glycemic control VTE prophylaxis Low threshold to start ABX if fever, elevated WBC, or develops symptoms Cardiac Telemetry monitoring Dr Barba
--- NOTE | 2019-01-11 12:52 | EKG ---
Test Reason : Blood Pressure : / mmHG Vent. Rate : 051 BPM Atrial Rate : 046 BPM P-R Int : 000 ms QRS Dur : 140 ms QT Int : 486 ms P-R-T Axes : 000 014 144 degrees QTc Int : 447 ms JUNCTIONAL BRADYCARDIA LEFT BUNDLE BRANCH BLOCK ABNORMAL ECG Confirmed by BROCK PEARCE MD ([id number]) on 01/11/2019 12:52:00 PM Referred By: Confirmed By:BROCK PEARCE MD
--- NOTE | 2019-01-11 12:53 | EKG ---
Test Reason : Blood Pressure : / mmHG Vent. Rate : 043 BPM Atrial Rate : 042 BPM P-R Int : 000 ms QRS Dur : 144 ms QT Int : 510 ms P-R-T Axes : 000 016 118 degrees QTc Int : 430 ms POOR DATA QUALITY, INTERPRETATION MAY BE ADVERSELY AFFECTED JUNCTIONAL BRADYCARDIA LEFT BUNDLE BRANCH BLOCK ABNORMAL ECG Confirmed by PORTIA RODRIGUEZ, BROCK ([id number] on 01/11/2019 12:52:49 PM Referred By: Confirmed By:BROCK PEARCE MD
--- NOTE | 2019-01-11 13:04 | EKG ---
Test Reason : Blood Pressure : / mmHG Vent. Rate : 071 BPM Atrial Rate : 070 BPM P-R Int : 000 ms QRS Dur : 084 ms QT Int : 388 ms P-R-T Axes : 000 012 017 degrees QTc Int : 421 ms ACCELERATED JUNCTIONAL RHYTHM ABNORMAL ECG WHEN COMPARED WITH ECG OF 11-JAN-2019 01:54, PREVIOUS ECG HAS UNDETERMINED RHYTHM, NEEDS REVIEW LEFT BUNDLE BRANCH BLOCK IS NO LONGER PRESENT Confirmed by PORTIA RODRIGUEZ, BROCK ([id number]) on 01/11/2019 1:04:02 PM Referred By: Confirmed By:BROCK PEARCE MD
--- NOTE | 2019-01-11 14:01 | CONSULT ---
Consult Consult Specialty:: General Surgery Referred by:: Shireen Reason for Consultation:: Gallstones, nausea , vomiting. - History of Present Illness Chief Complaint: 83v year old woman is admitted through the emergency room for nausea, vomiting , abnormal electrolytes, lactic acidosis. H/O Chronic renal failure , recently dicharged from the hospital. Patient denies any abdominal pain. Patients [id number] is by her bedside. She has signifcant cardiac history with CHF, s/p cardiac stenting. 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 History of Recent Travel: Yes (Visiting from [place]) Home Medications - Allergies Allergies/Adverse Reactions: Allergies Allergy/AdvReac Type Severity Reaction Status Date / Time No Known Allergies Allergy Verified 12/17/18 11:21 - Home Medications Home Medications: Ambulatory Orders Aspirin [Ecotrin] 81 mg PO DAILY 03/13/15 Furosemide [Lasix -] 20 mg PO DAILY #30 tablet 12/15/18 Acetaminophen [Tylenol .Regular Strength -] 650 mg PO Q6H PRN tablet 12/21/18 Donepezil HCl [Aricept -] 5 mg PO HS #30 tablet 12/21/18 Multivitamin [Multiple Vitamins] 1 each PO DAILY #30 tablet 12/21/18 Pantoprazole Sodium [Protonix -] 20 mg PO DAILY #30 tablet.ec 12/21/18 Tamsulosin HCl [Flomax -] 0.4 mg PO DAILY@0830 #30 cap.er.24h 12/21/18 Vitamin B Comp W-C [Total B with C -] 1 each PO DAILY #30 tablet 12/21/18 Amlodipine Besylate 5 mg PO DAILY 01/11/19 Lisinopril 10 mg PO DAILY 01/11/19 Rosuvastatin Calcium [Crestor] 20 mg PO DAILY 01/11/19 Family Disease History - Family Disease History Family Disease History: Heart Disease: Father, Sister (vaginal ca. and liver ca. ), CA: Sister Physical Exam Vital Signs: Vital Signs Temperature 97.5 F L 01/11/19 06:06 Pulse Rate 68 01/11/19 11:00 Respiratory Rate 20 01/11/19 11:00 Blood Pressure 139/43 L 01/11/19 11:00 O2 Sat by Pulse Oximetry (%) 94 L 01/11/19 09:00 Labs: CBC, BMP 01/11/19 08:22 01/11/19 08:22 Imaging - Results Cat Scan: Report Reviewed, Image Reviewed Ultrasound: Report Reviewed, Image Reviewed (Presence of gallstones with some pericholecystic fluid, thickened gallbladder.) Problem List - Problems (1) Nausea & vomiting Code(s): R11.2 - NAUSEA WITH VOMITING, UNSPECIFIED (2) Gallstones Code(s): K80.20 - CALCULUS OF GALLBLADDER W/O CHOLECYSTITIS W/O OBSTRUCTION (3) Acute on chronic renal failure Code(s): N17.9 - ACUTE KIDNEY FAILURE, UNSPECIFIED; N18.9 - CHRONIC KIDNEY DISEASE, UNSPECIFIED (4) ARF (acute renal failure) Code(s): N17.9 - ACUTE KIDNEY FAILURE, UNSPECIFIED Qualifiers: Acute renal failure type: unspecified Qualified Code(s): N17.9 - Acute kidney failure, unspecified (5) CHF (congestive heart failure) Code(s): I50.9 - HEART FAILURE, UNSPECIFIED Qualifiers: Heart failure type: unspecified Heart failure chronicity: unspecified Qualified Code(s): I50.9 - Heart failure, unspecified Assessment/Plan Patient is currently asymptomatic. Has no abdominal pain. Has multiple medical problems. Consider HIDA scan. Doubt acute cholecystitis with sepsis. I have discussed with the patient and her [id number] about the presence of gallstones, and its potential complications. can consider cholecystectomy to avoid future complications , if patient can be put in optimum shape for surgery if patient and family agree.
--- NOTE | 2019-01-11 14:12 | PN ---
Progress Note, Physician Chief Complaint: AWAKE ALERT IN ICU DAUGHTER BEDSIDE IN MODERATE DISTRESS PAIN RUQ ABD - Current Medication List Current Medications: Active Medications Aspirin (Ecotrin -) 81 mg PO DAILY [facility] Last Admin: 01/11/19 11:40 Dose: 81 mg Chlorhexidine Gluconate (Hibiclens For Decolonization -) 1 applic TP HS [facility] Heparin Sodium (Porcine) (Heparin -) 5,000 unit SQ BID [facility] Last Admin: 01/11/19 11:40 Dose: 5,000 unit Multivitamins (Total B With C -) 1 each PO DAILY [facility] Last Admin: 01/11/19 11:39 Dose: 1 each Mupirocin (Bactroban Ointment (For Decolonization) -) 1 applic NS BID [facility] Stop: 01/16/19 09:59 Pantoprazole Sodium (Protonix -) 20 mg PO DAILY [facility] Last Admin: 01/11/19 11:40 Dose: 20 mg Rosuvastatin Calcium (Crestor -) 20 mg PO DAILY [facility] Tamsulosin HCl (Flomax -) 0.4 mg PO DAILY@0830 [facility] Last Admin: 01/11/19 11:39 Dose: 0.4 mg - Objective Vital Signs: Vital Signs Temperature 97.5 F L 01/11/19 06:06 Pulse Rate 68 01/11/19 11:00 Respiratory Rate 20 01/11/19 11:00 Blood Pressure 139/43 L 01/11/19 11:00 O2 Sat by Pulse Oximetry (%) 94 L 01/11/19 09:00 Constitutional: Yes: Moderate Distress Eyes: Yes: WNL HENT: Yes: WNL Neck: Yes: WNL Cardiovascular: Yes: Regular Rate and Rhythm Respiratory: Yes: WNL Gastrointestinal: Yes: Distention, Tenderness Musculoskeletal: Yes: WNL Extremities: Yes: WNL Edema: No Neurological: Yes: WNL ...Motor Strength: WNL Psychiatric: Yes: WNL Labs: CBC, BMP 01/11/19 08:22 01/11/19 08:22 INR, PTT INR 0.91 (0.83-1.09) 01/10/19 21:34 Problem List - Problems (1) ARF (acute renal failure) Code(s): N17.9 - ACUTE KIDNEY FAILURE, UNSPECIFIED Qualifiers: Acute renal failure type: unspecified Qualified Code(s): N17.9 - Acute kidney failure, unspecified (2) Acute on chronic renal failure Code(s): N17.9 - ACUTE KIDNEY FAILURE, UNSPECIFIED; N18.9 - CHRONIC KIDNEY DISEASE, UNSPECIFIED (3) Cholecystitis Code(s): K81.9 - CHOLECYSTITIS, UNSPECIFIED (4) Gallstones Code(s): K80.20 - CALCULUS OF GALLBLADDER W/O CHOLECYSTITIS W/O OBSTRUCTION (5) Nausea & vomiting Code(s): R11.2 - NAUSEA WITH VOMITING, UNSPECIFIED (6) Afib Code(s): I48.91 - UNSPECIFIED ATRIAL FIBRILLATION Qualifiers: Atrial fibrillation type: persistent Qualified Code(s): I48.1 - Persistent atrial fibrillation (7) CAD (coronary artery disease) Code(s): I25.10 - ATHSCL HEART DISEASE OF [place] CORONARY ARTERY W/O ANG PCTRS (8) HTN (hypertension) Code(s): I10 - ESSENTIAL (PRIMARY) HYPERTENSION Qualifiers: Hypertension type: unspecified Qualified Code(s): I10 - Essential (primary ) hypertension (9) Hyperlipemia Code(s): E78.5 - HYPERLIPIDEMIA, UNSPECIFIED Assessment/Plan SURGERY EVAL HIDA SCAN PENDING FOR EVAL OF GB FUNCTION ICU FOR FLUIDS AND BP SUPPORT SEPSIS R/O CHECKING CULTURES RENAL EVAL FOR ACUTE ON CHRONIC RENAL FAILURE CARDIAC CLEARANCE FOR SX
[2019-01-11] MEDS: ROSUVASTATIN CA 20 MG TABLET (FP) PO SCH (14:57)
[2019-01-11] MEDS: MUPIROCIN 2% TOPICAL OINTMENT FOR DECOLONIZATION NS SCH ×2 (14:58→21:24)
--- NOTE | 2019-01-11 16:11 | CON.CARD ---
Consult Consult Specialty:: Cardiology Reason for Consultation:: Junctional bradycardia - History of Present Illness History of Present Illness: 83 year old female with PMH HTN, CAD, intermittent bradycardia, CHF, Alzheimer' s dementia, KATYA who is s/p recent hospitalization 12/11/18-12/15/18 for CHF, KATYA, hyperkalemia and 12/18-12/21 for fall, urinary retention now presenting with a one day history of poor appetite, nausea, vomiting, diarrhea with lower abdominal cramping. She was found to have significant electrolyte imbalances with severe hyponatremia, Hyperkalemia and Acute kidney injury. BNP was moderately elevated. CXR showed "accentuated pulmonary vasculature". She is not hypoxemic. Managed for hyperkalemia in the ICU and also received IV lasix with significant UO. ECG at presentation showed junctional rhythm with peaked Ts and mild QRS widening. These have improved and she is now in NSR. She is unable to give any history. Seems comfortable and in no pain. Was recently started on ACEI. 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 History of Recent Travel: Yes (Visiting from [place]) Home Medications - Allergies Allergies/Adverse Reactions: Allergies Allergy/AdvReac Type Severity Reaction Status Date / Time No Known Allergies Allergy Verified 12/17/18 11:21 - Home Medications Home Medications: Ambulatory Orders Aspirin [Ecotrin] 81 mg PO DAILY 03/13/15 Furosemide [Lasix -] 20 mg PO DAILY #30 tablet 12/15/18 Acetaminophen [Tylenol .Regular Strength -] 650 mg PO Q6H PRN tablet 12/21/18 Donepezil HCl [Aricept -] 5 mg PO HS #30 tablet 12/21/18 Multivitamin [Multiple Vitamins] 1 each PO DAILY #30 tablet 12/21/18 Pantoprazole Sodium [Protonix -] 20 mg PO DAILY #30 tablet.ec 12/21/18 Tamsulosin HCl [Flomax -] 0.4 mg PO DAILY@0830 #30 cap.er.24h 12/21/18 Vitamin B Comp W-C [Total B with C -] 1 each PO DAILY #30 tablet 12/21/18 Amlodipine Besylate 5 mg PO DAILY 01/11/19 Lisinopril 10 mg PO DAILY 01/11/19 Rosuvastatin Calcium [Crestor] 20 mg PO DAILY 01/11/19 Family Disease History - Family Disease History Family Disease History: Heart Disease: Father, Sister (vaginal ca. and liver ca. ), CA: Sister Review of Systems Unable to obtain ROS, reason: Dementia Vital Signs: Vital Signs Temperature 97.5 F L 01/11/19 06:06 Pulse Rate 80 01/11/19 13:00 Respiratory Rate 20 01/11/19 13:00 Blood Pressure 153/41 L 01/11/19 13:00 O2 Sat by Pulse Oximetry (%) 94 L 01/11/19 09:00 Constitutional: Yes: Well Nourished, No Distress Eyes: Yes: Conjunctiva Clear, EOM Intact HENT: Yes: Atraumatic, Normocephalic Neck: Yes: Supple, Trachea Midline Respiratory: Yes: Regular (poor effort), CTA Bilaterally Gastrointestinal: Yes: Normal Bowel Sounds, Soft Cardiovascular: Yes: Regular Rate and Rhythm JVD: No Carotid Bruit: No Heart Sounds: Yes: S1, S2 Murmur: No: Systolic Murmur, Diastolic Murmur Edema: No - Other Data Labs, Other Data: CBC, BMP 01/11/19 08:22 01/11/19 08:22 INR, PTT INR 0.91 (0.83-1.09) 01/10/19 21:34 Troponin, BNP 01/10/19 01/11/19 21:34 02:40 Troponin I < 0.02 0.02 B-Natriuretic Peptide 7956.0 H Troponin, BNP 01/10/19 01/11/19 21:34 02:40 Troponin I < 0.02 0.02 B-Natriuretic Peptide 7956.0 H Echo: Report Reviewed Imaging - Results Chest X-ray: Report Reviewed EKG: Image Reviewed Problem List - Problems (1) Acute on chronic renal failure Code(s): N17.9 - ACUTE KIDNEY FAILURE, UNSPECIFIED; N18.9 - CHRONIC KIDNEY DISEASE, UNSPECIFIED (2) Nausea & vomiting Code(s): R11.2 - NAUSEA WITH VOMITING, UNSPECIFIED (3) KATYA (acute kidney injury) Code(s): N17.9 - ACUTE KIDNEY FAILURE, UNSPECIFIED Assessment/Plan 83 year old female with PMH HTN, CAD, intermittent bradycardia, CHF, Alzheimer' s dementia, KATYA who is s/p recent hospitalization 12/11/18-12/15/18 for CHF, KATYA, hyperkalemia and 12/18-12/21 for fall, urinary retention now presenting with a one day history of poor appetite, nausea, vomiting, diarrhea with lower abdominal cramping. She was found to have significant electrolyte imbalances with severe hyponatremia, Hyperkalemia and Acute kidney injury. BNP was moderately elevated. CXR showed "accentuated pulmonary vasculature". She is not hypoxemic. Managed for hyperkalemia in the ICU and also received IV lasix with significant UO. ECG at presentation showed junctional rhythm with peaked Ts and mild QRS widening. These have improved and she is now in NSR. She is unable to give any history. Seems comfortable and in no pain. Was recently started on ACEI. Lactic acidosis, and significant electrolyte imbalances are improving. Junctional rhythm resolved. There is no previous definitive documentation of AFib Clinically does not seem to be volume overloaded. Echocardiogram showed preserved LV function without valvular pathology.
[2019-01-11] MEDS ORDERED: BACITRACIN 15 GM TUBE TOPICAL OINTMENT TP SCH (17:30)
[2019-01-11] MEDS: INSULIN SLIDING SCALE (NOVOLOG) 1 VIAL SQ SCH ×2 (17:57→21:25)
[2019-01-11 18:48] LABS: ANION GAP 14 MMOL/L (8-16); BLOOD UREA NITROGEN 85 mg/dL (7-18); CALCIUM 9.4 mg/dL (8.5-10.1); CHLORIDE 94 mmol/L (98-107); CO2 27 mmol/L (21-32); GLUCOSE,RANDOM 101 mg/dL (74-106); POTASSIUM 4.5 mmol/L (3.5-5.1); SODIUM 134 mmol/L (136-145)
[2019-01-11] MEDS: CHLORHEXIDINE GLUCONATE 4% CLEANSER FOR DECOLONIZATION TP SCH (21:25)
[2019-01-12] MEDS: INSULIN SLIDING SCALE (NOVOLOG) 1 VIAL SQ SCH ×4 (06:28→21:35)
[2019-01-12 06:39] LABS: HEMOGLOBIN 14.4 GM/dL (10.7-15.3); MCH 31.3 pg (25.7-33.7); MCHC 34.4 g/dl (32.0-36.0); MEAN CELL VOLUME 90.9 fl (80-96); MEAN PLT VOLUME 9.5 fl (7.5-11.1); PLATELET COUNT 227 K/MM3 (134-434); RBC 4.62 M/mm3 (3.60-5.2); RDW 13.3 % (11.6-15.6); WHITE BLOOD COUNT 15.9 K/mm3 (4.0-10.0)
[2019-01-12 07:16] LABS: ALBUMIN 3.2 g/dl (3.4-5.0); ALK PHOS 98 U/L (45-117); ANION GAP 15 MMOL/L (8-16); BILIRUBIN,TOTAL 0.5 mg/dL (0.2-1); BLOOD UREA NITROGEN 73 mg/dL (7-18); CALCIUM 9.4 mg/dL (8.5-10.1); CHLORIDE 98 mmol/L (98-107); CO2 24 mmol/L (21-32); CREATININE 4.3 mg/dL (0.55-1.3); GLUCOSE,RANDOM 159 mg/dL (74-106); MAGNESIUM 2.1 mg/dL (1.8-2.4); PHOSPHOROUS 7.4 mg/dL (2.5-4.9); POTASSIUM 3.9 mmol/L (3.5-5.1); SGOT/AST 47 U/L (15-37); SGPT/ALT 41 U/L (13-61); SODIUM 136 mmol/L (136-145); TOT PROT 7.3 g/dl (6.4-8.2)
--- NOTE | 2019-01-12 07:40 | PN ---
Progress Note, Physician Chief Complaint: AWAKE ALERT X 2 CONFUSED DENIES FEVER/PAIN - Current Medication List Current Medications: Active Medications Aspirin (Ecotrin -) 81 mg PO DAILY [facility] Last Admin: 01/11/19 11:40 Dose: 81 mg Chlorhexidine Gluconate (Hibiclens For Decolonization -) 1 applic TP HS [facility] Last Admin: 01/11/19 21:25 Dose: 1 applic Heparin Sodium (Porcine) (Heparin -) 5,000 unit SQ BID [facility] Last Admin: 01/11/19 21:24 Dose: 5,000 unit Insulin Aspart (Novolog Vial Sliding Scale -) 1 vial SQ ACHS [facility]; Protocol Last Admin: 01/12/19 06:28 Dose: 2 units Multivitamins (Total B With C -) 1 each PO DAILY [facility] Last Admin: 01/11/19 11:39 Dose: 1 each Mupirocin (Bactroban Ointment (For Decolonization) -) 1 applic NS BID [facility] Stop: 01/16/19 09:59 Last Admin: 01/11/19 21:24 Dose: 1 applic Pantoprazole Sodium (Protonix -) 20 mg PO DAILY [facility] Last Admin: 01/11/19 11:40 Dose: 20 mg Rosuvastatin Calcium (Crestor -) 20 mg PO DAILY [facility] Last Admin: 01/11/19 14:57 Dose: Not Given Tamsulosin HCl (Flomax -) 0.4 mg PO DAILY@0830 [facility] Last Admin: 01/11/19 11:39 Dose: 0.4 mg - Objective Vital Signs: Vital Signs Temperature 98.6 F 01/12/19 06:00 Pulse Rate 106 H 01/12/19 06:00 Respiratory Rate 26 H 01/12/19 06:00 Blood Pressure 137/53 L 01/12/19 06:00 O2 Sat by Pulse Oximetry (%) 94 L 01/11/19 19:39 Constitutional: Yes: Mild Distress Eyes: Yes: WNL HENT: Yes: WNL Neck: Yes: WNL Cardiovascular: Yes: Regular Rate and Rhythm Respiratory: Yes: WNL Gastrointestinal: Yes: WNL, Soft Genitourinary: Yes: Incontinence Musculoskeletal: Yes: Muscle Weakness Edema: No Integumentary: Yes: WNL Wound/Incision: Yes: Clean/Dry Neurological: Yes: Confusion ...Motor Strength: LLE, RLE Psychiatric: Yes: Other Labs: CBC, BMP 01/12/19 05:25 01/12/19 05:25 INR, PTT INR 0.91 (0.83-1.09) 01/10/19 21:34 Problem List - Problems (1) ARF (acute renal failure) Code(s): N17.9 - ACUTE KIDNEY FAILURE, UNSPECIFIED Qualifiers: Acute renal failure type: unspecified Qualified Code(s): N17.9 - Acute kidney failure, unspecified (2) Acute on chronic renal failure Code(s): N17.9 - ACUTE KIDNEY FAILURE, UNSPECIFIED; N18.9 - CHRONIC KIDNEY DISEASE, UNSPECIFIED (3) Cholecystitis Code(s): K81.9 - CHOLECYSTITIS, UNSPECIFIED (4) Gallstones Code(s): K80.20 - CALCULUS OF GALLBLADDER W/O CHOLECYSTITIS W/O OBSTRUCTION (5) Nausea & vomiting Code(s): R11.2 - NAUSEA WITH VOMITING, UNSPECIFIED (6) Afib Code(s): I48.91 - UNSPECIFIED ATRIAL FIBRILLATION Qualifiers: Atrial fibrillation type: persistent Qualified Code(s): I48.1 - Persistent atrial fibrillation (7) CAD (coronary artery disease) Code(s): I25.10 - ATHSCL HEART DISEASE OF [place] CORONARY ARTERY W/O ANG PCTRS (8) HTN (hypertension) Code(s): I10 - ESSENTIAL (PRIMARY) HYPERTENSION Qualifiers: Hypertension type: unspecified Qualified Code(s): I10 - Essential (primary ) hypertension (9) Hyperlipemia Code(s): E78.5 - HYPERLIPIDEMIA, UNSPECIFIED (10) Alzheimer's dementia Code(s): G30.9 - ALZHEIMER'S DISEASE, UNSPECIFIED; F02.80 - DEMENTIA IN OTH DISEASES CLASSD ELSWHR W/O BEHAVRL DISTURB Assessment/Plan HIDA SCAN NORMAL WBC ELEVATED CHECK CX/CDIFF STOOL ID F/U D/W DAUGHTER WILL MANAGE CONSERVATIVELY WEIGHING HER DEMENTIA AND RISKS FOR SURGERY AT THIS TIME DEFERRING SURGERY.
--- NOTE | 2019-01-12 08:50 | PN ---
Progress Note (short form) - Note Progress Note: ID consult dictated imp/reccd 83 yo female s/p 2 recent admissions in November, she was treated for possible cholycystitis with zosyn and po augmentin - she had KATYA, she was readmitted shortly thereafter s/p fall at home she is now readmitted with nausea vomiting abdominal pain- all have resolved- admitted 01/10 again with KATYA has had several episodes of diarrhea overnight ct scan with no intraabdominal pathology hida scan negative she has KATYA and is receiving IVF of note no fevers but WBC has been rising over over the last 48 hours denies abdominal pain no nausea or vomiting she is tachycardic this am Leukocytosis- ?source await stool studies would obtain blood cultures and cxray this am repeat cbc cdiff is a possiblility given recent antibiotic use KATYA- improving with IVF tachycardia/hypertension-per cardiology Problem List - Problems (1) Leukocytosis Code(s): D72.829 - ELEVATED WHITE BLOOD CELL COUNT, UNSPECIFIED (2) ARF (acute renal failure) Code(s): N17.9 - ACUTE KIDNEY FAILURE, UNSPECIFIED Qualifiers: Acute renal failure type: unspecified Qualified Code(s): N17.9 - Acute kidney failure, unspecified (3) Diarrhea Code(s): R19.7 - DIARRHEA, UNSPECIFIED (4) Gallstones Code(s): K80.20 - CALCULUS OF GALLBLADDER W/O CHOLECYSTITIS W/O OBSTRUCTION
[2019-01-12] MEDS ORDERED: PT OWN MED DRAWER 7, Y5N ONE (09:40)
[2019-01-12] MEDS: ROSUVASTATIN CA 20 MG TABLET (FP) PO SCH (09:41)
[2019-01-12] MEDS: PANTOPRAZOLE 20 MG TABLET (FP) PO SCH (09:42)
[2019-01-12] MEDS: VITAMIN B COMPLEX W/C COMBO TABLET (FP) PO SCH (09:42)
[2019-01-12] MEDS: LACTOBACILLUS ACIDOPHILUS 1 TABLET PO SCH (09:42)
[2019-01-12] MEDS: HEPARIN NA (PORCINE) 5,000 UNITS/ML 1ML VIAL SQ SCH (09:42)
[2019-01-12] MEDS: TAMSULOSIN HCL 0.4 MG CAP PO SCH (09:42)
[2019-01-12] MEDS: ASPIRIN COATED 81 MG TABLET.EC PO SCH (09:42)
[2019-01-12] MEDS ORDERED: metoPROLOL SUCCINATE 25 MG TAB.SR.24H (FP) PO ONE (09:45)
[2019-01-12] MEDS ORDERED: HEPARIN NA (PORCINE) 5,000 UNITS/ML 1ML VIAL IVPUSH PRN ×2 (10:15)
--- NOTE | 2019-01-12 11:02 | CONS ---
DATE OF CONSULTATION: DATE OF DICTATION: 01/12/2019 REQUESTING PHYSICIAN: Laurence Duff MD HISTORY OF PRESENT ILLNESS: This is an 83-year-old woman who used to live in [place], moved to the [facility]. She is status post 2 recent admissions in November. She was originally in the hospital December 11 to , when she presented with 2 weeks of lethargy and weakness. She was found to have acute kidney injury and a question of cholecystitis was raised, though she had no abdominal pain. Her renal insufficiency resolved with fluids. She was treated with several days of piperazine tazobactam and discharged on December 15 on Augmentin. She was readmitted on the status post a fall at home and was discharged again on the . She is now readmitted on the with 1 day of nausea and vomiting and abdominal pain. She was clammy and sweaty and unable to eat at home. On arrival to the hospital, she was found again to have acute kidney injury. She was hyponatremic and with a sodium of 123, potassium 7.2, BUN 89, and creatinine 5.8, with a lactic acid of 4. She had a CT scan of her abdomen and pelvis done that was notable for a scant amount of pelvic fluid, some bibasilar atelectasis and a right-sided pleural effusion. She was seen by Surgery, and she had a HIDA scan done, which was normal. I am asked to see her because her white count is elevated. She remains asymptomatic. Her nausea and vomiting have stopped. She has no abdominal pain. She has had several episodes of diarrhea overnight, and stool studies have been sent. Per the PMD note, the plan is to manage patient conservatively and defer any kind of surgery at this time. PAST MEDICAL HISTORY: Notable for hypertension, coronary artery disease, atrial fibrillation, CHF, Alzheimer's disease, history of acute kidney injury. SURGICAL HISTORY: Notable for hysterectomy. ALLERGIES: She has no known drug allergies. MEDICATIONS: At home include Crestor, lisinopril, amlodipine, B-complex, Flomax , Protonix, multivitamin, Lasix, Aricept, Ecotrin, and Tylenol. SOCIAL HISTORY: She resides with her family members. She is primarily [place]-speaking. She is from [place]. There is no history of alcohol or substance use. FAMILY HISTORY: Notable for coronary artery disease. REVIEW OF SYSTEMS: Except for the non-bloody diarrhea, she has no complaints of abdominal pain, nausea, vomiting, or shortness of breath. PHYSICAL EXAMINATION General: She is awake and alert. Vital signs: Temperature is 98.6; pulse of 106, blood pressure is 137/53, respiratory rate 20, she weighs 70 kg. HEENT: She is normocephalic. Her eyes are anicteric. Neck: Supple. Lungs: Clear to auscultation. Notable for diminished breath sounds at the right base. Heart: Regular rate and rhythm. Abdomen: Soft, nontender. Extremities: Without edema. DIAGNOSTIC DATA: Labs are notable for a white count of 15.9, hemoglobin 14.4, platelets are 227. BUN 73, creatinine 4.3, AST 47, ALT 41, alkaline phosphatase 98. Urinalysis has many epithelial cells with 3 white cells. Stool occult blood is negative and stool culture and C. difficile are pending. IMAGING: Studies were as previously reported. SUMMARY: 1. This is an 83-year-old woman admitted with nausea, vomiting, abdominal pain that have resolved. She has had some continued diarrhea. CT scan shows no evidence of colitis. She has recently been on antibiotics. HIDA scan is negative. Regarding the source for leukocytosis, source is not evident. Would await stool cultures. Would obtain blood cultures and a chest x-ray this morning. As well, would repeat a CBC. Clostridium difficile is a possibility given the recent antibiotic use. 2. Acute kidney injury. Appears to be improving with intravenous fluids. 3. Tachycardia. She has a prior history of atrial fibrillation, management per Cardiology. Further recommendations to follow. Nai [id number] MTDCarley
--- NOTE | 2019-01-12 11:08 | PN ---
Teaching Attending Note Name of Resident: Alejandro Peters ATTENDING PHYSICIAN STATEMENT I saw and evaluated the patient. I reviewed the resident's note and discussed the case with the resident. I agree with the resident's findings and plan as documented. SUBJECTIVE: Pt seen and examined in the ICU. In atrial fibrillation with RVR this AM. Denies shortness of breath or chest pain. Some RUQ pain with some nausea. OBJECTIVE: Vital Signs Period Temp Pulse Resp BP Sys/Dominguez Pulse Ox Last 24 Hr 98.4 F-99 F 80-124 18-26 102-153/37-53 94 Intake & Output 01/09/19 01/10/19 01/11/19 01/12/19 23:59 23:59 23:59 23:59 Intake Total 240 Output Total 5700 600 Balance -5460 -600 Weight 83.6 kg 70.67 kg 70.896 kg Gen: NAD at rest Heart: tachycardic, irregular Lung: decreased breath sounds at the bases Abd: soft, RUQ tenderness Ext: no edema CBC, BMP 01/12/19 05:25 01/12/19 05:25 Active Medications Aspirin (Ecotrin -) 81 mg PO DAILY [facility] Last Admin: 01/12/19 09:42 Dose: 81 mg Chlorhexidine Gluconate (Hibiclens For Decolonization -) 1 applic TP HS [facility] Last Admin: 01/11/19 21:25 Dose: 1 applic Heparin Sodium (Porcine) (Heparin -) 1,000 unit IVPUSH PRN PRN PRN Reason: Heparin Heparin Sodium (Porcine) (Heparin -) 5,000 unit IVPUSH PRN PRN PRN Reason: Heparin Heparin Sodium (Porcine) 25, (000 unit/ Sodium Chloride) 500 mls @ 20 mls/hr IV TITR [facility]; Protocol Insulin Aspart (Novolog Vial Sliding Scale -) 1 vial SQ ACHS [facility]; Protocol Last Admin: 01/12/19 06:28 Dose: 2 units Lactobacillus Acidophilus (Bacid -) 1 tab PO DAILY [facility] Last Admin: 01/12/19 09:42 Dose: 1 tab Metoprolol Tartrate (Lopressor Injection -) 5 mg IVPUSH Q4H PRN PRN Reason: HYPERTENSION Multivitamins (Total B With C -) 1 each PO DAILY [facility] Last Admin: 01/12/19 09:42 Dose: 1 each Mupirocin (Bactroban Ointment (For Decolonization) -) 1 applic NS BID [facility] Stop: 01/16/19 09:59 Last Admin: 01/11/19 21:24 Dose: 1 applic Pantoprazole Sodium (Protonix -) 20 mg PO DAILY [facility] Last Admin: 01/12/19 09:42 Dose: 20 mg Rosuvastatin Calcium (Crestor -) 20 mg PO DAILY [facility] Last Admin: 01/12/19 09:41 Dose: 20 mg Tamsulosin HCl (Flomax -) 0.4 mg PO DAILY@0830 [facility] Last Admin: 01/12/19 09:42 Dose: 0.4 mg ASSESSMENT AND PLAN: Acute on Chronic Renal Failure Hyperkalemia improving ?New Onset Atrial Fibrillation with RVR CAD LV Diastolic Dysfunction r/o Acute Cholecystitis HTN Hyperlipidemia Alzheimers - panculture - start empiric antibiotics - rate control - start anticoagulation with heparin gtt - trend cardiac enzymes - monitor urine output, creatinine - surgery f/u - O2 to keep Spo2 >90% - continue ICU monitoring critical care time spent in reviewing chart, evaluating patient and formulating plan 35 min
[2019-01-12] MEDS: HEPARIN - 25,000 UNIT in SODIUM CHLORIDE 495 ML IV SCH (11:38)
[2019-01-12] MEDS: METOPROLOL TARTRATE 5 MG/5 ML VIAL IVPUSH PRN (11:44)
--- NOTE | 2019-01-12 11:51 | PN ---
Physical Exam: SUBJECTIVE: Patient was seen by me and examined. Patient had no overnight acute events. Patient had RVR secondary to atrial flutter vs atrial fibrillation that was rate controlled with metoprolol. Slight elevation in troponin noted; will trend troponin. Patient was evaluated by PMD and no surgery at time. Will watch patient overnight to assess possible new onset afib OBJECTIVE: Vital Signs Period Temp Pulse Resp BP Sys/Dominguez Pulse Ox Last 24 Hr 98.4 F-99 F 80-124 18-26 102-153/37-61 94 GENERAL: The patient is awake, alert, oriented to person only, in no acute distress. HEAD: Normocephalic, atraumatic. EYES: PERRL, extraocular movements intact, sclera anicteric, conjunctiva clear. ENT: Oropharynx clear without exudates. Moist mucous membranes. NECK: Supple without lymphadenopathy. LUNGS: Good inspiratory effort and air entry bilaterally. Bibasilar crackles auscultated without wheezing. No accessory muscle use noted. HEART: irregular rate and rhythm, S1, S2 auscultated with holosystolic murmur. ABDOMEN: Obese. Soft, RUQ tenderness (murphys), nondistended x4 quadrants. Normoactive bowel sounds. No guarding, no rebound tenderness. EXTREMITIES: 2+ radial, dorsalis pedis pulses bilaterally. Warm, well-perfused. 1+ bilateral lower extremity edema. NEUROLOGICAL: Cranial nerves II through XII grossly intact. Normal speech. PSYCH: Normal mood, normal affect upon my encounter. SKIN: Warm, dry. Laboratory Results - last 24 hr 01/11/19 01/11/19 01/11/19 17:00 17:00 17:43 WBC RBC Hgb Hct MCV MCH MCHC RDW Plt Count MPV Sodium 134 L Potassium 4.5 Chloride 94 L Carbon Dioxide 27 Anion Gap 14 BUN 85 H Creatinine 5.0 H Creat Clearance w eGFR 8.24 POC Glucometer 115 Random Glucose 101 Lactic Acid 1.3 Calcium 9.4 Phosphorus Magnesium Total Bilirubin AST ALT Alkaline Phosphatase Total Protein Albumin 01/11/19 01/12/19 01/12/19 20:13 05:25 05:25 WBC 15.9 H RBC 4.62 Hgb 14.4 Hct 42.0 D MCV 90.9 MCH 31.3 MCHC 34.4 RDW 13.3 Plt Count 227 D MPV 9.5 Sodium 136 Potassium 3.9 Chloride 98 Carbon Dioxide 24 Anion Gap 15 BUN 73 H Creatinine 4.3 H Creat Clearance w eGFR 9.81 POC Glucometer 123 Random Glucose 159 H Lactic Acid Calcium 9.4 Phosphorus 7.4 H Magnesium 2.1 Total Bilirubin 0.5 AST 47 H ALT 41 Alkaline Phosphatase 98 Total Protein 7.3 Albumin 3.2 L 01/12/19 06:20 WBC RBC Hgb Hct MCV MCH MCHC RDW Plt Count MPV Sodium Potassium Chloride Carbon Dioxide Anion Gap BUN Creatinine Creat Clearance w eGFR POC Glucometer 159 Random Glucose Lactic Acid Calcium Phosphorus Magnesium Total Bilirubin AST ALT Alkaline Phosphatase Total Protein Albumin Active Medications Generic Name Dose Route Start Last Admin Trade Name Freq PRN Reason Stop Dose Admin Aspirin 81 mg 01/11/19 10:00 01/12/19 09:42 Ecotrin - PO 81 mg DAILY HAY Administration Chlorhexidine Gluconate 1 applic 01/11/19 22:00 01/11/19 21:25 Hibiclens For Decolonization - TP 1 applic HS HAY Administration Heparin Sodium (Porcine) 1,000 unit 01/12/19 10:15 Heparin - IVPUSH PRN PRN Heparin Heparin Sodium (Porcine) 5,000 unit 01/12/19 10:15 Heparin - IVPUSH PRN PRN Heparin Heparin Sodium (Porcine) 25, 500 mls @ 20 mls/hr 01/12/19 10:15 01/12/19 11: 38 000 unit/ Sodium Chloride IV 1,000 unit/hr TITR HAY 20 mls/hr Administration Protocol 1,000 UNIT/HR Piperacillin Sod/Tazobactam 50 mls @ 100 mls/hr 01/12/19 11:45 Sod 2.25 gm/ Dextrose IVPB Q8H-IV HAY Protocol Insulin Aspart 1 vial 01/11/19 16:30 01/12/19 06:28 Novolog Vial Sliding Scale - SQ 2 units ACHS HAY Administration Protocol Lactobacillus Acidophilus 1 tab 01/12/19 10:00 01/12/19 09:42 Bacid - PO 1 tab DAILY HAY Administration Metoprolol Tartrate 5 mg 01/12/19 10:15 01/12/19 11:44 Lopressor Injection - IVPUSH 5 mg Q4H PRN Administration HYPERTENSION Multivitamins 1 each 01/11/19 10:00 01/12/19 09:42 Total B With C - PO 1 each DAILY [facility]AY Administration Mupirocin 1 applic 01/11/19 10:00 01/11/19 21:24 Bactroban Ointment (For Decolonization) - NS 01/16/19 09:59 1 applic BID HAY Administration Pantoprazole Sodium 20 mg 01/11/19 10:00 01/12/19 09:42 Protonix - PO 20 mg DAILY HAY Administration Rosuvastatin Calcium 20 mg 01/11/19 10:00 01/12/19 09:41 Crestor - PO 20 mg DAILY HAY Administration Tamsulosin HCl 0.4 mg 01/11/19 08:30 01/12/19 09:42 Flomax - PO 0.4 mg DAILY@0830 HAY Administration ASSESSMENT/PLAN: Patient is am 83 year old female with history of chronic kidney disease, Alzheimer's dementia, hypertension, hyperlipidemia admitted to ICU with metabolic derangement. #Cardiovascular -EKG showed LBBB which has resolved. Today, the patient has suspected atrial flutter vs atrial fibrillation with RVR. HR was in the 130s. -Cardiac ECHO shows LV systolic function grossly normal with EF 60-65%. LA borderline dilated. Mild aortic stenosis. -Cardiology recommendations (Dr. Javier) appreciated. -Patient was started on 25 mg of toprolol along with lopressor 5 mg PRN - EKG initially showed atrial flutter. After lopressor, patient was sinus tachycardia. No symptomatic complaints at the time. - Patient started on heparin gtt for AC. Initial troponin was 0.06 with elevation to 0.8 #Neurological Alzheimer's dementia -Patient is alert, oriented only to self and place. -Monitor for alterations in mental status. #ID: -Patient has suspected cholecystitis on US. In addition, right base showing possible infiltrate -Patient developed sinus tachycardia in the 120-130s overnight with rectal temperature of 100.9F with new quality abdominal pain with point of maximal pain in the RLQ and LLQ region. Given recent + FOBT (although recently started on heparin gtt) and trending upward WBC, will order abd/pelvis CT with oral contrast to rule out possible appendicitis vs diverticulitis vs colitis. No overt obstruction seen on abdominal xray. Will order vancomycin 1 gram and 250 cc of NS. #Pulmonary -Chest radiograph shows bilateral congestive changes, with right base showing possible infiltrate. -Currently saturating well on room air. Maintain oxygen saturation greater than 90% -ID started zosyn, many thanks for the recommendation #Gastrointestinal -Right upper quadrant US shows gallbladder wall thickening, and choleliths concerning for acute cholecystitis, without CBD dilation -CT abdomen, pelvis shows gallstones, with haziness of gallbladder wall. -Protonix 20mg PO daily -General surgery consult (Dr. Mac) appreciated. -HIDA negative for filling defect. US abdomen shows acute cholecystitis. Patient was evaluated by primary medical doctor who states that surgery will be deferred at this time. -Follow stool culture, stool for C. difficle #Renal Acute on chronic kidney disease Hyponatremia -improving. Likely secondary to poor PO intake. May also be dilutional component as patient is volume overloaded. Hyperkalemia -improving. Secondary to KATYA on CKD. Patient was recently started on Lisinopril -Managed medically, as family refused dialysis. y. -Discontinue Lisinopril. -Monitor barnard catheter output. -Nephrology consult (Dr. Coley) appreciated -Follow urine studies -Follow BMP FEN -No IV fluids indicated. -Hyponatremia, hyperkalemia. Follow CMP. LTD -Barnard catheter placed 01/11 Prophylaxis -Heparin 5000u subq TID Disposition -Continue care in ICU Visit type - Emergency Visit Emergency Visit: Yes ED Registration Date: 01/11/19 Care time: The patient presented to the Emergency Department on the above date and was hospitalized for further evaluation of their emergent condition. - New Patient This patient is new to me today: No - Critical Care Critical Care patient: Yes Total Critical Care Time (in minutes): 36 Critical Care Statement: The care of this patient involved high complexity decision making to prevent further life threatening deterioration of the patient 's condition and/or to evaluate & treat vital organ system(s) failure or risk of failure. - Discharge Referral Referred to [facility] No
[2019-01-12] MEDS: MUPIROCIN 2% TOPICAL OINTMENT FOR DECOLONIZATION NS SCH ×2 (12:23→21:32)
[2019-01-12] MEDS: PIPERACILLIN/TAZOB 2.25 GM 2.25 GM in DEXTROSE 5%-WATER - 50 ML IVPB SCH ×2 (12:27→17:53)
[2019-01-12] MEDS ORDERED: PIPERACILLIN/TAZOBACTAM 2.25 GM VIAL IVPB ONE ×2 (12:27→17:25)
[2019-01-12] MEDS ORDERED: DEXTROSE 5%-WATER - 50 ML IVPB ONE ×2 (12:27→17:25)
--- NOTE | 2019-01-12 12:49 | EKG ---
Test Reason : Blood Pressure : / mmHG Vent. Rate : 097 BPM Atrial Rate : 097 BPM P-R Int : 150 ms QRS Dur : 088 ms QT Int : 372 ms P-R-T Axes : 061 037 155 degrees QTc Int : 472 ms NORMAL SINUS RHYTHM POSSIBLE LEFT ATRIAL ENLARGEMENT T WAVE ABNORMALITY, CONSIDER INFEROLATERAL ISCHEMIA PROLONGED QT ABNORMAL ECG Confirmed by CAROL VASQUEZ MD ([id number]) on 01/12/2019 12:49:17 PM Referred By: Stanley CARRINGTON Confirmed By:CAROL VASQUEZ MD
--- NOTE | 2019-01-12 12:50 | EKG ---
Test Reason : Blood Pressure : / mmHG Vent. Rate : 118 BPM Atrial Rate : 300 BPM P-R Int : 000 ms QRS Dur : 088 ms QT Int : 364 ms P-R-T Axes : 000 013 104 degrees QTc Int : 510 ms ATRIAL FLUTTER WITH VARIABLE A-V BLOCK ABNORMAL ECG Confirmed by CAROL VASQUEZ MD ([id number]) on 01/12/2019 12:50:21 PM Referred By: Stanley CARRINGTON Confirmed By:CAROL VASQUEZ MD
--- NOTE | 2019-01-12 13:24 | PN ---
Progress Note, Physician History of Present Illness: Pt seen and examined at bedside. She is awake and alert. She denies shortness of breath. - Current Medication List Current Medications: Active Medications Aspirin (Ecotrin -) 81 mg PO DAILY [facility] Last Admin: 01/12/19 09:42 Dose: 81 mg Chlorhexidine Gluconate (Hibiclens For Decolonization -) 1 applic TP HS [facility] Last Admin: 01/11/19 21:25 Dose: 1 applic Heparin Sodium (Porcine) (Heparin -) 1,000 unit IVPUSH PRN PRN PRN Reason: Heparin Heparin Sodium (Porcine) (Heparin -) 5,000 unit IVPUSH PRN PRN PRN Reason: Heparin Heparin Sodium (Porcine) 25, (000 unit/ Sodium Chloride) 500 mls @ 20 mls/hr IV TITR [facility]; Protocol Last Admin: 01/12/19 11:38 Dose: 1,000 unit/hr, 20 mls/hr Piperacillin Sod/Tazobactam (Sod 2.25 gm/ Dextrose) 50 mls @ 100 mls/hr IVPB Q8H-IV [facility]; Protocol Insulin Aspart (Novolog Vial Sliding Scale -) 1 vial SQ ACHS [facility]; Protocol Last Admin: 01/12/19 12:23 Dose: 4 units Lactobacillus Acidophilus (Bacid -) 1 tab PO DAILY [facility] Last Admin: 01/12/19 09:42 Dose: 1 tab Metoprolol Tartrate (Lopressor Injection -) 5 mg IVPUSH Q4H PRN PRN Reason: HYPERTENSION Last Admin: 01/12/19 11:44 Dose: 5 mg Multivitamins (Total B With C -) 1 each PO DAILY [facility] Last Admin: 01/12/19 09:42 Dose: 1 each Mupirocin (Bactroban Ointment (For Decolonization) -) 1 applic NS BID [facility] Stop: 01/16/19 09:59 Last Admin: 01/12/19 12:23 Dose: 1 applic Pantoprazole Sodium (Protonix -) 20 mg PO DAILY [facility] Last Admin: 01/12/19 09:42 Dose: 20 mg Rosuvastatin Calcium (Crestor -) 20 mg PO DAILY [facility] Last Admin: 01/12/19 09:41 Dose: 20 mg Tamsulosin HCl (Flomax -) 0.4 mg PO DAILY@0830 [facility] Last Admin: 01/12/19 09:42 Dose: 0.4 mg - Objective Vital Signs: Vital Signs Temperature 98.6 F 01/12/19 06:00 Pulse Rate 119 H 01/12/19 11:44 Respiratory Rate 26 H 01/12/19 06:00 Blood Pressure 150/61 01/12/19 11:44 O2 Sat by Pulse Oximetry (%) 94 L 01/11/19 19:39 Constitutional: Yes: Calm Eyes: Yes: Conjunctiva Clear HENT: Yes: Atraumatic Neck: Yes: Supple Cardiovascular: Yes: S1, S2 Respiratory: Yes: CTA Bilaterally Gastrointestinal: Yes: Normal Bowel Sounds, Soft Genitourinary: Yes: Hoskins Present Musculoskeletal: Yes: WNL Edema: LLE: Trace, RLE: Trace Neurological: Yes: Oriented Psychiatric: Yes: Oriented Labs: CBC, BMP 01/12/19 05:25 01/12/19 05:25 INR, PTT INR 0.91 (0.83-1.09) 01/10/19 21:34 Problem List - Problems (1) ARF (acute renal failure) Code(s): N17.9 - ACUTE KIDNEY FAILURE, UNSPECIFIED Qualifiers: Acute renal failure type: unspecified Qualified Code(s): N17.9 - Acute kidney failure, unspecified (2) KATYA (acute kidney injury) Code(s): N17.9 - ACUTE KIDNEY FAILURE, UNSPECIFIED (3) Afib Code(s): I48.91 - UNSPECIFIED ATRIAL FIBRILLATION Qualifiers: Atrial fibrillation type: persistent Qualified Code(s): I48.1 - Persistent atrial fibrillation (4) Hyperkalemia Code(s): E87.5 - HYPERKALEMIA Assessment/Plan Current Medications Generic Name Dose Route Start Last Admin Trade Name Freq PRN Reason Stop Dose Admin Aspirin 81 mg 01/11/19 10:00 01/12/19 09:42 Ecotrin - PO 81 mg DAILY HAY Administration Chlorhexidine Gluconate 1 applic 01/11/19 22:00 01/11/19 21:25 Hibiclens For Decolonization - TP 1 applic HS HAY Administration Heparin Sodium (Porcine) 1,000 unit 01/12/19 10:15 Heparin - IVPUSH PRN PRN Heparin Heparin Sodium (Porcine) 5,000 unit 01/12/19 10:15 Heparin - IVPUSH PRN PRN Heparin Heparin Sodium (Porcine) 25, 500 mls @ 20 mls/hr 01/12/19 10:15 01/12/19 11: 38 000 unit/ Sodium Chloride IV 1,000 unit/hr TITR HAY 20 mls/hr Administration Protocol 1,000 UNIT/HR Piperacillin Sod/Tazobactam 50 mls @ 100 mls/hr 01/12/19 11:45 Sod 2.25 gm/ Dextrose IVPB Q8H-IV [facility]AY Protocol Insulin Aspart 1 vial 01/11/19 16:30 01/12/19 12:23 Novolog Vial Sliding Scale - SQ 4 units ACHS HAY Administration Protocol Lactobacillus Acidophilus 1 tab 01/12/19 10:00 01/12/19 09:42 Bacid - PO 1 tab DAILY HAY Administration Metoprolol Tartrate 5 mg 01/12/19 10:15 01/12/19 11:44 Lopressor Injection - IVPUSH 5 mg Q4H PRN Administration HYPERTENSION Multivitamins 1 each 01/11/19 10:00 01/12/19 09:42 Total B With C - PO 1 each DAILY [facility]AY Administration Mupirocin 1 applic 01/11/19 10:00 01/12/19 12:23 Bactroban Ointment (For Decolonization) - NS 01/16/19 09:59 1 applic BID HAY Administration Pantoprazole Sodium 20 mg 01/11/19 10:00 01/12/19 09:42 Protonix - PO 20 mg DAILY HAY Administration Rosuvastatin Calcium 20 mg 01/11/19 10:00 01/12/19 09:41 Crestor - PO 20 mg DAILY HAY Administration Tamsulosin HCl 0.4 mg 01/11/19 08:30 01/12/19 09:42 Flomax - PO 0.4 mg DAILY@0830 HAY Administration Impression 1. CKD 2. a-fib 3. hyperkalemia 4. htn 5. CHF 6. dementia 7. cad 8. hld 9. plueral effusions 10. nausea 11. KATYA 12. hyponatremia Plan - renal function continues to improve - repeat labs in am - potassium is stable - cont with lasix - cxr reviewed - keep lisinopril on hold - discussed with family
[2019-01-12] MEDS ORDERED: FUROSEMIDE 40 MG/4 ML INJECTABLE VIAL IVPUSH ONE (13:26)
--- NOTE | 2019-01-12 14:25 | PN ---
Progress Note, Physician Chief Complaint: C/o Left sided abdominal pain, and diarrhea. No nausea, or vomiting. - Current Medication List Current Medications: Active Medications Aspirin (Ecotrin -) 81 mg PO DAILY [facility] Last Admin: 01/12/19 09:42 Dose: 81 mg Chlorhexidine Gluconate (Hibiclens For Decolonization -) 1 applic TP HS [facility] Last Admin: 01/11/19 21:25 Dose: 1 applic Heparin Sodium (Porcine) (Heparin -) 1,000 unit IVPUSH PRN PRN PRN Reason: Heparin Heparin Sodium (Porcine) (Heparin -) 5,000 unit IVPUSH PRN PRN PRN Reason: Heparin Heparin Sodium (Porcine) 25, (000 unit/ Sodium Chloride) 500 mls @ 20 mls/hr IV TITR [facility]; Protocol Last Admin: 01/12/19 11:38 Dose: 1,000 unit/hr, 20 mls/hr Piperacillin Sod/Tazobactam (Sod 2.25 gm/ Dextrose) 50 mls @ 100 mls/hr IVPB Q8H-IV [facility]; Protocol Insulin Aspart (Novolog Vial Sliding Scale -) 1 vial SQ ACHS [facility]; Protocol Last Admin: 01/12/19 12:23 Dose: 4 units Lactobacillus Acidophilus (Bacid -) 1 tab PO DAILY [facility] Last Admin: 01/12/19 09:42 Dose: 1 tab Metoprolol Tartrate (Lopressor Injection -) 5 mg IVPUSH Q4H PRN PRN Reason: HYPERTENSION Last Admin: 01/12/19 11:44 Dose: 5 mg Multivitamins (Total B With C -) 1 each PO DAILY [facility] Last Admin: 01/12/19 09:42 Dose: 1 each Mupirocin (Bactroban Ointment (For Decolonization) -) 1 applic NS BID [facility] Stop: 01/16/19 09:59 Last Admin: 01/12/19 12:23 Dose: 1 applic Pantoprazole Sodium (Protonix -) 20 mg PO DAILY [facility] Last Admin: 01/12/19 09:42 Dose: 20 mg Rosuvastatin Calcium (Crestor -) 20 mg PO DAILY [facility] Last Admin: 01/12/19 09:41 Dose: 20 mg Tamsulosin HCl (Flomax -) 0.4 mg PO DAILY@0830 [facility] Last Admin: 01/12/19 09:42 Dose: 0.4 mg - Objective Vital Signs: Vital Signs Temperature 98.3 F 01/12/19 14:00 Pulse Rate 109 H 01/12/19 14:00 Respiratory Rate 23 H 01/12/19 14:00 Blood Pressure 150/63 01/12/19 14:00 O2 Sat by Pulse Oximetry (%) 94 L 01/12/19 09:00 Gastrointestinal: Yes: Soft (Abdomen is soft , not distended , not tender , cv/ o pain in left side of abdomen . No pain in right upper quadrant.) Labs: CBC, BMP 01/12/19 05:25 01/12/19 05:25 INR, PTT INR 0.91 (0.83-1.09) 01/10/19 21:34 Problem List - Problems (1) Nausea & vomiting Code(s): R11.2 - NAUSEA WITH VOMITING, UNSPECIFIED (2) Gallstones Code(s): K80.20 - CALCULUS OF GALLBLADDER W/O CHOLECYSTITIS W/O OBSTRUCTION (3) Acute on chronic renal failure Code(s): N17.9 - ACUTE KIDNEY FAILURE, UNSPECIFIED; N18.9 - CHRONIC KIDNEY DISEASE, UNSPECIFIED (4) ARF (acute renal failure) Code(s): N17.9 - ACUTE KIDNEY FAILURE, UNSPECIFIED Qualifiers: Acute renal failure type: unspecified Qualified Code(s): N17.9 - Acute kidney failure, unspecified (5) CHF (congestive heart failure) Code(s): I50.9 - HEART FAILURE, UNSPECIFIED Qualifiers: Heart failure type: unspecified Heart failure chronicity: unspecified Qualified Code(s): I50.9 - Heart failure, unspecified Assessment/Plan Patient has had HIDA scan which shows prompt filling of the gallbladder as well as excretion of contrast through the gallbladder. Gallstone, asymptomatic. No evidence of cholecystitis, CHF with atrial fibrillation , Diarrhea with left sided abdominal pain, r/o C.Difficile, stool culture.
[2019-01-12 15:36] VITALS: BMI 39.0
[2019-01-12] MEDS ORDERED: ACETAMINOPHEN 1000 MG/100 ML VIAL (NON FORMULARY) IVPB ONE (17:41)
[2019-01-12] MEDS ORDERED: SIMETHICONE 80 MG TAB.CHEW (FP) PO ONE (21:30)
[2019-01-12] MEDS: CHLORHEXIDINE GLUCONATE 4% CLEANSER FOR DECOLONIZATION TP SCH (21:33)
[2019-01-13] MEDS ORDERED: MORPHINE SULFATE 2 MG/ML VIAL IVPUSH ONE (00:43)
[2019-01-13] MEDS ORDERED: VANCOMYCIN 1 GM in D5W (PRE-DOCKED) 1,000 MG/250 ML IVPB ONE (01:21)
[2019-01-13] MEDS ORDERED: DEXTROSE 5%-WATER - 50 ML IVPB ONE ×3 (01:59→17:04)
[2019-01-13] MEDS ORDERED: PIPERACILLIN/TAZOBACTAM 2.25 GM VIAL IVPB ONE ×3 (01:59→17:04)
[2019-01-13] MEDS: PIPERACILLIN/TAZOB 2.25 GM 2.25 GM in DEXTROSE 5%-WATER - 50 ML IVPB SCH ×3 (02:05→18:05)
[2019-01-13 03:16] LABS: URINE APPEARANCE CLEAR; URINE BILIRUBIN NEGATIVE (<2.0 mg/dL); URINE COLOR LTYELLOW; URINE GLUCOSE (UA) NEGATIVE (NEGATIVE); URINE KETONE NEGATIVE (NEGATIVE); URINE LEUK ESTERASE NEGATIVE (NEGATIVE); URINE NITRITE NEGATIVE (NEGATIVE); URINE PROTEIN 1+ (NEGATIVE); URINE UROBILINOGEN NEGATIVE mg/dL (0.2-1.0)
[2019-01-13 03:19] LABS: HEMOGLOBIN 15.2 GM/dL (10.7-15.3); MCH 32.1 pg (25.7-33.7); MCHC 34.5 g/dl (32.0-36.0); MEAN PLT VOLUME 9.9 fl (7.5-11.1); PLATELET COUNT 202 K/MM3 (134-434); RBC 4.73 M/mm3 (3.60-5.2); RDW 13.5 % (11.6-15.6); WHITE BLOOD COUNT 15.5 K/mm3 (4.0-10.0)
[2019-01-13 03:41] LABS: ALK PHOS 104 U/L (45-117); ANION GAP 15 MMOL/L (8-16); BILIRUBIN,TOTAL 0.6 mg/dL (0.2-1); BLOOD UREA NITROGEN 54 mg/dL (7-18); CALCIUM 8.9 mg/dL (8.5-10.1); CHLORIDE 101 mmol/L (98-107); CO2 23 mmol/L (21-32); CREATININE 3.1 mg/dL (0.55-1.3); GLUCOSE,RANDOM 113 mg/dL (74-106); POTASSIUM 3.5 mmol/L (3.5-5.1); SGOT/AST 77 U/L (15-37); SGPT/ALT 45 U/L (13-61); SODIUM 139 mmol/L (136-145); TOT PROT 7.3 g/dl (6.4-8.2)
[2019-01-13 03:47] LABS: EPI CELLS RARE /HPF (FEW)
[2019-01-13 06:04] LABS: HEMATOCRIT 43.4 % (32.4-45.2); HEMOGLOBIN 14.8 GM/dL (10.7-15.3); MCH 31.5 pg (25.7-33.7); MCHC 34.2 g/dl (32.0-36.0); PLATELET COUNT 217 K/MM3 (134-434); RBC 4.71 M/mm3 (3.60-5.2); RDW 13.8 % (11.6-15.6); WHITE BLOOD COUNT 16.6 K/mm3 (4.0-10.0)
[2019-01-13] MEDS ORDERED: ACETAMINOPHEN 1000 MG/100 ML VIAL (NON FORMULARY) IVPB ONE (06:05)
[2019-01-13] MEDS ORDERED: NITROGLYCERIN 25MG/D5W 250ML 25 MG/250 ML ML IVPB ONE (06:06)
[2019-01-13] MEDS: METOPROLOL TARTRATE 5 MG/5 ML VIAL IVPUSH PRN (06:12)
[2019-01-13 06:17] LABS: INR 1.19 (0.83-1.09); PROTHROMBIN TIME (PATIENT) 14.1 SEC (9.7-13.0)
[2019-01-13] MEDS: INSULIN SLIDING SCALE (NOVOLOG) 1 VIAL SQ SCH ×4 (06:26→21:17)
[2019-01-13 07:25] LABS: ALK PHOS 108 U/L (45-117); ANION GAP 15 MMOL/L (8-16); BILIRUBIN,TOTAL 0.7 mg/dL (0.2-1); BLOOD UREA NITROGEN 55 mg/dL (7-18); CHLORIDE 101 mmol/L (98-107); CO2 25 mmol/L (21-32); CREATININE 3.1 mg/dL (0.55-1.3); GLUCOSE,RANDOM 181 mg/dL (74-106); POTASSIUM 3.4 mmol/L (3.5-5.1); SGOT/AST 70 U/L (15-37); SGPT/ALT 43 U/L (13-61); SODIUM 140 mmol/L (136-145); TOT PROT 7.2 g/dl (6.4-8.2)
--- NOTE | 2019-01-13 08:30 | PN ---
Physical Exam: SUBJECTIVE: Patient seen and examined by me at bedside. Found to have Atrial Fibrillation VS. Atrial Flutter with RVR yesterday. Patient on Heparin drip and Metoprolol Patient reports abdominal pain Otherwise, denies any shortness of breath, chest pain, headaches, vomiting, dysuria, hematuria. OBJECTIVE: Vital Signs Period Temp Pulse Resp BP Sys/Dominguez Pulse Ox Last 24 Hr 98 F-100 F 93-130 19-27 135-170/45-76 94-94 GENERAL: The patient is awake, alert, oriented to person only, in no acute distress. EYES: Sclera anicteric, conjunctiva clear. ENT: Moist mucous membranes. LUNGS: Good inspiratory effort and air entry bilaterally. Bibasilar crackles auscultated without wheezing. No accessory muscle use noted. HEART: Tachycardic with regular rhythm, normal S1, S2 auscultated with holosystolic murmur. ABDOMEN: Obese. Soft, RUQ tenderness with negative tipton's sign on my examination, nondistended. Normoactive bowel sounds. No guarding, no rebound tenderness. EXTREMITIES: 1+ bilateral lower extremity edema. NEUROLOGICAL: No focal deficits. No facial asymmetry Laboratory Results 01/13/19 05:10 01/13/19 05:10 01/13/19 01/13/19 05:10 05:10 Lactic Acid 1.8 Total Bilirubin 0.7 AST 70 H ALT 43 Alkaline Phosphatase 108 Troponin I 0.08 H Urine Color Ltyellow 01/13/19 01:45 Urine Appearance Clear 01/13/19 01:45 Urine pH 6.0 (5.0-8.0) 01/13/19 01:45 Ur Specific [place] 1.012 (1.010-1.035) 01/13/19 01:45 Urine Protein 1+ (NEGATIVE) H 01/13/19 01:45 Urine Glucose (UA) Negative (NEGATIVE) 01/13/19 01:45 Urine Ketones Negative (NEGATIVE) 01/13/19 01:45 Urine Blood 2+ (NEGATIVE) H 01/13/19 01:45 Urine Nitrite Negative (NEGATIVE) 01/13/19 01:45 Urine Bilirubin Negative (<2.0 mg/dL) 01/13/19 01:45 Ur Leukocyte Esterase Negative (NEGATIVE) 01/13/19 01:45 Ur Epithelial Cells Rare /HPF (FEW) 01/13/19 01:45 Urine Bacteria Rare /hpf (NONE SEEN) 01/11/19 03:00 Urine Mucus Rare 01/11/19 03:00 Active Medications Generic Name Dose Route Start Last Admin Trade Name Zakq PRN Reason Stop Dose Admin Aspirin 81 mg 01/11/19 10:00 01/12/19 09:42 Ecotrin - PO 81 mg DAILY [facility] Administration Chlorhexidine Gluconate 1 applic 01/11/19 22:00 01/12/19 21:33 Hibiclens For Decolonization - TP 1 applic HS [facility] Administration Heparin Sodium (Porcine) 1,000 unit 01/12/19 10:15 Heparin - IVPUSH PRN PRN Heparin Heparin Sodium (Porcine) 5,000 unit 01/12/19 10:15 Heparin - IVPUSH PRN PRN Heparin Heparin Sodium (Porcine) 25, 500 mls @ 20 mls/hr 01/12/19 10:15 01/12/19 21: 12 000 unit/ Sodium Chloride IV 950 unit/hr TITR [facility] 19 mls/hr Titration Protocol 1,000 UNIT/HR Piperacillin Sod/Tazobactam 50 mls @ 100 mls/hr 01/12/19 11:45 01/13/19 02:05 Sod 2.25 gm/ Dextrose IVPB 100 mls/hr Q8H-IV [facility] Administration Protocol Insulin Aspart 1 vial 01/11/19 16:30 01/13/19 06:26 Novolog Vial Sliding Scale - SQ 1 units ACHS [facility] Administration Protocol Lactobacillus Acidophilus 1 tab 01/12/19 10:00 01/12/19 09:42 Bacid - PO 1 tab DAILY [facility] Administration Metoprolol Succinate 25 mg 01/13/19 10:00 Toprol Xl - PO DAILY [facility] Metoprolol Tartrate 5 mg 01/12/19 10:15 01/13/19 06:12 Lopressor Injection - IVPUSH 5 mg Q4H PRN Administration HYPERTENSION Multivitamins 1 each 01/11/19 10:00 01/12/19 09:42 Total B With C - PO 1 each DAILY [facility] Administration Mupirocin 1 applic 01/11/19 10:00 01/12/19 21:32 Bactroban Ointment (For Decolonization) - NS 01/16/19 09:59 1 applic BID [facility] Administration Pantoprazole Sodium 20 mg 01/11/19 10:00 01/12/19 09:42 Protonix - PO 20 mg DAILY [facility] Administration Rosuvastatin Calcium 20 mg 01/11/19 10:00 01/12/19 09:41 Crestor - PO 20 mg DAILY [facility] Administration Tamsulosin HCl 0.4 mg 01/11/19 08:30 01/12/19 09:42 Flomax - PO 0.4 mg DAILY@0830 [facility] Administration Microbiology 01/11/19 19:15 Stool Clostridium difficile Antigen (ZACARIAS) - Final 01/11/19 19:15 Stool Clostridium difficile Toxin Assay - Final 01/11/19 19:15 Stool Salmonella/Shigella Culture - Preliminary NO ENTERIC PATHOGENS, 24 HOURS, ON PRIMARY PLATES 01/11/19 19:15 Stool Yersinia Culture - Preliminary NO ENTERIC PATHOGENS, 24 HOURS, ON PRIMARY PLATES 01/11/19 19:15 Stool Vibrio Culture - Final NO GROWTH OF VIBRIO SPECIES OBTAINED 01/11/19 19:15 Stool Escherichia coli 0157 Culture - Final NO GROWTH OF E COLI 0157 OBTAINED 01/11/19 03:00 Urine - Urine Clean Catch Urine Culture - Final NO GROWTH OBTAINED ASSESSMENT/PLAN: Patient is an 83 year old female who presented for nausea, vomiting and abdominal pain and was found to have acute on chronic renal failure with severe metabolic derangements. Patient admitted to ICU for further monitoring and management. Cardiovascular #Paroxysmal Atrial Fibrillation vs. Atrial Flutter with RVR -CHADSVASC 6 -EKG showed LBBB which has resolved. However, yesterday patient was found to have aflutter vs afib with RVR. -Patient was started on 25 mg of toprolol along with lopressor 5 mg PRN. Patient currently maintaining heart rate between 90's to 105 -Patient started now on Heparin drip -Cardiac ECHO shows LV systolic function grossly normal with EF 60-65%. LA borderline dilated. Mild aortic stenosis. #Acute on Chronic Diastolic CHF -Cardiac ECHO shows LV systolic function grossly normal with EF 60-65%. LA borderline dilated. Mild aortic stenosis. -Continue Lasix 40mg IV daily -Strict I&O's. 3.8L of output in 24 hours -Daily weights #CAD -Continue ASA 81mg daily #HLD -Continue Rosuvastatin 20mg Neurological #Alzheimer's dementia -Patient is alert, oriented only to self and place. -Monitor for alterations in mental status. ID #Sepsis Likely Secondary to Acute Cholecystitis, r/o Obstruction/Colitis/ diverticulitis -Patient developed sinus tachycardia in the 120-130s overnight with rectal temperature of 100.9F with new quality abdominal pain with point of maximal pain in the RLQ and LLQ region. -Patient has suspected cholecystitis on US. In addition, right base showing possible infiltrate -Abdo/Pelvis CT with oral contrast to rule out possible appendicitis vs diverticulitis vs colitis. No overt obstruction seen on abdominal xray. -Piperacillin Sod/Tazobactam 2.25gm Q8H (Day #2) and one dose Vancomycin given yesterday -Continue to monitor vitals Pulmonary -Chest radiograph shows bilateral congestive changes, with right base showing possible infiltrate. -Currently saturating well on room air. Maintain oxygen saturation greater than 90% -Currently on Piperacillin Sod/Tazobactam 2.25gm Q8H (Day #2) and one dose Vancomycin given yesterday Gastrointestinal #Acute Cholecystitis -Right upper quadrant US shows gallbladder wall thickening, and choleliths concerning for acute cholecystitis, without CBD dilation -Protonix 20mg PO daily -General surgery consult (Dr. Mac) appreciated. -HIDA negative for filling defect. US abdomen shows acute cholecystitis. Patient was evaluated by primary medical doctor who states that surgery will be deferred at this time. -C.Diff pending -Repeat CT abdomen/Pelvis pending due to worsening abdominal pain and to rule out obstruction -Place on NPO Renal #Acute on chronic kidney disease -Improving -Renally dose medications -Avoid nephrotoxic medications -Continue Furosemide 40mg IV daily #Hyperkalemia -improved -Secondary to KATYA on CKD. Patient was recently started on Lisinopril -Managed medically, as family refused dialysis. -Lisinopril discontinued -Daily BMP's F/E/N -No IV fluids -Hypokalemia. Replete and repeat -NPO for now Prophylaxis -Heparin 5000u subq TID for DVT -Protonix 20mg daily for GI Disposition -Full code -Abd/Pelvic CT pending Visit type - Emergency Visit Emergency Visit: Yes ED Registration Date: 01/11/19 Care time: The patient presented to the Emergency Department on the above date and was hospitalized for further evaluation of their emergent condition. - New Patient This patient is new to me today: Yes Date on this admission: 02/17/19 - Critical Care Critical Care patient: Yes Total Critical Care Time (in minutes): 45 Critical Care Statement: The care of this patient involved high complexity decision making to prevent further life threatening deterioration of the patient 's condition and/or to evaluate & treat vital organ system(s) failure or risk of failure.
[2019-01-13] MEDS ORDERED: PT OWN MED DRAWER 7, Y5N ONE (08:52)
--- NOTE | 2019-01-13 09:11 | PN ---
Progress Note (short form) - Note Progress Note: abdominal pain last pm, improved this am +diarrhea +right leg pain unable to do ct scan as scanner was broken for repeat ct scan today cdiff not processed yesterday- formed stool- loose stools overnight spoke to microbiology-running cdiff today Vital Signs Period Temp Pulse Resp BP Sys/Dominguez Pulse Ox Last 24 Hr 98 F-100 F 93-130 19-27 135-170/45-76 94 cor-rrr lungs decreased bs at bases abd soft, +rRUQ discomfort to palpation ext no edema CBC, BMP 01/13/19 05:10 01/13/19 05:10 Microbiology 01/11/19 19:15 Stool Clostridium difficile Antigen (ZACARIAS) - Final 01/11/19 19:15 Stool Clostridium difficile Toxin Assay - Final 01/11/19 19:15 Stool Salmonella/Shigella Culture - Preliminary NO ENTERIC PATHOGENS, 24 HOURS, ON PRIMARY PLATES 01/11/19 19:15 Stool Yersinia Culture - Preliminary NO ENTERIC PATHOGENS, 24 HOURS, ON PRIMARY PLATES 01/11/19 19:15 Stool Vibrio Culture - Final NO GROWTH OF VIBRIO SPECIES OBTAINED 01/11/19 19:15 Stool Escherichia coli 0157 Culture - Final NO GROWTH OF E COLI 0157 OBTAINED 01/11/19 03:00 Urine - Urine Clean Catch Urine Culture - Final NO GROWTH OBTAINED a/p recurrent abdominal pain- for ct scan today Leukocytosis- stool cdiff pending repeat ct ordered continue zosyn, add iv flagyl will add po vanco if cdiff is positive KATYA- improving with IVF tachycardia/hypertension-per cardiology Problem List - Problems (1) Leukocytosis Code(s): D72.829 - ELEVATED WHITE BLOOD CELL COUNT, UNSPECIFIED (2) ARF (acute renal failure) Code(s): N17.9 - ACUTE KIDNEY FAILURE, UNSPECIFIED Qualifiers: Acute renal failure type: unspecified Qualified Code(s): N17.9 - Acute kidney failure, unspecified (3) Diarrhea Code(s): R19.7 - DIARRHEA, UNSPECIFIED (4) Gallstones Code(s): K80.20 - CALCULUS OF GALLBLADDER W/O CHOLECYSTITIS W/O OBSTRUCTION
[2019-01-13] MEDS: TAMSULOSIN HCL 0.4 MG CAP PO SCH (09:15)
[2019-01-13] MEDS ORDERED: metoPROLOL SUCCINATE 25 MG TAB.SR.24H (FP) PO SCH (10:00)
--- NOTE | 2019-01-13 10:21 | PN ---
Progress Note, Physician Chief Complaint: AWAKE IN DISTRESS DAUGHTER BEDSIDE PATIENT C/O ABDOMINAL PAIN - Current Medication List Current Medications: Active Medications Aspirin (Ecotrin -) 81 mg PO DAILY [facility] Last Admin: 01/12/19 09:42 Dose: 81 mg Chlorhexidine Gluconate (Hibiclens For Decolonization -) 1 applic TP HS [facility] Last Admin: 01/12/19 21:33 Dose: 1 applic Heparin Sodium (Porcine) (Heparin -) 1,000 unit IVPUSH PRN PRN PRN Reason: Heparin Heparin Sodium (Porcine) (Heparin -) 5,000 unit IVPUSH PRN PRN PRN Reason: Heparin Heparin Sodium (Porcine) 25, (000 unit/ Sodium Chloride) 500 mls @ 20 mls/hr IV TITR [facility]; Protocol Last Titration: 01/12/19 21:12 Dose: 950 unit/hr, 19 mls/hr Piperacillin Sod/Tazobactam (Sod 2.25 gm/ Dextrose) 50 mls @ 100 mls/hr IVPB Q8H-IV [facility]; Protocol Last Admin: 01/13/19 02:05 Dose: 100 mls/hr Metronidazole (Flagyl 500mg Premixed Ivpb -) 500 mg in 100 mls @ 100 mls/hr IVPB Q8H-IV [facility] Insulin Aspart (Novolog Vial Sliding Scale -) 1 vial SQ ACHS [facility]; Protocol Last Admin: 01/13/19 06:26 Dose: 1 units Lactobacillus Acidophilus (Bacid -) 1 tab PO DAILY [facility] Last Admin: 01/12/19 09:42 Dose: 1 tab Metoprolol Succinate (Toprol Xl -) 25 mg PO DAILY [facility] Metoprolol Tartrate (Lopressor Injection -) 5 mg IVPUSH Q4H PRN PRN Reason: HYPERTENSION Last Admin: 01/13/19 06:12 Dose: 5 mg Multivitamins (Total B With C -) 1 each PO DAILY [facility] Last Admin: 01/12/19 09:42 Dose: 1 each Mupirocin (Bactroban Ointment (For Decolonization) -) 1 applic NS BID [facility] Stop: 01/16/19 09:59 Last Admin: 01/12/19 21:32 Dose: 1 applic Pantoprazole Sodium (Protonix -) 20 mg PO DAILY [facility] Last Admin: 01/12/19 09:42 Dose: 20 mg Rosuvastatin Calcium (Crestor -) 20 mg PO DAILY [facility] Last Admin: 01/12/19 09:41 Dose: 20 mg Tamsulosin HCl (Flomax -) 0.4 mg PO DAILY@0830 [facility] Last Admin: 01/12/19 09:42 Dose: 0.4 mg - Objective Vital Signs: Vital Signs Temperature 100 F H 01/13/19 04:00 Pulse Rate 130 H 01/13/19 06:12 Respiratory Rate 01/13/19 06:00 Blood Pressure 170/66 01/13/19 06:12 O2 Sat by Pulse Oximetry (%) 94 L 01/12/19 20:35 Constitutional: Yes: Moderate Distress Eyes: Yes: WNL HENT: Yes: WNL Neck: Yes: WNL Cardiovascular: Yes: Pulse Irregular Respiratory: Yes: WNL Gastrointestinal: Yes: Distention, Tenderness Genitourinary: Yes: [place]kins Present Musculoskeletal: Yes: Muscle Weakness Edema: Yes Integumentary: Yes: WNL Wound/Incision: Yes: Clean/Dry Neurological: Yes: Pre-Existing Deficit ...Motor Strength: LLE, RLE Psychiatric: Yes: Other Labs: CBC, BMP 01/13/19 05:10 01/13/19 05:10 INR, PTT INR 1.19 (0.83-1.09) H 01/13/19 05:10 Problem List - Problems (1) ARF (acute renal failure) Code(s): N17.9 - ACUTE KIDNEY FAILURE, UNSPECIFIED Qualifiers: Qualified Code(s): N17.9 - Acute kidney failure, unspecified (2) Acute on chronic renal failure Code(s): N17.9 - ACUTE KIDNEY FAILURE, UNSPECIFIED; N18.9 - CHRONIC KIDNEY DISEASE, UNSPECIFIED (3) Cholecystitis Code(s): K81.9 - CHOLECYSTITIS, UNSPECIFIED (4) Gallstones Code(s): K80.20 - CALCULUS OF GALLBLADDER W/O CHOLECYSTITIS W/O OBSTRUCTION (5) Nausea & vomiting Code(s): R11.2 - NAUSEA WITH VOMITING, UNSPECIFIED (6) Afib Code(s): I48.91 - UNSPECIFIED ATRIAL FIBRILLATION Qualifiers: Qualified Code(s): I48.1 - Persistent atrial fibrillation (7) CAD (coronary artery disease) Code(s): I25.10 - ATHSCL HEART DISEASE OF [place] CORONARY ARTERY W/O ANG PCTRS (8) HTN (hypertension) Code(s): I10 - ESSENTIAL (PRIMARY) HYPERTENSION Qualifiers: Qualified Code(s): I10 - Essential (primary) hypertension (9) Hyperlipemia Code(s): E78.5 - HYPERLIPIDEMIA, UNSPECIFIED (10) Alzheimer's dementia Code(s): G30.9 - ALZHEIMER'S DISEASE, UNSPECIFIED; F02.80 - DEMENTIA IN OTH DISEASES CLASSD ELSWHR W/O BEHAVRL DISTURB Assessment/Plan ATRIAL FIB STARTED ON IV HEPARIN ABD PAIN NGT PLACEMENT CHECK CT LIKELY SBO R/O MESENTERIC ISCHEMIA SX F/U AND GI CONSULT NPO PAIN CONTROL
--- NOTE | 2019-01-13 10:22 | PN ---
Teaching Attending Note Name of Resident: Maritza Weber ATTENDING PHYSICIAN STATEMENT I saw and evaluated the patient. I reviewed the resident's note and discussed the case with the resident. I agree with the resident's findings and plan as documented. SUBJECTIVE: Pt seen and examined in the ICU. Remains in atrial fibrillation with rapid rates. Now with diffuse abdominal pain. CT A/P not read yet but suspicious for proximal partial small bowel obstruction. OBJECTIVE: Vital Signs Period Temp Pulse Resp BP Sys/Dominguez Pulse Ox Last 24 Hr 98 F-100 F 93-130 19-27 135-170/45-76 94 Intake & Output 01/10/19 01/11/19 01/12/19 01/13/19 23:59 23:59 23:59 23:59 Intake Total 240 760 683 Output Total 5700 3200 600 Balance -5460 -2440 83 Weight 83.6 kg 70.67 kg 70.76 kg 59.619 kg Gen: uncomfortable Heart: irregular, tachycardic Lung: decreased breath sounds at the bases Abd: softly distended, +guarding Ext: no edema CBC, BMP 01/13/19 05:10 01/13/19 05:10 Active Medications Aspirin (Ecotrin -) 81 mg PO DAILY [facility] Last Admin: 01/12/19 09:42 Dose: 81 mg Chlorhexidine Gluconate (Hibiclens For Decolonization -) 1 applic TP HS [facility] Last Admin: 01/12/19 21:33 Dose: 1 applic Heparin Sodium (Porcine) (Heparin -) 1,000 unit IVPUSH PRN PRN PRN Reason: Heparin Heparin Sodium (Porcine) (Heparin -) 5,000 unit IVPUSH PRN PRN PRN Reason: Heparin Heparin Sodium (Porcine) 25, (000 unit/ Sodium Chloride) 500 mls @ 20 mls/hr IV TITR [facility]; Protocol Last Titration: 01/12/19 21:12 Dose: 950 unit/hr, 19 mls/hr Piperacillin Sod/Tazobactam (Sod 2.25 gm/ Dextrose) 50 mls @ 100 mls/hr IVPB Q8H-IV [facility]; Protocol Last Admin: 01/13/19 02:05 Dose: 100 mls/hr Metronidazole (Flagyl 500mg Premixed Ivpb -) 500 mg in 100 mls @ 100 mls/hr IVPB Q8H-IV [facility] Insulin Aspart (Novolog Vial Sliding Scale -) 1 vial SQ ACHS [facility]; Protocol Last Admin: 01/13/19 06:26 Dose: 1 units Lactobacillus Acidophilus (Bacid -) 1 tab PO DAILY [facility] Last Admin: 01/12/19 09:42 Dose: 1 tab Metoprolol Succinate (Toprol Xl -) 25 mg PO DAILY [facility] Metoprolol Tartrate (Lopressor Injection -) 5 mg IVPUSH Q4H PRN PRN Reason: HYPERTENSION Last Admin: 01/13/19 06:12 Dose: 5 mg Multivitamins (Total B With C -) 1 each PO DAILY [facility] Last Admin: 01/12/19 09:42 Dose: 1 each Mupirocin (Bactroban Ointment (For Decolonization) -) 1 applic NS BID [facility] Stop: 01/16/19 09:59 Last Admin: 01/12/19 21:32 Dose: 1 applic Pantoprazole Sodium (Protonix -) 20 mg PO DAILY [facility] Last Admin: 01/12/19 09:42 Dose: 20 mg Rosuvastatin Calcium (Crestor -) 20 mg PO DAILY [facility] Last Admin: 01/12/19 09:41 Dose: 20 mg Tamsulosin HCl (Flomax -) 0.4 mg PO DAILY@0830 [facility] Last Admin: 01/12/19 09:42 Dose: 0.4 mg ASSESSMENT AND PLAN: Acute on Chronic Renal Failure Hyperkalemia improving ?New Onset Atrial Fibrillation with RVR CAD LV Diastolic Dysfunction r/o Small Bowel Resection HTN Hyperlipidemia Alzheimers - f/u official CT A/P - insert NGT and place on intermittent low wall suction - continue antibiotics - f/u culture - rate control - continue anticoagulation with heparin gtt - trend cardiac enzymes, lactate - IVF - monitor urine output, creatinine - surgery f/u - O2 to keep Spo2 >90% - continue ICU monitoring critical care time spent in reviewing chart, evaluating patient and formulating plan 35 min
[2019-01-13] MEDS: MUPIROCIN 2% TOPICAL OINTMENT FOR DECOLONIZATION NS SCH ×2 (11:00→21:11)
[2019-01-13] MEDS: LACTOBACILLUS ACIDOPHILUS 1 TABLET PO SCH (11:00)
[2019-01-13] MEDS: ROSUVASTATIN CA 20 MG TABLET (FP) PO SCH (11:00)
[2019-01-13] MEDS: ASPIRIN COATED 81 MG TABLET.EC PO SCH (11:01)
[2019-01-13] MEDS: PANTOPRAZOLE 20 MG TABLET (FP) PO SCH (11:01)
[2019-01-13] MEDS: HEPARIN - 25,000 UNIT in SODIUM CHLORIDE 495 ML IV SCH (11:14)
[2019-01-13] MEDS: PANTOPRAZOLE SODIUM 40 MG VIAL IVPUSH SCH (11:55)
--- NOTE | 2019-01-13 12:49 | PN ---
Progress Note, Physician - Current Medication List Current Medications: Active Medications Acetaminophen (Ofirmev Injection -) 1,000 mg IVPB Q6H PRN PRN Reason: PAIN Chlorhexidine Gluconate (Hibiclens For Decolonization -) 1 applic TP HS [facility] Last Admin: 01/12/19 21:33 Dose: 1 applic Heparin Sodium (Porcine) (Heparin -) 1,000 unit IVPUSH PRN PRN PRN Reason: Heparin Heparin Sodium (Porcine) (Heparin -) 5,000 unit IVPUSH PRN PRN PRN Reason: Heparin Heparin Sodium (Porcine) 25, (000 unit/ Sodium Chloride) 500 mls @ 20 mls/hr IV TITR [facility]; Protocol Last Admin: 01/13/19 11:14 Dose: 950 unit/hr, 19 mls/hr Piperacillin Sod/Tazobactam (Sod 2.25 gm/ Dextrose) 50 mls @ 100 mls/hr IVPB Q8H-IV [facility]; Protocol Last Admin: 01/13/19 10:56 Dose: 100 mls/hr Metronidazole (Flagyl 500mg Premixed Ivpb -) 500 mg in 100 mls @ 100 mls/hr IVPB Q8H-IV [facility] Last Admin: 01/13/19 10:59 Dose: 100 mls/hr Insulin Aspart (Novolog Vial Sliding Scale -) 1 vial SQ ACHS [facility]; Protocol Last Admin: 01/13/19 06:26 Dose: 1 units Metoprolol Tartrate (Lopressor Injection -) 5 mg IVPUSH Q4H PRN PRN Reason: HYPERTENSION Last Admin: 01/13/19 06:12 Dose: 5 mg Mupirocin (Bactroban Ointment (For Decolonization) -) 1 applic NS BID [facility] Stop: 01/16/19 09:59 Last Admin: 01/13/19 11:00 Dose: 1 applic Pantoprazole Sodium (Protonix Iv) 40 mg IVPUSH DAILY [facility] - Objective Vital Signs: Vital Signs Temperature 100.1 F H 01/13/19 10:00 Pulse Rate 117 H 01/13/19 10:00 Respiratory Rate 20 01/13/19 10:00 Blood Pressure 133/76 01/13/19 10:00 O2 Sat by Pulse Oximetry (%) 94 L 01/13/19 09:00 Labs: CBC, BMP 01/13/19 05:10 01/13/19 05:10 INR, PTT INR 1.19 (0.83-1.09) H 01/13/19 05:10 Problem List - Problems (1) Nausea & vomiting Code(s): R11.2 - NAUSEA WITH VOMITING, UNSPECIFIED (2) Gallstones Code(s): K80.20 - CALCULUS OF GALLBLADDER W/O CHOLECYSTITIS W/O OBSTRUCTION (3) Acute on chronic renal failure Code(s): N17.9 - ACUTE KIDNEY FAILURE, UNSPECIFIED; N18.9 - CHRONIC KIDNEY DISEASE, UNSPECIFIED (4) ARF (acute renal failure) Code(s): N17.9 - ACUTE KIDNEY FAILURE, UNSPECIFIED Qualifiers: Acute renal failure type: unspecified Qualified Code(s): N17.9 - Acute kidney failure, unspecified (5) CHF (congestive heart failure) Code(s): I50.9 - HEART FAILURE, UNSPECIFIED Qualifiers: Heart failure type: unspecified Heart failure chronicity: unspecified Qualified Code(s): I50.9 - Heart failure, unspecified Assessment/Plan Surgery: Patient is found to have a mottled right lower extremity and cool, compared to the left lower extremity. NG tube has been just placed for nausea/ vomiting. Abdomen is soft , not tender , not distended. Ct scan of abdomen is done which shows contrast going through the small intestine inti the large bowel , with some dilatation of the small intestine, There is no delay or hold up of contrast, or any transition point. NG tube drained 200 ml. of gracia yellow bile. She is anticoagulated. Rule out acute ischemia of right lower extremity and embolic event. vascular surgery consult. Patient is in atrial fibrillation. INR 1.19, Creatinine 3.1, lactic acid 1.8. ICU team is aware.
--- NOTE | 2019-01-13 13:39 | CONSULT ---
Consult Consult Specialty:: Vascular Surgery Reason for Consultation:: RLE ischemia - History of Present Illness Chief Complaint: RLE ischemia that started this am. Pt went into Afib yesterday. Now on a heparin drip. 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 History of Recent Travel: Yes (Visiting from [place]) Home Medications - Allergies Allergies/Adverse Reactions: Allergies Allergy/AdvReac Type Severity Reaction Status Date / Time No Known Allergies Allergy Verified 12/17/18 11:21 - Home Medications Home Medications: Ambulatory Orders Aspirin [Ecotrin] 81 mg PO DAILY 03/13/15 Furosemide [Lasix -] 20 mg PO DAILY #30 tablet 12/15/18 Acetaminophen [Tylenol .Regular Strength -] 650 mg PO Q6H PRN tablet 12/21/18 Donepezil HCl [Aricept -] 5 mg PO HS #30 tablet 12/21/18 Multivitamin [Multiple Vitamins] 1 each PO DAILY #30 tablet 12/21/18 Pantoprazole Sodium [Protonix -] 20 mg PO DAILY #30 tablet.ec 12/21/18 Tamsulosin HCl [Flomax -] 0.4 mg PO DAILY@0830 #30 cap.er.24h 12/21/18 Vitamin B Comp W-C [Total B with C -] 1 each PO DAILY #30 tablet 12/21/18 Amlodipine Besylate 5 mg PO DAILY 01/11/19 Lisinopril 10 mg PO DAILY 01/11/19 Rosuvastatin Calcium [Crestor] 20 mg PO DAILY 01/11/19 Family Disease History - Family Disease History Family Disease History: Heart Disease: Father, Sister (vaginal ca. and liver ca. ), CA: Sister Review of Systems - Review of Systems Constitutional: reports: No Symptoms Eyes: reports: No Symptoms HENT: reports: No Symptoms Neck: reports: No Symptoms Cardiovascular: reports: No Symptoms Respiratory: reports: No Symptoms Gastrointestinal: reports: No Symptoms Genitourinary: reports: No Symptoms Musculoskeletal: reports: No Symptoms Integumentary: reports: No Symptoms Neurological: reports: No Symptoms Endocrine: reports: No Symptoms Hematology/Lymphatic: reports: No Symptoms Psychiatric: reports: No Symptoms Physical Exam Vital Signs: Vital Signs Temperature 100.1 F H 01/13/19 10:00 Pulse Rate 117 H 01/13/19 10:00 Respiratory Rate 20 01/13/19 10:00 Blood Pressure 133/76 01/13/19 10:00 O2 Sat by Pulse Oximetry (%) 94 L 01/13/19 09:00 Constitutional: Yes: Well Nourished, No Distress, Calm Eyes: Yes: WNL, Conjunctiva Clear, EOM Intact HENT: Yes: WNL, Atraumatic, Normocephalic Neck: Yes: WNL, Supple, Trachea Midline Cardiovascular: Yes: WNL, Regular Rate and Rhythm Respiratory: Yes: WNL, Regular, CTA Bilaterally Gastrointestinal: Yes: WNL, Normal Bowel Sounds ...Rectal Exam: Yes: WNL Renal/: Yes: WNL Breast(s): Yes: WNL Musculoskeletal: Yes: WNL Extremities: Yes: WNL, Other (RLE - no palpable or dopplerable pulses. Mottling of skin. limited motor and sensory) Edema: No Peripheral Pulses WNL: No Integumentary: Yes: WNL Neurological: Yes: WNL, Alert, Oriented ...Motor Strength: WNL Psychiatric: Yes: WNL Labs: CBC, BMP 01/13/19 05:10 01/13/19 05:10 Problem List - Problems (1) Ischemia of right lower extremity Assessment/Plan: Pt seen and examined. RLE ischemia. US shows no flow beyond right common femoral artery. Will need open thrombectomy. Family understands all risks, benefits, and alternatives. Tyler zee DO Code(s): I99.8 - OTHER DISORDER OF CIRCULATORY SYSTEM
[2019-01-13] MEDS ORDERED: PROMETHAZINE HCL 25 MG/1 ML VIAL IVPUSH PRN (13:54)
[2019-01-13] MEDS ORDERED: ONDANSETRON 4 MG/2 ML VIAL IVPUSH PRN (13:54)
[2019-01-13] MEDS: SODIUM CHLORIDE 1,000 ML IV SCH (13:59)
[2019-01-13] MEDS ORDERED: LIDOCAINE HCL/PF 2% SDV 5ML VIAL ONE (14:13)
[2019-01-13] MEDS ORDERED: PROPOFOL 20 ML ONE (14:13)
[2019-01-13] MEDS ORDERED: ROCURONIUM BROMIDE 50 MG/5 ML VIAL ONE (14:13)
[2019-01-13 14:41] LABS: INR 1.21 (0.83-1.09); PROTHROMBIN TIME (PATIENT) 14.3 SEC (9.7-13.0)
[2019-01-13 14:44] LABS: ACTIVATED PTT 67.9 SECONDS (25.2-36.5)
--- NOTE | 2019-01-13 14:50 | PN ---
Progress Note, Physician History of Present Illness: Pt seen and examined at bedside. She was found to have a cold and mottled leg today. She is going to OR for vascular repair. - Current Medication List Current Medications: Active Medications Acetaminophen (Ofirmev Injection -) 1,000 mg IVPB Q6H PRN PRN Reason: PAIN Chlorhexidine Gluconate (Hibiclens For Decolonization -) 1 applic TP HS HAY Last Admin: 01/12/19 21:33 Dose: 1 applic Fentanyl (Sublimaze Injection -) 50 mcg IVPUSH [id number] PRN PRN Reason: PAIN-PACU ORDER X 4 DOSES ONLY Heparin Sodium (Porcine) (Heparin -) 1,000 unit IVPUSH PRN PRN PRN Reason: Heparin Heparin Sodium (Porcine) (Heparin -) 5,000 unit IVPUSH PRN PRN PRN Reason: Heparin Heparin Sodium (Porcine) 25, (000 unit/ Sodium Chloride) 500 mls @ 20 mls/hr IV TITR HAY; Protocol Last Titration: 01/13/19 13:20 Dose: 0 unit/hr, 0 mls/hr Piperacillin Sod/Tazobactam (Sod 2.25 gm/ Dextrose) 50 mls @ 100 mls/hr IVPB Q8H-IV HAY; Protocol Last Admin: 01/13/19 10:56 Dose: 100 mls/hr Metronidazole (Flagyl 500mg Premixed Ivpb -) 500 mg in 100 mls @ 100 mls/hr IVPB Q8H-IV HAY Last Admin: 01/13/19 10:59 Dose: 100 mls/hr Sodium Chloride (Normal Saline -) 1,000 mls @ 100 mls/hr IV ASDIR HAY Last Admin: 01/13/19 13:59 Dose: 100 mls/hr Insulin Aspart (Novolog Vial Sliding Scale -) 1 vial SQ ACHS HAY; Protocol Last Admin: 01/13/19 11:55 Dose: Not Given Metoprolol Tartrate (Lopressor Injection -) 5 mg IVPUSH Q4H PRN PRN Reason: HYPERTENSION Last Admin: 01/13/19 06:12 Dose: 5 mg Mupirocin (Bactroban Ointment (For Decolonization) -) 1 applic NS BID HYA Stop: 01/16/19 09:59 Last Admin: 01/13/19 11:00 Dose: 1 applic Ondansetron HCl (Zofran Injection) 4 mg IVPUSH Q6H PRN PRN Reason: NAUSEA AND/OR VOMITING Pantoprazole Sodium (Protonix Iv) 40 mg IVPUSH DAILY HAY Last Admin: 01/13/19 11:55 Dose: 40 mg Promethazine HCl (Phenergan Injection -) 12.5 mg IVPUSH Q6H PRN PRN Reason: NAUSEA-FOR RESCUE AFTER 15 MIN - Objective Vital Signs: Vital Signs Temperature 100.1 F H 01/13/19 10:00 Pulse Rate 123 H 01/13/19 14:00 Respiratory Rate 20 01/13/19 14:00 Blood Pressure 151/70 01/13/19 14:00 O2 Sat by Pulse Oximetry (%) 94 L 01/13/19 09:00 Constitutional: Yes: Calm Eyes: Yes: Conjunctiva Clear HENT: Yes: Atraumatic Neck: Yes: Supple Cardiovascular: Yes: S1, S2 Respiratory: Yes: CTA Bilaterally, On Nasal O2 Gastrointestinal: Yes: Normal Bowel Sounds, Soft Genitourinary: Yes: Hoskins Present Extremities: Yes: Other (mottled right leg) Integumentary: Yes: Other (mottling or right leg) Neurological: Yes: Oriented Psychiatric: Yes: Oriented Labs: CBC, BMP 01/13/19 05:10 01/13/19 05:10 INR, PTT INR 1.21 (0.83-1.09) H 01/13/19 13:30 Problem List - Problems (1) ARF (acute renal failure) Code(s): N17.9 - ACUTE KIDNEY FAILURE, UNSPECIFIED Qualifiers: Acute renal failure type: unspecified Qualified Code(s): N17.9 - Acute kidney failure, unspecified (2) KATYA (acute kidney injury) Code(s): N17.9 - ACUTE KIDNEY FAILURE, UNSPECIFIED (3) Afib Code(s): I48.91 - UNSPECIFIED ATRIAL FIBRILLATION Qualifiers: Atrial fibrillation type: persistent Qualified Code(s): I48.1 - Persistent atrial fibrillation (4) Hyperkalemia Code(s): E87.5 - HYPERKALEMIA Assessment/Plan Current Medications Generic Name Dose Route Start Last Admin Trade Name Freq PRN Reason Stop Dose Admin Acetaminophen 1,000 mg 01/13/19 10:22 Ofirmev Injection - IVPB Q6H PRN PAIN Chlorhexidine Gluconate 1 applic 01/11/19 22:00 01/12/19 21:33 Hibiclens For Decolonization - TP 1 applic HS HAY Administration Fentanyl 50 mcg 01/13/19 13:54 Sublimaze Injection - IVPUSH [id number] PRN PAIN-PACU ORDER X 4 DOSES ONLY Heparin Sodium (Porcine) 1,000 unit 01/12/19 10:15 Heparin - IVPUSH PRN PRN Heparin Heparin Sodium (Porcine) 5,000 unit 01/12/19 10:15 Heparin - IVPUSH PRN PRN Heparin Heparin Sodium (Porcine) 25, 500 mls @ 20 mls/hr 01/12/19 10:15 01/13/19 13: 20 000 unit/ Sodium Chloride IV 0 unit/hr TITR HAY 0 mls/hr Titration Protocol 1,000 UNIT/HR Piperacillin Sod/Tazobactam 50 mls @ 100 mls/hr 01/12/19 11:45 01/13/19 10:56 Sod 2.25 gm/ Dextrose IVPB 100 mls/hr Q8H-IV HAY Administration Protocol Metronidazole 500 mg in 100 mls @ 100 mls/hr 01/13/19 10:00 01/13/19 10:59 Flagyl 500mg Premixed Ivpb - IVPB 100 mls/hr Q8H-IV HAY Administration Sodium Chloride 1,000 mls @ 100 mls/hr 01/13/19 14:00 01/13/19 13:59 Normal Saline - IV 100 mls/hr ASDIR HAY Administration Insulin Aspart 1 vial 01/11/19 16:30 01/13/19 11:55 Novolog Vial Sliding Scale - SQ Not Given ACHS [facility] Protocol Metoprolol Tartrate 5 mg 01/12/19 10:15 01/13/19 06:12 Lopressor Injection - IVPUSH 5 mg Q4H PRN Administration HYPERTENSION Mupirocin 1 applic 01/11/19 10:00 01/13/19 11:00 Bactroban Ointment (For Decolonization) - NS 01/16/19 09:59 1 applic BID HAY Administration Ondansetron HCl 4 mg 01/13/19 13:54 Zofran Injection IVPUSH Q6H PRN NAUSEA AND/OR VOMITING Pantoprazole Sodium 40 mg 01/13/19 11:15 01/13/19 11:55 Protonix Iv IVPUSH 40 mg DAILY HAY Administration Promethazine HCl 12.5 mg 01/13/19 13:54 Phenergan Injection - IVPUSH Q6H PRN NAUSEA-FOR RESCUE AFTER 15 MIN Impression 1. CKD 2. a-fib 3. hyperkalemia 4. htn 5. CHF 6. dementia 7. cad 8. hld 9. plueral effusions 10. nausea 11. KATYA 12. hyponatremia 13. right leg ischemia Plan - replace potassium - hold off lasix today - vashti on hold - pt going to OR for repair - discussed with ICU team
[2019-01-13] MEDS ORDERED: PHENYLEPHRINE HCL 10 MG/1 ML SINGLE DOSE VIAL ONE (15:08)
[2019-01-13] MEDS ORDERED: DEXAMETHASONE SOD PHOSPHATE 4 MG/1 ML VIAL ONE (15:17)
[2019-01-13] MEDS ORDERED: HEPARIN NA (PORCINE) 5,000 UNITS/ML 1ML VIAL ONE ×2 (15:46→16:18)
[2019-01-13] MEDS ORDERED: HEPARIN NA (PORCINE) 5,000 UNITS/ML 1ML VIAL SQ ONE (16:00)
--- NOTE | 2019-01-13 16:01 | CON.GI ---
Consult Consult Specialty:: GI - History of Present Illness History of Present Illness: 83 y/o female with H/o of CHF and Afib was admitted Dec because of abdominal pain, diarrhea, nausea and vomiting. Initially suspected to have cholecystitis but HIDA was negative . She was empirically started on IV heparin because of rapid Afibe. I was asked to see patientbecause of guaiac positive stool. Since admission she has persistent abdominal pain, NGT was inserted and drained 200c of yellow bile. She was developed acute ischemia of right leg. 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 History of Recent Travel: Yes (Visiting from [place]) Home Medications - Allergies Allergies/Adverse Reactions: Allergies Allergy/AdvReac Type Severity Reaction Status Date / Time No Known Allergies Allergy Verified 12/17/18 11:21 - Home Medications Home Medications: Ambulatory Orders Aspirin [Ecotrin] 81 mg PO DAILY 03/13/15 Furosemide [Lasix -] 20 mg PO DAILY #30 tablet 12/15/18 Acetaminophen [Tylenol .Regular Strength -] 650 mg PO Q6H PRN tablet 12/21/18 Donepezil HCl [Aricept -] 5 mg PO HS #30 tablet 12/21/18 Multivitamin [Multiple Vitamins] 1 each PO DAILY #30 tablet 12/21/18 Pantoprazole Sodium [Protonix -] 20 mg PO DAILY #30 tablet.ec 12/21/18 Tamsulosin HCl [Flomax -] 0.4 mg PO DAILY@0830 #30 cap.er.24h 12/21/18 Vitamin B Comp W-C [Total B with C -] 1 each PO DAILY #30 tablet 12/21/18 Amlodipine Besylate 5 mg PO DAILY 01/11/19 Lisinopril 10 mg PO DAILY 01/11/19 Rosuvastatin Calcium [Crestor] 20 mg PO DAILY 01/11/19 Family Disease History - Family Disease History Family Disease History: Heart Disease: Father, Sister (vaginal ca. and liver ca. ), CA: Sister Physical Exam-GI Vital Signs: Vital Signs Temperature 100 F H 01/13/19 14:00 Pulse Rate 123 H 01/13/19 14:00 Respiratory Rate 20 01/13/19 14:00 Blood Pressure 151/70 01/13/19 14:00 O2 Sat by Pulse Oximetry (%) 94 L 01/13/19 09:00 Labs: CBC, BMP 01/13/19 05:10 01/13/19 05:10 INR, PTT INR 1.21 (0.83-1.09) H 01/13/19 13:30
[2019-01-13] MEDS ORDERED: GLYCOPYRROLATE 0.2 MG/1 ML VIAL ONE (16:40)
[2019-01-13] MEDS ORDERED: NEOSTIGMINE METHYLSULFATE 0.5 MG/ML - 10 ML MDV ONE (16:41)
[2019-01-13] MEDS ORDERED: HEPARIN NA (PORCINE) 5,000 UNITS/ML 1ML VIAL IVPUSH PRN ×2 (16:57)
--- NOTE | 2019-01-13 16:57 | OP ---
Operative Note - Note: Operative Date: 01/13/19 Pre-Operative Diagnosis: RLE ischemia Operation: Open thrombectomy right iliac artery , right deep profunda artery. Findings: embolus in right iliac and right profunda artery Sent to path Post-Operative Diagnosis: Same as Pre-op Surgeon: Tyler Montilla Anesthesia: Fractional Estimated Blood Loss (mls): 100 Operative Report Dictated: Yes
[2019-01-13] MEDS: HEPARIN SOD,PORK IN 0.45% NACL 25,000 UNITS/500 ML INFUS.BAG IVPB SCH (17:05)
[2019-01-13] MEDS ORDERED: MIDAZOLAM 100 MG/100 ML MG IVPB ONE (17:18)
[2019-01-13] MEDS: MIDAZOLAM 100 MG in SODIUM CHLORIDE 100 ML IVPB SCH (18:06)
--- NOTE | 2019-01-13 19:09 | OP ---
DATE OF OPERATION: 01/13/2019 PREOPERATIVE DIAGNOSIS: Right lower extremity ischemia. POSTOPERATIVE DIAGNOSIS: Right lower extremity ischemia. PROCEDURE: Open thrombectomy of right iliac, right femoral artery. SURGEON: Tyler Brewer DO ANESTHESIA: General. BLOOD LOSS: 100 mL. The patient is an 83-year-old female who was in the ICU secondary to abdominal pain and newfound atrial fibrillation, and was on heparin drip. This morning she was found to have a right cold leg which had some mottling. Thoracic Surgery was consulted. Prior to the operation, an arterial duplex was performed, showing that the bilateral SFAs had significant stenosis but there was no flow going into the right common femoral artery. It was decided that she would need an open thrombectomy. Patient's family was consented for the procedure, understanding all risks, benefits, alternatives, understanding the risks of bleeding, infection, clot formation, understanding the risks of amputation and loss of limb. Patient was then brought to the operating room, laid on the operating table in supine manner, and general anesthesia was administered to the patient. We then went ahead and under ultrasound guidance visualized the right common femoral artery and right femoral artery and those were marked on his skin using a skin marker. After anesthesia was administered, we went ahead and made a 7 cm incision using 15 blade, Bovie electrocautery used to control hemostasis, and we were able to get down to the level of the subcutaneous tissue using Bovie electrocautery. Two Weitlaner were placed. We then went ahead and were able to open the femoral sheath and we were able to get down to the superficial femoral artery. We then dissected up along the superficial femoral artery and got to our bifurcation in the common femoral artery. Vessel loops were placed around all 3 arteries, common femoral, deep profunda, and SFA. Heparin 5000 units IV was administered to the patient and after 3 minutes, we went ahead and, using an 11 blade, made a transverse incision on the common femoral artery. We then went ahead and put a number 4 Scott up into the iliac artery and we were able to bring back embolus that was in the artery. We did 3 sweeps like that until good inflow was established. We then went ahead and placed a number 4 Scott into the deep profunda and performed an embolectomy and we got substantial clot out from the profunda artery. We then attempted to put the Scott catheter in the superficial femoral artery but the femoral artery had blackfeet stenotic disease and occlusions, which we saw on ultrasound and I was not able to pass the Scott catheter there, but there was backbleeding in the SFA. The profunda had good back bleeding as well. At this point, we made sure there was good inflow again and we had good control of our arteries. We irrigated the wound copiously. We then used 6-0 Prolene double-armed and we were able to close the artery in a running fashion. Once closed, we opened the distal SFA and the profunda first and the proximal common femoral artery and there was good flow in our arteries, and there was a good dopplerable pulse. At this point, we irrigated the wound copiously. Surgicel was placed. Then 3-0 Vicryl was used, the subcutaneous tissue was approximated in an interrupted manner. Skin was closed with skin marvin, 4 x 4, Tegaderms were placed. Patient tolerated this procedure with no complications. Patient transferred to PACU in stable condition. TYLER BREWER DO NP/[id number]
[2019-01-13] MEDS: CHLORHEXIDINE GLUCONATE 4% CLEANSER FOR DECOLONIZATION TP SCH (21:11)
[2019-01-13] MEDS: ACETAMINOPHEN 1000 MG/100 ML VIAL (NON FORMULARY) IVPB PRN (22:30)
[2019-01-14] MEDS ORDERED: PIPERACILLIN/TAZOBACTAM 2.25 GM VIAL IVPB ONE ×4 (01:00→16:51)
[2019-01-14] MEDS ORDERED: DEXTROSE 5%-WATER - 50 ML IVPB ONE ×3 (01:01→16:48)
[2019-01-14] MEDS: PIPERACILLIN/TAZOB 2.25 GM 2.25 GM in DEXTROSE 5%-WATER - 50 ML IVPB SCH ×3 (01:05→16:59)
[2019-01-14] MEDS: METOPROLOL TARTRATE 5 MG/5 ML VIAL IVPUSH PRN (01:06)
[2019-01-14] MEDS: INSULIN SLIDING SCALE (NOVOLOG) 1 VIAL SQ SCH ×4 (06:02→22:00)
[2019-01-14] MEDS: ACETAMINOPHEN 1000 MG/100 ML VIAL (NON FORMULARY) IVPB PRN ×2 (06:35→15:01)
[2019-01-14] MEDS: VITAMIN B COMPLEX W/C COMBO TABLET (FP) PO SCH (06:36)
[2019-01-14 06:43] LABS: BASO % 0.1 % (0-2.0); HEMATOCRIT 35.3 % (32.4-45.2); HEMOGLOBIN 11.8 GM/dL (10.7-15.3); LYMPH % 3.5 % (8-40); MCH 30.8 pg (25.7-33.7); MCHC 33.4 g/dl (32.0-36.0); MEAN CELL VOLUME 92.3 fl (80-96); MEAN PLT VOLUME 9.8 fl (7.5-11.1); MONO % 4.2 % (3.8-10.2); NEUT % 92.2 % (42.8-82.8); PLATELET COUNT 210 K/MM3 (134-434); RBC 3.82 M/mm3 (3.60-5.2); RDW 13.9 % (11.6-15.6); WHITE BLOOD COUNT 18.3 K/mm3 (4.0-10.0)
--- NOTE | 2019-01-14 07:44 | PN ---
Physical Exam: SUBJECTIVE: Patient seen and examined. Intubated and sedated. Overnight went to OR for ischemic R foot. OBJECTIVE: Vital Signs Period Temp Pulse Resp BP Sys/Dominguez Pulse Ox Last 24 Hr 98.5 F-102.1 F 106-125 16-27 80-156/54-83 94-100 GENERAL: A&Ox0, intubated and sedated EYES: PERRLA ENT: Moist mucus membranes, ET tube in place NECK: No JVD LUNGS: CTA, mechanical breath sounds HEART: tachycardic, no murmurs ABDOMEN: Soft but mildly enlarged MUSCULOSKELETAL: No CVA Tenderness EXTREMITIES: 1+ pulse on L, unable to feel PT or DP pulses on R leg, leg is cold up to mid calf. NEUROLOGICAL: Cranial nerves II-XII intact. Laboratory Results - last 24 hr 01/13/19 01/13/19 01/13/19 05:10 11:42 13:30 WBC RBC Hgb Hct MCV MCH MCHC RDW Plt Count MPV Absolute Neuts (auto) Neutrophils % Lymphocytes % Monocytes % Eosinophils % Basophils % Nucleated RBC % PT with INR 14.30 H INR 1.21 H PTT (Actin FS) 78.0 H 67.9 H POC Glucometer 190 01/13/19 01/13/19 01/13/19 13:30 18:09 21:15 WBC RBC Hgb Hct MCV MCH MCHC RDW Plt Count MPV Absolute Neuts (auto) Neutrophils % Lymphocytes % Monocytes % Eosinophils % Basophils % Nucleated RBC % PT with INR Cancelled INR Cancelled PTT (Actin FS) POC Glucometer 198 219 01/13/19 01/14/19 01/14/19 21:25 05:30 05:30 WBC 18.3 H RBC 3.82 Hgb 11.8 Hct 35.3 D MCV 92.3 MCH 30.8 MCHC 33.4 RDW 13.9 Plt Count 210 MPV 9.8 Absolute Neuts (auto) 16.9 H Neutrophils % 92.2 H Lymphocytes % 3.5 L D Monocytes % 4.2 Eosinophils % 0.0 D Basophils % 0.1 Nucleated RBC % 0 PT with INR INR PTT (Actin FS) 140.1 H 69.2 H POC Glucometer 01/14/19 05:42 WBC RBC Hgb Hct MCV MCH MCHC RDW Plt Count MPV Absolute Neuts (auto) Neutrophils % Lymphocytes % Monocytes % Eosinophils % Basophils % Nucleated RBC % PT with INR INR PTT (Actin FS) POC Glucometer 143 Active Medications Generic Name Dose Route Start Last Admin Trade Name Freq PRN Reason Stop Dose Admin Acetaminophen 1,000 mg 01/13/19 10:22 01/14/19 06:35 Ofirmev Injection - IVPB 1,000 mg Q6H PRN Administration PAIN Chlorhexidine Gluconate 1 applic 01/11/19 22:00 01/13/19 21:11 Hibiclens For Decolonization - TP 1 applic HS HAY Administration Fentanyl 50 mcg 01/13/19 13:54 Sublimaze Injection - IVPUSH [id number] PRN PAIN-PACU ORDER X 4 DOSES ONLY Heparin Sodium (Porcine) 1,000 unit 01/13/19 16:57 Heparin - IVPUSH PRN PRN Heparin Heparin Sodium (Porcine) 5,000 unit 01/13/19 16:57 Heparin - IVPUSH PRN PRN Heparin Piperacillin Sod/Tazobactam 50 mls @ 100 mls/hr 01/12/19 11:45 01/14/19 01:05 Sod 2.25 gm/ Dextrose IVPB 100 mls/hr Q8H-IV HAY Administration Protocol Sodium Chloride 1,000 mls @ 100 mls/hr 01/13/19 14:00 01/13/19 13:59 Normal Saline - IV 100 mls/hr ASDIR HAY Administration HEPARIN SOD,PORK IN 0.45% NACL 25,000 units in 500 mls @ 20 mls/hr 01/13/19 17 :00 01/13/19 23:00 Heparin-1/2ns 25,000 Units/500 IVPB 850 units/hr TITR HAY 17 mls/hr Titration Protocol 1,000 UNITS/HR Midazolam HCl 100 mg/ Sodium 100 mls @ 1 mls/hr 01/13/19 17:15 01/13/19 18:06 Chloride IVPB 1 mg/hr TITR HAY 1 mls/hr Administration Protocol 1 MG/HR Insulin Aspart 1 vial 01/11/19 16:30 01/14/19 06:02 Novolog Vial Sliding Scale - SQ Not Given ACHS HAY Protocol Metoprolol Tartrate 5 mg 01/12/19 10:15 01/14/19 01:06 Lopressor Injection - IVPUSH 5 mg Q4H PRN Administration HYPERTENSION Mupirocin 1 applic 01/11/19 10:00 01/13/19 21:11 Bactroban Ointment (For Decolonization) - NS 01/16/19 09:59 1 applic BID HAY Administration Ondansetron HCl 4 mg 01/13/19 13:54 Zofran Injection IVPUSH Q6H PRN NAUSEA AND/OR VOMITING Pantoprazole Sodium 40 mg 01/13/19 11:15 01/13/19 11:55 Protonix Iv IVPUSH 40 mg DAILY HAY Administration Promethazine HCl 12.5 mg 01/13/19 13:54 Phenergan Injection - IVPUSH Q6H PRN NAUSEA-FOR RESCUE AFTER 15 MIN ASSESSMENT/PLAN: Patient is an 83 year old female who presented for nausea, vomiting and abdominal pain and was found to have acute on chronic renal failure with severe metabolic derangements. Patient admitted to ICU for further monitoring and management. Cardiovascular #Ischemic R foot: possibly from atrial fibrillation the night before -patient went for R leg open thrombectomy -still not completely resolved -intubated and sedated -may go to OR later today #Paroxysmal Atrial Fibrillation vs. Atrial Flutter with RVR -CHADSVASC 6 -Still tachycardic but in sinus -lopressor pushes -Patient started now on Heparin drip #Acute on Chronic Diastolic CHF -Cardiac ECHO shows LV systolic function grossly normal with EF 60-65%. LA borderline dilated. Mild aortic stenosis. -Continue Lasix 40mg IV daily -Daily weights #CAD -Continue ASA 81mg daily #HLD -Continue Rosuvastatin 20mg Neurological #Alzheimer's dementia -Patient is alert, oriented only to self and place. -Monitor for alterations in mental status. ID #Sepsis likely 2/2 R foot ischemic process vs abdominal process -still tachycardic but in sinus -abd pelvis CT done -zosyn day 3, redose vancomycin if random vanc <15 -Continue to monitor vitals Pulmonary -intubated and sedated -CXR negative for congestive changes Gastrointestinal #Acute Cholecystitis - less likely as diagnosis -initially positive on US, negative on HIDA -Protonix 20mg PO daily -General surgery consult (Dr. Mac) appreciated. -Place on NPO Renal #Acute on chronic kidney disease - made slightly worse -Renally dose medications -Avoid nephrotoxic medications -Continue Furosemide 40mg IV daily #Hyperkalemia -improved -Secondary to KATYA on CKD. Patient was recently started on Lisinopril -Lisinopril discontinued -Daily BMP's Prophylaxis -Heparin 5000u subq TID for DVT -Protonix 20mg daily for GI Disposition -Full code Visit type - Emergency Visit Emergency Visit: No - New Patient This patient is new to me today: No - Critical Care Critical Care patient: Yes Total Critical Care Time (in minutes): 40 Critical Care Statement: The care of this patient involved high complexity decision making to prevent further life threatening deterioration of the patient 's condition and/or to evaluate & treat vital organ system(s) failure or risk of failure.
[2019-01-14 08:37] LABS: ALBUMIN 2.1 g/dl (3.4-5.0); ALK PHOS 78 U/L (45-117); ANION GAP 13 MMOL/L (8-16); BILIRUBIN,TOTAL 0.7 mg/dL (0.2-1); BLOOD UREA NITROGEN 61 mg/dL (7-18); CALCIUM 8.2 mg/dL (8.5-10.1); CHLORIDE 112 mmol/L (98-107); CO2 20 mmol/L (21-32); CREATININE 3.6 mg/dL (0.55-1.3); GLUCOSE,RANDOM 143 mg/dL (74-106); MAGNESIUM 1.5 mg/dL (1.8-2.4); PHOSPHOROUS 4.8 mg/dL (2.5-4.9); POTASSIUM 3.7 mmol/L (3.5-5.1); SGOT/AST 114 U/L (15-37); SGPT/ALT 45 U/L (13-61); SODIUM 144 mmol/L (136-145); TOT PROT 5.4 g/dl (6.4-8.2)
--- NOTE | 2019-01-14 08:53 | PN ---
Progress Note (short form) - Note Progress Note: events noted ischemic right leg yesterday open thrombectomy performed yesterday evening remains intubated, sedated fevers overnight Vital Signs Period Temp Pulse Resp BP Sys/Dominguez Pulse Ox Last 24 Hr 98.5 F-102.1 F 106-125 16-28 80-153/54-83 94-100 intubated cor-rrr lungs decreased bs at bases abd soft,nt ext cool right foot CBC, BMP 01/14/19 05:30 01/14/19 05:30 Microbiology 01/12/19 10:00 Blood - Peripheral Venous Blood Culture - Preliminary NO GROWTH OBTAINED AFTER 24 HOURS, INCUBATION TO CONTINUE FOR 4 DAYS. 01/12/19 10:00 Blood - Peripheral Venous Blood Culture - Preliminary NO GROWTH OBTAINED AFTER 24 HOURS, INCUBATION TO CONTINUE FOR 4 DAYS. 01/13/19 08:57 Stool Clostridium difficile Antigen (ZACARIAS) - Final 01/13/19 08:57 Stool Clostridium difficile Toxin Assay - Final 01/11/19 19:15 Stool Clostridium difficile Antigen (ZACARIAS) - Final 01/11/19 19:15 Stool Clostridium difficile Toxin Assay - Final 01/11/19 19:15 Stool Salmonella/Shigella Culture - Preliminary NO ENTERIC PATHOGENS, 24 HOURS, ON PRIMARY PLATES 01/11/19 19:15 Stool Yersinia Culture - Preliminary NO ENTERIC PATHOGENS, 24 HOURS, ON PRIMARY PLATES 01/11/19 19:15 Stool Vibrio Culture - Final NO GROWTH OF VIBRIO SPECIES OBTAINED 01/11/19 19:15 Stool Escherichia coli 0157 Culture - Final NO GROWTH OF E COLI 0157 OBTAINED 01/11/19 03:00 Urine - Urine Clean Catch Urine Culture - Final NO GROWTH OBTAINED a/p fevers-reculture cxray received vancomycin yesterday am, check random level and redose if less then 15 continue zosyn ischemic right leg- s/p open thrombectomy vascular surgery f/u today KATYA- worsening afib- on heparine d/w ICU staff Problem List - Problems (1) Leukocytosis Code(s): D72.829 - ELEVATED WHITE BLOOD CELL COUNT, UNSPECIFIED (2) ARF (acute renal failure) Code(s): N17.9 - ACUTE KIDNEY FAILURE, UNSPECIFIED Qualifiers: Acute renal failure type: unspecified Qualified Code(s): N17.9 - Acute kidney failure, unspecified (3) Diarrhea Code(s): R19.7 - DIARRHEA, UNSPECIFIED (4) Gallstones Code(s): K80.20 - CALCULUS OF GALLBLADDER W/O CHOLECYSTITIS W/O OBSTRUCTION
[2019-01-14] MEDS: PANTOPRAZOLE SODIUM 40 MG VIAL IVPUSH SCH (09:02)
[2019-01-14] MEDS: MUPIROCIN 2% TOPICAL OINTMENT FOR DECOLONIZATION NS SCH ×2 (09:02→21:54)
--- NOTE | 2019-01-14 11:02 | PN ---
Teaching Attending Note Name of Resident: Tyler Tillman ATTENDING PHYSICIAN STATEMENT I saw and evaluated the patient. I reviewed the resident's note and discussed the case with the resident. I agree with the resident's findings and plan as documented. SUBJECTIVE: Patient seen and examined in the ICU. Events noted. Remains intubated and sedated. AC Mode of vent, 50% FiO2. No pressors. POD#1 RLE thrombectomy. RLE remains cool with weak pulse. On IV Heparin. OBJECTIVE: Intake & Output 01/11/19 01/12/19 01/13/19 01/14/19 23:59 23:59 23:59 23:59 Intake Total 494 064 0966 1578 Output Total 5700 3200 1100 500 Balance -5460 -2440 1087 1078 Weight 155 lb 12.8 oz 156 lb 131 lb 7 oz 131 lb 3.2 oz Last Vital Signs Temp Pulse Resp BP Pulse Ox 102 F H 124 H 24 H 114/59 L 99 01/14/19 09:16 01/14/19 09:16 01/14/19 09:16 01/14/19 09:16 01/14/19 08:05 Active Medications Acetaminophen (Ofirmev Injection -) 1,000 mg IVPB Q6H PRN PRN Reason: PAIN Last Admin: 01/14/19 06:35 Dose: 1,000 mg Chlorhexidine Gluconate (Hibiclens For Decolonization -) 1 applic TP HS HAY Last Admin: 01/13/19 21:11 Dose: 1 applic Chlorhexidine Gluconate (Peridex -) 15 ml MM BID [facility] Fentanyl (Sublimaze Injection -) 50 mcg IVPUSH [id number] PRN PRN Reason: PAIN-PACU ORDER X 4 DOSES ONLY Heparin Sodium (Porcine) (Heparin -) 1,000 unit IVPUSH PRN PRN PRN Reason: Heparin Heparin Sodium (Porcine) (Heparin -) 5,000 unit IVPUSH PRN PRN PRN Reason: Heparin Piperacillin Sod/Tazobactam (Sod 2.25 gm/ Dextrose) 50 mls @ 100 mls/hr IVPB Q8H-IV [facility]; Protocol Last Admin: 01/14/19 09:01 Dose: 100 mls/hr Sodium Chloride (Normal Saline -) 1,000 mls @ 100 mls/hr IV ASDIR [facility]AY Last Admin: 01/13/19 13:59 Dose: 100 mls/hr HEPARIN SOD,PORK IN 0.45% NACL (Heparin-1/2ns 25,000 Units/500) 25,000 units in 500 mls @ 20 mls/hr IVPB TITR [facility]; Protocol Last Titration: 01/13/19 23:00 Dose: 850 units/hr, 17 mls/hr Midazolam HCl 100 mg/ Sodium (Chloride) 100 mls @ 1 mls/hr IVPB TITR [facility]; Protocol Last Admin: 01/13/19 18:06 Dose: 1 mg/hr, 1 mls/hr Insulin Aspart (Novolog Vial Sliding Scale -) 1 vial SQ ACHS [facility]; Protocol Last Admin: 01/14/19 06:02 Dose: Not Given Metoprolol Tartrate (Lopressor Injection -) 5 mg IVPUSH Q4H PRN PRN Reason: HYPERTENSION Last Admin: 01/14/19 01:06 Dose: 5 mg Mupirocin (Bactroban Ointment (For Decolonization) -) 1 applic NS BID [facility] Stop: 01/16/19 09:59 Last Admin: 01/14/19 09:02 Dose: 1 applic Ondansetron HCl (Zofran Injection) 4 mg IVPUSH Q6H PRN PRN Reason: NAUSEA AND/OR VOMITING Pantoprazole Sodium (Protonix Iv) 40 mg IVPUSH DAILY [facility] Last Admin: 01/14/19 09:02 Dose: 40 mg Promethazine HCl (Phenergan Injection -) 12.5 mg IVPUSH Q6H PRN PRN Reason: NAUSEA-FOR RESCUE AFTER 15 MIN Gen: Intubated and sedated Heart: irregular, tachycardic Lung: decreased breath sounds at the bases Abd: soft, (+) BS, (+) tenderness to palpation Ext: RLE 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 to touch 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 Laboratory Results - last 24 hr 01/13/19 01/13/19 01/13/19 11:42 13:30 13:30 WBC RBC Hgb Hct MCV MCH MCHC RDW Plt Count MPV Absolute Neuts (auto) Neutrophils % Lymphocytes % Monocytes % Eosinophils % Basophils % Nucleated RBC % PT with INR 14.30 H Cancelled INR 1.21 H Cancelled PTT (Actin FS) 67.9 H Sodium Potassium Chloride Carbon Dioxide Anion Gap BUN Creatinine Creat Clearance w eGFR POC Glucometer 190 Random Glucose Calcium Phosphorus Magnesium Total Bilirubin AST ALT Alkaline Phosphatase Total Protein Albumin 01/13/19 01/13/19 01/13/19 18:09 21:15 21:25 WBC RBC Hgb Hct MCV MCH MCHC RDW Plt Count MPV Absolute Neuts (auto) Neutrophils % Lymphocytes % Monocytes % Eosinophils % Basophils % Nucleated RBC % PT with INR INR PTT (Actin FS) 140.1 H Sodium Potassium Chloride Carbon Dioxide Anion Gap BUN Creatinine Creat Clearance w eGFR POC Glucometer 198 219 Random Glucose Calcium Phosphorus Magnesium Total Bilirubin AST ALT Alkaline Phosphatase Total Protein Albumin 01/14/19 01/14/19 01/14/19 05:30 05:30 05:30 WBC 18.3 H RBC 3.82 Hgb 11.8 Hct 35.3 D MCV 92.3 MCH 30.8 MCHC 33.4 RDW 13.9 Plt Count 210 MPV 9.8 Absolute Neuts (auto) 16.9 H Neutrophils % 92.2 H Lymphocytes % 3.5 L D Monocytes % 4.2 Eosinophils % 0.0 D Basophils % 0.1 Nucleated RBC % 0 PT with INR INR PTT (Actin FS) 69.2 H Sodium 144 Potassium 3.7 Chloride 112 H Carbon Dioxide 20 L Anion Gap 13 BUN 61 H Creatinine 3.6 H Creat Clearance w eGFR 12.05 POC Glucometer Random Glucose 143 H Calcium 8.2 L Phosphorus 4.8 Magnesium 1.5 L Total Bilirubin 0.7 AST 114 H ALT 45 Alkaline Phosphatase 78 Total Protein 5.4 L Albumin 2.1 L 01/14/19 05:42 WBC RBC Hgb Hct MCV MCH MCHC RDW Plt Count MPV Absolute Neuts (auto) Neutrophils % Lymphocytes % Monocytes % Eosinophils % Basophils % Nucleated RBC % PT with INR INR PTT (Actin FS) Sodium Potassium Chloride Carbon Dioxide Anion Gap BUN Creatinine Creat Clearance w eGFR POC Glucometer 143 Random Glucose Calcium Phosphorus Magnesium Total Bilirubin AST ALT Alkaline Phosphatase Total Protein Albumin ASSESSMENT AND PLAN: Acute on Chronic Renal Failure Hyperkalemia improving ?New Onset Atrial Fibrillation with RVR CAD LV Diastolic Dysfunction r/o Small Bowel Resection HTN Hyperlipidemia Alzheimers - f/u official CT A/P - NGT to low wall suction - continue antibiotics - f/u culture - rate control - continue anticoagulation with heparin drip - trend cardiac enzymes, lactate - IVF - monitor urine output, creatinine - surgery f/u - O2 to keep Spo2 >90% - May require re-op - Palliative care evaluation for GOC - Requires continued ICU monitoring Dr Barba Critical care time spent in reviewing chart, evaluating patient and formulating plan 35 min
[2019-01-14 11:05] LABS: ANISOCYTOSIS 0; MACROCYTOSIS 0; PLATELET ESTIMATE NORMAL
[2019-01-14] MEDS: CHLORHEXIDINE GLUCONATE 0.12% 15ML CUP MM SCH ×2 (11:20→21:55)
--- NOTE | 2019-01-14 11:31 | PN ---
Progress Note, Physician Chief Complaint: patient seen and examined in icu s/p open thrombectomy on iv abx - Current Medication List Current Medications: Active Medications Acetaminophen (Ofirmev Injection -) 1,000 mg IVPB Q6H PRN PRN Reason: PAIN Last Admin: 01/14/19 06:35 Dose: 1,000 mg Chlorhexidine Gluconate (Hibiclens For Decolonization -) 1 applic TP HS HAY Last Admin: 01/13/19 21:11 Dose: 1 applic Chlorhexidine Gluconate (Peridex -) 15 ml MM BID [facility] Last Admin: 01/14/19 11:20 Dose: 15 ml Fentanyl (Sublimaze Injection -) 50 mcg IVPUSH [id number] PRN PRN Reason: PAIN-PACU ORDER X 4 DOSES ONLY Heparin Sodium (Porcine) (Heparin -) 1,000 unit IVPUSH PRN PRN PRN Reason: Heparin Heparin Sodium (Porcine) (Heparin -) 5,000 unit IVPUSH PRN PRN PRN Reason: Heparin Piperacillin Sod/Tazobactam (Sod 2.25 gm/ Dextrose) 50 mls @ 100 mls/hr IVPB Q8H-IV [facility]; Protocol Last Admin: 01/14/19 09:01 Dose: 100 mls/hr Sodium Chloride (Normal Saline -) 1,000 mls @ 100 mls/hr IV ASDIR HAY Last Admin: 01/13/19 13:59 Dose: 100 mls/hr HEPARIN SOD,PORK IN 0.45% NACL (Heparin-1/2ns 25,000 Units/500) 25,000 units in 500 mls @ 20 mls/hr IVPB TITR [facility]; Protocol Last Titration: 01/13/19 23:00 Dose: 850 units/hr, 17 mls/hr Midazolam HCl 100 mg/ Sodium (Chloride) 100 mls @ 1 mls/hr IVPB TITR [facility]; Protocol Last Admin: 01/13/19 18:06 Dose: 1 mg/hr, 1 mls/hr Insulin Aspart (Novolog Vial Sliding Scale -) 1 vial SQ ACHS [facility]; Protocol Last Admin: 01/14/19 11:16 Dose: Not Given Metoprolol Tartrate (Lopressor Injection -) 5 mg IVPUSH Q4H PRN PRN Reason: HYPERTENSION Last Admin: 01/14/19 01:06 Dose: 5 mg Mupirocin (Bactroban Ointment (For Decolonization) -) 1 applic NS BID [facility] Stop: 01/16/19 09:59 Last Admin: 01/14/19 09:02 Dose: 1 applic Ondansetron HCl (Zofran Injection) 4 mg IVPUSH Q6H PRN PRN Reason: NAUSEA AND/OR VOMITING Pantoprazole Sodium (Protonix Iv) 40 mg IVPUSH DAILY [facility] Last Admin: 01/14/19 09:02 Dose: 40 mg Promethazine HCl (Phenergan Injection -) 12.5 mg IVPUSH Q6H PRN PRN Reason: NAUSEA-FOR RESCUE AFTER 15 MIN - Objective Vital Signs: Vital Signs Temperature 102 F H 01/14/19 09:16 Pulse Rate 120 H 01/14/19 11:00 Respiratory Rate 28 H 01/14/19 11:00 Blood Pressure 116/67 01/14/19 11:00 O2 Sat by Pulse Oximetry (%) 99 01/14/19 08:05 Constitutional: Yes: Calm HENT: Yes: Other (intubated sedated) Cardiovascular: Yes: Regular Rate and Rhythm, S1, S2 Respiratory: Yes: Mechanically Ventilated Gastrointestinal: Yes: Soft Genitourinary: Yes: Hoskins Present Labs: CBC, BMP 01/14/19 05:30 01/14/19 05:30 INR, PTT INR 1.21 (0.83-1.09) H 01/13/19 13:30 Problem List - Problems (1) Ischemia of right lower extremity Assessment/Plan: s/p open thrombectomy heparin drip Code(s): I99.8 - OTHER DISORDER OF CIRCULATORY SYSTEM (2) Leukocytosis Assessment/Plan: on zosyn got vancomycin yesterday awaiting today vanco level if < 15 brandon give dose Microbiology 01/13/19 08:57 Stool Clostridium difficile Antigen (ZACARIAS) - Final 01/13/19 08:57 Stool Clostridium difficile Toxin Assay - Final ct scan noted for small loop dilatation and possible partial obstruction vs ileus repeat abdominal xray for today surgical eval Code(s): D72.829 - ELEVATED WHITE BLOOD CELL COUNT, UNSPECIFIED (3) Afib Assessment/Plan: BB and iv heparin Code(s): I48.91 - UNSPECIFIED ATRIAL FIBRILLATION Qualifiers: Atrial fibrillation type: persistent Qualified Code(s): I48.1 - Persistent atrial fibrillation
[2019-01-14] MEDS ORDERED: VANCOMYCIN 1 GRAM (PRE-DOCKED) 1,000 MG/250 ML BAG IVPB ONE (13:00)
[2019-01-14] MEDS: SODIUM CHLORIDE 1,000 ML IV SCH (13:01)
--- NOTE | 2019-01-14 15:13 | PN ---
Progress Note, Physician History of Present Illness: Pt seen and examined at bedside. She remains in the ICU. Pt is intubated. - Current Medication List Current Medications: Active Medications Acetaminophen (Ofirmev Injection -) 1,000 mg IVPB Q6H PRN PRN Reason: PAIN Last Admin: 01/14/19 15:01 Dose: 1,000 mg Chlorhexidine Gluconate (Hibiclens For Decolonization -) 1 applic TP HS HAY Last Admin: 01/13/19 21:11 Dose: 1 applic Chlorhexidine Gluconate (Peridex -) 15 ml MM BID [facility] Last Admin: 01/14/19 11:20 Dose: 15 ml Fentanyl (Sublimaze Injection -) 50 mcg IVPUSH [id number] PRN PRN Reason: PAIN-PACU ORDER X 4 DOSES ONLY Heparin Sodium (Porcine) (Heparin -) 1,000 unit IVPUSH PRN PRN PRN Reason: Heparin Heparin Sodium (Porcine) (Heparin -) 5,000 unit IVPUSH PRN PRN PRN Reason: Heparin Piperacillin Sod/Tazobactam (Sod 2.25 gm/ Dextrose) 50 mls @ 100 mls/hr IVPB Q8H-IV [facility]; Protocol Last Admin: 01/14/19 09:01 Dose: 100 mls/hr Sodium Chloride (Normal Saline -) 1,000 mls @ 100 mls/hr IV ASDIR HAY Last Admin: 01/14/19 13:01 Dose: 100 mls/hr HEPARIN SOD,PORK IN 0.45% NACL (Heparin-1/2ns 25,000 Units/500) 25,000 units in 500 mls @ 20 mls/hr IVPB TITR [facility]; Protocol Last Titration: 01/13/19 23:00 Dose: 850 units/hr, 17 mls/hr Midazolam HCl 100 mg/ Sodium (Chloride) 100 mls @ 1 mls/hr IVPB TITR [facility]; Protocol Last Admin: 01/13/19 18:06 Dose: 1 mg/hr, 1 mls/hr Insulin Aspart (Novolog Vial Sliding Scale -) 1 vial SQ ACHS [facility]; Protocol Last Admin: 01/14/19 11:16 Dose: Not Given Metoprolol Tartrate (Lopressor Injection -) 5 mg IVPUSH Q4H PRN PRN Reason: HYPERTENSION Last Admin: 02/18/19 01:06 Dose: 5 mg Mupirocin (Bactroban Ointment (For Decolonization) -) 1 applic NS BID [facility] Stop: 01/16/19 09:59 Last Admin: 01/14/19 09:02 Dose: 1 applic Ondansetron HCl (Zofran Injection) 4 mg IVPUSH Q6H PRN PRN Reason: NAUSEA AND/OR VOMITING Pantoprazole Sodium (Protonix Iv) 40 mg IVPUSH DAILY [facility] Last Admin: 01/14/19 09:02 Dose: 40 mg Promethazine HCl (Phenergan Injection -) 12.5 mg IVPUSH Q6H PRN PRN Reason: NAUSEA-FOR RESCUE AFTER 15 MIN - Objective Vital Signs: Vital Signs Temperature 102.2 F H 01/14/19 15:02 Pulse Rate 124 H 01/14/19 15:02 Respiratory Rate 28 H 01/14/19 15:02 Blood Pressure 122/64 01/14/19 15:02 O2 Sat by Pulse Oximetry (%) 99 01/14/19 08:40 Constitutional: Yes: Calm Eyes: Yes: Conjunctiva Clear HENT: Yes: Atraumatic Cardiovascular: Yes: S1, S2 Respiratory: Yes: Mechanically Ventilated Gastrointestinal: Yes: Soft Genitourinary: Yes: Hoskins Present Extremities: Yes: Other (improved perfusion or right leg) Neurological: Yes: Lethargy Labs: CBC, BMP 01/14/19 05:30 01/14/19 05:30 INR, PTT INR 1.21 (0.83-1.09) H 01/13/19 13:30 - ....Imaging Chest X-ray: Report Reviewed Problem List - Problems (1) ARF (acute renal failure) Code(s): N17.9 - ACUTE KIDNEY FAILURE, UNSPECIFIED Qualifiers: Acute renal failure type: unspecified Qualified Code(s): N17.9 - Acute kidney failure, unspecified (2) KATYA (acute kidney injury) Code(s): N17.9 - ACUTE KIDNEY FAILURE, UNSPECIFIED (3) Afib Code(s): I48.91 - UNSPECIFIED ATRIAL FIBRILLATION Qualifiers: Atrial fibrillation type: persistent Qualified Code(s): I48.1 - Persistent atrial fibrillation (4) Hyperkalemia Code(s): E87.5 - HYPERKALEMIA Assessment/Plan Current Medications Generic Name Dose Route Start Last Admin Trade Name Freq PRN Reason Stop Dose Admin Acetaminophen 1,000 mg 01/13/19 10:22 01/14/19 15:01 Ofirmev Injection - IVPB 1,000 mg Q6H PRN Administration PAIN Chlorhexidine Gluconate 1 applic 01/11/19 22:00 01/13/19 21:11 Hibiclens For Decolonization - TP 1 applic HS HAY Administration Chlorhexidine Gluconate 15 ml 01/14/19 11:00 01/14/19 11:20 Peridex - MM 15 ml BID [facility] Administration Fentanyl 50 mcg 01/13/19 13:54 Sublimaze Injection - IVPUSH [id number] PRN PAIN-PACU ORDER X 4 DOSES ONLY Heparin Sodium (Porcine) 1,000 unit 01/13/19 16:57 Heparin - IVPUSH PRN PRN Heparin Heparin Sodium (Porcine) 5,000 unit 01/13/19 16:57 Heparin - IVPUSH PRN PRN Heparin Piperacillin Sod/Tazobactam 50 mls @ 100 mls/hr 01/12/19 11:45 01/14/19 09:01 Sod 2.25 gm/ Dextrose IVPB 100 mls/hr Q8H-IV [facility] Administration Protocol Sodium Chloride 1,000 mls @ 100 mls/hr 01/13/19 14:00 01/14/19 13:01 Normal Saline - IV 100 mls/hr ASDIR HAY Administration HEPARIN SOD,PORK IN 0.45% NACL 25,000 units in 500 mls @ 20 mls/hr 01/13/19 17 :00 01/13/19 23:00 Heparin-1/2ns 25,000 Units/500 IVPB 850 units/hr TITR [facility] 17 mls/hr Titration Protocol 1,000 UNITS/HR Midazolam HCl 100 mg/ Sodium 100 mls @ 1 mls/hr 01/13/19 17:15 01/13/19 18:06 Chloride IVPB 1 mg/hr TITR [facility] 1 mls/hr Administration Protocol 1 MG/HR Insulin Aspart 1 vial 01/11/19 16:30 01/14/19 11:16 Novolog Vial Sliding Scale - SQ Not Given ACHS [facility] Protocol Metoprolol Tartrate 5 mg 01/12/19 10:15 01/14/19 01:06 Lopressor Injection - IVPUSH 5 mg Q4H PRN Administration HYPERTENSION Mupirocin 1 applic 01/11/19 10:00 01/14/19 09:02 Bactroban Ointment (For Decolonization) - NS 01/16/19 09:59 1 applic BID [facility] Administration Ondansetron HCl 4 mg 01/13/19 13:54 Zofran Injection IVPUSH Q6H PRN NAUSEA AND/OR VOMITING Pantoprazole Sodium 40 mg 01/13/19 11:15 01/14/19 09:02 Protonix Iv IVPUSH 40 mg DAILY [facility] Administration Promethazine HCl 12.5 mg 01/13/19 13:54 Phenergan Injection - IVPUSH Q6H PRN NAUSEA-FOR RESCUE AFTER 15 MIN Impression 1. CKD 2. a-fib 3. hyperkalemia 4. htn 5. CHF 6. dementia 7. cad 8. hld 9. plueral effusions 10. nausea 11. KATYA 12. hyponatremia 13. right leg ischemia 14. resp failure requiring intubation Plan - cont to monitor renal function - caution with fluid as she has heart failure - vashti on hold for now - vent support - monitor renal function
--- NOTE | 2019-01-14 15:22 | PN ---
Progress Note, Physician Chief Complaint: Patient is intubated , on ventilator. NG tube with greenish drainage 350 ml. Abdomen is soft. Right foot cool and mottled. No palpable pulse in right leg. On heparin drip. No pulse / doppler signal in right foot. Vascular surgery , follow up. Prognosis guarded - Current Medication List Current Medications: Active Medications Acetaminophen (Ofirmev Injection -) 1,000 mg IVPB Q6H PRN PRN Reason: PAIN Last Admin: 01/14/19 15:01 Dose: 1,000 mg Chlorhexidine Gluconate (Hibiclens For Decolonization -) 1 applic TP HS [facility] Last Admin: 01/13/19 21:11 Dose: 1 applic Chlorhexidine Gluconate (Peridex -) 15 ml MM BID [facility] Last Admin: 01/14/19 11:20 Dose: 15 ml Fentanyl (Sublimaze Injection -) 50 mcg IVPUSH [id number] PRN PRN Reason: PAIN-PACU ORDER X 4 DOSES ONLY Heparin Sodium (Porcine) (Heparin -) 1,000 unit IVPUSH PRN PRN PRN Reason: Heparin Heparin Sodium (Porcine) (Heparin -) 5,000 unit IVPUSH PRN PRN PRN Reason: Heparin Piperacillin Sod/Tazobactam (Sod 2.25 gm/ Dextrose) 50 mls @ 100 mls/hr IVPB Q8H-IV [facility]; Protocol Last Admin: 01/14/19 09:01 Dose: 100 mls/hr Sodium Chloride (Normal Saline -) 1,000 mls @ 100 mls/hr IV ASDIR [facility] Last Admin: 01/14/19 13:01 Dose: 100 mls/hr HEPARIN SOD,PORK IN 0.45% NACL (Heparin-1/2ns 25,000 Units/500) 25,000 units in 500 mls @ 20 mls/hr IVPB TITR [facility]; Protocol Last Titration: 01/13/19 23:00 Dose: 850 units/hr, 17 mls/hr Midazolam HCl 100 mg/ Sodium (Chloride) 100 mls @ 1 mls/hr IVPB TITR [facility]; Protocol Last Admin: 01/13/19 18:06 Dose: 1 mg/hr, 1 mls/hr Insulin Aspart (Novolog Vial Sliding Scale -) 1 vial SQ ACHS [facility]; Protocol Last Admin: 01/14/19 11:16 Dose: Not Given Metoprolol Tartrate (Lopressor Injection -) 5 mg IVPUSH Q4H PRN PRN Reason: HYPERTENSION Last Admin: 01/14/19 01:06 Dose: 5 mg Mupirocin (Bactroban Ointment (For Decolonization) -) 1 applic NS BID [facility] Stop: 01/16/19 09:59 Last Admin: 01/14/19 09:02 Dose: 1 applic Ondansetron HCl (Zofran Injection) 4 mg IVPUSH Q6H PRN PRN Reason: NAUSEA AND/OR VOMITING Pantoprazole Sodium (Protonix Iv) 40 mg IVPUSH DAILY [facility] Last Admin: 01/14/19 09:02 Dose: 40 mg Promethazine HCl (Phenergan Injection -) 12.5 mg IVPUSH Q6H PRN PRN Reason: NAUSEA-FOR RESCUE AFTER 15 MIN - Objective Vital Signs: Vital Signs Temperature 102.2 F H 01/14/19 15:02 Pulse Rate 124 H 01/14/19 15:02 Respiratory Rate 28 H 01/14/19 15:02 Blood Pressure 122/64 01/14/19 15:02 O2 Sat by Pulse Oximetry (%) 99 01/14/19 08:40 Labs: CBC, BMP 01/14/19 05:30 01/14/19 05:30 INR, PTT INR 1.21 (0.83-1.09) H 01/13/19 13:30 Problem List - Problems (1) Nausea & vomiting Code(s): R11.2 - NAUSEA WITH VOMITING, UNSPECIFIED (2) Gallstones Code(s): K80.20 - CALCULUS OF GALLBLADDER W/O CHOLECYSTITIS W/O OBSTRUCTION (3) Acute on chronic renal failure Code(s): N17.9 - ACUTE KIDNEY FAILURE, UNSPECIFIED; N18.9 - CHRONIC KIDNEY DISEASE, UNSPECIFIED (4) ARF (acute renal failure) Code(s): N17.9 - ACUTE KIDNEY FAILURE, UNSPECIFIED Qualifiers: Acute renal failure type: unspecified Qualified Code(s): N17.9 - Acute kidney failure, unspecified (5) CHF (congestive heart failure) Code(s): I50.9 - HEART FAILURE, UNSPECIFIED Qualifiers: Heart failure type: unspecified Heart failure chronicity: unspecified Qualified Code(s): I50.9 - Heart failure, unspecified
--- NOTE | 2019-01-14 15:29 | PN ---
Progress Note, Physician Chief Complaint: intubated Sinus tachy on tele History of Present Illness: 83 year old female with PMH HTN, CAD, intermittent bradycardia, CHF, Alzheimer' s dementia, KATYA who is s/p recent hospitalization 12/11/18-12/15/18 for CHF, KATYA, hyperkalemia and 12/18-12/21 for fall, urinary retention now presenting with a one day history of poor appetite, nausea, vomiting, diarrhea with lower abdominal cramping. She was found to have significant electrolyte imbalances with severe hyponatremia, Hyperkalemia and Acute kidney injury. BNP was moderately elevated. CXR showed "accentuated pulmonary vasculature". Managed for hyperkalemia in the ICU and also received IV lasix with significant UO. Afib on ekg RLE ischemic limb s/p open thrombectomy - Current Medication List Current Medications: Active Medications Acetaminophen (Ofirmev Injection -) 1,000 mg IVPB Q6H PRN PRN Reason: PAIN Last Admin: 01/14/19 15:01 Dose: 1,000 mg Chlorhexidine Gluconate (Hibiclens For Decolonization -) 1 applic TP HS [facility] Last Admin: 01/13/19 21:11 Dose: 1 applic Chlorhexidine Gluconate (Peridex -) 15 ml MM BID [facility] Last Admin: 01/14/19 11:20 Dose: 15 ml Fentanyl (Sublimaze Injection -) 50 mcg IVPUSH [id number] PRN PRN Reason: PAIN-PACU ORDER X 4 DOSES ONLY Heparin Sodium (Porcine) (Heparin -) 1,000 unit IVPUSH PRN PRN PRN Reason: Heparin Heparin Sodium (Porcine) (Heparin -) 5,000 unit IVPUSH PRN PRN PRN Reason: Heparin Piperacillin Sod/Tazobactam (Sod 2.25 gm/ Dextrose) 50 mls @ 100 mls/hr IVPB Q8H-IV [facility]; Protocol Last Admin: 01/14/19 09:01 Dose: 100 mls/hr Sodium Chloride (Normal Saline -) 1,000 mls @ 100 mls/hr IV ASDIR [facility] Last Admin: 01/14/19 13:01 Dose: 100 mls/hr HEPARIN SOD,PORK IN 0.45% NACL (Heparin-1/2ns 25,000 Units/500) 25,000 units in 500 mls @ 20 mls/hr IVPB TITR [facility]; Protocol Last Titration: 01/13/19 23:00 Dose: 850 units/hr, 17 mls/hr Midazolam HCl 100 mg/ Sodium (Chloride) 100 mls @ 1 mls/hr IVPB TITR [facility]; Protocol Last Admin: 01/13/19 18:06 Dose: 1 mg/hr, 1 mls/hr Insulin Aspart (Novolog Vial Sliding Scale -) 1 vial SQ ACHS [facility]; Protocol Last Admin: 01/14/19 11:16 Dose: Not Given Metoprolol Tartrate (Lopressor Injection -) 5 mg IVPUSH Q4H PRN PRN Reason: HYPERTENSION Last Admin: 01/14/19 01:06 Dose: 5 mg Mupirocin (Bactroban Ointment (For Decolonization) -) 1 applic NS BID [facility] Stop: 01/16/19 09:59 Last Admin: 01/14/19 09:02 Dose: 1 applic Ondansetron HCl (Zofran Injection) 4 mg IVPUSH Q6H PRN PRN Reason: NAUSEA AND/OR VOMITING Pantoprazole Sodium (Protonix Iv) 40 mg IVPUSH DAILY [facility] Last Admin: 01/14/19 09:02 Dose: 40 mg Promethazine HCl (Phenergan Injection -) 12.5 mg IVPUSH Q6H PRN PRN Reason: NAUSEA-FOR RESCUE AFTER 15 MIN - Objective Vital Signs: Vital Signs Temperature 102.2 F H 01/14/19 15:02 Pulse Rate 124 H 01/14/19 15:02 Respiratory Rate 28 H 01/14/19 15:02 Blood Pressure 122/64 01/14/19 15:02 O2 Sat by Pulse Oximetry (%) 99 01/14/19 08:40 Constitutional: Yes: Other (intubated/sedated) Neck: Yes: Supple Cardiovascular: Yes: Tachycardia, S1, S2. No: JVD Respiratory: Yes: CTA Bilaterally Gastrointestinal: Yes: Soft Edema: No (cool RLE with weak pulse) Labs: CBC, BMP 01/14/19 05:30 01/14/19 05:30 INR, PTT INR 1.21 (0.83-1.09) H 01/13/19 13:30 Assessment/Plan 83 year old female with PMH HTN, CAD, intermittent bradycardia, CHF, Alzheimer' s dementia, KATYA who is s/p recent hospitalization 12/11/18-12/15/18 for CHF, KATYA, hyperkalemia and 12/18-12/21 for fall, urinary retention now presenting with a one day history of poor appetite, nausea, vomiting, diarrhea with lower abdominal cramping. She was found to have significant electrolyte imbalances with severe hyponatremia, Hyperkalemia and Acute kidney injury. BNP was moderately elevated. CXR showed "accentuated pulmonary vasculature". Managed for hyperkalemia in the ICU and also received IV lasix with significant UO. Afib on ekg RLE ischemic limb s/p open thrombectomy 1) Afib -anticoagulation given RLE ischemic limb now s/p open thrombectomy and on heparin drip. Continue anticoagulation -Currently in sinus rhythm with sinus tachy on tele -Normal LVEF on echo with no significant valve disease -Monitor lytes and Cr and replete lytes as needed No further cardiac intervention at this time.
[2019-01-14] MEDS: HEPARIN SOD,PORK IN 0.45% NACL 25,000 UNITS/500 ML INFUS.BAG IVPB SCH ×2 (18:06→18:12)
[2019-01-14] MEDS: MIDAZOLAM 100 MG in SODIUM CHLORIDE 100 ML IVPB SCH ×2 (18:07→18:13)
[2019-01-14] MEDS ORDERED: MIDAZOLAM 100 MG/100 ML MG IVPB ONE (18:09)
[2019-01-14] MEDS ORDERED: PT OWN MED DRAWER 7, Y5N ONE (18:10)
[2019-01-14] MEDS: CHLORHEXIDINE GLUCONATE 4% CLEANSER FOR DECOLONIZATION TP SCH (21:55)
[2019-01-15] MEDS ORDERED: PIPERACILLIN/TAZOBACTAM 2.25 GM VIAL IVPB ONE ×2 (02:30→08:35)
[2019-01-15] MEDS ORDERED: DEXTROSE 5%-WATER - 50 ML IVPB ONE ×2 (02:30→08:35)
[2019-01-15] MEDS: PIPERACILLIN/TAZOB 2.25 GM 2.25 GM in DEXTROSE 5%-WATER - 50 ML IVPB SCH ×2 (03:23→09:49)
[2019-01-15 05:48] LABS: HEMATOCRIT 30.6 % (32.4-45.2); HEMOGLOBIN 10.5 GM/dL (10.7-15.3); MCH 31.4 pg (25.7-33.7); MCHC 34.3 g/dl (32.0-36.0); MEAN CELL VOLUME 91.5 fl (80-96); MEAN PLT VOLUME 9.5 fl (7.5-11.1); PLATELET COUNT 170 K/MM3 (134-434); RBC 3.35 M/mm3 (3.60-5.2); RDW 14.2 % (11.6-15.6); WHITE BLOOD COUNT 13.5 K/mm3 (4.0-10.0)
[2019-01-15] MEDS: INSULIN SLIDING SCALE (NOVOLOG) 1 VIAL SQ SCH ×4 (06:24→22:39)
--- NOTE | 2019-01-15 08:00 | PN ---
Physical Exam: SUBJECTIVE: Patient seen and examined at bedside this morning. Patient remains intubated, sedated. Patient noted febrile this morning to 102.2F. Currently in sinus tachycardia on registered nurse cardiac. Goals of care were discussed today with patient's daughter. OBJECTIVE: Vital Signs Period Temp Pulse Resp BP Sys/Dominguez Pulse Ox Last 24 Hr 98.2 F-102.2 F 96-134 18-30 97-124/50-73 99-100 GENERAL: The patient is intubated, sedated. HEENT: Normocephalic, atraumatic. PERRL, sclera anicteric. Neck supple without lymphadenopathy. LUNGS: Mechanical breath sounds equal, clear to auscultation bilaterally. No wheezes, no crackles auscultated. HEART: Tachycardic. S1, S2 auscultated without murmur, rub or gallop. ABDOMEN: Obese. Soft, nontender, nondistended. Hypoactive bowel sounds auscultated X4 quadrants. EXTREMITIES: 1+ radial pulses bilaterally. 1+ left dorsalis pedis pulse. Thready palpable right lower extremity dorsalis pedis pulse, however unable to doppler. NEUROLOGICAL: Patient is sedated. Good muscle tone X4 extremities. SKIN: Right lower extremity slightly cooler than left lower extremity. Right lower extremity surgical site stapled clean, dry, non bleeding, non draining. Laboratory Results - last 24 hr 01/14/19 01/14/19 01/14/19 05:30 05:30 10:20 WBC RBC Hgb Hct MCV MCH MCHC RDW Plt Count MPV Neutrophils % (Manual) 80.0 Band Neutrophils % 10.0 Lymphocytes % (Manual) 4.0 L D Monocytes % (Manual) 5 Eosinophils % (Manual) 0.0 D Basophils % (Manual) 0.0 Myelocytes % (Man) 0 Promyelocytes % (Man) 0 Blast Cells % (Manual) 0 Nucleated RBC % 0 Metamyelocytes 1 D Hypochromia 0 Platelet Estimate Normal Polychromasia 0 Poikilocytosis 0 Anisocytosis 0 Microcytosis 0 Macrocytosis 0 PTT (Actin FS) Sodium 144 Potassium 3.7 Chloride 112 H Carbon Dioxide 20 L Anion Gap 13 BUN 61 H Creatinine 3.6 H Creat Clearance w eGFR 12.05 POC Glucometer Random Glucose 143 H Calcium 8.2 L Phosphorus 4.8 Magnesium 1.5 L Total Bilirubin 0.7 AST 114 H ALT 45 Alkaline Phosphatase 78 Total Protein 5.4 L Albumin 2.1 L Random Vancomycin 9.0 L 01/14/19 01/14/19 01/15/19 11:11 16:11 05:30 WBC RBC Hgb Hct MCV MCH MCHC RDW Plt Count MPV Neutrophils % (Manual) Band Neutrophils % Lymphocytes % (Manual) Monocytes % (Manual) Eosinophils % (Manual) Basophils % (Manual) Myelocytes % (Man) Promyelocytes % (Man) Blast Cells % (Manual) Nucleated RBC % Metamyelocytes Hypochromia Platelet Estimate Polychromasia Poikilocytosis Anisocytosis Microcytosis Macrocytosis PTT (Actin FS) Sodium Potassium Chloride Carbon Dioxide Anion Gap BUN Creatinine Creat Clearance w eGFR POC Glucometer 143 162 Random Glucose Calcium Phosphorus Magnesium Total Bilirubin AST ALT Alkaline Phosphatase Total Protein Albumin Random Vancomycin 25.7 01/15/19 01/15/19 01/15/19 05:30 05:30 05:38 WBC 13.5 H RBC 3.35 L Hgb 10.5 L Hct 30.6 L MCV 91.5 MCH 31.4 MCHC 34.3 RDW 14.2 Plt Count 170 MPV 9.5 Neutrophils % (Manual) Band Neutrophils % Lymphocytes % (Manual) Monocytes % (Manual) Eosinophils % (Manual) Basophils % (Manual) Myelocytes % (Man) Promyelocytes % (Man) Blast Cells % (Manual) Nucleated RBC % Metamyelocytes Hypochromia Platelet Estimate Polychromasia Poikilocytosis Anisocytosis Microcytosis Macrocytosis PTT (Actin FS) 214.2 H Sodium Potassium Chloride Carbon Dioxide Anion Gap BUN Creatinine Creat Clearance w eGFR POC Glucometer 111 Random Glucose Calcium Phosphorus Magnesium Total Bilirubin AST ALT Alkaline Phosphatase Total Protein Albumin Random Vancomycin Active Medications Generic Name Dose Route Start Last Admin Trade Name Freq PRN Reason Stop Dose Admin Acetaminophen 1,000 mg 01/13/19 10:22 01/14/19 15:01 Ofirmev Injection - IVPB 1,000 mg Q6H PRN Administration PAIN Chlorhexidine Gluconate 1 applic 01/11/19 22:00 01/14/19 21:55 Hibiclens For Decolonization - TP 1 applic HS HAY Administration Chlorhexidine Gluconate 15 ml 01/14/19 11:00 01/14/19 21:55 Peridex - MM 15 ml BID HAY Administration Fentanyl 50 mcg 01/13/19 13:54 Sublimaze Injection - IVPUSH [id number] PRN PAIN-PACU ORDER X 4 DOSES ONLY Heparin Sodium (Porcine) 1,000 unit 01/13/19 16:57 Heparin - IVPUSH PRN PRN Heparin Heparin Sodium (Porcine) 5,000 unit 01/13/19 16:57 Heparin - IVPUSH PRN PRN Heparin Piperacillin Sod/Tazobactam 50 mls @ 100 mls/hr 01/12/19 11:45 01/15/19 03:23 Sod 2.25 gm/ Dextrose IVPB 100 mls/hr Q8H-IV HAY Administration Protocol Sodium Chloride 1,000 mls @ 100 mls/hr 01/13/19 14:00 01/14/19 13:01 Normal Saline - IV 100 mls/hr ASDIR HAY Administration HEPARIN SOD,PORK IN 0.45% NACL 25,000 units in 500 mls @ 20 mls/hr 01/13/19 17 :00 01/15/19 06:39 Heparin-1/2ns 25,000 Units/500 IVPB 0 units/hr TITR HAY 0 mls/hr Titration Protocol 1,000 UNITS/HR Midazolam HCl 100 mg/ Sodium 100 mls @ 1 mls/hr 01/13/19 17:15 01/14/19 18:13 Chloride IVPB 2 mg/hr TITR HAY 2 mls/hr Administration Protocol 1 MG/HR Insulin Aspart 1 vial 01/11/19 16:30 01/15/19 06:24 Novolog Vial Sliding Scale - SQ Not Given ACHS [facility] Protocol Metoprolol Tartrate 5 mg 01/12/19 10:15 01/14/19 01:06 Lopressor Injection - IVPUSH 5 mg Q4H PRN Administration HYPERTENSION Mupirocin 1 applic 01/11/19 10:00 01/14/19 21:54 Bactroban Ointment (For Decolonization) - NS 01/16/19 09:59 1 applic BID HAY Administration Ondansetron HCl 4 mg 01/13/19 13:54 Zofran Injection IVPUSH Q6H PRN NAUSEA AND/OR VOMITING Pantoprazole Sodium 40 mg 01/13/19 11:15 01/14/19 09:02 Protonix Iv IVPUSH 40 mg DAILY HAY Administration Promethazine HCl 12.5 mg 01/13/19 13:54 Phenergan Injection - IVPUSH Q6H PRN NAUSEA-FOR RESCUE AFTER 15 MIN ASSESSMENT/PLAN: Patient is am 83 year old female with history of chronic kidney disease, Alzheimer's dementia, hypertension, hyperlipidemia admitted to ICU with metabolic derangement. She is POD #2 s/p open right lower extremity thrombectomy. #Neurological Alzheimer's dementia -Patient is intubated, sedated with Versed drip. -Holding home Donepezil while patient is sedated. #Pulmonary -Patient is intubated, saturating 98% -FiO2 50, Tidal volume 400, Rate 14, PEEP 5 -Maintain oxygen saturation greater than 90% -Chest radiograph shows possible developing right lower lobe processes. #Cardiovascular -Patient has been in sinus tachycardia overnight. Prior Afib/ A flutter noted. -Patient is on Heparin drip (began 01/12) -Patient started on Levophed today to maintain MAP at 65 -CVP monitoring -Cardiac ECHO shows LV systolic function grossly normal with EF 60-65%. LA borderline dilated. Mild aortic stenosis. -Cardiology recommendations appreciated. Coronary artery disease -Aspirin 81mg PO daily -Crestor 20mg PO daily #Gastrointestinal -Right upper quadrant US shows gallbladder wall thickening, and choleliths concerning for acute cholecystitis, without CBD dilation -Repeat CT abdomen, pelvis shows no obstruction. Dilated ileal bowel loops concerning for enteritis. Cholelithiasis noted. -HIDA scan negative for obstruction -Stool culture negative for growth X2. Stool negative for C. difficle -General surgery consult (Dr. Mac) appreciated. -GI consult (Dr. Chávez) appreciated. -Protonix 40mg IV daily -NPO while intubated #Renal Acute on chronic kidney disease -Discussed with nephrology. Likely prerenal, secondary to hypotension -Considering initiating hemodialysis tomorrow. -Monitor barnard catheter output. 200mL clear yellow urine overnight -Nephrology consult (Dr. Coley) appreciated -Follow BMP ID -Chest radiograph shows developing process within right lower lobe -ID consult appreciated. -Vancomycin level supratherapeutic at 25. Holding Vancomycin, and repeat level tomorrow. -Discontinue Zosyn, begin Meropenem. -Follow lactic acid FEN -IV fluid bolus 500cc -Follow CMP -NPO while intubated Lines/ Tubes/ Drains -Barnard catheter placed 01/11 -Nasogastric tube placed 01/13 -Central venous catheter placed 01/15 Prophylaxis -Patient is on Heparin drip Disposition -Continue care in ICU. Code status: Patient is FULL CODE. Visit type - Emergency Visit Emergency Visit: Yes ED Registration Date: 01/11/19 Care time: The patient presented to the Emergency Department on the above date and was hospitalized for further evaluation of their emergent condition. - New Patient This patient is new to me today: No - Critical Care Critical Care patient: Yes Total Critical Care Time (in minutes): 35 Critical Care Statement: The care of this patient involved high complexity decision making to prevent further life threatening deterioration of the patient 's condition and/or to evaluate & treat vital organ system(s) failure or risk of failure. - Discharge Referral Referred to [facility] No
[2019-01-15] MEDS ORDERED: ACETAMINOPHEN 1000 MG/100 ML VIAL (NON FORMULARY) IVPB ONE (09:00)
--- NOTE | 2019-01-15 09:14 | PN ---
GI Progress Note Subjective: Patient is non-verbal on mechanical vent. Patient spiked fever this morning 102.2F, WBC noted to be trending down from 18.3 to 13.5. Abdominal Xray shows abdominal distention with contrast seen in the colon including splenic flexure, left colon and rectosigmoid colon, some contrast in the hepatic flexure and right colon, free air not seen, no sign of an obstruction. NGT noted with 100cc output of thick, dark bilious fluid. As per RN patient had BM this morning, no reports of nausea, vomiting, diarrhea, rectal bleeding, melena. - Objective Vital Signs: Vital Signs Temperature 102.2 F H 01/15/19 08:00 Pulse Rate 136 H 01/15/19 08:00 Respiratory Rate 26 H 01/15/19 08:00 Blood Pressure 130/50 L 01/15/19 08:00 O2 Sat by Pulse Oximetry (%) 99 01/15/19 08:00 Constitutional: Moderate Distress Cardiovascular: Yes: Tachycardia Respiratory: Yes: Mechanically Ventilated, Rhonchi Gastrointestinal Inspection: Yes: Distention. No: WNL, Ascites, Hernia, Scars, Other ...Auscultate: Yes: Hypoactive Bowel Sounds. No: Normoactive Bowel Sounds, Hyperactive Bowel Sounds, No Bowel Sounds, Other ...Palpate: Yes: Tenderness (RLQ) ...Percussion: Yes: Other (high tympany). No: Dullness, Fluid Wave, Tympanitic Extremities: Yes: Cold (RLE) Neurological: Yes: Other (sedated on mechanical vent) Labs: CBC, BMP 01/15/19 05:30 INR, PTT INR 1.21 (0.83-1.09) H 01/13/19 13:30 Home Medication List Medication Instructions Recorded Confirmed Type Aspirin [Ecotrin] 81 mg PO DAILY 03/13/15 01/11/19 History Amlodipine Besylate 5 mg PO DAILY 01/11/19 01/11/19 History Lisinopril 10 mg PO DAILY 01/11/19 01/11/19 History Rosuvastatin Calcium [Crestor] 20 mg PO DAILY 01/11/19 01/11/19 History Active Medications Generic Name Dose Route Start Last Admin Trade Name Freq PRN Reason Stop Dose Admin Acetaminophen 1,000 mg 01/13/19 10:22 02/18/19 15:01 Ofirmev Injection - IVPB 1,000 mg Q6H PRN Administration PAIN Chlorhexidine Gluconate 1 applic 01/11/19 22:00 01/14/19 21:55 Hibiclens For Decolonization - TP 1 applic HS HAY Administration Chlorhexidine Gluconate 15 ml 01/14/19 11:00 01/14/19 21:55 Peridex - MM 15 ml BID HAY Administration Fentanyl 50 mcg 01/13/19 13:54 Sublimaze Injection - IVPUSH [id number] PRN PAIN-PACU ORDER X 4 DOSES ONLY Heparin Sodium (Porcine) 1,000 unit 01/13/19 16:57 Heparin - IVPUSH PRN PRN Heparin Heparin Sodium (Porcine) 5,000 unit 01/13/19 16:57 Heparin - IVPUSH PRN PRN Heparin Piperacillin Sod/Tazobactam 50 mls @ 100 mls/hr 01/12/19 11:45 01/15/19 03:23 Sod 2.25 gm/ Dextrose IVPB 100 mls/hr Q8H-IV HAY Administration Protocol Sodium Chloride 1,000 mls @ 100 mls/hr 01/13/19 14:00 01/14/19 13:01 Normal Saline - IV 100 mls/hr ASDIR HAY Administration HEPARIN SOD,PORK IN 0.45% NACL 25,000 units in 500 mls @ 20 mls/hr 01/13/19 17 :00 01/15/19 07:40 Heparin-1/2ns 25,000 Units/500 IVPB 550 units/hr TITR HAY 11 mls/hr Titration Protocol 1,000 UNITS/HR Midazolam HCl 100 mg/ Sodium 100 mls @ 1 mls/hr 01/13/19 17:15 01/15/19 07:00 Chloride IVPB 1 mg/hr TITR HAY 1 mls/hr Titration Protocol 1 MG/HR Insulin Aspart 1 vial 01/11/19 16:30 01/15/19 06:24 Novolog Vial Sliding Scale - SQ Not Given ACHS [facility] Protocol Metoprolol Tartrate 5 mg 01/12/19 10:15 01/14/19 01:06 Lopressor Injection - IVPUSH 5 mg Q4H PRN Administration HYPERTENSION Mupirocin 1 applic 01/11/19 10:00 01/14/19 21:54 Bactroban Ointment (For Decolonization) - NS 02/20/19 09:59 1 applic BID HAY Administration Ondansetron HCl 4 mg 01/13/19 13:54 Zofran Injection IVPUSH Q6H PRN NAUSEA AND/OR VOMITING Pantoprazole Sodium 40 mg 01/13/19 11:15 01/14/19 09:02 Protonix Iv IVPUSH 40 mg DAILY HAY Administration Promethazine HCl 12.5 mg 01/13/19 13:54 Phenergan Injection - IVPUSH Q6H PRN NAUSEA-FOR RESCUE AFTER 15 MIN Problem List - Problems (1) Ileus Assessment/Plan: > Ileus, R/O underlying mesenteric ischemia R> continue IVF hydration >continue antibiotic therapy >surgery consult Code(s): K56.7 - ILEUS, UNSPECIFIED
--- NOTE | 2019-01-15 09:17 | PN ---
Progress Note, Physician - Current Medication List Current Medications: Active Medications Acetaminophen (Ofirmev Injection -) 1,000 mg IVPB Q6H PRN PRN Reason: PAIN Last Admin: 01/14/19 15:01 Dose: 1,000 mg Chlorhexidine Gluconate (Hibiclens For Decolonization -) 1 applic TP HS HAY Last Admin: 01/14/19 21:55 Dose: 1 applic Chlorhexidine Gluconate (Peridex -) 15 ml MM BID HAY Last Admin: 01/14/19 21:55 Dose: 15 ml Fentanyl (Sublimaze Injection -) 50 mcg IVPUSH [id number] PRN PRN Reason: PAIN-PACU ORDER X 4 DOSES ONLY Heparin Sodium (Porcine) (Heparin -) 1,000 unit IVPUSH PRN PRN PRN Reason: Heparin Heparin Sodium (Porcine) (Heparin -) 5,000 unit IVPUSH PRN PRN PRN Reason: Heparin Piperacillin Sod/Tazobactam (Sod 2.25 gm/ Dextrose) 50 mls @ 100 mls/hr IVPB Q8H-IV [facility]AY; Protocol Last Admin: 01/15/19 03:23 Dose: 100 mls/hr Sodium Chloride (Normal Saline -) 1,000 mls @ 100 mls/hr IV ASDIR HAY Last Admin: 01/14/19 13:01 Dose: 100 mls/hr HEPARIN SOD,PORK IN 0.45% NACL (Heparin-1/2ns 25,000 Units/500) 25,000 units in 500 mls @ 20 mls/hr IVPB TITR HAY; Protocol Last Titration: 01/15/19 07:40 Dose: 550 units/hr, 11 mls/hr Midazolam HCl 100 mg/ Sodium (Chloride) 100 mls @ 1 mls/hr IVPB TITR HAY; Protocol Last Titration: 01/15/19 07:00 Dose: 1 mg/hr, 1 mls/hr Insulin Aspart (Novolog Vial Sliding Scale -) 1 vial SQ ACHS [facility]; Protocol Last Admin: 01/15/19 06:24 Dose: Not Given Metoprolol Tartrate (Lopressor Injection -) 5 mg IVPUSH Q4H PRN PRN Reason: HYPERTENSION Last Admin: 01/14/19 01:06 Dose: 5 mg Mupirocin (Bactroban Ointment (For Decolonization) -) 1 applic NS BID [facility] Stop: 01/16/19 09:59 Last Admin: 01/14/19 21:54 Dose: 1 applic Ondansetron HCl (Zofran Injection) 4 mg IVPUSH Q6H PRN PRN Reason: NAUSEA AND/OR VOMITING Pantoprazole Sodium (Protonix Iv) 40 mg IVPUSH DAILY [facility] Last Admin: 01/14/19 09:02 Dose: 40 mg Promethazine HCl (Phenergan Injection -) 12.5 mg IVPUSH Q6H PRN PRN Reason: NAUSEA-FOR RESCUE AFTER 15 MIN - Objective Vital Signs: Vital Signs Temperature 102.2 F H 01/15/19 08:00 Pulse Rate 136 H 01/15/19 08:00 Respiratory Rate 26 H 01/15/19 08:00 Blood Pressure 130/50 L 01/15/19 08:00 O2 Sat by Pulse Oximetry (%) 99 01/15/19 08:00 Cardiovascular: Yes: Tachycardia, S1, S2 Respiratory: Yes: Mechanically Ventilated Gastrointestinal: Yes: Normal Bowel Sounds, Soft Extremities: Yes: Other (right leg cool) Labs: CBC, BMP 01/15/19 05:30 INR, PTT INR 1.21 (0.83-1.09) H 01/13/19 13:30 Problem List - Problems (1) Sepsis Assessment/Plan: IV ABX CULTURES ID ON CASE IVF Code(s): A41.9 - SEPSIS, UNSPECIFIED ORGANISM (2) Pneumonia Assessment/Plan: ABOVE Code(s): J18.9 - PNEUMONIA, UNSPECIFIED ORGANISM (3) Acute on chronic renal failure Assessment/Plan: IVF MONITOR Code(s): N17.9 - ACUTE KIDNEY FAILURE, UNSPECIFIED; N18.9 - CHRONIC KIDNEY DISEASE, UNSPECIFIED (4) Ischemia of right lower extremity Assessment/Plan: ARTERIAL FLOW VASCULAR FOLLOW UP Code(s): I99.8 - OTHER DISORDER OF CIRCULATORY SYSTEM (5) Paroxysmal A-fib Assessment/Plan: CARDIO ON BOARD FOLLOW RATE NOW IN SINUS ON HEPARIN Code(s): I48.0 - PAROXYSMAL ATRIAL FIBRILLATION
[2019-01-15] MEDS ORDERED: PT OWN MED DRAWER 7, Y5N ONE ×2 (09:39→20:05)
[2019-01-15] MEDS: PANTOPRAZOLE SODIUM 40 MG VIAL IVPUSH SCH (09:48)
[2019-01-15] MEDS: CHLORHEXIDINE GLUCONATE 0.12% 15ML CUP MM SCH ×2 (09:49→21:32)
[2019-01-15] MEDS: SODIUM CHLORIDE 1,000 ML IV SCH ×2 (09:50→14:00)
[2019-01-15] MEDS: MUPIROCIN 2% TOPICAL OINTMENT FOR DECOLONIZATION NS SCH ×2 (09:55→21:31)
[2019-01-15 09:56] LABS: ARTERIAL BLD GAS O2 SATURATION 96.8 % (90-98.9); ARTERIAL BLOOD GAS BASE EXCESS -7.8 meq/l (-2-2); ARTERIAL BLOOD GAS PO2 90.6 mmHg (68-100); ARTERIAL BLOOD GAS pH 7.46 (7.35-7.45)
[2019-01-15 10:21] LABS: ALBUMIN 1.6 g/dl (3.4-5.0); ALK PHOS 76 U/L (45-117); ANION GAP 16 MMOL/L (8-16); BILIRUBIN,TOTAL 0.7 mg/dL (0.2-1); BLOOD UREA NITROGEN 74 mg/dL (7-18); CALCIUM 7.6 mg/dL (8.5-10.1); CHLORIDE 115 mmol/L (98-107); CO2 14 mmol/L (21-32); CREATININE 5.3 mg/dL (0.55-1.3); GLUCOSE,RANDOM 108 mg/dL (74-106); POTASSIUM 4.1 mmol/L (3.5-5.1); SGOT/AST 157 U/L (15-37); SGPT/ALT 54 U/L (13-61); SODIUM 144 mmol/L (136-145); TOT PROT 4.9 g/dl (6.4-8.2)
--- NOTE | 2019-01-15 10:56 | PN ---
Progress Note, Physician - Current Medication List Current Medications: Active Medications Acetaminophen (Ofirmev Injection -) 1,000 mg IVPB Q6H PRN PRN Reason: PAIN Last Admin: 01/14/19 15:01 Dose: 1,000 mg Chlorhexidine Gluconate (Hibiclens For Decolonization -) 1 applic TP HS HAY Last Admin: 01/14/19 21:55 Dose: 1 applic Chlorhexidine Gluconate (Peridex -) 15 ml MM BID HAY Last Admin: 01/15/19 09:49 Dose: 15 ml Fentanyl (Sublimaze Injection -) 50 mcg IVPUSH [id number] PRN PRN Reason: PAIN-PACU ORDER X 4 DOSES ONLY Heparin Sodium (Porcine) (Heparin -) 1,000 unit IVPUSH PRN PRN PRN Reason: Heparin Heparin Sodium (Porcine) (Heparin -) 5,000 unit IVPUSH PRN PRN PRN Reason: Heparin Piperacillin Sod/Tazobactam (Sod 2.25 gm/ Dextrose) 50 mls @ 100 mls/hr IVPB Q8H-IV [facility]; Protocol Last Admin: 01/15/19 09:49 Dose: 100 mls/hr Sodium Chloride (Normal Saline -) 1,000 mls @ 100 mls/hr IV ASDIR HAY Last Admin: 01/15/19 09:50 Dose: 100 mls/hr HEPARIN SOD,PORK IN 0.45% NACL (Heparin-1/2ns 25,000 Units/500) 25,000 units in 500 mls @ 20 mls/hr IVPB TITR HAY; Protocol Last Titration: 01/15/19 07:40 Dose: 550 units/hr, 11 mls/hr Midazolam HCl 100 mg/ Sodium (Chloride) 100 mls @ 1 mls/hr IVPB TITR HAY; Protocol Last Titration: 01/15/19 07:00 Dose: 1 mg/hr, 1 mls/hr Insulin Aspart (Novolog Vial Sliding Scale -) 1 vial SQ ACHS [facility]; Protocol Last Admin: 01/15/19 10:32 Dose: Not Given Metoprolol Tartrate (Lopressor Injection -) 5 mg IVPUSH Q4H PRN PRN Reason: HYPERTENSION Last Admin: 01/14/19 01:06 Dose: 5 mg Mupirocin (Bactroban Ointment (For Decolonization) -) 1 applic NS BID [facility] Stop: 01/16/19 09:59 Last Admin: 01/15/19 09:55 Dose: 1 applic Ondansetron HCl (Zofran Injection) 4 mg IVPUSH Q6H PRN PRN Reason: NAUSEA AND/OR VOMITING Pantoprazole Sodium (Protonix Iv) 40 mg IVPUSH DAILY [facility] Last Admin: 01/15/19 09:48 Dose: 40 mg Promethazine HCl (Phenergan Injection -) 12.5 mg IVPUSH Q6H PRN PRN Reason: NAUSEA-FOR RESCUE AFTER 15 MIN - Objective Vital Signs: Vital Signs Temperature 101.9 F H 01/15/19 10:00 Pulse Rate 133 H 01/15/19 10:00 Respiratory Rate 31 H 01/15/19 10:00 Blood Pressure 101/62 01/15/19 10:00 O2 Sat by Pulse Oximetry (%) 99 01/15/19 09:28 Labs: CBC, BMP 01/15/19 05:30 01/15/19 05:30 INR, PTT INR 1.21 (0.83-1.09) H 01/13/19 13:30 Problem List - Problems (1) Nausea & vomiting Code(s): R11.2 - NAUSEA WITH VOMITING, UNSPECIFIED (2) Gallstones Code(s): K80.20 - CALCULUS OF GALLBLADDER W/O CHOLECYSTITIS W/O OBSTRUCTION (3) Acute on chronic renal failure Code(s): N17.9 - ACUTE KIDNEY FAILURE, UNSPECIFIED; N18.9 - CHRONIC KIDNEY DISEASE, UNSPECIFIED (4) ARF (acute renal failure) Code(s): N17.9 - ACUTE KIDNEY FAILURE, UNSPECIFIED Qualifiers: Acute renal failure type: unspecified Qualified Code(s): N17.9 - Acute kidney failure, unspecified (5) CHF (congestive heart failure) Code(s): I50.9 - HEART FAILURE, UNSPECIFIED Qualifiers: Heart failure type: unspecified Heart failure chronicity: unspecified Qualified Code(s): I50.9 - Heart failure, unspecified Assessment/Plan Patient remains intubated , abdomen is soft , right foot and leg is still cool , No intestinal obstruction , atrial fibrillation with embolic episodes. S/P thromboembolectomy of iliac vessels, by vascular service. reconsult as needed. Gastric drainage only 100 ml . greenish. Has had a bowel movement.
[2019-01-15 11:30] LABS: ARTERIAL BLD GAS O2 SATURATION 98.3 % (90-98.9); ARTERIAL BLOOD GAS BASE EXCESS -9.6 meq/l (-2-2); ARTERIAL BLOOD GAS pH 7.45 (7.35-7.45)
--- NOTE | 2019-01-15 11:30 | PN ---
Progress Note, Physician Chief Complaint: The patient remains intubated and sedated. Persistent sinus tachycardia on tele and tachypnea. History of Present Illness: 83 year old year-old woman with a PMHx of HTN, CAD, intermittent bradycardia, CHF, Alzheimer's dementia, KATYA who was recent hospitalized 12/11/18-12/15/18 for CHF, KATYA, hyperkalemia and 12/18-12/21 for fall, urinary retention readmitted with a one day history of poor appetite, nausea, vomiting, diarrhea with lower abdominal cramping. She was found to have significant electrolyte imbalances with severe hyponatremia, Hyperkalemia and Acute kidney injury. BNP was moderately elevated. CXR showed "accentuated pulmonary vasculature". Managed for hyperkalemia in the ICU and also received IV lasix with significant UO. Afib on ECG. Tele shows sinus and sinus tachycardia. RLE ischemic limb s/p open thrombectomy 01/15/2019: Fever, persistent sinus tachycardia and tachypnea. CXR 01/15/2019 showed new RLL pna. - Current Medication List Current Medications: Active Medications Acetaminophen (Ofirmev Injection -) 1,000 mg IVPB Q6H PRN PRN Reason: PAIN Last Admin: 01/14/19 15:01 Dose: 1,000 mg Chlorhexidine Gluconate (Hibiclens For Decolonization -) 1 applic TP HS [facility] Last Admin: 01/14/19 21:55 Dose: 1 applic Chlorhexidine Gluconate (Peridex -) 15 ml MM BID [facility] Last Admin: 01/15/19 09:49 Dose: 15 ml Fentanyl (Sublimaze Injection -) 50 mcg IVPUSH [id number] PRN PRN Reason: PAIN-PACU ORDER X 4 DOSES ONLY Heparin Sodium (Porcine) (Heparin -) 1,000 unit IVPUSH PRN PRN PRN Reason: Heparin Heparin Sodium (Porcine) (Heparin -) 5,000 unit IVPUSH PRN PRN PRN Reason: Heparin Piperacillin Sod/Tazobactam (Sod 2.25 gm/ Dextrose) 50 mls @ 100 mls/hr IVPB Q8H-IV [facility]; Protocol Last Admin: 01/15/19 09:49 Dose: 100 mls/hr Sodium Chloride (Normal Saline -) 1,000 mls @ 100 mls/hr IV ASDIR [facility] Last Admin: 01/15/19 09:50 Dose: 100 mls/hr HEPARIN SOD,PORK IN 0.45% NACL (Heparin-1/2ns 25,000 Units/500) 25,000 units in 500 mls @ 20 mls/hr IVPB TITR [facility]; Protocol Last Titration: 01/15/19 07:40 Dose: 550 units/hr, 11 mls/hr Midazolam HCl 100 mg/ Sodium (Chloride) 100 mls @ 1 mls/hr IVPB TITR [facility]; Protocol Last Titration: 01/15/19 07:00 Dose: 1 mg/hr, 1 mls/hr Insulin Aspart (Novolog Vial Sliding Scale -) 1 vial SQ ACHS [facility]; Protocol Last Admin: 01/15/19 10:32 Dose: Not Given Metoprolol Tartrate (Lopressor Injection -) 5 mg IVPUSH Q4H PRN PRN Reason: HYPERTENSION Last Admin: 01/14/19 01:06 Dose: 5 mg Mupirocin (Bactroban Ointment (For Decolonization) -) 1 applic NS BID [facility] Stop: 01/16/19 09:59 Last Admin: 01/15/19 09:55 Dose: 1 applic Ondansetron HCl (Zofran Injection) 4 mg IVPUSH Q6H PRN PRN Reason: NAUSEA AND/OR VOMITING Pantoprazole Sodium (Protonix Iv) 40 mg IVPUSH DAILY [facility] Last Admin: 01/15/19 09:48 Dose: 40 mg Promethazine HCl (Phenergan Injection -) 12.5 mg IVPUSH Q6H PRN PRN Reason: NAUSEA-FOR RESCUE AFTER 15 MIN - Objective Vital Signs: Vital Signs Temperature 101.9 F H 01/15/19 10:00 Pulse Rate 133 H 01/15/19 10:00 Respiratory Rate 31 H 01/15/19 10:00 Blood Pressure 101/62 01/15/19 10:00 O2 Sat by Pulse Oximetry (%) 99 01/15/19 09:28 General: Well developed. Sedated and intubated. Head: Normocephalic. Atraumatic, Heart: S1, S2: Regular rhythm and tachycardia. Lungs: Symmetrical vent BS. Abdomen: Soft. Bowel sound positive. Extremities: Right LE cold No edema. No clubbing or cyanosis. Labs: CBC, BMP 01/15/19 05:30 01/15/19 05:30 INR, PTT INR 1.21 (0.83-1.09) H 01/13/19 13:30 Assessment/Plan 83 year old year-old woman with a PMHx of HTN, CAD, intermittent bradycardia, CHF, Alzheimer's dementia, KATYA who was recent hospitalized 12/11/18-12/15/18 for CHF, KATYA, hyperkalemia and 12/18-12/21 for fall, urinary retention readmitted with a one day history of poor appetite, nausea, vomiting, diarrhea with lower abdominal cramping. She was found to have significant electrolyte imbalances with severe hyponatremia, Hyperkalemia and Acute kidney injury. BNP was moderately elevated. CXR showed "accentuated pulmonary vasculature". Managed for hyperkalemia in the ICU and also received IV lasix with significant UO. Afib on ECG. Tele shows sinus and sinus tachycardia. RLE ischemic limb s/p open thrombectomy 01/15/2019: Fever, persistent sinus tachycardia and tachypnea. CXR 01/15/2019 showed new RLL pna. 1) Paroxysmal atrial fibrillation. In sinus with tachycardia in the setting of possible sepsis. -Would continue anticoagulation with IV heparin given RLE ischemic limb now s/p open thrombectomy. -Normal LVEF on echo with no significant valve disease -Monitor lytes and Cr and replete lytes as needed -Respiratory and possbile hemodynamic support as per ICU team. No further cardiac intervention at this time. Please call us for reconsult as needed.
[2019-01-15 11:36] LABS: ALLENS TEST POSITIVE
[2019-01-15 11:38] LABS: ARTERIAL BLOOD GAS PCO2 18.8 mmHg (35-45)
--- NOTE | 2019-01-15 12:05 | PN ---
Teaching Attending Note Name of Resident: Cm Willard ATTENDING PHYSICIAN STATEMENT I saw and evaluated the patient. I reviewed the resident's note and discussed the case with the resident. I agree with the resident's findings and plan as documented. SUBJECTIVE: Patient seen and examined in the ICU. Remains intubated and sedated. AC Mode of vent, 50% FiO2. No pressors. Noted difficulties in obtaining doppler pulse in the RLE. D/W vascular. Feels pathology was related to emboli disease. Large embolus removed and the residual areas of low doppler pulse are related to small embolic disease that will improve continued anticoagulation. OBJECTIVE: Intake & Output 01/12/19 01/13/19 01/14/19 01/15/19 23:59 23:59 23:59 23:59 Intake Total 760 2187 4707.8 Output Total 3200 1100 900 200 Balance -2440 1087 3807.8 -200 Weight 156 lb 131 lb 7 oz 131 lb 3.2 oz 140 lb 14.4 oz Last Vital Signs Temp Pulse Resp BP Pulse Ox 101.9 F H 133 H 30 H 101/62 99 01/15/19 10:00 01/15/19 10:00 01/15/19 11:20 01/15/19 10:00 01/15/19 09:28 Active Medications Acetaminophen (Ofirmev Injection -) 1,000 mg IVPB Q6H PRN PRN Reason: PAIN Last Admin: 01/14/19 15:01 Dose: 1,000 mg Chlorhexidine Gluconate (Hibiclens For Decolonization -) 1 applic TP HS [facility] Last Admin: 01/14/19 21:55 Dose: 1 applic Chlorhexidine Gluconate (Peridex -) 15 ml MM BID [facility] Last Admin: 01/15/19 09:49 Dose: 15 ml Fentanyl (Sublimaze Injection -) 50 mcg IVPUSH [id number] PRN PRN Reason: PAIN-PACU ORDER X 4 DOSES ONLY Heparin Sodium (Porcine) (Heparin -) 1,000 unit IVPUSH PRN PRN PRN Reason: Heparin Heparin Sodium (Porcine) (Heparin -) 5,000 unit IVPUSH PRN PRN PRN Reason: Heparin Piperacillin Sod/Tazobactam (Sod 2.25 gm/ Dextrose) 50 mls @ 100 mls/hr IVPB Q8H-IV [facility]; Protocol Last Admin: 01/15/19 09:49 Dose: 100 mls/hr Sodium Chloride (Normal Saline -) 1,000 mls @ 100 mls/hr IV ASDIR [facility] Last Admin: 01/15/19 09:50 Dose: 100 mls/hr HEPARIN SOD,PORK IN 0.45% NACL (Heparin-1/2ns 25,000 Units/500) 25,000 units in 500 mls @ 20 mls/hr IVPB TITR [facility]; Protocol Last Titration: 01/15/19 07:40 Dose: 550 units/hr, 11 mls/hr Midazolam HCl 100 mg/ Sodium (Chloride) 100 mls @ 1 mls/hr IVPB TITR [facility]; Protocol Last Titration: 01/15/19 07:00 Dose: 1 mg/hr, 1 mls/hr Insulin Aspart (Novolog Vial Sliding Scale -) 1 vial SQ ACHS [facility]; Protocol Last Admin: 01/15/19 10:32 Dose: Not Given Metoprolol Tartrate (Lopressor Injection -) 5 mg IVPUSH Q4H PRN PRN Reason: HYPERTENSION Last Admin: 01/14/19 01:06 Dose: 5 mg Mupirocin (Bactroban Ointment (For Decolonization) -) 1 applic NS BID [facility] Stop: 01/16/19 09:59 Last Admin: 01/15/19 09:55 Dose: 1 applic Ondansetron HCl (Zofran Injection) 4 mg IVPUSH Q6H PRN PRN Reason: NAUSEA AND/OR VOMITING Pantoprazole Sodium (Protonix Iv) 40 mg IVPUSH DAILY [facility] Last Admin: 01/15/19 09:48 Dose: 40 mg Promethazine HCl (Phenergan Injection -) 12.5 mg IVPUSH Q6H PRN PRN Reason: NAUSEA-FOR RESCUE AFTER 15 MIN Gen: Intubated and sedated Heart: irregular, tachycardic Lung: decreased breath sounds at the bases Abd: soft, (+) BS, not distended Ext: RLE is warmer today SHINGLES ROOFER: sedated Laboratory Results - last 24 hr 01/14/19 01/14/19 01/15/19 10:20 16:11 00:45 WBC RBC Hgb Hct MCV MCH MCHC RDW Plt Count MPV PTT (Actin FS) Puncture Site ABG pH ABG pCO2 at Pt Temp ABG pO2 at Pt Temp ABG HCO3 ABG O2 Sat (Measured) ABG O2 Content ABG Base Excess Michel Test O2 Delivery Device Oxygen Flow Rate Vent Mode Vent Rate Mechanical Rate PEEP Pressure Support Vent Sodium Potassium Chloride Carbon Dioxide Anion Gap BUN Creatinine Creat Clearance w eGFR POC Glucometer 162 Random Glucose Lactic Acid Calcium Total Bilirubin AST ALT Alkaline Phosphatase Total Protein Albumin Stool Occult Blood Positive Random Vancomycin 9.0 L 01/15/19 01/15/19 01/15/19 05:30 05:30 05:30 WBC 13.5 H RBC 3.35 L Hgb 10.5 L Hct 30.6 L MCV 91.5 MCH 31.4 MCHC 34.3 RDW 14.2 Plt Count 170 MPV 9.5 PTT (Actin FS) 214.2 H Puncture Site ABG pH ABG pCO2 at Pt Temp ABG pO2 at Pt Temp ABG HCO3 ABG O2 Sat (Measured) ABG O2 Content ABG Base Excess Michel Test O2 Delivery Device Oxygen Flow Rate Vent Mode Vent Rate Mechanical Rate PEEP Pressure Support Vent Sodium Potassium Chloride Carbon Dioxide Anion Gap BUN Creatinine Creat Clearance w eGFR POC Glucometer Random Glucose Lactic Acid Calcium Total Bilirubin AST ALT Alkaline Phosphatase Total Protein Albumin Stool Occult Blood Random Vancomycin 25.7 01/15/19 01/15/19 01/15/19 05:30 05:38 09:10 WBC RBC Hgb Hct MCV MCH MCHC RDW Plt Count MPV PTT (Actin FS) Puncture Site ABG pH ABG pCO2 at Pt Temp ABG pO2 at Pt Temp ABG HCO3 ABG O2 Sat (Measured) ABG O2 Content ABG Base Excess Imchel Test O2 Delivery Device Oxygen Flow Rate Vent Mode Vent Rate Mechanical Rate PEEP Pressure Support Vent Sodium 144 Potassium 4.1 Chloride 115 H Carbon Dioxide 14 L Anion Gap 16 BUN 74 H Creatinine 5.3 H Creat Clearance w eGFR 7.71 POC Glucometer 111 Random Glucose 108 H Lactic Acid 2.4 H* Calcium 7.6 L Total Bilirubin 0.7 AST 157 H ALT 54 Alkaline Phosphatase 76 Total Protein 4.9 L Albumin 1.6 L Stool Occult Blood Random Vancomycin 01/15/19 01/15/19 01/15/19 09:53 10:30 11:15 WBC RBC Hgb Hct MCV MCH MCHC RDW Plt Count MPV PTT (Actin FS) Puncture Site No Result Required. Right radial ABG pH 7.46 H 7.45 ABG pCO2 at Pt Temp 21.0 L 18.8 L* ABG pO2 at Pt Temp 90.6 121.0 H D ABG HCO3 14.7 L* 12.7 L* ABG O2 Sat (Measured) 96.8 98.3 ABG O2 Content 11.0 L 14.4 L ABG Base Excess -7.8 L -9.6 L Michel Test No Result Required. Positive O2 Delivery Device Vent Oxygen Flow Rate No Result Required. 50% Vent Mode A/c Vent Rate 16 Mechanical Rate Yes PEEP 5.0 Pressure Support Vent 400 Sodium Potassium Chloride Carbon Dioxide Anion Gap BUN Creatinine Creat Clearance w eGFR POC Glucometer 132 Random Glucose Lactic Acid Calcium Total Bilirubin AST ALT Alkaline Phosphatase Total Protein Albumin Stool Occult Blood Random Vancomycin ASSESSMENT AND PLAN: Acute on Chronic Renal Failure Hyperkalemia improving ?New Onset Atrial Fibrillation with RVR CAD LV Diastolic Dysfunction r/o Small Bowel Resection HTN Hyperlipidemia Alzheimers - Continue IV Heparin with close following of PTT - Will give low dose feedings and assess - continue antibiotics per ID - Rate control - IVF - Will insert CVC and follow CVP monitoring - monitor urine output, creatinine - surgery follow up noted - O2 to keep Spo2 >90% - Palliative care evaluation for GOC - Requires continued ICU monitoring Dr Barba Critical care time spent in reviewing chart, evaluating patient and formulating plan 35 min
--- NOTE | 2019-01-15 13:09 | PN ---
Progress Note (short form) - Note Progress Note: Anesthesia postop note 83 y/o M s/p GA for LE thrombectomy POD#2, in ICU, still intubated and sedated, multiple medical problems being managed by the icu team. No anesthesia complications.
[2019-01-15] MEDS ORDERED: NOREPINEPHRINE BITARTRATE 4,000 MCG in DEXTROSE 5%-WATER - 496 ML IV SCH (13:45)
--- NOTE | 2019-01-15 13:49 | PROC ---
Central Line Insertion Indication: CVP Monitoring, Vasopressor Risks and Benefits Explained: Yes Consent on Chart: Yes Central Line: Triple Lumen Catheter Anesthesia: 1% Lidocaine Sterile Technique: Yes Ultrasound Guided Assistance: Yes Position: Right Internal Jugular Post Insertion: Yes: Bilateral Breath Sounds, Chest X-Ray Ordered Sterile Dressing Applied: Yes
[2019-01-15] MEDS ORDERED: NOREPINEPHRINE BITARTRATE 4 MG/4 ML ML IV ONE ×2 (13:52→20:09)
[2019-01-15] MEDS ORDERED: SODIUM CHLORIDE 500 ML IV STA ×2 (13:54→14:57)
[2019-01-15] MEDS: NOREPINEPHRINE BITARTRATE 8,000 MCG in DEXTROSE 5%-WATER - 492 ML IV SCH ×2 (14:00→20:17)
--- NOTE | 2019-01-15 14:14 | PN ---
Progress Note (short form) - Note Progress Note: events noted became hypotensive acutley while central line was placed stat cxray pending pressors started Vital Signs Period Temp Pulse Resp BP Sys/Dominguez Pulse Ox Last 24 Hr 98.2 F-102.2 F 96-136 18-32 97-130/50-73 99-99 remains intubated cor-rrr lungs decreased bs at base abd soft,nt ext mottleing of RLE - CBC, BMP 01/15/19 05:30 01/15/19 05:30 Laboratory Tests 01/15/19 05:30 Random Vancomycin 25.7 Microbiology 01/12/19 11:30 Stool Salmonella/Shigella Culture - Final NO GROWTH OF SALMONELLA OR SHIGELLA SPECIES OBTAINED 01/12/19 11:30 Stool Campylobacter Culture - Final NO GROWTH OF CAMPYLOBACTER SPECIES OBTAINED 01/12/19 11:30 Stool Yersinia Culture - Final NO GROWTH OF YERSINIA SPECIES OBTAINED 01/12/19 11:30 Stool Vibrio Culture - Final NO GROWTH OF VIBRIO SPECIES OBTAINED 01/12/19 11:30 Stool Escherichia coli 0157 Culture - Final NO GROWTH OF E COLI 0157 OBTAINED 01/12/19 10:00 Blood - Peripheral Venous Blood Culture - Preliminary NO GROWTH OBTAINED AFTER 72 HOURS, INCUBATION TO CONTINUE FOR 2 DAYS. 01/12/19 10:00 Blood - Peripheral Venous Blood Culture - Preliminary NO GROWTH OBTAINED AFTER 72 HOURS, INCUBATION TO CONTINUE FOR 2 DAYS. 01/14/19 10:20 Blood - Peripheral Venous Blood Culture - Preliminary NO GROWTH OBTAINED AFTER 24 HOURS, INCUBATION TO CONTINUE FOR 4 DAYS. 01/14/19 10:26 Blood - Peripheral Venous Blood Culture - Preliminary NO GROWTH OBTAINED AFTER 24 HOURS, INCUBATION TO CONTINUE FOR 4 DAYS. 01/11/19 19:15 Stool Clostridium difficile Antigen (ZACARIAS) - Final 01/11/19 19:15 Stool Clostridium difficile Toxin Assay - Final 01/11/19 19:15 Stool Salmonella/Shigella Culture - Final NO GROWTH OF SALMONELLA OR SHIGELLA SPECIES OBTAINED 01/11/19 19:15 Stool Campylobacter Culture - Final NO GROWTH OF CAMPYLOBACTER SPECIES OBTAINED 01/11/19 19:15 Stool Yersinia Culture - Final NO GROWTH OF YERSINIA SPECIES OBTAINED 01/11/19 19:15 Stool Vibrio Culture - Final NO GROWTH OF VIBRIO SPECIES OBTAINED 01/11/19 19:15 Stool Escherichia coli 0157 Culture - Final NO GROWTH OF E COLI 0157 OBTAINED 01/13/19 08:57 Stool Clostridium difficile Antigen (ZACARIAS) - Final 01/13/19 08:57 Stool Clostridium difficile Toxin Assay - Final 01/11/19 03:00 Urine - Urine Clean Catch Urine Culture - Final NO GROWTH OBTAINED a/p fevers- now with possible new infiltrate on cxray and hypotension- sputum culture cxray repeat vanco level is 25 ?new pneumonia vanco on board- follow levels start meropenem adjusted for KATYA ivf/pressors per icu team ischemic right leg- s/p open thrombectomy ?fevers due to thrombectomy cytokines?? RLE ischemia-vascular f/u KATYA- worsening afib- on heparine d/w ICU team- management per ICU staff overall prognosis is guarded Problem List - Problems (1) Leukocytosis Code(s): D72.829 - ELEVATED WHITE BLOOD CELL COUNT, UNSPECIFIED (2) ARF (acute renal failure) Code(s): N17.9 - ACUTE KIDNEY FAILURE, UNSPECIFIED Qualifiers: Acute renal failure type: unspecified Qualified Code(s): N17.9 - Acute kidney failure, unspecified (3) Diarrhea Code(s): R19.7 - DIARRHEA, UNSPECIFIED (4) Gallstones Code(s): K80.20 - CALCULUS OF GALLBLADDER W/O CHOLECYSTITIS W/O OBSTRUCTION
[2019-01-15] MEDS ORDERED: MEROPENEM 1 GM in DEXTROSE 5%-WATER 100 ML IVPB ONE (14:30)
--- NOTE | 2019-01-15 14:49 | PN ---
Progress Note, Physician History of Present Illness: Pt seen and examined at bedside. She remains in the ICU. She remains intubated. Pts blood pressure is low and she is getting a central line for pressors. - Current Medication List Current Medications: Active Medications Acetaminophen (Ofirmev Injection -) 1,000 mg IVPB Q6H PRN PRN Reason: PAIN Last Admin: 01/14/19 15:01 Dose: 1,000 mg Chlorhexidine Gluconate (Hibiclens For Decolonization -) 1 applic TP HS [facility] Last Admin: 01/14/19 21:55 Dose: 1 applic Chlorhexidine Gluconate (Peridex -) 15 ml MM BID [facility] Last Admin: 01/15/19 09:49 Dose: 15 ml Fentanyl (Sublimaze Injection -) 50 mcg IVPUSH Q6H PRN PRN Reason: PAIN Stop: 01/16/19 12:44 Last Admin: 01/15/19 12:50 Dose: 50 mcg Heparin Sodium (Porcine) (Heparin -) 1,000 unit IVPUSH PRN PRN PRN Reason: Heparin Heparin Sodium (Porcine) (Heparin -) 5,000 unit IVPUSH PRN PRN PRN Reason: Heparin Sodium Chloride (Normal Saline -) 1,000 mls @ 100 mls/hr IV ASDIR [facility] Last Admin: 01/15/19 14:00 Dose: 100 mls/hr HEPARIN SOD,PORK IN 0.45% NACL (Heparin-1/2ns 25,000 Units/500) 25,000 units in 500 mls @ 20 mls/hr IVPB TITR [facility]; Protocol Last Titration: 01/15/19 14:17 Dose: 0 units/hr, 0 mls/hr Midazolam HCl 100 mg/ Sodium (Chloride) 100 mls @ 1 mls/hr IVPB TITR [facility]; Protocol Last Titration: 01/15/19 07:00 Dose: 1 mg/hr, 1 mls/hr Norepinephrine Bitartrate 8, (000 mcg/ Dextrose) 500 mls @ 18.75 mls/hr IV TITR [facility]; Protocol Last Admin: 01/15/19 14:00 Dose: 5 mcg/min, 18.75 mls/hr Sodium Chloride (Normal Saline -) 500 mls @ 500 mls/hr IV ASDIR [facility] Stop: 01/15/19 14:53 Last Admin: 01/15/19 14:17 Dose: Not Given Meropenem 1 gm/ Dextrose 100 mls @ 200 mls/hr IVPB DAILY [facility] Stop: 01/15/19 14:59 Insulin Aspart (Novolog Vial Sliding Scale -) 1 vial SQ ACHS [facility]; Protocol Last Admin: 01/15/19 10:32 Dose: Not Given Metoprolol Tartrate (Lopressor Injection -) 5 mg IVPUSH Q4H PRN PRN Reason: HYPERTENSION Last Admin: 01/14/19 01:06 Dose: 5 mg Mupirocin (Bactroban Ointment (For Decolonization) -) 1 applic NS BID [facility] Stop: 01/16/19 09:59 Last Admin: 01/15/19 09:55 Dose: 1 applic Ondansetron HCl (Zofran Injection) 4 mg IVPUSH Q6H PRN PRN Reason: NAUSEA AND/OR VOMITING Pantoprazole Sodium (Protonix Iv) 40 mg IVPUSH DAILY [facility] Last Admin: 01/15/19 09:48 Dose: 40 mg Promethazine HCl (Phenergan Injection -) 12.5 mg IVPUSH Q6H PRN PRN Reason: NAUSEA-FOR RESCUE AFTER 15 MIN - Objective Vital Signs: Vital Signs Temperature 101.2 F H 01/15/19 14:00 Pulse Rate 130 H 01/15/19 14:00 Respiratory Rate 32 H 01/15/19 14:05 Blood Pressure 64/38 L 01/15/19 14:00 O2 Sat by Pulse Oximetry (%) 99 01/15/19 09:28 Constitutional: Yes: Calm Eyes: Yes: Conjunctiva Clear Cardiovascular: Yes: Tachycardia, S1, S2 Respiratory: Yes: Mechanically Ventilated Gastrointestinal: Yes: Soft Genitourinary: Yes: Hoskins Present Musculoskeletal: Yes: Muscle Weakness Extremities: Yes: Other (right leg appears mottled) Edema: No Integumentary: Yes: Other (right leg mottling) Neurological: Yes: Lethargy Labs: CBC, BMP 01/15/19 05:30 01/15/19 05:30 INR, PTT INR 1.21 (0.83-1.09) H 01/13/19 13:30 - ....Imaging Chest X-ray: Report Reviewed Problem List - Problems (1) ARF (acute renal failure) Code(s): N17.9 - ACUTE KIDNEY FAILURE, UNSPECIFIED Qualifiers: Acute renal failure type: unspecified Qualified Code(s): N17.9 - Acute kidney failure, unspecified (2) KATYA (acute kidney injury) Code(s): N17.9 - ACUTE KIDNEY FAILURE, UNSPECIFIED (3) Afib Code(s): I48.91 - UNSPECIFIED ATRIAL FIBRILLATION Qualifiers: Atrial fibrillation type: persistent Qualified Code(s): I48.1 - Persistent atrial fibrillation (4) Hyperkalemia Code(s): E87.5 - HYPERKALEMIA Assessment/Plan Current Medications Generic Name Dose Route Start Last Admin Trade Name Freq PRN Reason Stop Dose Admin Acetaminophen 1,000 mg 01/13/19 10:22 01/14/19 15:01 Ofirmev Injection - IVPB 1,000 mg Q6H PRN Administration PAIN Chlorhexidine Gluconate 1 applic 01/11/19 22:00 01/14/19 21:55 Hibiclens For Decolonization - TP 1 applic HS [facility] Administration Chlorhexidine Gluconate 15 ml 01/14/19 11:00 01/15/19 09:49 Peridex - MM 15 ml BID [facility] Administration Fentanyl 50 mcg 01/15/19 12:32 01/15/19 12:50 Sublimaze Injection - IVPUSH 01/16/19 12:44 50 mcg Q6H PRN Administration PAIN Heparin Sodium (Porcine) 1,000 unit 01/13/19 16:57 Heparin - IVPUSH PRN PRN Heparin Heparin Sodium (Porcine) 5,000 unit 01/13/19 16:57 Heparin - IVPUSH PRN PRN Heparin Sodium Chloride 1,000 mls @ 100 mls/hr 01/13/19 14:00 01/15/19 14:00 Normal Saline - IV 100 mls/hr ASDIR [facility] Administration HEPARIN SOD,PORK IN 0.45% NACL 25,000 units in 500 mls @ 20 mls/hr 01/13/19 17 :00 01/15/19 14:17 Heparin-1/2ns 25,000 Units/500 IVPB 0 units/hr TITR [facility] 0 mls/hr Titration Protocol 1,000 UNITS/HR Midazolam HCl 100 mg/ Sodium 100 mls @ 1 mls/hr 01/13/19 17:15 01/15/19 07:00 Chloride IVPB 1 mg/hr TITR [facility] 1 mls/hr Titration Protocol 1 MG/HR Norepinephrine Bitartrate 8, 500 mls @ 18.75 mls/hr 01/15/19 14:00 01/15/19 14:00 000 mcg/ Dextrose IV 5 mcg/min TITR [facility] 18.75 mls/hr Administration Protocol 5 MCG/MIN Sodium Chloride 500 mls @ 500 mls/hr 01/15/19 13:54 01/15/19 14:17 Normal Saline - IV 01/15/19 14:53 Not Given ASDIR STA Meropenem 1 gm/ Dextrose 100 mls @ 200 mls/hr 01/15/19 14:30 IVPB 01/15/19 14:59 DAILY ONE Insulin Aspart 1 vial 01/11/19 16:30 01/15/19 10:32 Novolog Vial Sliding Scale - SQ Not Given ACHS [facility] Protocol Metoprolol Tartrate 5 mg 01/12/19 10:15 01/14/19 01:06 Lopressor Injection - IVPUSH 5 mg Q4H PRN Administration HYPERTENSION Mupirocin 1 applic 01/11/19 10:00 01/15/19 09:55 Bactroban Ointment (For Decolonization) - NS 01/16/19 09:59 1 applic BID [facility] Administration Ondansetron HCl 4 mg 01/13/19 13:54 Zofran Injection IVPUSH Q6H PRN NAUSEA AND/OR VOMITING Pantoprazole Sodium 40 mg 01/13/19 11:15 01/15/19 09:48 Protonix Iv IVPUSH 40 mg DAILY [facility] Administration Promethazine HCl 12.5 mg 01/13/19 13:54 Phenergan Injection - IVPUSH Q6H PRN NAUSEA-FOR RESCUE AFTER 15 MIN Impression 1. CKD 2. a-fib 3. hyperkalemia 4. htn 5. CHF 6. dementia 7. cad 8. hld 9. plueral effusions 10. nausea 11. KATYA 12. hyponatremia 13. right leg ischemia 14. resp failure requiring intubation 15. pna Plan - renal function is worsening - likely katya from hypotension - pt started on pressors - discussed with ICU team - discussed with family - bp meds on hold - abx per ID - will follow
[2019-01-15] MEDS ORDERED: VASOPRESSIN 50 UNITS in SODIUM CHLORIDE 97.5 ML IVPB SCH ×2 (15:45→16:15)
[2019-01-15] MEDS ORDERED: VASOPRESSIN 20 UNITS/ML VIAL IV ONE (15:46)
[2019-01-15] MEDS: HYDROCORTISONE SOD SUCCINATE 100 MG/2 ML VIAL IVPUSH SCH ×2 (16:19→21:30)
[2019-01-15] MEDS ORDERED: SODIUM CHLORIDE 0.45% 500 ML IV ONE (17:00)
[2019-01-15] MEDS: HEPARIN SOD,PORK IN 0.45% NACL 25,000 UNITS/500 ML INFUS.BAG IVPB SCH (17:00)
[2019-01-15] MEDS: ACETAMINOPHEN 1000 MG/100 ML VIAL (NON FORMULARY) IVPB PRN (18:15)
[2019-01-15] MEDS ORDERED: DOPAMINE 400 MG/D5W - 400,000 MCG/250 ML INFUS.BAG IVPB SCH (18:30)
[2019-01-15] MEDS ORDERED: BENZOIN/ALOE VERA/STORAX/TOLU 58 ML BOTTLE ONE (18:45)
--- NOTE | 2019-01-15 19:37 | PN ---
Progress Note (short form) - Note Progress Note: Family at bedside with health care proxy, Lesley, who wants patient DNR and no aggressive measures such as surgeries or procedures. Spoke to Vascular Surgeon, Dr. Vallejo, who states they are not covering and were never informed about the patient from vascular surgeon. Informed Dr. Vallejo that patients family does not want aggressive measures such as surgeries or procedures.
[2019-01-15] MEDS: CHLORHEXIDINE GLUCONATE 4% CLEANSER FOR DECOLONIZATION TP SCH (21:32)
[2019-01-16 00:18] VITALS: BP 70/30; PULSE 52; TEMP 102
--- NOTE | 2019-01-16 00:56 | PN ---
Progress Note (short form) - Note Progress Note: Called to see patient for unresponsiveness. On exam the patient did not respond to verbal or physical stimuli. Absent heart and no spontaneous respirations. Absent peripheral pulses. Pupils are fixed and dilated. Patient pronounced at 23:55. Dr. Lim notified. Next of kin/family Lesley Blackburn notified.
[2019-01-16] MEDS ORDERED: MEROPENEM 500 MG in DEXTROSE 5%-WATER - 100 ML IVPB SCH (03:00)
--- NOTE | 2019-01-16 13:16 | PATH ---
Surgical Pathology Report Patient Name: BRAXTON DWYER Med. Rec. #: [id number] /Age/Gender: 1935 (Age: 83) / F Account: [id number] Location: ICU CARDIOLOGY FELLOW Taken: 01/13/2019 Received: 01/15/2019 Reported: 01/16/2019 Physicians: Tyler Lim M.D. Specimen(s) Received EMBOLUS RIGHT FEMORAL ILIAC ARTERY Clinical History Right lower extremity ischemia Final Diagnosis EMBOLUS, FEMORAL ILIAC ARTERY, RIGHT, OPEN THROMBECTOMY: BLOOD/FIBRIN CLOT. Electronically Signed Nela Matthew M.D. Gross Description Received in formalin labeled "embolus right femoral iliac artery," is a 2.3 x 1.8 x 0.3 cm aggregate of red-brown blood clot. The specimen is submitted in toto in one cassette. /01/15/2019 saudi01/15/2019
== END 2019-01-16 | disposition expired | DRG 710 ==
LOC: JER 19:08 → JERBED 01-11 01:02 → JICU 01-11 04:44
PROVIDERS: ADMIT Internal Medicine Pulmonary Disease; ATTEND Family Medicine
PROC: [UNRECOGNIZED PROCEDURE] (2019-01-13)
PROC: 3E05017 Introduction of Other Thrombolytic into Peripheral Artery, Open Approach (ICD-10-PCS; 2019-01-13)
PROC: 04CK0Z6 (ICD-10-PCS; principal; 2019-01-13 14:00)
PROC: 5A1945Z Respiratory Ventilation, 24-96 Consecutive Hours (ICD-10-PCS; 2019-01-14)
PROC: 0BH17EZ Insertion of Endotracheal Airway into Trachea, Via Natural or Artificial Opening (ICD-10-PCS; 2019-01-14)
PROC: 05HM33Z Insertion of Infusion Device into Right Internal Jugular Vein, Percutaneous Approach (ICD-10-PCS; 2019-01-15)
DX: A41.9 Sepsis, unspecified organism (principal); N17.9 Acute kidney failure, unspecified; D72.829 Elevated white blood cell count, unspecified; R19.7 Diarrhea, unspecified; K80.20 Calculus of gallbladder without cholecystitis without obstruction; E78.5 Hyperlipidemia, unspecified; I13.0 Hypertensive heart and chronic kidney disease with heart failure and stage 1 through stage 4 chronic kidney disease, or unspecified chronic kidney disease; N18.9 Chronic kidney disease, unspecified; I25.10 Atherosclerotic heart disease of native coronary artery without angina pectoris; E87.1 Hypo-osmolality and hyponatremia; J18.9 Pneumonia, unspecified organism; J96.00 Acute respiratory failure, unspecified whether with hypoxia or hypercapnia; G30.9 Alzheimer's disease, unspecified; F02.80 Dementia in other diseases classified elsewhere, unspecified severity, without behavioral disturbance, psychotic disturbance, mood disturbance, and anxiety; K56.7 Ileus, unspecified; R11.2 Nausea with vomiting, unspecified; I99.8 Other disorder of circulatory system; E87.2 Acidosis; R00.1 Bradycardia, unspecified; I95.9 Hypotension, unspecified; I50.33 Acute on chronic diastolic (congestive) heart failure; E87.70 Fluid overload, unspecified; E87.5 Hyperkalemia; I48.1 Persistent atrial fibrillation
CPT/HCPCS: 36415; 36600; 71045-TC-FY; 74018-TC-FY; 74176-TC; 76705-TC; 78226-TC; 80048; 80053; 81003; 81015; 82150; 82272; 82550; 82570; 82803; 82962; 83605; 83690; 83735; 83880; 83930; 83935; 84100; 84300; 84484; 85025; 85027; 85610; 85730; 86850; 86900; 86901; 87040; 87045; 87046; 87070; 87086; 87186; 87205; 87324; 87449; 87899; 88304-TC; 93005; 93010; 93306-TC; 93925-TC; 93926-TC; 93970-TC; 94002; 99283-25; A9537; G0480; J0131; J1644; J7030; Q9967